=== PATIENT | female | born 1940 | race Caucasian/White ===

== ENCOUNTER → 2017-11-21 08:29 | Outpatient (CLI) | payer MEDICARE, SELFPAY ==
[2017-11-21 09:46] LABS: Abs Immature Grans 0.02 k/cumm (0.0-0.09); Absolute Lymphocyte Count 4.04 k/cumm (1.2-3.4); Absolute Monocyte Count 1.08 k/cumm (0.11-0.7); Absolute Neutrophil Count 5.32 k/cumm (1.2-6.7); Basophils % 0.5; Eosinophils % 4.5; HCT 34.3 % (36.0-46.0); HGB 11.9 g/dL (12.0-15.5); Immature Grans % 0.2; Lymphocytes % 36.7; Mean Corp. HGB Concentration 34.7 g/dL (32.0-36.0); Mean Corpuscular Hemoglobin 35.7 pg (27.0-33.0); Mean Platelet Volume 10.9 fL (8.0-11.0); Monocytes % 9.8; Neutrophils % 48.3; Platelet Count 339 x1000/uL (130-400); RBC 3.33 m/cumm (4.00-5.20); RBC Distribution Width 11.8 % (11.7-14.6); White Blood Cell Count 11.01 k/cumm (4.4-10.8)
[2017-11-21 09:49] LABS: Absolute Basophil Count 0.06 k/cumm (0.0-0.2)
[2017-11-21 10:10] LABS: ALT 37 U/L (12-78); AST 30 U/L (15-37); Albumin 3.7 g/dL (3.4-5.0); Alkaline Phosphatase 130 U/L (46-116); Anion Gap 10.8 mmol/L (3-11); BUN 11 mg/dL (7-18); Bilirubin, Total 0.8 mg/dL (0.2-1.0); CO2 24.2 mmol/L (21.0-32.0); CREATININE 1.13 mg/dL (0.55-1.02); Calcium 8.8 mg/dL (8.5-10.1); Chloride 103 mmol/L (98-107); Cholesterol 164 mg/dL (50-200); Estimated GFR 46.82 (mL/min/1.73m2); Glucose 103 mg/dL (70-100); HDL Cholesterol 52 mg/dL (40-60); LDL CHOLESTEROL 69 mg/dL (<100); Potassium 4.1 mmol/L (3.5-5.1); Sodium 138 mmol/L (136-145); Total Protein 7.2 g/dL (6.4-8.2); Triglyceride 253 mg/dL (30-150)
== END ==
PROVIDERS: PCP Nurse Practitioner Family; Visit Provider Nurse Practitioner Family
DX: D53.9 Nutritional anemia, unspecified (principal); N18.9 Chronic kidney disease, unspecified; E78.5 Hyperlipidemia, unspecified
CPT/HCPCS: 36415; 80053; 80061; 83721; 85025

== ENCOUNTER → 2017-11-21 08:37 | Outpatient (REF) | payer MEDICARE, SELFPAY | LOC: LBN 08:37 | PROVIDERS: PCP Nurse Practitioner Family; Visit Provider Nurse Practitioner Family | DX: Z12.11 Encounter for screening for malignant neoplasm of colon (principal); Z53.8 Procedure and treatment not carried out for other reasons | CPT/HCPCS: 82274 ==

== ENCOUNTER 2018-08-19 10:19 | Outpatient (REF) | payer OTHER, SELFPAY ==
[2018-08-19 12:49] LABS: HCT 43.9 % (36.0-46.0); HGB 14.9 g/dL (12.0-15.5); Mean Corp. HGB Concentration 33.9 g/dL (32.0-36.0); Mean Corpuscular Hemoglobin 33.9 pg (27.0-33.0); Mean Corpuscular Volume 99.8 fL (80-95); Mean Platelet Volume 11.2 fL (8.0-11.0); Platelet Count 341 x1000/uL (130-400); RBC Distribution Width 11.8 % (11.7-14.6); White Blood Cell Count 10.78 k/cumm (4.4-10.8)
[2018-08-19 13:07] LABS: ALT 18 U/L (12-78); AST 22 U/L (15-37); Albumin 3.5 g/dL (3.4-5.0); Alkaline Phosphatase 142 U/L (46-116); Anion Gap 7.9 mmol/L (3-11); BUN 13 mg/dL (7-18); Bilirubin, Total 0.5 mg/dL (0.2-1.0); CO2 28.1 mmol/L (21.0-32.0); CREATININE 1.19 mg/dL (0.55-1.02); Calcium 9.5 mg/dL (8.5-10.1); Chloride 102 mmol/L (98-107); Cholesterol 203 mg/dL (50-200); Estimated GFR 43.98 (mL/min/1.73m2); Glucose 109 mg/dL (70-100); HDL Cholesterol 40 mg/dL (40-60); LDL CHOLESTEROL 97 mg/dL (<100); Potassium 4.6 mmol/L (3.5-5.1); Sodium 138 mmol/L (136-145); Total Protein 7.2 g/dL (6.4-8.2); Triglyceride 358 mg/dL (30-150)
== END 2018-08-19 10:39 ==
LOC: LBN 10:19
PROVIDERS: PCP Nurse Practitioner Family; Visit Provider Nurse Practitioner
DX: K52.9 Noninfective gastroenteritis and colitis, unspecified (principal); E78.00 Pure hypercholesterolemia, unspecified; D64.9 Anemia, unspecified; R42 Dizziness and giddiness
CPT/HCPCS: 80053; 80061; 83721; 85027

== ENCOUNTER 2018-08-27 01:04 | Outpatient (CLI) | payer OTHER, SELFPAY ==
--- NOTE | 2018-08-27 06:54 | DI.US_ITS ---
SYMPTOM/DIAGNOSIS: DIZZINESS, R42, HYPERTENSION, VISION CHANGES, NUMBNESS, STROKE, SMOKER, NE, CAROTID BRUIT, HYPERCHOLESTEROLEMIA CAROTID ULTRASOUND: Routine examination. On the right, there is moderate plaque seen in the carotid bulb and mild plaque in the proximal internal carotid artery. No hemodynamically significant velocity elevations are seen on the right. The right vertebral artery is antegrade. There is intimal thickening seen in the common carotid artery on the right. On the left, there is moderate calcific plaque seen in the mid common carotid artery with mild plaque seen in the carotid bulb and proximal internal carotid artery. No hemodynamically significant velocity elevations are seen on the left. The left vertebral artery is antegrade. IMPRESSION: No evidence of hemodynamically significant cervical carotid artery stenosis.
== END 2018-08-27 01:24 ==
PROVIDERS: PCP Nurse Practitioner Family; Visit Provider Nurse Practitioner
DX: I10 Essential (primary) hypertension; R09.89 Other specified symptoms and signs involving the circulatory and respiratory systems; R42 Dizziness and giddiness; F17.200 Nicotine dependence, unspecified, uncomplicated; H53.9 Unspecified visual disturbance
CPT/HCPCS: 93880

== ENCOUNTER 2018-10-26 09:47 | Emergency (ER) | payer OTHER, SELFPAY ==
[2018-10-26] VITALS (30 sets, daily range): BP systolic 137–163; BP diastolic 52–71; PULSE 71–91; RESP 13–25; TEMP 35.9; O2SAT 81–99
--- NOTE | 2018-10-26 09:51 | W.ED.GENAD ---
Discharge Plan Disposition Patient Disposition: HOME Condition: Improving Discharge Details Chief Complaint: Abd Prob Clinical Impression: Gastroenteritis Primary Care Provider: Yolanda Thomas ED Provider: Maya Guzman Home Meds and New Rx's Prescriptions: New ondansetron HCl [Zofran] 4 mg tablet 4 mg PO QID PRN (Reason: nausea and vomiting) Qty: 6 RF: 0 Continued lisinopril 10 mg tablet 10 mg PO DAILY Qty: 30 RF: 5 albuterol sulfate [ProAir HFA] 90 mcg/actuation HFA aerosol inhaler 2 puff Inhalation Q4H PRN Qty: 1 RF: 8 aspirin [Aspir-81] 81 MG tablet,delayed release (DR/EC) 81 mg PO DAILY Qty: 100 RF: 3 Ensure complete DAILY RF: 0 Varicella-Zoster Ge/As01b/Pf [Shingrix Vial Kit] 50 MCG INJ 50 mcg IM ONCE Qty: 1 RF: 1 Discharge Instructions Instructions: Gastroenteritis (ED) Additional Instructions: Drink plenty of fluids and get plenty of rest. Take the Zofran as needed and directed for any further nausea or vomiting. Follow a bland diet for the next few days including bananas, rice, toast, applesauce, crackers or pretzels. Follow-up with your primary care doctor next week for reevaluation. Return immediately to the emergency department if you develop any worsening or new concerning symptoms. Discharge Data Discharge Physician: Maya Guzman Medical Decision Making 78yo F w/ a h/o CVA, HTN, HLD, COPD, CAD, NC with 2 cardiac stents who presents with nausea, vomiting, diarrhea and lower abdominal pain that started this morning 1 hour after eating can of beef stew. Also admits to dizziness and generalized weakness. She is a daily drinker and has 3 beers daily. BP mildly hypertensive 145/72. Normal HR. Afebrile. Pt appears generally weak but nontoxic. She has diffuse abdominal tenderness but worse in upper abdomen. No focal deficits. Differential diagnoses includes gastroenteritis, food related illness, pancreatitis, biliary colic, cholecystitis, appendicitis, diverticulitis, UTI. Denies chest pain, sob and has c/o diarrhea so doubt ACS. No focal deficits and no c/o unilateral symptoms so doubt cva. EKG notes a rate of 74, sinus, left anterior fascicular block, no acute ST-T wave ischemic changes. Will place an iv, bolus ivf, labs, ua, ct abdomen/pelvis and dose of morphine/zofran. 1130 --patient feels much better. She was able to drink 1 bottle of p.o. contrast and does not want to drink anymore. CT change from IV to p.o. contrast due to reduced GFR. White blood cell count 13. Lactate 1.0. Troponin negative. Lipase negative. 1305 --CT notes findings consistent with enteritis and mild proctitis. Patient denies any rectal pain. Chest x-ray negative for acute disease. Patient feels much better and she is requesting to go home. Instructed on the importance of a bland diet for the next few days while symptoms present. Patient was unable to give a stool sample here. She was sent home with a stool kit to bring back to the lab for evaluation. We will send home with a prescription for Zofran. She is instructed to follow-up with the primary care doctor next week for reevaluation and to return here if worse. She was also informed that the urinalysis noted minimal leukocytes and if urine culture results are positive, she will be notified. As patient has no complaint of fever, bloody diarrhea, or urinary symptoms, I do not see an indication for antibiotics for diarrheal illness or UTI at this time. Medical Records Medical records reviewed: Yes I reviewed the patient's medical records. Imaging Data Radiologic Study: Radiologist's impression: XR Chest, 2 Views EXAM DATE/TIME: 10/26/2018 10:16 AM CLINICAL HISTORY: 78 years old, female; Cough; Additional info: R/O pancreatitis/cholelithiasis/cholecystitis. Po contrast only poor renal function. TECHNIQUE: Imaging protocol: XR of the chest, 2 views. COMPARISON: CR CHEST 2 VIEWS PA,LAT 07/20/2015 12:03 PM FINDINGS: Lungs: Stable moderate COPD . Pleural space: Unremarkable. No pleural effusion. No pneumothorax. Heart/Mediastinum: Unremarkable. No cardiomegaly. Vasculature: Calcification of the thoracic aorta and/or great vessels consistent with atherosclerotic vessel disease. Bones/joints: Unremarkable. IMPRESSION: Stable moderate COPD . CT Abdomen and Pelvis Without Contrast EXAM DATE/TIME: 10/26/2018 11:00 AM CLINICAL HISTORY: 78 years old, female; Abdominal pain; Generalized; Patient HX: Diffuse abdomen pain, worse in upper abdomen. ; Additional info: R/O pancreatitis/cholelithiasis/cholecystitis. Po contrast only poor renal function. TECHNIQUE: Imaging protocol: Axial computed tomography images of the abdomen and pelvis without contrast. Coronal and sagittal reformatted images were created and reviewed. Radiation optimization: All CT scans at this facility use at least one of these dose optimization techniques: automated exposure control; mA and/or kV adjustment per patient size (includes targeted exams where dose is matched to clinical indication); or iterative reconstruction. COMPARISON: CT ABD PELVIS WO CONTRAST 10/29/2015 11:29 AM FINDINGS: Lungs: Mild left basilar atelectasis and/or infiltrate and/or scarring. Liver: Normal. No mass. Gallbladder and bile ducts: Normal. No calcified stones. No ductal dilation. Pancreas: Normal. No ductal dilation. Spleen: Normal. No splenomegaly. Adrenals: Normal. No mass. Kidneys and ureters: Normal. No hydronephrosis. Stomach and bowel: Moderate diverticulosis. Bowel wall thickening in the rectum consistent with mild proctitis. Bowel wall thickening in duodenum and jejunal loops consistent with proximal enteritis. Appendix: No evidence of appendicitis. Intraperitoneal space: Normal. No free air. No significant fluid collection. Vasculature: Calcification of the abdominal aorta and/or iliac arteries consistent with atherosclerotic vessel disease. Severe calcified peripheral vascular disease. Lymph nodes: Normal. No enlarged lymph nodes. Bladder: Unremarkable as visualized. Reproductive: Unremarkable as visualized. Bones/joints: Moderate to severe multilevel spine degenerative changes including degenerative disc disease, spondylosis and facet degenerative changes. Moderate L4-5 central spinal stenosis. Multilevel central spinal stenosis. Soft tissues: Unremarkable. IMPRESSION: 1. Mild left basilar atelectasis and/or infiltrate and/or scarring. 2. Bowel wall thickening in the rectum consistent with mild proctitis. 3. Bowel wall thickening in duodenum and jejunal loops consistent with proximal enteritis. Lab Data Lab results reviewed: Yes I reviewed the patient's lab results. 10/26/18 12:11 Urine - Reflex from Ua Urine Culture - Pending Laboratory Tests Range/Units 10/26/18 10/26/18 10/26/18 09:50 09:50 10:52 WBC (4.4-10.8) k/cumm 13.76 H RBC (4.00-5.20) m/cumm 4.54 Hgb (12.0-15.5) g/dL 16.0 H Hct (36.0-46.0) % 45.8 MCV (80-95) fL 100.9 H MCH (27.0-33.0) pg 35.2 H MCHC (32.0-36.0) g/dL 34.9 RDW (11.7-14.6) % 12.4 Plt Count (130-400) x1000/uL 428 H MPV (8.0-11.0) fL 10.3 Immature Gran % 0.4 Neutrophils % 52.9 Lymphocytes % 35.5 Monocytes % 7.1 Eosinophils % 3.6 Basophils % 0.5 Absolute Neutrophils (1.2-6.7) k/cumm 7.28 H Absolute Lymphocytes (1.2-3.4) k/cumm 4.88 H Absolute Monocytes (0.11-0.7) k/cumm 0.98 H Absolute Eosinophils (0.0-0.7) k/cumm 0.50 Absolute Basophils (0.0-0.2) k/cumm 0.07 Sodium (136-145) mmol/L 134 L Potassium (3.5-5.1) mmol/L 4.2 Chloride (98-107) mmol/L 98 Carbon Dioxide (21.0-32.0) mmol/L 24.7 Anion Gap (3-11) mmol/L 11.3 H BUN (7-18) mg/dL 17 Creatinine (0.55-1.02) mg/dL 1.35 H Estimated GFR/1.73 m2 (mL/min/1.73m2) 38.03 Glucose (70-100) mg/dL 145 H Lactate (0.6-1.4) mmol/l 1.0 Calcium (8.5-10.1) mg/dL 9.0 Magnesium (1.8-2.4) mg/dL 2.3 Total Bilirubin (0.2-1.0) mg/dL 0.5 AST (15-37) U/L 17 ALT (12-78) U/L 17 Alkaline Phosphatase (46-116) U/L 120 H Troponin I (0.00-0.06) ng/mL < 0.05 Total Protein (6.4-8.2) g/dL 7.2 Albumin (3.4-5.0) g/dL 3.4 Lipase (73-393) U/L 134 Urine Color (Yellow) Urine Clarity (Clear) Urine pH (5-8) Ur Specific [place] (1.005-1.025) Urine Protein (Negative) mg/dL Urine Ketones (Negative) mg/dL Urine Blood (Negative) Urine Nitrite (Negative) Urine Bilirubin (Negative) Urine Urobilinogen (Up TO 0.2) EU/dL Ur Leukocyte Esterase (Negative) Urine RBC (0-2) Urine WBC (0-5) HPF Ur Epithelial Cells (Negative) HPF Urine Crystals (Negative) HPF Urine Bacteria (Negative) HPF Urine Casts (Negative) LPF Urine Mucus (Negative) Ur Culture Indicated? Urine Glucose (Negative) mg/dL Range/Units 10/26/18 12:11 WBC (4.4-10.8) k/cumm RBC (4.00-5.20) m/cumm Hgb (12.0-15.5) g/dL Hct (36.0-46.0) % MCV (80-95) fL MCH (27.0-33.0) pg MCHC (32.0-36.0) g/dL RDW (11.7-14.6) % Plt Count (130-400) x1000/uL MPV (8.0-11.0) fL Immature Gran % Neutrophils % Lymphocytes % Monocytes % Eosinophils % Basophils % Absolute Neutrophils (1.2-6.7) k/cumm Absolute Lymphocytes (1.2-3.4) k/cumm Absolute Monocytes (0.11-0.7) k/cumm Absolute Eosinophils (0.0-0.7) k/cumm Absolute Basophils (0.0-0.2) k/cumm Sodium (136-145) mmol/L Potassium (3.5-5.1) mmol/L Chloride (98-107) mmol/L Carbon Dioxide (21.0-32.0) mmol/L Anion Gap (3-11) mmol/L BUN (7-18) mg/dL Creatinine (0.55-1.02) mg/dL Estimated GFR/1.73 m2 (mL/min/1.73m2) Glucose (70-100) mg/dL Lactate (0.6-1.4) mmol/l Calcium (8.5-10.1) mg/dL Magnesium (1.8-2.4) mg/dL Total Bilirubin (0.2-1.0) mg/dL AST (15-37) U/L ALT (12-78) U/L Alkaline Phosphatase (46-116) U/L Troponin I (0.00-0.06) ng/mL Total Protein (6.4-8.2) g/dL Albumin (3.4-5.0) g/dL Lipase (73-393) U/L Urine Color (Yellow) Yellow Urine Clarity (Clear) Clear Urine pH (5-8) 6.0 Ur Specific [place] (1.005-1.025) 1.015 Urine Protein (Negative) mg/dL 30 H Urine Ketones (Negative) mg/dL Negative Urine Blood (Negative) Trace-lysed H Urine Nitrite (Negative) Negative Urine Bilirubin (Negative) Negative Urine Urobilinogen (Up TO 0.2) EU/dL 0.2 Ur Leukocyte Esterase (Negative) Negative Urine RBC (0-2) 0-2 Urine WBC (0-5) HPF 3-5 Ur Epithelial Cells (Negative) HPF Few Urine Crystals (Negative) HPF Negative Urine Bacteria (Negative) HPF Negative Urine Casts (Negative) LPF 3-5 coarse granular Urine Mucus (Negative) Trace Ur Culture Indicated? Yes Urine Glucose (Negative) mg/dL Negative ECG Data Attestation: I personally reviewed and interpreted this ECG (s) as follows: Interpretation: Rate of 74, sinus, left anterior fascicular block. T wave inversion in aVL. No acute ST elevation or depression. QTc 442. QRS 98. HPI General Mode of arrival: wheelchair. Date/Time Provider Initiated Documentation: 10/26/18 09:48. Limitations to Documentation: no limitations. Information obtained by: patient and family. HPI Narrative: Patient is a 78-year-old female with a history of CVA, hypertension, hyperlipidemia, COPD, CAD, NC with 2 cardiac stents who presents with vomiting, diarrhea and abdominal pain that started 1 hour ago. Patient states she awoke at 6 AM and felt fine. She states for breakfast she drank a can of Pepsi and cooked up a can of beef stew. She states she purchased the can of beef stew 1 month ago from the grocery store. She states since the onset of symptoms she vomited twice which consisted mainly of food, and her diarrhea occurred twice which was watery brown. She denies any hematemesis or hematochezia. Last episode of vomiting and diarrhea was at home prior to arrival. She states her abdominal pain is lower, stabbing and sharp and currently 5/10 but denies any radiation of pain. She also admits to generalized weakness and dizziness but denies fever, chest pain, sob, urinary symptoms, recent antibiotics, recent travel, headache. Related Data Home Medications Medication Instructions Recorded Confirmed aspirin [Aspir-81] 81 mg PO DAILY #100 tab 12/28/15 10/26/18 Ensure Complete DAILY 12/26/16 09/05/18 albuterol sulfate HFA 90 2 puff INHALATION Q4H PRN #1 08/19/18 10/26/18 mcg/actuation aerosol inhaler inhaler lisinopril 10 mg tablet 10 mg PO DAILY #30 tab 08/19/18 10/26/18 ondansetron HCl [Zofran] 4 mg PO QID PRN #6 tab 10/26/18 Previous Rx's Medication Instructions Recorded albuterol sulfate HFA 90 2 puff INHALATION Q4H PRN #1 08/19/18 mcg/actuation aerosol inhaler inhaler lisinopril 10 mg tablet 10 mg PO DAILY #30 tab 08/19/18 ondansetron HCl [Zofran] 4 mg PO QID PRN #6 tab 10/26/18 Allergies Allergy/AdvReac Type Severity Reaction Status Date / Time hydrochlorothiazide AdvReac Intermediate dizziness Unverified 10/26/18 09:55 metoprolol AdvReac Intermediate not Unverified 10/26/18 09:55 tolerated nitroglycerin AdvReac Intermediate pounding Unverified 10/26/18 09:55 heart Review of Systems Review of Systems All systems reviewed & are unremarkable except as noted in HPI and below Constitutional Reports as per HPI, Denies chills and Denies fever(s) Eyes Denies blurry vision ENT Denies dizziness, Denies sore throat and Denies throat swelling Cardiovascular Denies chest pain and Denies dyspnea Respiratory Denies cough and Denies dyspnea Gastrointestinal Reports abdominal pain, Reports diarrhea and Reports vomiting Genitourinary Denies hematuria and Denies dysuria Musculoskeletal Denies back pain and Denies numbness Integumentary/Breasts Denies lesions and Denies rash Neurologic Denies dizziness, Denies focal weakness and Denies numbness Allergic/Immunologic Denies throat swelling PFSH Medical History CVA (cerebral vascular accident) (Chronic) ASCVD (arteriosclerotic cardiovascular disease) HLD (hyperlipidemia) HTN (hypertension) Tobacco use disorder Surgical History History of coronary artery stent placement (Chronic) Endoscopy (03/18/13) Family History Mother Stroke Father Stomach cancer Brother No problems noted. Other Diabetes Social History Smoking/Tobacco Use Status: Current every day Tobacco Type: cigarettes Alcohol Intake: current Alcohol Intake frequency: 3 or more drinks per day Drug use: Never Do you feel safe at home: Yes Do you feel safe in your relationship?: Yes Exam Const General: cooperative, healthy appearing and no acute distress HENMT Head: normal to inspection Face and sinus: normal facial exam Eyes General: appearance normal, both eyes and all related structures Pupils: PERRL EOM: EOM intact bilaterally Neck Neck: normal visual inspection and No submandibular swelling Lymphatic: no lymphadenopathy noted Chest Chest: normal inspection of the chest and no tenderness Resp Effort & Inspection: normal respiratory effort and able to speak in complete sentences Auscultation: clear to auscultation bilaterally Cardio Rate: regular rate Rhythm: regular rhythm GI Inspection: normal to inspection and no abdominal wall ecchymosis Palpation: soft, not firm, not rigid and tender (diffusely, worse in LUQ/RUQ) Auscultation: hypoactive bowel sounds Back/Spine/Pelvis Back: no CVA tenderness Thoracic/Lumbar Spine: thoracic and lumbar spine normal to inspection Pelvis: no pain with anterior-posterior compression Skin General skin exam: no rashes or lesions noted Neuro General: alert, awake and oriented x3 Cranial Nerves: CN's II-XI intact bilaterally Cognition: normal cognition Speech: speech normal Motor: muscle tone normal throughout and strength 5/5 throughout Sensory Exam: no sensory deficits noted Extrem General: normal to inspection, full ROM, normal capillary refill, no calf tenderness bilaterally and no edema Psych Appearance: grossly normal Mental Status: mental status grossly normal Speech and Movement: speech and movement normal Affect: normal affect
--- NOTE | 2018-10-26 10:14 | DI.RAD_ITS ---
SYMPTOM/DIAGNOSIS: COUGH, NAUSEA PA AND LATERAL CHEST: The heart is not enlarged. There are changes of COPD and pulmonary scarring. No gross interval change in appearance in comparison with most recent chest film of 07/20/15 except for decreased prominence of a questionable right apical nodule seen at that time. No pleural effusion is seen. No evidence of new consolidation. CONCLUSION: No evidence of acute process.
[2018-10-26] MEDS: Ondansetron 4 MG/2 ML VIAL IVP (10:22)
[2018-10-26] MEDS: Normal Saline 250 ML IV (10:23)
[2018-10-26 10:25] LABS: Abs Immature Grans 0.05 k/cumm (0.0-0.09); Absolute Basophil Count 0.07 k/cumm (0.0-0.2); Absolute Monocyte Count 0.98 k/cumm (0.11-0.7); Basophils % 0.5; Eosinophils % 3.6; HCT 45.8 % (36.0-46.0); Immature Grans % 0.4; Lymphocytes % 35.5; Mean Corp. HGB Concentration 34.9 g/dL (32.0-36.0); Mean Corpuscular Hemoglobin 35.2 pg (27.0-33.0); Mean Corpuscular Volume 100.9 fL (80-95); Mean Platelet Volume 10.3 fL (8.0-11.0); Monocytes % 7.1; Neutrophils % 52.9; Platelet Count 428 x1000/uL (130-400); RBC 4.54 m/cumm (4.00-5.20); RBC Distribution Width 12.4 % (11.7-14.6); White Blood Cell Count 13.76 k/cumm (4.4-10.8)
[2018-10-26 10:27] LABS: Absolute Lymphocyte Count 4.88 k/cumm (1.2-3.4); Absolute Neutrophil Count 7.28 k/cumm (1.2-6.7)
[2018-10-26 10:53] LABS: Albumin 3.4 g/dL (3.4-5.0); Alkaline Phosphatase 120 U/L (46-116); Anion Gap 11.3 mmol/L (3-11); BUN 17 mg/dL (7-18); Bilirubin, Total 0.5 mg/dL (0.2-1.0); CO2 24.7 mmol/L (21.0-32.0); CREATININE 1.35 mg/dL (0.55-1.02); Chloride 98 mmol/L (98-107); Estimated GFR 38.03 (mL/min/1.73m2); Glucose 145 mg/dL (70-100); Lipase 134 U/L (73-393); Magnesium 2.3 mg/dL (1.8-2.4); Potassium 4.2 mmol/L (3.5-5.1); Sodium 134 mmol/L (136-145); Total Protein 7.2 g/dL (6.4-8.2)
[2018-10-26 10:54] LABS: Troponin I < 0.05 ng/mL (0.00-0.06)
[2018-10-26 11:03] LABS: ALT 17 U/L (12-78); AST 17 U/L (15-37)
--- NOTE | 2018-10-26 11:31 | NUR.NOTE ---
Nursing Note: pt resting in bed, no signs of distress. facial expression and body language relaxed. pt reports that her symptoms have completely resolved. Pt able to to tolerate one bottle of contrast. Pt reports that she refuses to drink the second bottle of contrast. No episode of vomiting since admission to ED. notified.
--- NOTE | 2018-10-26 11:51 | DI.CT_ITS ---
SYMPTOM/DIAGNOSIS: DIFFUSE ABD PAIN, WORSE IN UPPER ABDOMEN ABDOMINAL AND PELVIC CT: 10/26 CT examination of the abdomen and pelvis was performed with oral contrast only. Images obtained through the lung bases show areas of bronchiectasis and reticular radiodensities consistent with fibrotic change in the left lung base. A 5 mm triangular right middle lobe intrapulmonary nodule is noted which is unchanged in appearance in comparison with the chest CT of 10/22/2015. The left basilar findings are less prominent than on the previous examination. The liver and spleen are unremarkable in appearance. Abdominal aorta is of normal diameter. Pancreas appears normal. Gallbladder and bile ducts are CT normal. Adrenals and kidneys are unremarkable bilaterally. No urinary tract obstruction or calcification. No significant abdominal wall hernia. No significant abdominal or pelvic adenopathy. MATERIAL LOADER structures ae unremarkable for age. There is bowel wall thickening involving duodenum and proximal jejunum. There is a question of rectal wall thickening. The findings are consistent with proctitis and a proximal enteritis. CONCLUSION: Findings raising the possibility of proctitis and of a proximal small bowel enteritis. Please correlate clinically.
[2018-10-26 12:16] LABS: Bilirubin Negative (Negative); Blood Trace-lysed (Negative); Clarity Clear (Clear); Glucose Negative (Negative); Ketones Negative (Negative); Leukocyte Esterase Negative (Negative); Nitrite Negative (Negative); Specific Gravity 1.015 (1.005-1.025); Urobilinogen 0.2 EU/dL (Up TO 0.2)
--- NOTE | 2018-10-26 12:25 | DI.VRAD_ITS ---
EXAM: CT Abdomen and Pelvis Without Contrast EXAM DATE/TIME: 10/26/2018 11:00 AM CLINICAL HISTORY: 78 years old, female; Abdominal pain; Generalized; Patient HX: Diffuse abdomen pain, worse in upper abdomen. ; Additional info: R/O pancreatitis/cholelithiasis/cholecystitis. Po contrast only poor renal function. TECHNIQUE: Imaging protocol: Axial computed tomography images of the abdomen and pelvis without contrast. Coronal and sagittal reformatted images were created and reviewed. Radiation optimization: All CT scans at this facility use at least one of these dose optimization techniques: automated exposure control; mA and/or kV adjustment per patient size (includes targeted exams where dose is matched to clinical indication); or iterative reconstruction. COMPARISON: CT ABD PELVIS WO CONTRAST 10/29/2015 11:29 AM FINDINGS: Lungs: Mild left basilar atelectasis and/or infiltrate and/or scarring. Liver: Normal. No mass. Gallbladder and bile ducts: Normal. No calcified stones. No ductal dilation. Pancreas: Normal. No ductal dilation. Spleen: Normal. No splenomegaly. Adrenals: Normal. No mass. Kidneys and ureters: Normal. No hydronephrosis. Stomach and bowel: Moderate diverticulosis. Bowel wall thickening in the rectum consistent with mild proctitis. Bowel wall thickening in duodenum and jejunal loops consistent with proximal enteritis. Appendix: No evidence of appendicitis. Intraperitoneal space: Normal. No free air. No significant fluid collection. Vasculature: Calcification of the abdominal aorta and/or iliac arteries consistent with atherosclerotic vessel disease. Severe calcified peripheral vascular disease. Lymph nodes: Normal. No enlarged lymph nodes. Bladder: Unremarkable as visualized. Reproductive: Unremarkable as visualized. Bones/joints: Moderate to severe multilevel spine degenerative changes including degenerative disc disease, spondylosis and facet degenerative changes. Moderate L4-5 central spinal stenosis. Multilevel central spinal stenosis. Soft tissues: Unremarkable. IMPRESSION: 1. Mild left basilar atelectasis and/or infiltrate and/or scarring. 2. Bowel wall thickening in the rectum consistent with mild proctitis. 3. Bowel wall thickening in duodenum and jejunal loops consistent with proximal enteritis. Dictated and Authenticated by: Davidson Maier MD. Ordering:[email or web address] Trejo MD
--- NOTE | 2018-10-26 12:25 | DI.VRAD_ITS ---
EXAM: XR Chest, 2 Views EXAM DATE/TIME: 10/26/2018 10:16 AM CLINICAL HISTORY: 78 years old, female; Cough; Additional info: R/O pancreatitis/cholelithiasis/cholecystitis. Po contrast only poor renal function. TECHNIQUE: Imaging protocol: XR of the chest, 2 views. COMPARISON: CR CHEST 2 VIEWS PA,LAT 07/20/2015 12:03 PM FINDINGS: Lungs: Stable moderate COPD . Pleural space: Unremarkable. No pleural effusion. No pneumothorax. Heart/Mediastinum: Unremarkable. No cardiomegaly. Vasculature: Calcification of the thoracic aorta and/or great vessels consistent with atherosclerotic vessel disease. Bones/joints: Unremarkable. IMPRESSION: Stable moderate COPD . Dictated and Authenticated by: Davidson Maier MD. Ordering:ЕКАТЕРИНА Trejo MD
[2018-10-26 12:34] LABS: Bacteria Negative HPF (Negative); Crystals Negative HPF (Negative); Epithelial Cells Few HPF (Negative); Mucus Trace (Negative); RBC 0-2 (0-2)
[2018-10-26 12:36] LABS: C & S Indicated? Yes; Casts 3-5 Coarse Granular LPF (Negative)
== END 2018-10-26 13:24 | disposition home or self-care (01) ==
PROVIDERS: Emergency Provider Physician Assistant; PCP Nurse Practitioner
DX: K52.9 Noninfective gastroenteritis and colitis, unspecified (principal); I25.10 Atherosclerotic heart disease of native coronary artery without angina pectoris; I44.4 Left anterior fascicular block; I10 Essential (primary) hypertension; J44.9 Chronic obstructive pulmonary disease, unspecified; F17.210 Nicotine dependence, cigarettes, uncomplicated; Z95.5 Presence of coronary angioplasty implant and graft
CPT/HCPCS: 36415; 80053; 83690; 87046; 87505; 93005; 96361; 96374; 96375; 99285; 71046; 74176; 81003; 81015; 83605; 83735; 84484; 85025; 87086; 93010; J2405

== ENCOUNTER → 2019-01-13 12:03 | Outpatient (REF) | payer OTHER, SELFPAY ==
[2019-01-13 13:24] LABS: Anion Gap 8.9 mmol/L (3-11); BUN 13 mg/dL (7-18); CO2 26.1 mmol/L (21.0-32.0); CREATININE 1.13 mg/dL (0.55-1.02); Calcium 9.1 mg/dL (8.5-10.1); Chloride 103 mmol/L (98-107); Estimated GFR 46.69 (mL/min/1.73m2); Glucose 111 mg/dL (70-100); Potassium 4.5 mmol/L (3.5-5.1); Sodium 138 mmol/L (136-145)
== END ==
LOC: LBN 12:03
PROVIDERS: PCP Nurse Practitioner; Visit Provider Nurse Practitioner
DX: I10 Essential (primary) hypertension (principal); N18.9 Chronic kidney disease, unspecified
CPT/HCPCS: 80048

== ENCOUNTER 2020-09-29 02:42 | Outpatient (CLI) | payer MEDICARE, SELFPAY ==
[2020-09-29 09:08] LABS: HGB 13.5 g/dL (11.2-15.7); MCH 34.9 pg (27.0-33.0); MCHC 34.6 % (32.0-36.0); MCV 100.8 fL (80-95); MPV 10.6 fL (8.0-11.0); Platelet Count 357 10^3/uL (130-400); RBC 3.87 10^6/uL (3.93-5.22); RDW 11.8 % (11.7-14.6); RDW-SD 43.4 fL; WBC 11.81 10^3/uL (4.4-10.8)
[2020-09-29 10:37] LABS: ALT 19 U/L (14-59); AST 14 U/L (15-37); Albumin 3.6 g/dL (3.4-5.0); Alkaline Phosphatase 132 U/L (46-116); Anion Gap 11.2 mmol/L (3-11); BUN 19 mg/dL (7-18); Bilirubin, Total 0.6 mg/dL (0.2-1.0); CO2 24.8 mmol/L (21.0-32.0); CREATININE 1.3 mg/dL (0.55-1.02); Calculated LDL 92 mg/dL (<100); Chloride 102 mmol/L (98-107); Cholesterol 204 mg/dL (<200); Estimated GFR 39.51 (mL/min/1.73m2); Glucose 113 mg/dL (74-106); HDL Cholesterol 40 mg/dL (40-60); Potassium 4.1 mmol/L (3.5-5.1); Sodium 138 mmol/L (136-145); Total Protein 7.1 g/dL (6.4-8.2); Triglyceride 360 mg/dL (<150)
== END 2020-09-29 02:43 | disposition home or self-care (01) ==
LOC: LBO 02:43
PROVIDERS: PCP Nurse Practitioner; Visit Provider Nurse Practitioner
DX: E78.5 Hyperlipidemia, unspecified (principal); N18.9 Chronic kidney disease, unspecified; J44.9 Chronic obstructive pulmonary disease, unspecified
CPT/HCPCS: 36415; 80053; 80061; 85027

== ENCOUNTER 2021-01-10 08:59 | Outpatient (CLI) | payer MEDICARE, SELFPAY ==
--- NOTE | 2021-01-10 08:45 | RT.EKG_ITS ---
APPROVED REPORT Exam: Resting ECG Reason for Exam: Dizziness Patient Location: O HR:92 bpm ECG Measurements Heart Rate 92 AXIS NE 185 P 73 QRSd 103 QRS 10 QT 358 T -84 QTc 443 Conclusion Sinus rhythm...normal P axis, V-rate 60- 99 Probable left atrial enlargement...P >50mS, <-0.10mV V1 Low voltage, extremity leads...all extremity leads <0.5mV Anteroseptal infarct, old...Q >40mS, V1-V2
== END 2021-01-10 09:00 | disposition home or self-care (01) ==
LOC: DI.KIM 09:00
PROVIDERS: PCP Nurse Practitioner; Visit Provider Nurse Practitioner
DX: R42 Dizziness and giddiness (principal)
CPT/HCPCS: 93010

== ENCOUNTER 2021-01-10 18:32 | Outpatient (REF) | payer MEDICARE, SELFPAY ==
[2021-01-10 16:52] LABS: Abs Immature Grans 0.04 10^3/uL (0.0-0.06); Absolute Basophil Count 0.06 10^3/uL (0.0-0.2); Absolute Lymphocyte Count 2.61 10^3/uL (1.2-3.4); Absolute Monocyte Count 0.98 10^3/uL (0.1-0.8); Absolute Neutrophil Count 7.56 10^3/uL (1.2-6.7); Basophils % 0.5; Eosinophils % 0.9; HCT 38.7 % (36.0-46.0); HGB 12.9 g/dL (11.2-15.7); Immature Grans % 0.4; MCH 34.1 pg (27.0-33.0); MCHC 33.3 % (32.0-36.0); MCV 102.4 fL (80-95); MPV 12.2 fL (8.0-11.0); Monocytes % 8.6; Neutrophils % 66.6; Nucleated RBC 0 %; Platelet Count 349 10^3/uL (130-400); RBC 3.78 10^6/uL (3.93-5.22); RDW 11.9 % (11.7-14.6); RDW-SD 44.8 fL; WBC 11.35 10^3/uL (4.4-10.8)
[2021-01-10 17:08] LABS: Hemoglobin A1C 5.7 % (<5.7)
[2021-01-10 17:16] LABS: ALT 21 U/L (14-59); AST 16 U/L (15-37); Albumin 3.7 g/dL (3.4-5.0); Alkaline Phosphatase 130 U/L (46-116); Anion Gap 10.5 mmol/L (3-11); BUN 17 mg/dL (7-18); Bilirubin, Total 0.5 mg/dL (0.2-1.0); CO2 27.5 mmol/L (21.0-32.0); CREATININE 1.1 mg/dL (0.55-1.02); Chloride 103 mmol/L (98-107); Estimated GFR 47.91 (mL/min/1.73m2); Ferritin 259 ng/mL (8-252); Glucose 140 mg/dL (74-106); Potassium 3.9 mmol/L (3.5-5.1); Sodium 141 mmol/L (136-145); TSH (W/Ref FT4) 1.69 uIU/mL (0.36-3.74); Total Protein 7.2 g/dL (6.4-8.2)
== END 2021-01-10 18:33 | disposition home or self-care (01) ==
LOC: LBN 18:32
PROVIDERS: PCP Nurse Practitioner; Referring Provider Nurse Practitioner; Visit Provider Nurse Practitioner
DX: I10 Essential (primary) hypertension (principal); R42 Dizziness and giddiness; E11.9 Type 2 diabetes mellitus without complications
CPT/HCPCS: 80053; 82728; 83036; 84443; 85025

== ENCOUNTER 2021-01-31 15:54 | Outpatient (REF) | payer MEDICARE, SELFPAY ==
[2021-02-02 15:35] LABS: COVID-19 RT-PCR UVMMC Result Negative (Negative)
== END 2021-01-31 15:55 | disposition home or self-care (01) ==
LOC: LBN 15:54
PROVIDERS: PCP Nurse Practitioner; Visit Provider Nurse Practitioner
DX: Z20.822 Contact with and (suspected) exposure to COVID-19 (principal); R06.02 Shortness of breath; R09.89 Other specified symptoms and signs involving the circulatory and respiratory systems
CPT/HCPCS: U0003

== ENCOUNTER → 2021-01-31 17:14 | Outpatient (CLI) | payer MEDICARE, SELFPAY ==
--- NOTE | 2021-01-31 15:15 | DI.RAD_ITS ---
Exam(s) XR CHEST 2V PA LATERAL EXAM: XR CHEST 2V PA LATERAL CLINICAL HISTORY: SOB for 2-3 wks, abnl lung sounds, R06.02, R09.89 TECHNIQUE: COMPARISON: CR XR CHEST 2V PA LATERAL from 10/26/2018 FINDINGS: Heart is not enlarged. Lungs appear hyperinflated but generally clear except for some changes of sca rring. No gross interval change in appearance comparison examination of October 2018. No pleural effus ion seen. IMPRESSION: COPD and pulmonary scarring, no evidence of acute process. RADIATION DOSE DELIVERED: Total DLP
== END ==
PROVIDERS: PCP Nurse Practitioner; Visit Provider Nurse Practitioner
DX: R06.02 Shortness of breath (principal); R09.89 Other specified symptoms and signs involving the circulatory and respiratory systems; J44.9 Chronic obstructive pulmonary disease, unspecified
CPT/HCPCS: 71046

== ENCOUNTER 2021-08-26 11:41 | Emergency (ER) | payer MEDICARE, SELFPAY ==
[2021-08-26] VITALS (26 sets, daily range): BP systolic 110–143; BP diastolic 55–96; PULSE 91–107; RESP 14–26; TEMP 36.6; O2SAT 92–100
--- NOTE | 2021-08-26 11:45 | RT.EKG_ITS ---
APPROVED REPORT Exam: Resting ECG Reason for Exam: DIZZINESS Patient Location: E HR:90 bpm ECG Measurements Heart Rate 90 AXIS MS 183 P 48 QRSd 108 QRS -18 QT 375 T 33 QTc 460 Conclusion Sinus rhythm. Probable left atrial enlargement. InferioQ >35mS, II III aVF Anteroseptal Q >40mS Nonspecific st changes
--- NOTE | 2021-08-26 12:00 | DI.RAD_ITS ---
Exam(s) XR PORTABLE CHEST AP EXAM: XR PORTABLE CHEST AP CLINICAL HISTORY: SOB, COPD, PUI. TECHNIQUE: 2D digital imaging was performed. COMPARISON: CR XR CHEST 2V PA LATERAL from 10/26/2018 CR XR CHEST 2V PA LATERAL from 01/31/2021 FINDINGS: Single AP portable view. Heart size is upper normal. The mediastinum is not widened. Increased markings in left lower lobe retrocardiac region have the appearance of vascular markings bu t somewhat more prominent than on the prior January 2021 study. However, without significant change compared to October 2018. Mild increased markings in the lateral left lung base. No pleural effusions. No pneumothorax IMPRESSION: Subtle left lung base findings, possibly early infiltrate. DATA REPOSITORY: RADIATION DOSE DELIVERED: All CT scans at this facility use at least one of these dose optimization techniques: automated exposure control; mA and/or kV adjustment per patient size (includes targeted e xams where dose is matched to clinical indication); or iterative reconstruction.
--- NOTE | 2021-08-26 12:09 | W.ED.GENAD ---
Discharge Plan Disposition Patient Disposition: HOME Condition: Improving Discharge Details Clinical Impression: Acute dehydration, COVID-19 Primary Care Provider: Yolanda Thomas ED Provider: Romaine Briseno Home Meds and New Rx's Prescriptions: Continued cyanocobalamin (vitamin B-12) [Vitamin B-12] 500 mcg tablet 500 mcg PO DAILY 0RF amlodipine 5 mg tablet 5 mg PO DAILY Qty: 90 3RF albuterol sulfate [ProAir HFA] 90 mcg/actuation HFA aerosol inhaler 2 puff Inhalation Q4H PRN Qty: 1 12RF Rx Instructions: as needed for wheezing, dispense with spacer once yearly aspirin [Aspir-81] 81 MG tablet,delayed release (DR/EC) 81 mg PO DAILY Qty: 100 3RF Rx Instructions: prevent cardiovascular events Ensure complete DAILY 0RF Varicella-Zoster Ge/As01b/Pf [Shingrix Vial Kit] 50 MCG INJ 50 mcg IM ONCE Qty: 1 1RF Rx Instructions: 50 mcg IM administered as a 2-dose series at 0 and 2-6 months Discharge Instructions Instructions: Dehydration (ED), COVID-19 (Coronavirus Disease 2019) (ED) Additional Instructions: Your COVID test was confirmed as positive today. Your work-up today revealed again dehydration for which were you given 2 L reading of intravenous fluids. Please go home to rest today. Small, frequent sips of fluids so that you maintain good hydration. Popsicles may aid in staying hydrated as well. Tylenol and/or ibuprofen as needed for aches, pains, fever. You may benefit from daily dose of vitamin C, vitamin D, and Zinc As we discussed, your duration of illness makes you ineligible for treatment with monoclonal antibody. Return to the ER for difficulty breathing or any other acute concerns. Medical Decision Making 81-year-old female presents from home. She states she has been ill with upper respiratory symptoms for 9 days and contact with family members who have been diagnosed with COVID-19. Today she had increased weakness and some mild shortness of breath for which she self referred to the ER. Patient arrives afebrile with a pulse 95, blood pressure 125/62 oxygenating 96% on room air. She appears slightly dehydrated but her exam is otherwise reassuring. IV access established, fluids initiated, patient referred for viral testing, chest x-ray, screening laboratories. She is given dexamethasone and inhaled beta agonist. Given the duration since the onset of symptoms, patient is not a candidate for Paxlovid, and after greater than 7 days of symptoms she is also not a candidate for Bebtelovimab. Laboratories are notable for evidence of significant dehydration with BUN 47, creatinine 2.3, baseline creatinine is 1.1. CBC is reassuring, with white blood cell count of 7.5, hematocrit 39, platelets 219. Chest x-ray with subtle increased markings in the lateral left lung base, possibly early infiltrate per formal reading. Patient observed and improving. She requests DC to home. Repeat labs obtained with improvement. Will arrange for follow-up in clinic for recheck. Patient requested DC to home. I do feel this is appropriate given her clinical and objective improvement. Lab Data Lab results reviewed: Yes I reviewed the patient's lab results. Labs: Laboratory Results - last 24 hr 08/26/21 08/26/21 12:24 12:24 WBC 7.59 RBC 4.08 Hgb 13.6 Hct 39.9 MCV 98 H MCH 33.3 H MCHC 34.1 RDW 12.7 Plt Count 219 MPV 11.8 H Immature Gran % 0.4 Neutrophils % 60.6 Lymphocytes % 29.1 Monocytes % 9.4 Eosinophils % 0.1 Basophils % 0.4 Nucleated RBC % 0.0 Absolute Neutrophils 4.60 Absolute Lymphocytes 2.21 Absolute Monocytes 0.71 Absolute Eosinophils 0.01 Absolute Basophils 0.03 Sodium 137 Potassium 3.5 Chloride 102 Carbon Dioxide 23.3 Anion Gap 11.7 H BUN 47 H Creatinine 2.3 H Estimated GFR/1.73 m2 20.40 Glucose 178 H Calcium 8.1 L Magnesium 2.7 H Total Bilirubin 0.2 AST 36 ALT 29 Alkaline Phosphatase 133 H Total Protein 7.0 Albumin 2.9 L HPI General Mode of arrival: ambulatory. Date/Time Provider Initiated Documentation: 08/26/21 11:43. Limitations to Documentation: no limitations. Information obtained by: patient. History of Present Illness 81 year old F presents to the emergency department with the chief complaint of Positive COVID, sick for 9 days, described as moderate, Quality is described as constant, and is localized to the chest. Patient reports no radiation. Patient started experiencing this day(s) and it has been intermittent. improves with No relieving factors improve symptom(s), No exacerbating factors reported . Patient notes cough, fever/chills, shortness of breath and weakness. Patient did receive the following treatments prior to arrival, none Related Data Home Medications Medication Instructions Recorded Confirmed aspirin 81 mg tablet,delayed 81 mg PO DAILY #100 tab 12/28/15 08/26/21 release (Aspir-) Ensure Complete DAILY 12/26/16 01/31/21 albuterol sulfate 90 mcg/actuation 2 puff INHALATION Q4H PRN #1 09/23/20 08/26/21 aerosol inhaler (ProAir HFA) inhaler amlodipine 5 mg tablet 5 mg PO DAILY #90 tab 09/23/20 08/26/21 cyanocobalamin (vitamin B-12) 500 500 mcg PO DAILY 09/23/20 08/26/21 mcg tablet (Vitamin B-12) Previous Rx's Medication Instructions Recorded albuterol sulfate 90 mcg/actuation 2 puff INHALATION Q4H PRN #1 09/23/20 aerosol inhaler (ProAir HFA) inhaler amlodipine 5 mg tablet 5 mg PO DAILY #90 tab 09/23/20 Allergies Allergy/AdvReac Type Severity Reaction Status Date / Time hydrochlorothiazide AdvReac Intermediate dizziness Verified 08/26/21 12:00 metoprolol AdvReac Intermediate not Verified 08/26/21 12:00 tolerated nitroglycerin AdvReac Intermediate pounding Verified 08/26/21 12:00 heart lisinopril AdvReac cough Verified 08/26/21 12:00 General Stated Complaint: SOB SHANNAN: 2 Review of Systems Narrative: Sick contacts with family members. Not immunized against COVID. Continues to smoke a small amount. Decreased p.o. intake. Nauseated with change to taste. 8 systems reviewed and otherwise negative PFSH All Active Problems (Updated 08/26/21 @ 13:32 by Romaine Briseno MD) Acute dehydration (Acute) COVID-19 (Acute) Abnormal lung sounds (Acute) SOB (shortness of breath) (Acute) Dizziness (Acute) Tobacco abuse (Acute) Depressive disorder (Chronic 02/21/98) GERD (gastroesophageal reflux disease) (Chronic) Macrocytic anemia (Acute) MCV 99-199; ?chronic EtOH Constipation (Acute) ASCVD (arteriosclerotic cardiovascular disease) (Acute 04/14/02) 04/14/02 stent X2; ETT 1999 non-diagnostic, hypertensive; TIA 2006 Abnormal liver function (Acute) abnl GGT, Alk Phos, Albumin Alcohol use disorder (Acute 02/21/98) h/o binge drinking 1997, 2002; chronic anemia, abnl LFT; three drinks/d Centrilobular emphysema (Acute) FEV1 1.57 (63% FVC, 70% pred, 2002) smoker 1/2 PPD; bronchiecasis, mucous pllugging on CT 10/2015 Chronic kidney disease (Acute 11/12/17) Disorder of vitamin B12 (Acute) Gait disorder, B12 level low Esophagitis (Acute 03/18/13) [place] [facility] [place], path few eos; REC PPI H/O ischemic vertebrobasilar artery cerebellar stroke (Acute 11/21/05) 11/2005 cerebellar TIA: dizzy, balance, R weakness; Dr Pimentel History of ASCVD (Acute 04/14/02) RCA tight 04/14/02 stent X2; ETT 1999 non-diagnostic, hypertensive; MPI 11/2003 nl perfusion; TIA 2005 Hyperlipidemia (Acute 03/23/02) Pulmonary emphysema (Acute 10/26/15) Tobacco dependence syndrome (Acute 12/11/11) 1/2 PPD, H/O DECR TO 0-3/D FOR 3MOS TIL RESTARTED 08/2011, stopped 10/2015; current 3/wk COPD (chronic obstructive pulmonary disease) (Chronic) Anemia (Acute) Lung nodules (Chronic) HTN (hypertension) (Chronic) Medical History Abnormal peak total bilirubin level (08/21/16) 129 first elevation 07/2016; with other LFT's normal ASCVD (arteriosclerotic cardiovascular disease) CVA (cerebral vascular accident) 2008? Diarrhea (10/26/15) Gastroenteritis HLD (hyperlipidemia) HTN (hypertension) Hypokalemia Tobacco use disorder Weight loss Surgical History [place]03/18/13[place] [place]: esophagitis, ?eosinophilic History of coronary artery stent placement 2 stents - ? 2008 Family History Mother , CVA at age 76. Stroke Father , stomach CA at age 69. Stomach cancer Brother No problems noted. Other Diabetes Heavy alcohol use Social History Smoking/Tobacco Use Status: Current every day Tobacco Type: cigarettes Smoking risk assessment performed?: Yes Alcohol Intake: current Alcohol Intake frequency: 0-2 drinks per day Drug use: Never Substance use type: does not use Pets and animals: Yes What type of physical activity do you participate in: walking Frequency: daily Do you feel safe at home: Yes Do you feel safe in your relationship?: Yes Exam Narrative Exam Narrative: GEN: awake, alert, oriented 3. Pleasant, well groomed, interactive. HEAD: Normocephalic, atraumatic ENT: Mucous membranes dry, oropharynx unremarkable, External ear exam unremarkable EYES: PERRL, EOMI NECK: Full ROM, no CRISPIN, no menigismus CHEST/RESP: Nontender, clear to auscultation bilateral, no wheeze/rhonchi/rales appreciated CARDIOVASCULAR: Regular with borderline tachycardia, no murmur, rub juliette. 2+ Rad pulse bilateral ABDOMEN: Soft, nontender, no mass. +Bowel sounds EXT: Full ROM, no edema, no rash Neuro: Grossly normal neurologic exam, conversant, interactive. Psych: Speech fluent, thoughts congruent, affect normal Course Vital Signs Vital signs: Vital Signs Temperature 36.6 C 08/26/21 11:55 Pulse 95 H 08/26/21 11:55 Respiratory Rate 22 08/26/21 11:55 Blood Pressure 125/62 08/26/21 11:55 Pulse Oximetry 96 08/26/21 11:55 Temperature 36.6 C 08/26/21 11:55 Temperature Source Temporal Artery Scan 08/26/21 11:55 Pulse 95 H 08/26/21 11:55 Respiratory Rate 22 08/26/21 11:55 Respiratory Effort 08/26/21 11:55 Blood Pressure 125/62 08/26/21 11:55 Blood Pressure Position Supine 08/26/21 11:55 Pulse Oximetry 96 08/26/21 11:55 Oxygen Delivery Method Room Air 08/26/21 11:55 Oxygen Flow Rate 0 08/26/21 11:55 Pain Level 0 08/26/21 11:55
[2021-08-26 12:28] LABS: Abs Immature Grans 0.03 10^3/uL (0.0-0.06); Absolute Basophil Count 0.03 10^3/uL (0.0-0.2); Absolute Eosinophil Count 0.01 10^3/uL (0.0-0.7); Absolute Lymphocyte Count 2.21 10^3/uL (1.2-3.4); Absolute Monocyte Count 0.71 10^3/uL (0.1-0.8); Basophils % 0.4; Eosinophils % 0.1; HCT 39.9 % (36.0-46.0); HGB 13.6 g/dL (11.2-15.7); Immature Grans % 0.4; Lymphocytes % 29.1; MCH 33.3 pg (27.0-33.0); MCHC 34.1 % (32.0-36.0); MCV 98 fL (80-95); MPV 11.8 fL (8.0-11.0); Monocytes % 9.4; Neutrophils % 60.6; Platelet Count 219 10^3/uL (130-400); RBC 4.08 10^6/uL (3.93-5.22); RDW 12.7 % (11.7-14.6); RDW-SD 45.5 fL; WBC 7.59 10^3/uL (4.4-10.8)
[2021-08-26] MEDS: Albuterol/Ipratropium 3 ML UPD VIAL UPD (12:40)
[2021-08-26] MEDS: Dexamethasone 10 MG/ML VIAL IVP (12:40)
[2021-08-26] MEDS: Normal Saline 1,000 ML 1000 ML IV ×2 (12:41→13:41)
[2021-08-26 12:42] LABS: ALT 29 U/L (14-59); AST 36 U/L (15-37); Albumin 2.9 g/dL (3.4-5.0); Alkaline Phosphatase 133 U/L (46-116); Anion Gap 11.7 mmol/L (3-11); BUN 47 mg/dL (7-18); Bilirubin, Total 0.2 mg/dL (0.2-1.0); CO2 23.3 mmol/L (21.0-32.0); CREATININE 2.3 mg/dL (0.55-1.02); Calcium 8.1 mg/dL (8.5-10.1); Chloride 102 mmol/L (98-107); Glucose 178 mg/dL (74-106); Magnesium 2.7 mg/dL (1.8-2.4); Potassium 3.5 mmol/L (3.5-5.1); Sodium 137 mmol/L (136-145)
[2021-08-26 14:00] LABS: Influenza A PCR Negative (Negative); Influenza B PCR Negative (Negative); RSV PCR Negative (Negative)
[2021-08-26 14:06] LABS: COVID-19 PCR Positive (Negative); Source Nasopharynx
--- NOTE | 2021-08-26 14:18 | NUR.NOTE ---
Nursing Note: Assisted pt to bedside commode x2, IVF completed, labs re-drawn per order. Pt given PO fluids per provider request, pt w/o complaints at this time.
[2021-08-26 14:34] LABS: Anion Gap 14.1 mmol/L (3-11); BUN 44 mg/dL (7-18); CO2 20.9 mmol/L (21.0-32.0); CREATININE 1.9 mg/dL (0.55-1.02); Calcium 7.2 mg/dL (8.5-10.1); Chloride 108 mmol/L (98-107); Estimated GFR 25.44 (mL/min/1.73m2); Glucose 129 mg/dL (74-106); Potassium 3.2 mmol/L (3.5-5.1); Sodium 143 mmol/L (136-145)
--- NOTE | 2021-08-26 14:51 | NUR.NOTE ---
Nursing Note: PT INFO FAXED TO PCP TO BE SEEN IN A WEEK TO RECHECK KIDNEY FUNCTION. DONALD, ED
== END 2021-08-26 15:03 | disposition home or self-care (01) ==
PROVIDERS: Emergency Provider Emergency Medicine; PCP Nurse Practitioner
DX: U07.1 COVID-19 (principal); E86.0 Dehydration; R06.02 Shortness of breath; R42 Dizziness and giddiness
CPT/HCPCS: 36415; 80048; 80053; 87637; 93005; 96361; 96374; 99284; 71045; 83735; 85025; 93010; J1100; J7620

== ENCOUNTER 2021-08-31 08:12 | Emergency (ER) | payer MEDICARE, SELFPAY ==
[2021-08-31] VITALS (36 sets, daily range): BP systolic 114–153; BP diastolic 54–79; PULSE 85–131; RESP 10–31; TEMP 36.7–36.8; O2SAT 92–100
--- NOTE | 2021-08-31 08:15 | RT.EKG_ITS ---
APPROVED REPORT Exam: Resting ECG Reason for Exam: dizzy Patient Location: E HR:92 bpm ECG Measurements Heart Rate 92 AXIS WA 175 P 70 QRSd 100 QRS -38 QT 374 T 70 QTc 463 Conclusion Sinus rhythm...normal P axis, V-rate 60- 99 Probable left atrial enlargement...P >50mS, <-0.10mV V1 Inferior infarct, old...Q >35mS, II III aVF Anterior infarct, old...Q >40mS, abnormal ST-T, V2-V5 Nonspecific T abnormalities, lateral leads...T <-0.10mV, I aVL V5 V6
[2021-08-31] MEDS: Lactated Ringers 1,000 ML 1000 ML IV (08:40)
[2021-08-31 08:44] LABS: BE (Venous) 2 mmol/L (-2-3); HCO3 (Venous) 27 mmol/L (23-28); O2 Sat (Venous) 45 %; TCO2 (Venous) 25 mmol/L (24-29); pCO2 (Venous) 46 mmHg (41-51); pH (Venous) 7.38 (7.31-7.41); pO2 (Venous) 25 mmHg
[2021-08-31 08:47] LABS: Lactate 1.3 mmol/L (0.6-1.4)
[2021-08-31 08:52] LABS: Abs Immature Grans 0.16 10^3/uL (0.0-0.06); Absolute Basophil Count 0.05 10^3/uL (0.0-0.2); Absolute Eosinophil Count 0.04 10^3/uL (0.0-0.7); Absolute Lymphocyte Count 2.56 10^3/uL (1.2-3.4); Absolute Monocyte Count 1.03 10^3/uL (0.1-0.8); Basophils % 0.4; Eosinophils % 0.3; HCT 41.8 % (36.0-46.0); HGB 14.1 g/dL (11.2-15.7); Immature Grans % 1.3; MCH 33.3 pg (27.0-33.0); MCHC 33.7 % (32.0-36.0); MCV 99 fL (80-95); MPV 11.9 fL (8.0-11.0); Monocytes % 8.4; Neutrophils % 68.6; Platelet Count 283 10^3/uL (130-400); RBC 4.24 10^6/uL (3.93-5.22); RDW-SD 46.8 fL; WBC 12.21 10^3/uL (4.4-10.8)
[2021-08-31 08:54] LABS: Absolute Neutrophil Count 8.38 10^3/uL (1.2-6.7)
[2021-08-31 09:08] LABS: ALT 29 U/L (14-59); AST 36 U/L (15-37); Albumin 2.8 g/dL (3.4-5.0); Alkaline Phosphatase 140 U/L (46-116); Anion Gap 10.8 mmol/L (3-11); BUN 19 mg/dL (7-18); Bilirubin, Total 0.5 mg/dL (0.2-1.0); CO2 26.2 mmol/L (21.0-32.0); CREATININE 1.5 mg/dL (0.55-1.02); Calcium 8.6 mg/dL (8.5-10.1); Chloride 101 mmol/L (98-107); Estimated GFR 33.41 (mL/min/1.73m2); Glucose 105 mg/dL (74-106); Magnesium 2.5 mg/dL (1.8-2.4); Potassium 3.5 mmol/L (3.5-5.1); Sodium 138 mmol/L (136-145); Total Protein 7.5 g/dL (6.4-8.2); Troponin I < 50 ng/L (<or=60)
[2021-08-31 09:19] LABS: Bilirubin Negative (Negative); Blood Negative (Negative); Clarity Clear (Clear); Glucose Negative (Negative); Ketones Negative (Negative); Leukocyte Esterase Negative (Negative); Nitrite Negative (Negative); Urobilinogen 0.2 EU/dL (Up TO 0.2)
--- NOTE | 2021-08-31 09:25 | DI.RAD_ITS ---
Exam(s) XR PORTABLE CHEST AP EXAM: XR PORTABLE CHEST AP CLINICAL HISTORY: cough, shortness of breath TECHNIQUE: 2D digital imaging was performed. COMPARISON: CR XR CHEST 2V PA LATERAL from 01/31/2021 CR XR PORTABLE CHEST AP from 08/26/2021 FINDINGS: Stable appearance of left lower infiltrate. No new infiltrates. Underlying fibrotic changes. No pl eural abnormality seen. HEART: Normal. AORTA: Normal. BONES: Unremarkable for age. Soft tissues: Unremarkable. IMPRESSION: Stable appearance of left lower lobe infiltrate. DATA REPOSITORY: RADIATION DOSE DELIVERED:
[2021-08-31 09:26] LABS: Bacteria Few HPF (Negative); Crystals Negative HPF (Negative); Epithelial Cells Moderate HPF (Negative); RBC 0-2 HPF (0-2); WBC 0-2 HPF (0-5)
[2021-08-31 09:27] LABS: C & S Indicated? No/Sq. Contamination; Casts 3-5 Hyaline LPF (Negative); Mucus Trace (Negative)
[2021-08-31] MEDS: methylPREDNISolone SUCC 125 MG VIAL 80 MG IVP (09:37)
[2021-08-31] MEDS: Albuterol/Ipratropium 3 ML UPD VIAL UPD (09:38)
--- NOTE | 2021-08-31 10:39 | ED.GENADUL_ITS ---
Discharge Plan Disposition Patient Disposition: HOME Condition: Stable Discharge Details Clinical Impression: Pneumonia, COVID, Acute exacerbation of chronic obstructive pulmonary disease, Dehydration Primary Care Provider: Yolanda Thomas ED Provider: Shelley Salgado Home Meds and New Rx's Prescriptions: New doxycycline hyclate 100 mg capsule 100 mg PO BID Qty: 14 0RF prednisone 20 mg tablet 40 mg PO DAILY Qty: 10 0RF Continued cyanocobalamin (vitamin B-12) [Vitamin B-12] 500 mcg tablet 500 mcg PO DAILY 0RF amlodipine 5 mg tablet 5 mg PO DAILY Qty: 90 3RF albuterol sulfate [ProAir HFA] 90 mcg/actuation HFA aerosol inhaler 2 puff Inhalation Q4H PRN Qty: 1 12RF Rx Instructions: as needed for wheezing, dispense with spacer once yearly aspirin [Aspir-81] 81 MG tablet,delayed release (DR/EC) 81 mg PO DAILY Qty: 100 3RF Rx Instructions: prevent cardiovascular events Ensure complete DAILY 0RF Discharge Instructions Instructions: Dehydration (ED), COPD (Chronic Obstructive Pulmonary Disease) (ED), Viral Syndrome (ED), Pneumonia (ED) Additional Instructions: Please follow-up with your primary care physician in 24 hours for reevaluation Take the doxycycline as prescribed, you received a dose today you will need to take your next dose at 11:00 tonight, just take it prior to bed Take your albuterol inhaler, 2 puffs every 4-6 hours while awake Take prednisone, you received a dose today you will not need to take your next dose until tomorrow Stay hydrated, have small amounts of fluids regularly, this is very important in ensures recommended as well (May also have outpatient reassessment Please return immediately should you have new or worsening complaints I recommend using extra time going from sitting to standing and ambulating slowly You have requested discharge home, I think it is fine with your cautious and return if your symptoms worsen is reasonable at this time Referrals: Yolanda Thomas, [employer] [Primary Care Provider] - Discharge Data Discharge Date/Time-TO BE ENTERED AT DEPARTURE: 08/31/21 11:10 Medical Decision Making Patient is alert, oriented, decisional capacity, she has a left lower lobe infiltrate for which I will place her on the cyclin, it is unclear whether or not this is viral or bacterial although she does have leukocytosis 12,000 She was given a dose of Solu-Medrol in the emergency department and placed on prednisone She has albuterol inhaler at home She is feeling mildly improved still slightly lightheaded at time of reassessment, she has not orthostatic, she is ambulatory without hypoxia in the emergency department I did consider admission, however patient preference is to go home and feels comfortable discharge home, she has not hypoxic, she has not needed oxygen in the emergency department, she is fully alert, oriented, of decisional capacity and lives with her son and daughter were available. I think at this time she is stable for discharge home Return precautions discussed and patient expressed understanding Medical Records Medical records reviewed: Yes I reviewed the patient's medical records. Lab Data Lab results reviewed: Yes I reviewed the patient's lab results. ECG Data Prior ECG tracings: available for review HPI General Date/Time Provider Initiated Documentation: 08/31/21 08:24 . HPI Narrative: This 81-year-old female with history of coronary artery disease, CVA, diarrhea, hypertension, hyperlipidemia, COPD presents with reports of COVID-19 diagnosis approximately 5 days ago. She has been sick 6 days prior to her diagnosis and was not a candidate for monoclonal antibody treatment reportedly. She was significantly dehydrated when she was evaluated previously but did feel improved and requested discharge home at time of last visit. She presents today secondary to lightheadedness. She denies any fever or chills. She has had persistent cough that she feels is worsening. She has some mild shortness of breath. She has a COPD history. She denies any urinary symptoms. She denies any falls or injuries. She is able to eat and drink but she has had decreased interest. She denies any urinary symptoms. Related Data Home Medications Medication Instructions Recorded Confirmed aspirin 81 mg tablet,delayed 81 mg PO DAILY #100 tab 12/28/15 08/31/21 release (Aspir-) Ensure Complete DAILY 12/26/16 01/31/21 albuterol sulfate 90 mcg/actuation 2 puff INHALATION Q4H PRN #1 09/23/20 08/31/21 aerosol inhaler (ProAir HFA) inhaler amlodipine 5 mg tablet 5 mg PO DAILY #90 tab 09/23/20 08/31/21 cyanocobalamin (vitamin B-12) 500 500 mcg PO DAILY 09/23/20 08/31/21 mcg tablet (Vitamin B-12) doxycycline hyclate 100 mg capsule 100 mg PO BID #14 cap 08/31/21 prednisone 20 mg tablet 40 mg PO DAILY #10 tab 08/31/21 Previous Rx's Medication Instructions Recorded albuterol sulfate 90 mcg/actuation 2 puff INHALATION Q4H PRN #1 09/23/20 aerosol inhaler (ProAir HFA) inhaler amlodipine 5 mg tablet 5 mg PO DAILY #90 tab 09/23/20 doxycycline hyclate 100 mg capsule 100 mg PO BID #14 cap 08/31/21 prednisone 20 mg tablet 40 mg PO DAILY #10 tab 08/31/21 Allergies Allergy/AdvReac Type Severity Reaction Status Date / Time hydrochlorothiazide AdvReac Intermediate dizziness Verified 08/31/21 08:39 metoprolol AdvReac Intermediate not Verified 08/31/21 08:39 tolerated nitroglycerin AdvReac Intermediate pounding Verified 08/31/21 08:39 heart lisinopril AdvReac cough Verified 08/31/21 08:39 General Stated Complaint: Dizzy/Sync SHANNAN: 3 Review of Systems Narrative: Review of systems obtained x7 and negative aside from indication in [facility] PFSH All Active Problems (Updated 08/31/21 @ 10:46 by RAÚL Do) Acute dehydration (Acute) COVID-19 (Acute) Pneumonia (Acute) COVID (Acute) Acute exacerbation of chronic obstructive pulmonary disease (Acute) Dehydration (Acute) Abnormal lung sounds (Acute) SOB (shortness of breath) (Acute) Dizziness (Acute) Tobacco abuse (Acute) Depressive disorder (Chronic 02/21/98) GERD (gastroesophageal reflux disease) (Chronic) Macrocytic anemia (Acute) MCV 99-199; ?chronic EtOH Constipation (Acute) ASCVD (arteriosclerotic cardiovascular disease) (Acute 04/14/02) 04/14/02 stent X2; ETT 1999 non-diagnostic, hypertensive; TIA 2005 Abnormal liver function (Acute) abnl GGT, Alk Phos, Albumin Alcohol use disorder (Acute 02/21/98) h/o binge drinking 1997, 2002; chronic anemia, abnl LFT; three drinks/d Centrilobular emphysema (Acute) FEV1 1.57 (63% FVC, 70% pred, 2002) smoker 1/2 PPD; bronchiecasis, mucous pllugging on CT 10/2015 Chronic kidney disease (Acute 11/12/17) Disorder of vitamin B12 (Acute) Gait disorder, B12 level low Esophagitis (Acute 03/18/13) EGD and dilatation [facility] [place]; esophagitis, path few eos; REC PPI H/O ischemic vertebrobasilar artery cerebellar stroke (Acute 11/21/05) 11/2005 cerebellar TIA: dizzy, balance, R weakness; Dr Pimentel History of ASCVD (Acute 04/14/02) RCA tight 04/14/02 stent X2; ETT 1999 non-diagnostic, hypertensive; MPI 11/2003 nl perfusion; TIA 2005 Hyperlipidemia (Acute 03/23/02) Pulmonary emphysema (Acute 10/26/15) Tobacco dependence syndrome (Acute 12/11/11) 1/2 PPD, H/O DECR TO 0-3/D FOR 3MOS TIL RESTARTED 08/2011, stopped 10/2015; current 3/wk COPD (chronic obstructive pulmonary disease) (Chronic) Anemia (Acute) Lung nodules (Chronic) HTN (hypertension) (Chronic) Medical History Abnormal peak total bilirubin level (08/21/16) 129 first elevation 07/2016; with other LFT's normal ASCVD (arteriosclerotic cardiovascular disease) CVA (cerebral vascular accident) 2008? Diarrhea (10/26/15) Gastroenteritis HLD (hyperlipidemia) HTN (hypertension) Hypokalemia Tobacco use disorder Weight loss Surgical History Endoscopy (03/18/13) [facility] [place] EGD & dilatation: esophagitis, ?eosinophilic History of coronary artery stent placement 2 stents - ? 2008 Family History Mother , CVA at age 76. Stroke Father , stomach CA at age 69. Stomach cancer Brother No problems noted. Other Diabetes Heavy alcohol use Social History Smoking/Tobacco Use Status: Current every day Tobacco Type: cigarettes Smoking risk assessment performed?: Yes Alcohol Intake: current Alcohol Intake frequency: 0-2 drinks per day Drug use: Never Substance use type: does not use Pets and animals: Yes What type of physical activity do you participate in: walking Frequency: daily Do you feel safe at home: Yes Do you feel safe in your relationship?: Yes Exam Const General: cooperative, comfortable and frail appearing HENMT Other: Moist mucous membranes, uvula midline Eyes Pupils: PERRL Resp Effort & Inspection: normal respiratory effort Other: Rhonchi noted No respiratory distress Cardio Rate: regular rate Rhythm: regular rhythm GI Inspection: normal to inspection Other: Nontender abdominal exam Skin General skin exam: no rashes or lesions noted Neuro General: patient alert and patient oriented x3 Extrem General: normal to inspection Other: Nontender calves, neurovascularly intact Course Vital Signs Vital signs: Vital Signs Temperature 36.8 C 08/31/21 08:28 Pulse 90 08/31/21 08:28 Respiratory Rate 20 08/31/21 08:28 Blood Pressure 131/70 08/31/21 08:28 Pulse Oximetry 94 08/31/21 08:28 Temperature 36.8 C 08/31/21 08:28 Temperature Source Oral 08/31/21 08:28 Pulse 107 H 08/31/21 10:16 Pulse 110 H 08/31/21 10:16 Respiratory Rate 25 H 08/31/21 10:16 Respiratory Effort Non-Labored 08/31/21 08:41 Respiratory Depth Normal 08/31/21 08:41 Respiratory Pattern Normal 08/31/21 08:41 Blood Pressure 114/57 L 08/31/21 10:16 Blood Pressure Mean 72 08/31/21 10:16 Blood Pressure Position Sitting 08/31/21 08:28 Pulse Oximetry 94 08/31/21 10:16 Oxygen Delivery Method Room Air 08/31/21 08:28 Oxygen Flow Rate 0 08/31/21 08:28 Pain Level 5 08/31/21 08:28 Lab/Test Results Lab/Test Results: Laboratory Tests Range/Units 08/31/21 08/31/21 08/31/21 08:32 08:32 08:32 WBC (4.4-10.8) 10^3/uL 12.21 H RBC (3.93-5.22) 10^6/uL 4.24 Hgb (11.2-15.7) g/dL 14.1 Hct (36.0-46.0) % 41.8 MCV (80-95) fL 99 H MCH (27.0-33.0) pg 33.3 H MCHC (32.0-36.0) % 33.7 RDW (11.7-14.6) % 13.0 Plt Count (130-400) 10^3/uL 283 MPV (8.0-11.0) fL 11.9 H Immature Gran % 1.3 Neutrophils % 68.6 Lymphocytes % 21.0 Monocytes % 8.4 Eosinophils % 0.3 Basophils % 0.4 Nucleated RBC % (0.0-0.3) % 0.0 Absolute Neutrophils (1.2-6.7) 10^3/uL 8.38 H Absolute Lymphocytes (1.2-3.4) 10^3/uL 2.56 Absolute Monocytes (0.1-0.8) 10^3/uL 1.03 H Absolute Eosinophils (0.0-0.7) 10^3/uL 0.04 Absolute Basophils (0.0-0.2) 10^3/uL 0.05 VBG pH (7.31-7.41) VBG pCO2 (41-51) mmHg VBG pO2 mmHg VBG HCO3 (23-28) mmol/L VBG Total CO2 (24-29) mmol/L VBG O2 Saturation % VBG Base Excess (-2-3) mmol/L VBG Lactate (0.6-1.4) mmol/L 1.3 Sodium (136-145) mmol/L 138 Potassium (3.5-5.1) mmol/L 3.5 Chloride (98-107) mmol/L 101 Carbon Dioxide (21.0-32.0) mmol/L 26.2 Anion Gap (3-11) mmol/L 10.8 BUN (7-18) mg/dL 19 H Creatinine (0.55-1.02) mg/dL 1.5 H Estimated GFR/1.73 m2 (mL/min/1.73m2) 33.41 Glucose (74-106) mg/dL 105 Calcium (8.5-10.1) mg/dL 8.6 Magnesium (1.8-2.4) mg/dL 2.5 H Total Bilirubin (0.2-1.0) mg/dL 0.5 AST (15-37) U/L 36 ALT (14-59) U/L 29 Alkaline Phosphatase (46-116) U/L 140 H Troponin I (<or=60) ng/L < 50 Total Protein (6.4-8.2) g/dL 7.5 Albumin (3.4-5.0) g/dL 2.8 L Urine Color (Yellow) Urine Clarity (Clear) Urine pH (5-8) Ur Specific [place] (1.005-1.025) Urine Protein (Negative) mg/dL Urine Ketones (Negative) mg/dL Urine Blood (Negative) Urine Nitrite (Negative) Urine Bilirubin (Negative) Urine Urobilinogen (Up TO 0.2) EU/dL Ur Leukocyte Esterase (Negative) Urine RBC (0-2) HPF Urine WBC (0-5) HPF Ur Epithelial Cells (Negative) HPF Urine Crystals (Negative) HPF Urine Bacteria (Negative) HPF Urine Casts (Negative) LPF Urine Mucus (Negative) Ur Culture Indicated? Urine Glucose (Negative) mg/dL Range/Units 08/31/21 08/31/21 08:32 09:00 WBC (4.4-10.8) 10^3/uL RBC (3.93-5.22) 10^6/uL Hgb (11.2-15.7) g/dL Hct (36.0-46.0) % MCV (80-95) fL MCH (27.0-33.0) pg MCHC (32.0-36.0) % RDW (11.7-14.6) % Plt Count (130-400) 10^3/uL MPV (8.0-11.0) fL Immature Gran % Neutrophils % Lymphocytes % Monocytes % Eosinophils % Basophils % Nucleated RBC % (0.0-0.3) % Absolute Neutrophils (1.2-6.7) 10^3/uL Absolute Lymphocytes (1.2-3.4) 10^3/uL Absolute Monocytes (0.1-0.8) 10^3/uL Absolute Eosinophils (0.0-0.7) 10^3/uL Absolute Basophils (0.0-0.2) 10^3/uL VBG pH (7.31-7.41) 7.38 VBG pCO2 (41-51) mmHg 46 VBG pO2 mmHg 25 VBG HCO3 (23-28) mmol/L 27 VBG Total CO2 (24-29) mmol/L 25 VBG O2 Saturation % 45 VBG Base Excess (-2-3) mmol/L 2 VBG Lactate (0.6-1.4) mmol/L Sodium (136-145) mmol/L Potassium (3.5-5.1) mmol/L Chloride (98-107) mmol/L Carbon Dioxide (21.0-32.0) mmol/L Anion Gap (3-11) mmol/L BUN (7-18) mg/dL Creatinine (0.55-1.02) mg/dL Estimated GFR/1.73 m2 (mL/min/1.73m2) Glucose (74-106) mg/dL Calcium (8.5-10.1) mg/dL Magnesium (1.8-2.4) mg/dL Total Bilirubin (0.2-1.0) mg/dL AST (15-37) U/L ALT (14-59) U/L Alkaline Phosphatase (46-116) U/L Troponin I (<or=60) ng/L Total Protein (6.4-8.2) g/dL Albumin (3.4-5.0) g/dL Urine Color (Yellow) Yellow Urine Clarity (Clear) Clear Urine pH (5-8) 6.0 Ur Specific [place] (1.005-1.025) 1.020 Urine Protein (Negative) mg/dL 100 H Urine Ketones (Negative) mg/dL Negative Urine Blood (Negative) Negative Urine Nitrite (Negative) Negative Urine Bilirubin (Negative) Negative Urine Urobilinogen (Up TO 0.2) EU/dL 0.2 Ur Leukocyte Esterase (Negative) Negative Urine RBC (0-2) HPF 0-2 Urine WBC (0-5) HPF 0-2 Ur Epithelial Cells (Negative) HPF Moderate Urine Crystals (Negative) HPF Negative Urine Bacteria (Negative) HPF Few Urine Casts (Negative) LPF 3-5 Hyaline Urine Mucus (Negative) Trace Ur Culture Indicated? No/Sq. Contamination Urine Glucose (Negative) mg/dL Negative PAWSS Have you Been Recently Intoxicated or Drunk Within the Last 30 days?: No Have you Ever Experienced Previous Episodes of Alcohol Withdrawal?: No Have you ever Experienced Withdrawal Seizures?: No Have you ever Experienced Delirium Tremens(DT)s?: No Have you ever undergone Alcohol Rehabilitation Treatment (i.e, inpt ot outpatient treatment programs)?: No Have you ever Experienced Blackouts?: No Have you ever Combined Alcohol with other Downers within the last 90 days?: No Have you ever Combined Alcohol with any other Substance of Abuse during the last 90 days?: No Positive Blood Alcohol level on Presentation? [PCS.BAL]: No Evidence of Increased Autonomic Activity (i.e. HR>120, tremor, sweating, agitation, nausea)?: No Result: 0
[2021-08-31] MEDS: Doxycycline Hyclate 100 MG CAP PO (10:57)
== END 2021-08-31 11:10 | disposition home or self-care (01) ==
PROVIDERS: Emergency Provider Physician Assistant; PCP Nurse Practitioner
DX: J18.9 Pneumonia, unspecified organism (principal); U07.1 COVID-19; J44.1 Chronic obstructive pulmonary disease with (acute) exacerbation; E86.0 Dehydration
CPT/HCPCS: 36415; 80053; 82805; 93005; 94640; 96361; 96374; 99284; 71045; 81003; 81015; 83605; 83735; 84484; 85025; 93010; J2930; J7620

== ENCOUNTER 2021-11-17 15:12 | Outpatient (REF) | payer MEDICARE, SELFPAY ==
[2021-11-17 16:04] LABS: Abs Immature Grans 0.04 10^3/uL (0.0-0.06); Absolute Basophil Count 0.08 10^3/uL (0.0-0.2); Absolute Eosinophil Count 0.19 10^3/uL (0.0-0.7); Absolute Lymphocyte Count 3.74 10^3/uL (1.2-3.4); Absolute Neutrophil Count 6.16 10^3/uL (1.2-6.7); Basophils % 0.7; Eosinophils % 1.7; HCT 35.5 % (36.0-46.0); HGB 12.5 g/dL (11.2-15.7); Immature Grans % 0.4; Lymphocytes % 33.1; MCH 34.9 pg (27.0-33.0); MCHC 35.2 % (32.0-36.0); MCV 99 fL (80-95); MPV 11.5 fL (8.0-11.0); Monocytes % 9.6; Neutrophils % 54.5; Platelet Count 391 10^3/uL (130-400); RBC 3.58 10^6/uL (3.93-5.22); RDW 12.6 % (11.7-14.6); RDW-SD 45.7 fL
[2021-11-17 16:09] LABS: Absolute Monocyte Count 1.08 10^3/uL (0.1-0.8)
[2021-11-17 16:14] LABS: Iron 70 ug/dL (50-170)
[2021-11-17 16:40] LABS: ALT 16 U/L (14-59); AST 16 U/L (15-37); Albumin 3.6 g/dL (3.4-5.0); Alkaline Phosphatase 113 U/L (46-116); Anion Gap 9.5 mmol/L (3-11); BUN 17 mg/dL (7-18); Bilirubin, Total 0.4 mg/dL (0.2-1.0); CO2 24.5 mmol/L (21.0-32.0); CREATININE 1.2 mg/dL (0.55-1.02); Calcium 8.8 mg/dL (8.5-10.1); Chloride 102 mmol/L (98-107); Estimated GFR 43.23 (mL/min/1.73m2); Glucose 109 mg/dL (74-106); Potassium 3.8 mmol/L (3.5-5.1); Sodium 136 mmol/L (136-145); TSH (W/Ref FT4) 2.04 uIU/mL (0.36-3.74); Total Protein 6.7 g/dL (6.4-8.2); Vitamin B12 1076 pg/mL (193-986)
== END 2021-11-17 15:13 | disposition home or self-care (01) ==
LOC: LBN 15:12
PROVIDERS: PCP Nurse Practitioner; Visit Provider Nurse Practitioner
DX: D53.9 Nutritional anemia, unspecified (principal); I10 Essential (primary) hypertension; R63.4 Abnormal weight loss; F32.89 Other specified depressive episodes; J45.909 Unspecified asthma, uncomplicated
CPT/HCPCS: 80053; 82607; 83540; 84443; 85025

== ENCOUNTER 2022-07-31 14:02 | Outpatient (REF) | payer MEDICARE, SELFPAY ==
[2022-07-31 15:19] LABS: Abs Immature Grans 0.03 10^3/uL (0.0-0.06); Absolute Basophil Count 0.07 10^3/uL (0.0-0.2); Absolute Eosinophil Count 0.18 10^3/uL (0.0-0.7); Absolute Monocyte Count 0.86 10^3/uL (0.1-0.8); Absolute Neutrophil Count 6.24 10^3/uL (1.2-6.7); Basophils % 0.7; Eosinophils % 1.7; HCT 37.4 % (36.0-46.0); HGB 12.7 g/dL (11.2-15.7); Immature Grans % 0.3; Lymphocytes % 30.9; MCH 33.5 pg (27.0-33.0); MCV 99 fL (80-95); MPV 11.4 fL (8.0-11.0); Monocytes % 8.1; Neutrophils % 58.3; Platelet Count 334 10^3/uL (130-400); RBC 3.79 10^6/uL (3.93-5.22); RDW-SD 43.3 fL; WBC 10.68 10^3/uL (4.4-10.8)
[2022-07-31 15:35] LABS: ALT 18 U/L (14-59); AST 20 U/L (15-37); Albumin 3.5 g/dL (3.4-5.0); Alkaline Phosphatase 117 U/L (46-116); Anion Gap 6.6 mmol/L (3-11); BUN 21 mg/dL (7-18); Bilirubin, Total 0.3 mg/dL (0.2-1.0); CO2 29.4 mmol/L (21.0-32.0); CREATININE 1.3 mg/dL (0.55-1.02); Calcium 8.8 mg/dL (8.5-10.1); Chloride 101 mmol/L (98-107); Estimated GFR 41.57 (mL/min/1.73m2); Glucose 167 mg/dL (74-106); Potassium 3.4 mmol/L (3.5-5.1); Sodium 137 mmol/L (136-145); Total Protein 7.1 g/dL (6.4-8.2)
== END 2022-07-31 14:03 | disposition home or self-care (01) ==
LOC: LBN 14:02
PROVIDERS: PCP Nurse Practitioner; Visit Provider Nurse Practitioner
DX: I10 Essential (primary) hypertension (principal); R63.4 Abnormal weight loss; N18.9 Chronic kidney disease, unspecified
CPT/HCPCS: 80053; 85025

== ENCOUNTER 2023-06-12 09:11 | Outpatient (REF) | payer MEDICARE, SELFPAY ==
[2023-06-12 14:57] LABS: Abs Immature Grans 0.03 10^3/uL (0.0-0.06); Absolute Basophil Count 0.08 10^3/uL (0.0-0.2); Absolute Eosinophil Count 0.22 10^3/uL (0.0-0.7); Absolute Lymphocyte Count 3.06 10^3/uL (1.2-3.4); Absolute Monocyte Count 0.81 10^3/uL (0.1-0.8); Absolute Neutrophil Count 5.37 10^3/uL (1.2-6.7); Basophils % 0.8; Eosinophils % 2.3; HCT 36.3 % (36.0-46.0); HGB 12.2 g/dL (11.2-15.7); Immature Grans % 0.3; MCH 33.8 pg (27.0-33.0); MCHC 33.6 % (32.0-36.0); MCV 101 fL (80-95); MPV 11.4 fL (8.0-11.0); Monocytes % 8.5; Neutrophils % 56.1; Platelet Count 310 10^3/uL (130-400); RBC 3.61 10^6/uL (3.93-5.22); RDW 11.9 % (11.7-14.6); RDW-SD 44.4 fL; WBC 9.57 10^3/uL (4.4-10.8)
[2023-06-12 15:27] LABS: ALT 14 U/L (14-59); AST 18 U/L (15-37); Albumin 3.5 g/dL (3.4-5.0); Alkaline Phosphatase 108 U/L (46-116); Anion Gap 7.5 mmol/L (3-11); BUN 25 mg/dL (7-18); Bilirubin, Total 0.5 mg/dL (0.2-1.0); CO2 27.5 mmol/L (21.0-32.0); CREATININE 1.4 mg/dL (0.55-1.02); Calcium 9.2 mg/dL (8.5-10.1); Chloride 104 mmol/L (98-107); Glucose 207 mg/dL (74-106); Potassium 4.6 mmol/L (3.5-5.1); Sodium 139 mmol/L (136-145); TSH (W/Ref FT4) 2.34 uIU/mL (0.36-3.74); Total Protein 7.3 g/dL (6.4-8.2)
== END 2023-06-12 09:12 | disposition home or self-care (01) ==
LOC: LBN 09:11
PROVIDERS: PCP Nurse Practitioner; Visit Provider Nurse Practitioner
DX: I10 Essential (primary) hypertension (principal); R63.4 Abnormal weight loss; J45.909 Unspecified asthma, uncomplicated
CPT/HCPCS: 80053; 84443; 85025

== ENCOUNTER 2023-10-25 17:38 | Emergency (ER) | payer MEDICARE, SELFPAY ==
--- NOTE | 2023-10-25 17:30 | RT.EKG_ITS ---
APPROVED REPORT Exam: Resting ECG Reason for Exam: SOB Patient Location: E HR:107 bpm ECG Measurements Heart Rate 107 AXIS OK 177 P 80 QRSd 101 QRS 15 QT 321 T -90 QTc 429 Conclusion Sinus tachycardia [address] changes
[2023-10-25 17:43] VITALS: BP 185/72; PULSE 108; RESP 30; TEMP 37.6
[2023-10-25 17:56] VITALS: PULSE 104; RESP 39
[2023-10-25 18:00] VITALS: PULSE 106; RESP 15
--- NOTE | 2023-10-25 18:00 | DI.RAD_ITS ---
Exam(s) XR CHEST 2V PA LATERAL EXAM: XR CHEST 2V PA LATERAL CLINICAL HISTORY: shortness of breath, fever. TECHNIQUE: 2D digital imaging was performed. COMPARISON: Prior chest x-ray 08/31/2021. FINDINGS: 2 views: Heart size is normal. The mediastinum is not widened. Bilateral hyperinflation again noted. No infiltrates in the right lung. Is no oval density in the l ateral left lung base measuring approximately 3 by 1.8 cm. Possible nodule. No associated pleural e ffusion. IMPRESSION: Left lung base nodular infiltrate as above. Recommend follow-up CT scan. DATA REPOSITORY: RADIATION DOSE DELIVERED:
[2023-10-25 18:10] VITALS: PULSE 103; RESP 38
[2023-10-25 18:13] VITALS: O2SAT 93
[2023-10-25 18:27] LABS: Lactate 1.4 mmol/L (0.6-1.4)
[2023-10-25 18:28] LABS: BE (Venous) -3 mmol/L (-2-3); HCO3 (Venous) 22 mmol/L (23-28); O2 Sat (Venous) 92 %; TCO2 (Venous) 20 mmol/L (24-29); pCO2 (Venous) 35 mmHg (41-51); pO2 (Venous) 58 mmHg
[2023-10-25] MEDS: methylPREDNISolone SUCC 125 MG VIAL IVP (18:28)
[2023-10-25] MEDS: Normal Saline 1,000 ML 1000 ML IV (18:30)
[2023-10-25 18:37] LABS: Abs Immature Grans 0.03 10^3/uL (0.0-0.06); Absolute Basophil Count 0.04 10^3/uL (0.0-0.2); Absolute Lymphocyte Count 0.89 10^3/uL (1.2-3.4); Absolute Monocyte Count 0.91 10^3/uL (0.1-0.8); Absolute Neutrophil Count 4.74 10^3/uL (1.2-6.7); Basophils % 0.6 %; HCT 33.7 % (36.0-46.0); HGB 11.4 g/dL (11.2-15.7); Immature Grans % 0.5 %; Lymphocytes % 13.5 %; MCH 33.5 pg (27.0-33.0); MCHC 33.8 % (32.0-36.0); MCV 99 fL (80-95); MPV 11.6 fL (8.0-11.0); Monocytes % 13.8 %; Neutrophils % 71.6 %; Platelet Count 263 10^3/uL (130-400); RDW 12.6 % (11.7-14.6); RDW-SD 45.4 fL; WBC 6.61 10^3/uL (4.4-10.8)
[2023-10-25 18:47] LABS: ALT 15 U/L (14-59); AST 15 U/L (15-37); Albumin 3.3 g/dL (3.4-5.0); Alkaline Phosphatase 98 U/L (46-116); Anion Gap 9.9 mmol/L (3-11); BUN 24 mg/dL (7-18); Bilirubin, Total 0.58 mg/dL (0.2-1.0); CO2 23.1 mmol/L (21.0-32.0); CREATININE 1.5 mg/dL (0.55-1.02); Calcium 8.9 mg/dL (8.5-10.1); Chloride 104 mmol/L (98-107); Estimated GFR 34.58 (mL/min/1.73m2); Glucose 114 mg/dL (74-106); Potassium 4.3 mmol/L (3.5-5.1); Sodium 137 mmol/L (136-145); Total Protein 7.4 g/dL (6.4-8.2)
[2023-10-25 18:50] LABS: Troponin I 83 ng/L (< or =60)
[2023-10-25 19:03] LABS: Procalcitonin < 0.1 ng/mL
[2023-10-25 19:07] LABS: Influenza A PCR Negative (Negative); Influenza B PCR Negative (Negative); RSV PCR Negative (Negative)
[2023-10-25 19:09] LABS: COVID-19 PCR Positive (Negative); Source NASOPHARYNX
--- NOTE | 2023-10-25 19:28 | DI.VRAD_ITS ---
PROCEDURE INFORMATION: Exam: XR Chest Exam date and time: 10/25/2023 6:53 PM Age: 83 years old Clinical indication: Fever and shortness of breath; Patient HX: Shortness of breath, fever TECHNIQUE: Imaging protocol: Radiologic exam of the chest. Views: 2 views. Total images: 2 COMPARISON: CR XR PORTABLE CHEST AP 08/31/2021 9:10 AM FINDINGS: Lungs: Lungs are clear without consolidation. Hyperinflation. Pleural spaces: No pleural effusion or pneumothorax. Heart/Mediastinum: Unremarkable. Bones/joints: Unremarkable. IMPRESSION: 1. No acute findings/pneumonia. 2. COPD. Dictated and Authenticated by: Romaine Gomez MD. Ordering:RACH Rosa MD
--- NOTE | 2023-10-25 19:32 | ED.GENADUL_ITS ---
Discharge Plan Disposition Patient Disposition: Against Medical Advice Discharge Details Clinical Impression: COVID-19, Elevated troponin Primary Care Provider: Yolanda Thomas ED Provider: Shelley Salgado Home Meds and New Rx's Prescriptions: New Paxlovid 150-100 mg tablets,dose pack See Rx Instructions .ROUTE .COMPLEX Qty: 20 0RF Rx Instructions: orally per package directions prednisone 20 mg tablet 40 mg PO ONCE Qty: 10 0RF Continued cyanocobalamin (vitamin B-12) [Vitamin B-12] 500 mcg tablet 500 mcg PO DAILY ascorbate calcium (vitamin C) 500 mg tablet 500 mg PO DAILY omeprazole 20 mg tablet,delayed release (DR/EC) 20 mg PO DAILY PRN aspirin 325 mg tablet 325 mg PO DAILY Ensure complete See Rx Instructions PO DAILY Rx Instructions: one container orally daily; albuterol sulfate 2.5 mg /3 mL (0.083 %) solution for nebulization 2.5 mg inhalation Q4H PRN (Reason: shortness of breath or wheezing) Qty: 180 3RF albuterol sulfate [ProAir HFA] 90 mcg/actuation HFA aerosol inhaler 2 puff Inhalation Q4H PRN Qty: 1 12RF Rx Instructions: as needed for wheezing, dispense with spacer once yearly amlodipine 5 mg tablet 5 mg PO DAILY Patient Comments: TAKE ONE TABLET BY MOUTH EVERY DAY Discharge Instructions Instructions: COVID-19 ED Additional Instructions: Take only half a pill of your amlodipine daily as there is an interaction with Paxlovid Take the prednisone as prescribed You are leaving AGAINST MEDICAL ADVICE, you have COVID-19 and an elevated troponin level, this is very serious Make sure you have at least eight 8 ounce glasses of water daily and use your inhalers as prescribed Please return immediately should you have new or worsening complaints Referrals: Yolanda Thomas, GISELA [Primary Care Provider] - 1 day HPI General Date/Time Provider Initiated Documentation: 10/25/23 17:54 . HPI Narrative: 83-year-old female with multiple comorbidities including CVA, chronic kidney disease, emphysema presents with report of cough, wheeze, shortness of breath, weakness. Symptoms started yesterday. Patient feels warm. Family members are sick with similar symptoms reportedly. States she is short of breath. Denies any pain complaints including specifically no chest pain. Denies any known falls or injuries. Smokes tobacco. Related Data Home Medications Medication Instructions Recorded Confirmed Ensure Complete See Rx Instructions PO DAILY 12/26/16 10/25/23 cyanocobalamin (vitamin B-12) 500 500 mcg PO DAILY 09/23/20 10/25/23 mcg tablet (Vitamin B-12) ascorbate calcium (vitamin C) 500 500 mg PO DAILY 07/31/22 10/25/23 mg tablet omeprazole 20 mg tablet,delayed 20 mg PO DAILY PRN 01/15/23 10/25/23 release albuterol sulfate 2.5 mg/3 mL 2.5 mg (3 mL) inhalation Q4H PRN 04/09/23 10/25/23 (0.083 %) solution for nebulization shortness of breath or wheezing #180 mL albuterol sulfate 90 mcg/actuation 2 puff inhalation Q4H PRN ##1 04/09/23 10/25/23 aerosol inhaler (ProAir HFA) aspirin 325 mg tablet 325 mg PO DAILY 09/12/23 10/25/23 amlodipine 5 mg tablet 5 mg PO DAILY 10/25/23 10/25/23 nirmatrelvir 150 mg-ritonavir 100 See Rx Instructions PO .COMPLEX 10/25/23 mg tablets in a dose pack #20 dose pk (Paxlovid) prednisone 20 mg tablet 40 mg (2 x 20 mg) PO ONCE #10 tabs 10/25/23 Previous Rx's Medication Instructions Recorded albuterol sulfate 2.5 mg/3 mL 2.5 mg (3 mL) inhalation Q4H PRN 04/09/23 (0.083 %) solution for nebulization shortness of breath or wheezing #180 mL albuterol sulfate 90 mcg/actuation 2 puff inhalation Q4H PRN ##1 04/09/23 aerosol inhaler (ProAir HFA) nirmatrelvir 150 mg-ritonavir 100 See Rx Instructions PO .COMPLEX 10/25/23 mg tablets in a dose pack #20 dose pk (Paxlovid) prednisone 20 mg tablet 40 mg (2 x 20 mg) PO ONCE #10 tabs 10/25/23 Allergies Allergy/AdvReac Type Severity Reaction Status Date / Time hydrochlorothiazide AdvReac Intermediate dizziness Verified 10/25/23 17:51 metoprolol AdvReac Intermediate not Verified 10/25/23 17:51 tolerated nitroglycerin AdvReac Intermediate pounding Verified 10/25/23 17:51 heart lisinopril AdvReac cough Verified 10/25/23 17:51 General Stated Complaint: SOB SHANNAN: 3 Exam Narrative Exam Narrative: Alert, oriented, frail-appearing, wheezes throughout, no respiratory distress, cardiac rate and rhythm within normal limits, no abdominal tenderness alert and oriented x 4, no peripheral edema distal pulses intact Course Vital Signs Vital signs: Vital Signs Temperature 37.6 C H 10/25/23 17:43 Pulse 108 H 10/25/23 17:43 Respiratory Rate 30 H 10/25/23 17:43 Blood Pressure 185/72 H 10/25/23 17:43 Temperature 37.6 C H 10/25/23 17:43 Temperature Source Temporal Artery Scan 10/25/23 17:43 Pulse 108 H 10/25/23 17:43 Pulse 103 H 10/25/23 18:10 Respiratory Rate 38 H 10/25/23 18:10 Respiratory Effort Normal, Non-Labored 10/25/23 17:51 Blood Pressure 185/72 H 10/25/23 17:43 Blood Pressure Position Supine 10/25/23 17:43 Pulse Oximetry 93 10/25/23 18:13 Oxygen Delivery Method Room Air 10/25/23 18:13 Oxygen Flow Rate 0 10/25/23 18:13 Pain Level 0 10/25/23 17:43 Lab/Test Results Lab/Test Results: 10/25/23 18:22 Blood Blood Culture - Pending 10/25/23 18:20 Blood Blood Culture - Pending Laboratory Tests Range/Units 10/25/23 10/25/23 18:00 18:20 WBC (4.4-10.8) 10^3/uL 6.61 RBC (3.93-5.22) 10^6/uL 3.40 L Hgb (11.2-15.7) g/dL 11.4 Hct (36.0-46.0) % 33.7 L MCV (80-95) fL 99 H MCH (27.0-33.0) pg 33.5 H MCHC (32.0-36.0) % 33.8 RDW (11.7-14.6) % 12.6 Plt Count (130-400) 10^3/uL 263 MPV (8.0-11.0) fL 11.6 H Immature Gran % % 0.5 Neutrophils % % 71.6 Lymphocytes % % 13.5 Monocytes % % 13.8 Eosinophils % % 0.0 Basophils % % 0.6 Nucleated RBC % (0.0-0.3) % 0.0 Absolute Neutrophils (1.2-6.7) 10^3/uL 4.74 Absolute Lymphocytes (1.2-3.4) 10^3/uL 0.89 L Absolute Monocytes (0.1-0.8) 10^3/uL 0.91 H Absolute Eosinophils (0.0-0.7) 10^3/uL 0.00 Absolute Basophils (0.0-0.2) 10^3/uL 0.04 VBG pH (7.31-7.41) 7.40 VBG pCO2 (41-51) mmHg 35 L VBG pO2 mmHg 58 VBG HCO3 (23-28) mmol/L 22 L VBG Total CO2 (24-29) mmol/L 20 L VBG O2 Saturation % 92 VBG Base Excess (-2-3) mmol/L -3 L VBG Lactate (0.6-1.4) mmol/L 1.4 Sodium (136-145) mmol/L 137 Potassium (3.5-5.1) mmol/L 4.3 Chloride (98-107) mmol/L 104 Carbon Dioxide (21.0-32.0) mmol/L 23.1 Anion Gap (3-11) mmol/L 9.9 BUN (7-18) mg/dL 24 H Creatinine (0.55-1.02) mg/dL 1.5 H Est GFR (CKD-EPI 2020) (mL/min/1.73m2) 34.58 Glucose (74-106) mg/dL 114 H Calcium (8.5-10.1) mg/dL 8.9 Total Bilirubin (0.2-1.0) mg/dL 0.58 AST (15-37) U/L 15 ALT (14-59) U/L 15 Alkaline Phosphatase (46-116) U/L 98 Troponin I (< or =60) ng/L 83 H* Total Protein (6.4-8.2) g/dL 7.4 Albumin (3.4-5.0) g/dL 3.3 L Procalcitonin ng/mL < 0.1 COVID-19 Source NASOPHARYNX SARS-CoV-2 (PCR) (Negative) Positive A Influenza Type A (PCR) (Negative) Negative Influenza Type B (PCR) (Negative) Negative RSV (PCR) (Negative) Negative Medical Decision Making 83-year-old female frail-appearing, no respiratory distress, mild tachycardia, febrile temperature of 101.9 in the emergency department taken by me, BUN of 24, creatinine 1.5, not significantly changed from prior glucose of 114, troponin of 83, elevated, EKG without acute ischemia, COVID-positive, recommendation for repeat troponin and admission to the hospital. Family became very agitated and requested to leave after we told the patient that she was COVID-positive and that she must wear a mask. They were quite rude and verbally abusive to nursing staff stating numerous expletives. Both patient's son and patient are fully alert, oriented, and of decisional capacity. Patient is ambulatory and not hypoxic. I did discuss the risk associated with an elevated troponin in the presence of COVID-19 and recommendation for hospitalization, however they are requesting to leave AGAINST MEDICAL ADVICE. They understand that her back is at risk for further deterioration and even . She is ambulatory with slow steady gait at time of discharge home. They declined any additional intervention at this time. Although CT may be beneficial. Patient was given a prescription for renally dosed Paxlovid and prednisone for home and return precautions were reviewed and patient expressed understanding. Quality:SDOH Health Related Social Needs: No Data to Display PFSH All Active Problems (Updated 10/25/23 @ 19:36 by RAÚL Do) Elevated troponin (Acute) COVID-19 (Acute) COVID-19 (Acute) COVID (Acute) Abnormal lung sounds (Acute) SOB (shortness of breath) (Acute) Dizziness (Acute) Tobacco abuse (Acute) Depressive disorder (Chronic 02/21/98) GERD (gastroesophageal reflux disease) (Chronic) Macrocytic anemia (Acute) MCV 99-199; ?chronic EtOH Constipation (Acute) ASCVD (arteriosclerotic cardiovascular disease) (Acute 04/14/02) 04/14/02 stent X2; ETT 2000 non-diagnostic, hypertensive; TIA 2005 Abnormal liver function (Acute) abnl GGT, Alk Phos, Albumin Alcohol use disorder (Acute 02/21/98) h/o binge drinking 1997, 2002; chronic anemia, abnl LFT; three drinks/d Centrilobular emphysema (Acute) FEV1 1.57 (63% FVC, 70% pred, 2002) smoker 1/2 PPD; bronchiecasis, mucous pllugging on CT 10/2015 Chronic kidney disease (Acute 11/12/17) Disorder of vitamin B12 (Acute) Gait disorder, B12 level low Esophagitis (Acute 03/18/13) EGD and dilatation [facility] [place], [place]; esophagitis, path few eos; REC PPI H/O ischemic vertebrobasilar artery cerebellar stroke (Acute 11/21/05) 11/2005 cerebellar TIA: dizzy, balance, R weakness; Dr Pimentel History of ASCVD (Acute 04/14/02) RCA tight 04/14/02 stent X2; ETT 1999 non-diagnostic, hypertensive; MPI 11/2003 nl perfusion; TIA 2005 Hyperlipidemia (Acute 03/23/02) Pulmonary emphysema (Acute 10/26/15) Tobacco dependence syndrome (Acute 12/11/11) 1/2 PPD, H/O DECR TO 0-3/D FOR 3MOS TIL RESTARTED 08/2011, stopped 10/2015; current 3/wk COPD (chronic obstructive pulmonary disease) (Chronic) Anemia (Acute) Lung nodules (Chronic) HTN (hypertension) (Chronic) Medical History Abnormal peak total bilirubin level (08/21/16) 129 first elevation 07/2016; with other LFT's normal ASCVD (arteriosclerotic cardiovascular disease) CVA (cerebral vascular accident) 2008? Diarrhea (10/26/15) Gastroenteritis HLD (hyperlipidemia) HTN (hypertension) Hypokalemia Tobacco use disorder Weight loss Surgical History Endoscopy (03/18/13) Dr [facility] [place], [place] EGD & dilatation: esophagitis, ?eosinophilic History of coronary artery stent placement 2 stents - ? 2008 Family History Mother , CVA at age 76. Stroke Father , stomach CA at age 69. Stomach cancer Brother No problems noted. Other Diabetes Heavy alcohol use Social History (Updated 11/17/21 @ 13:28 by Carolin Anthony LPN) Smoking/Tobacco Use Status: Current every day Tobacco Type: cigarettes Quit status: considering quitting Smoking risk assessment performed?: Yes Alcohol Intake: current Alcohol Intake frequency: 0-2 drinks per day Alcohol type: beer Drug use: Never Substance use type: does not use Household members: none Housing: house Number of Children: 2 number of grandchildren: 4 Communication Needs: Corrective Lenses Do you need help understanding health information?: Rarely current occupation: retired from [employer] Pets and animals: Yes How often do you talk on the phone with friends or family?: three or more times per week Panel score (0-1 are the most socially isolated patients): 1 What type of physical activity do you participate in: walking Frequency: daily Seatbelt use: always Helmet use: No Drive intox 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
[2023-10-25 19:59] VITALS: BP 162/85; PULSE 105; RESP 28; TEMP 37.4; O2SAT 96
--- NOTE | 2023-10-27 08:13 | NUR.NOTE ---
Accessed chart to determine number of EKG orders to match [employer]. Duplicate order cancelled. Nursing Note:
== END 2023-10-26 02:04 | disposition left against medical advice (07) ==
PROVIDERS: Emergency Provider Physician Assistant; PCP Nurse Practitioner
DX: U07.1 COVID-19 (principal); R79.89 Other specified abnormal findings of blood chemistry; R06.02 Shortness of breath; R05.1 Acute cough; Z53.29 Procedure and treatment not carried out because of patient's decision for other reasons; Z11.52 Encounter for screening for COVID-19
CPT/HCPCS: 80053; 82805; 84145; 87040; 87637; 93005; 96361; 96374; 96375; 99284; 71046; 83605; 84484; 85025; 93010; 99283; J0131; J2919

== ENCOUNTER 2023-11-04 09:44 | Emergency (ER) | payer MEDICARE, SELFPAY ==
[2023-11-04] VITALS (28 sets, daily range): BP systolic 114–170; BP diastolic 52–65; PULSE 85–109; RESP 15–33; TEMP 36.7; O2SAT 95–100
--- NOTE | 2023-11-04 09:45 | RT.EKG_ITS ---
APPROVED REPORT Exam: Resting ECG Reason for Exam: shortness of breathe Patient Location: E HR:101 bpm ECG Measurements Heart Rate 101 AXIS NV 129 P 23 QRSd 100 QRS -11 QT 315 T 258 QTc 409 Conclusion Sinus tachycardia...rate> 99 Low voltage, extremity leads...all extremity leads <0.5mV Nonspecific repol abnormality, diffuse leads...ST dep, T flat/neg, ant/lat/inf Sinus tachycardia rate of 101 with interventricular conduction delay. NV and QTc within normal limit s. Low voltage. Left axis deviation no signs of LVH. Left lateral chest wall ST segment depression s. T wave flattening in aVL. Appears similar compared to prior dated earlier this month. No acute injury pattern.
--- NOTE | 2023-11-04 10:11 | ED.GENADUL_ITS ---
Discharge Plan Disposition Patient Disposition: Home Condition: Stable Discharge Details Clinical Impression: Pneumonia Primary Care Provider: Yolanda Thomas ED Provider: Alvarez Bautista Home Meds and New Rx's Prescriptions: New amoxicillin-pot clavulanate 875-125 mg tablet 1 tab PO BID 5 Days Qty: 10 0RF azithromycin 250 mg tablet 250 mg PO DAILY 4 Days Qty: 4 0RF Rx Instructions: start on day 2 of therapy prednisone 20 mg tablet 40 mg PO DAILY 5 Days Qty: 10 0RF Continued cyanocobalamin (vitamin B-12) [Vitamin B-12] 500 mcg tablet 500 mcg PO DAILY ascorbate calcium (vitamin C) 500 mg tablet 500 mg PO DAILY aspirin 325 mg tablet 325 mg PO DAILY Ensure complete See Rx Instructions PO DAILY Rx Instructions: one container orally daily; albuterol sulfate 2.5 mg /3 mL (0.083 %) solution for nebulization 2.5 mg inhalation Q4H PRN (Reason: shortness of breath or wheezing) Qty: 180 3RF Patient Comments: didn't take recently albuterol sulfate [ProAir HFA] 90 mcg/actuation HFA aerosol inhaler 2 puff Inhalation Q4H PRN Qty: 1 12RF Rx Instructions: as needed for wheezing, dispense with spacer once yearly amlodipine 5 mg tablet 5 mg PO DAILY Patient Comments: TAKE ONE TABLET BY MOUTH EVERY DAY Paxlovid 150-100 mg tablets,dose pack See Rx Instructions .ROUTE .COMPLEX Qty: 20 0RF Rx Instructions: orally per package directions prednisone 20 mg tablet 40 mg PO ONCE Qty: 10 0RF Discharge Instructions Instructions: Azithromycin (Systemic), Community-acquired pneumonia in adults, Amoxicillin and Clavulanate, Prednisone Additional Instructions: You were seen in the emergency department for your continued cough and mild shortness of breath in the setting of chronic COPD and recovering from COVID-19. Your chest x-ray shows you may have developed a secondary bacterial pneumonia, I have sent you 2 different antibiotics to [facility] in [place]. We did start you on the azithromycin already in the emergency department so start that antibiotic tomorrow, start the Augmentin today. I have also sent to a burst of prednisone to help with COPD exacerbation. Please continue your at home breathing treatments, your oxygen levels were stable in the emergency department here today, take Tylenol and ibuprofen as needed for body aches and pains, try to increase your fluid and food intake. Please return to the emergency department for any severe increase in lethargy, inability to tolerate p.o. intake, worsening respiratory distress, chest pain or other emergent concerns. Referrals: Yolanda Thomas NP [Primary Care Provider] - Discharge Data Discharge Date/Time-TO BE ENTERED AT DEPARTURE: 11/04/23 12:14 HPI General Date/Time Provider Initiated Documentation: 11/04/23 09:51 . HPI Narrative: 83 year-old female presents to ED today by POV/ambulating with a chief complaint of continued shortness of breath after being seen on 10/24 for Covid-19. Quality described as cough, congestion- states she has breathing treatments at home but uses infrequently- was offered Paxlovid but was unable to fill for some reason- son states pharmacy was out of Paxlovid and prednisone- made no attempt to have us send it elsewhere, no radiation to chest pain, syncope, slurred speech, confusion, nausea/vomiting/diarrhea. Severity is described as moderate. Palliating factors include nothing specific attempted. Provoking factors include nothing specific. Events leading up to the incident/Associated Symptoms: Patient has COPD at baseline, does not use home O2, frail. Patient not anticoagulated. Related Data Home Medications ?Medication ?Instructions ?Recorded ?Confirmed Ensure Complete See Rx Instructions PO DAILY 12/26/16 11/04/23 cyanocobalamin (vitamin B-12) 500 500 mcg PO DAILY 09/23/20 11/04/23 mcg tablet (Vitamin B-12) ascorbate calcium (vitamin C) 500 500 mg PO DAILY 07/31/22 11/04/23 mg tablet albuterol sulfate 2.5 mg/3 mL 2.5 mg (3 mL) inhalation Q4H PRN 04/09/23 11/04/23 (0.083 %) solution for nebulization shortness of breath or wheezing #180 mL albuterol sulfate 90 mcg/actuation 2 puff inhalation Q4H PRN ##1 04/09/23 11/04/23 aerosol inhaler (ProAir HFA) aspirin 325 mg tablet 325 mg PO DAILY 09/12/23 11/04/23 amlodipine 5 mg tablet 5 mg PO DAILY 10/25/23 11/04/23 nirmatrelvir 150 mg-ritonavir 100 See Rx Instructions PO .COMPLEX 10/25/23 11/04/23 mg tablets in a dose pack #20 dose pk (Paxlovid) prednisone 20 mg tablet 40 mg (2 x 20 mg) PO ONCE #10 tabs 10/25/23 11/04/23 amoxicillin 875 mg-potassium 1 tab PO BID 5 days #10 tabs 11/04/23 clavulanate 125 mg tablet azithromycin 250 mg tablet 250 mg PO DAILY 4 days #4 tabs 11/04/23 prednisone 20 mg tablet 40 mg (2 x 20 mg) PO DAILY 5 days 11/04/23 #10 tabs Previous Rx's ?Medication ?Instructions ?Recorded albuterol sulfate 2.5 mg/3 mL 2.5 mg (3 mL) inhalation Q4H PRN 04/09/23 (0.083 %) solution for nebulization shortness of breath or wheezing #180 mL albuterol sulfate 90 mcg/actuation 2 puff inhalation Q4H PRN ##1 04/09/23 aerosol inhaler (ProAir HFA) nirmatrelvir 150 mg-ritonavir 100 See Rx Instructions PO .COMPLEX 10/25/23 mg tablets in a dose pack #20 dose pk (Paxlovid) prednisone 20 mg tablet 40 mg (2 x 20 mg) PO ONCE #10 tabs 10/25/23 amoxicillin 875 mg-potassium 1 tab PO BID 5 days #10 tabs 11/04/23 clavulanate 125 mg tablet azithromycin 250 mg tablet 250 mg PO DAILY 4 days #4 tabs 11/04/23 prednisone 20 mg tablet 40 mg (2 x 20 mg) PO DAILY 5 days 11/04/23 #10 tabs Allergies Allergy/AdvReac Type Severity Reaction Status Date / Time hydrochlorothiazide AdvReac Intermediate dizziness Verified 10/25/23 17:51 metoprolol AdvReac Intermediate not Verified 10/25/23 17:51 tolerated nitroglycerin AdvReac Intermediate pounding Verified 10/25/23 17:51 heart lisinopril AdvReac cough Verified 10/25/23 17:51 General Stated Complaint: SOB SHANNAN: 3 Review of Systems All systems reviewed & are unremarkable except as noted in HPI and below Exam Narrative Exam Narrative: GENERAL APPEARANCE: Well-nourished, non-toxic, awake and alert, atraumatic, no acute distress. SKIN: Warm, pink, dry, intact, without rashes/lesions/ulcerations. HEAD: Normocephalic, atraumatic, normal hair distribution for gender/age. EYES: Pupils PERRLA, EOMs intact without nystagmus, normal conjunctiva, no exudates on lids/lashes. ENT: Nares patent, no circumoral cyanosis, no facial swelling NECK: Supple, trachea midline, painless cervical ROM. LUNGS/CHEST: Lungs CTA bilaterally, non-labored respirations, normal A/P diameter, symmetrical expansion, no chest wall deformity HEART (CV/PV): Regular rate and rhythm without murmur, no peripheral edema, no JVD. ABDOMEN: Soft, non-distended, no guarding. MSK: Normal ROM, no swelling/deformity to bilateral UEs or LEs, moving all extremities without weakness, no cyanosis, spine midline without tenderness, normal curvature. NEURO: Mental Status AAOx4 - alert to person, place, time, events No facial droop, no forehead involvement. Motor: No focal weakness - strength 5/5 in bilateral UEs and LEs, proximal and distal, symmetric. Sensory: sensation intact to light touch globally. Gait normal: patient ambulated without ataxia into ED room. PSYCH: euthymic, cooperative, pleasant, appropriate speech Course Vital Signs Vital signs: Vital Signs Temperature 36.7 C 11/04/23 10:08 Pulse 100 H 11/04/23 10:08 Respiratory Rate 24 11/04/23 10:08 Blood Pressure 114/52 L 11/04/23 10:08 Pulse Oximetry 95 11/04/23 10:08 Temperature 36.7 C 11/04/23 10:08 Temperature Source Temporal Artery Scan 11/04/23 10:08 Pulse 100 H 11/04/23 10:08 Respiratory Rate 24 11/04/23 10:08 Blood Pressure 114/52 L 11/04/23 10:08 Blood Pressure Position Supine 11/04/23 10:08 Pulse Oximetry 95 11/04/23 10:08 Oxygen Delivery Method Room Air 11/04/23 10:08 Oxygen Flow Rate 0 11/04/23 10:08 Pain Level 0 11/04/23 10:08 Medical Decision Making This dictation utilizes [id number] dictation software and may contain unedited grammatical errors. 83 year-old female presents to ED today by POV/ambulating with a chief complaint of continued shortness of breath after being seen on 10/24 for Covid-19. Quality described as cough, congestion- states she has breathing treatments at home but uses infrequently- was offered Paxlovid but was unable to fill for some reason- son states pharmacy was out of Paxlovid and prednisone- made no attempt to have us send it elsewhere, no radiation to chest pain, syncope, slurred speech, confusion, nausea/vomiting/diarrhea. Severity is described as moderate. Palliating factors include nothing specific attempted. Provoking factors include nothing specific. Events leading up to the incident/Associated Symptoms: Patient has COPD at baseline, does not use home O2, frail. Patients' medical history: History of CVA, hypertension, tobacco use disorder, COVID-19, CKD, alcohol use disorder, emphysema, lung nodules. Family and social history: noncontributory, poor diet/exercise. Pertinent exam findings / vital signs include mild expiratory wheezing, nonhypoxic on room air, frail and cachectic, benign abdomen, neuro intact. Differential / pathologies of concern include PNA, respiratory distress, viral syndrome, COPD exacerbation. Diagnostic studies of: -CBC, CMP, lactate, procalcitonin, magnesium, troponin I, EKG, XR chest, Covid/Flu Rapid Ag POC. -CBC shows a mild leukocytosis with baseline anemia -Lactate 1.7, procalcitonin negative-do not suspect sepsis -CMP is benign-baseline HAILEY -Magnesium within normal limits -Troponin negative -COVID/flu rapid antigen negative, likely not contagious -Chest x-ray shows possible bilateral lower lobe pneumonia Interventions of: -Caseyb, outpatient prescription of prednisone and antibiotics for pneumonia coverage. ED Course/Assessment/Plan: 83-year-old female is seen after having COVID-19, did not take Paxlovid as the pharmacy was out, states they did not have prednisone either. On chest x-ray shows that she has possible bilateral lower lobe pneumonia concern for secondary bacterial pneumonia in the setting of COPD, patient is nonhypoxic, was comfor table and asking for discharge, I stressed that she should take the antibiotics as directed as well as prednisone use or at home breathing treatments, strict return criteria for further fever despite antipyretic use and respiratory distress, chest pain or shortness of breath. Findings not consistent with hypoxic respiratory failure, ACS, electrolyte abnormality, sepsis. Disposition of Pneumonia. Patient verbalized understanding of the plan and return to ED criteria and engaged in shared decision making. Medical Records Medical records reviewed: Yes I reviewed the patient's medical records. Imaging Data Radiologic Study: Attestation: I personally reviewed and interpreted this imaging study as follows: Imaging: X-Ray Radiologist's impression: Exam: XR Chest Exam date and time: 11/04/2023 10:50 AM Age: 83 years old Clinical indication: Other: Covid, cough TECHNIQUE: Imaging protocol: Radiologic exam of the chest. Views: 2 views. COMPARISON: CR XR CHEST 2V PA LATERAL 10/25/2023 6:53 PM FINDINGS: Lungs: Hyperinflated lungs. Bilateral lower lobe atelectasis and possible airspace disease. Pleural spaces: Unremarkable. No pleural effusion. No pneumothorax. Heart/Mediastinum: Unremarkable. No cardiomegaly. Bones/joints: Unremarkable. IMPRESSION: Bilateral lower lobe atelectasis. Possible bilateral lower lobe pneumonia. Dictated and Authenticated by: Johnathon Yañez MD. Lab Data Lab results reviewed: Yes I reviewed the patient's lab results. Labs: Laboratory Tests Range/Units 11/04/23 10:04 WBC (4.4-10.8) 10^3/uL 11.80 H RBC (3.93-5.22) 10^6/uL 3.45 L Hgb (11.2-15.7) g/dL 11.3 Hct (36.0-46.0) % 34.5 L MCV (80-95) fL 100 H MCH (27.0-33.0) pg 32.8 MCHC (32.0-36.0) % 32.8 RDW (11.7-14.6) % 12.7 Plt Count (130-400) 10^3/uL 388 MPV (8.0-11.0) fL 11.2 H Immature Gran % % 0.4 Neutrophils % % 64.0 Lymphocytes % % 26.4 Monocytes % % 6.3 Eosinophils % % 2.6 Basophils % % 0.3 Nucleated RBC % (0.0-0.3) % 0.0 Absolute Neutrophils (1.2-6.7) 10^3/uL 7.55 H Absolute Lymphocytes (1.2-3.4) 10^3/uL 3.12 Absolute Monocytes (0.1-0.8) 10^3/uL 0.74 Absolute Eosinophils (0.0-0.7) 10^3/uL 0.31 Absolute Basophils (0.0-0.2) 10^3/uL 0.04 VBG Lactate (0.6-1.4) mmol/L 1.7 H Sodium (136-145) mmol/L 143 Potassium (3.5-5.1) mmol/L 3.9 Chloride (98-107) mmol/L 105 Carbon Dioxide (21.0-32.0) mmol/L 26.4 Anion Gap (3-11) mmol/L 11.6 H BUN (7-18) mg/dL 25 H Creatinine (0.55-1.02) mg/dL 1.5 H Est GFR (CKD-EPI 2020) (mL/min/1.73m2) 34.58 Glucose (74-106) mg/dL 127 H Calcium (8.5-10.1) mg/dL 9.1 Magnesium (1.8-2.4) mg/dL 2.1 Total Bilirubin (0.2-1.0) mg/dL 0.47 AST (15-37) U/L 17 ALT (14-59) U/L 20 Alkaline Phosphatase (46-116) U/L 99 Troponin I (< or =60) ng/L < 50 Total Protein (6.4-8.2) g/dL 7.6 Albumin (3.4-5.0) g/dL 3.1 L Procalcitonin ng/mL < 0.1 Quality:SDOH Health Related Social Needs: No Data to Display PFSH All Active Problems (Updated 11/04/23 @ 12:01 by RAÚL Marin) Pneumonia (Acute) Elevated troponin (Acute) COVID-19 (Acute) COVID-19 (Acute) COVID (Acute) Abnormal lung sounds (Acute) SOB (shortness of breath) (Acute) Dizziness (Acute) Tobacco abuse (Acute) Depressive disorder (Chronic 02/21/98) GERD (gastroesophageal reflux disease) (Chronic) Macrocytic anemia (Acute) MCV 99-199; ?chronic EtOH Constipation (Acute) ASCVD (arteriosclerotic cardiovascular disease) (Acute 04/14/02) 04/14/02 stent X2; ETT 2000 non-diagnostic, hypertensive; TIA 2006 Abnormal liver function (Acute) abnl GGT, Alk Phos, Albumin Alcohol use disorder (Acute 02/21/98) h/o binge drinking 1997, 2002; chronic anemia, abnl LFT; three drinks/d Centrilobular emphysema (Acute) FEV1 1.57 (63% FVC, 70% pred, 2002) smoker 1/2 PPD; bronchiecasis, mucous pllugging on CT 10/2015 Chronic kidney disease (Acute 11/12/17) Disorder of vitamin B12 (Acute) Gait disorder, B12 level low Esophagitis (Acute 03/18/13) EGD and dilatation [facility] [place]; esophagitis, path few eos; REC PPI H/O ischemic vertebrobasilar artery cerebellar stroke (Acute 11/21/05) 11/2005 cerebellar TIA: dizzy, balance, R weakness; Dr Pimentel History of ASCVD (Acute 04/14/02) RCA tight 04/14/02 stent X2; ETT 1999 non-diagnostic, hypertensive; MPI 11/2003 nl perfusion; TIA 2005 Hyperlipidemia (Acute 03/23/02) Pulmonary emphysema (Acute 10/26/15) Tobacco dependence syndrome (Acute 12/11/11) 1/2 PPD, H/O DECR TO 0-3/D FOR 3MOS TIL RESTARTED 08/2011, stopped 10/2015; current 3/wk COPD (chronic obstructive pulmonary disease) (Chronic) Anemia (Acute) Lung nodules (Chronic) HTN (hypertension) (Chronic) Medical History Abnormal peak total bilirubin level (08/21/16) 129 first elevation 07/2016; with other LFT's normal ASCVD (arteriosclerotic cardiovascular disease) CVA (cerebral vascular accident) 2008? Diarrhea (10/26/15) Gastroenteritis HLD (hyperlipidemia) HTN (hypertension) Hypokalemia Tobacco use disorder Weight loss Surgical History Endoscopy (03/18/13) Dr [facility] [place] EGD & dilatation: esophagitis, ?eosinophilic History of coronary artery stent placement 2 stents - ? 2008 Family History Mother , CVA at age 76. Stroke Father , stomach CA at age 69. Stomach cancer Brother No problems noted. Other Diabetes Heavy alcohol use Social History (Updated 11/17/21 @ 13:28 by Carolin Anthony LPN) Smoking/Tobacco Use Status: Current every day Tobacco Type: cigarettes Quit status: considering quitting Smoking risk assessment performed?: Yes Alcohol Intake: current Alcohol Intake frequency: 0-2 drinks per day Alcohol type: beer Drug use: Never Substance use type: does not use Household members: none Housing: house Number of Children: 2 number of grandchildren: 4 Communication Needs: Corrective Lenses Do you need help understanding health information?: Rarely current occupation: retired from [employer] Pets and animals: Yes How often do you talk on the phone with friends or family?: three or more times per week Panel score (0-1 are the most socially isolated patients): 1 What type of physical activity do you participate in: walking Frequency: daily Seatbelt use: always Helmet use: No Drive intox or ride w/intox 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
--- NOTE | 2023-11-04 10:30 | DI.RAD_ITS ---
Exam(s) XR CHEST 2V PA LATERAL EXAM: XR CHEST 2V PA LATERAL CLINICAL HISTORY: covid, cough TECHNIQUE: 2D digital imaging was performed. Two views. COMPARISON: CR XR PORTABLE CHEST AP from 08/31/2021 CR,XR XR CHEST 2V PA LATERAL from 10/25/2023 FINDINGS: HEART: Normal size. Aorta: Not dilated. Calcified. PULMONARY VASCULATURE: Normal. MEDIASTINUM: Unremarkable. LUNGS: Mildly increased density at the left lung base. Question of mildly increased densities at the right lung base. Underlying emphysematous and fibrotic changes. PLEURAL SPACE: No pleural effusion or pneumothorax. BONE:Unremarkable for age. SOFT TISSUES: Unremarkable. IMPRESSION: left lower lobe infiltrate. Question additional mild infiltrate left lung base. DATA REPOSITORY: RADIATION DOSE DELIVERED:
[2023-11-04 10:37] LABS: Lactate 1.7 mmol/L (0.6-1.4)
[2023-11-04 10:40] LABS: Abs Immature Grans 0.05 10^3/uL (0.0-0.06); Absolute Basophil Count 0.04 10^3/uL (0.0-0.2); Absolute Eosinophil Count 0.31 10^3/uL (0.0-0.7); Absolute Monocyte Count 0.74 10^3/uL (0.1-0.8); Absolute Neutrophil Count 7.55 10^3/uL (1.2-6.7); Basophils % 0.3 %; Eosinophils % 2.6 %; HCT 34.5 % (36.0-46.0); HGB 11.3 g/dL (11.2-15.7); Immature Grans % 0.4 %; Lymphocytes % 26.4 %; MCH 32.8 pg (27.0-33.0); MCHC 32.8 % (32.0-36.0); MCV 100 fL (80-95); MPV 11.2 fL (8.0-11.0); Monocytes % 6.3 %; Platelet Count 388 10^3/uL (130-400); RBC 3.45 10^6/uL (3.93-5.22); RDW 12.7 % (11.7-14.6); RDW-SD 46.6 fL
[2023-11-04 10:49] LABS: Absolute Lymphocyte Count 3.12 10^3/uL (1.2-3.4)
[2023-11-04 11:01] LABS: ALT 20 U/L (14-59); AST 17 U/L (15-37); Albumin 3.1 g/dL (3.4-5.0); Alkaline Phosphatase 99 U/L (46-116); Anion Gap 11.6 mmol/L (3-11); BUN 25 mg/dL (7-18); Bilirubin, Total 0.47 mg/dL (0.2-1.0); CO2 26.4 mmol/L (21.0-32.0); CREATININE 1.5 mg/dL (0.55-1.02); Calcium 9.1 mg/dL (8.5-10.1); Chloride 105 mmol/L (98-107); Estimated GFR 34.58 (mL/min/1.73m2); Glucose 127 mg/dL (74-106); Magnesium 2.1 mg/dL (1.8-2.4); Potassium 3.9 mmol/L (3.5-5.1); Sodium 143 mmol/L (136-145); Total Protein 7.6 g/dL (6.4-8.2); Troponin I < 50 ng/L (< or =60)
[2023-11-04 11:12] LABS: Procalcitonin < 0.1 ng/mL
[2023-11-04] MEDS: Albuterol/Ipratropium 3 ML UPD VIAL UPD (11:21)
[2023-11-04] MEDS: Azithromycin 250 MG TAB 500 MG PO (11:21)
--- NOTE | 2023-11-04 11:21 | DI.VRAD_ITS ---
PROCEDURE INFORMATION: Exam: XR Chest Exam date and time: 11/04/2023 10:50 AM Age: 83 years old Clinical indication: Other: Covid, cough TECHNIQUE: Imaging protocol: Radiologic exam of the chest. Views: 2 views. COMPARISON: CR XR CHEST 2V PA LATERAL 10/25/2023 6:53 PM FINDINGS: Lungs: Hyperinflated lungs. Bilateral lower lobe atelectasis and possible airspace disease. Pleural spaces: Unremarkable. No pleural effusion. No pneumothorax. Heart/Mediastinum: Unremarkable. No cardiomegaly. Bones/joints: Unremarkable. IMPRESSION: Bilateral lower lobe atelectasis. Possible bilateral lower lobe pneumonia. Dictated and Authenticated by: Johnathon Yañez MD. Ordering:RASHARD Pino MD
[2023-11-04] MEDS: methylPREDNISolone SUCC 125 MG VIAL IVP (11:22)
== END 2023-11-04 12:14 | disposition home or self-care (01) ==
PROVIDERS: Emergency Provider Physician Assistant; PCP Nurse Practitioner
DX: J18.9 Pneumonia, unspecified organism (principal); I10 Essential (primary) hypertension; E78.5 Hyperlipidemia, unspecified; I25.10 Atherosclerotic heart disease of native coronary artery without angina pectoris; R00.0 Tachycardia, unspecified; Z95.5 Presence of coronary angioplasty implant and graft; Z86.73 Personal history of transient ischemic attack (TIA), and cerebral infarction without residual deficits
CPT/HCPCS: 36415; 80053; 84145; 87426; 93005; 94640; 96374; 99285; 71046; 83605; 83735; 84484; 85025; 93010; 99284; J2919; J7620

== ENCOUNTER 2023-11-13 11:20 | Emergency (ER) | payer MEDICARE, SELFPAY ==
[2023-11-13] VITALS (18 sets, daily range): BP systolic 103–177; BP diastolic 45–72; PULSE 85–108; RESP 18–36; TEMP 36.8; O2SAT 97–100
--- NOTE | 2023-11-13 11:30 | RT.EKG_ITS ---
APPROVED REPORT Exam: Resting ECG Reason for Exam: SOB Patient Location: E HR:93 bpm ECG Measurements Heart Rate 93 AXIS MA 177 P 81 QRSd 98 QRS -27 QT 351 T 69 QTc 437 Conclusion Sinus rhythm 93 normal axis no stemi
--- NOTE | 2023-11-13 11:45 | DI.RAD_ITS ---
Exam(s) XR CHEST 2V PA LATERAL EXAM: XR CHEST 2V PA LATERAL CLINICAL HISTORY: sob TECHNIQUE: 2D digital imaging was performed of the chest. Two images were obtained. PA and lateral views were obtained. COMPARISON: CR,XR XR CHEST 2V PA LATERAL from 11/04/2023 FINDINGS: MEDIASTINUM: Normal. HEART: Normal. PULMONARY VASCULATURE: Atherosclerotic calcification of the thoracic aorta is noted. LUNGS: There has been some interval clearing of the lung base infiltrates particularly in the right. There is a persistent small left basilar infiltrate seen posteriorly. No new infiltrates are seen. There is underlying COPD. PLEURAL SPACE: No pleural effusion or pneumothorax. BONE:Within normal limits for the patient's age. OTHER FINDINGS:Normal. IMPRESSION: Near complete resolution of the basilar infiltrates since 11/04/2023. DATA REPOSITORY: RADIATION DOSE DELIVERED:
[2023-11-13 12:16] LABS: Lactate 1.5 mmol/L (0.6-1.4)
[2023-11-13 12:24] LABS: Abs Immature Grans 0.06 10^3/uL (0.0-0.06); Absolute Eosinophil Count 0.12 10^3/uL (0.0-0.7); Absolute Monocyte Count 1.23 10^3/uL (0.1-0.8); Absolute Neutrophil Count 8.05 10^3/uL (1.2-6.7); Basophils % 0.3 %; Immature Grans % 0.5 %; Lymphocytes % 18.8 %; MCH 33.6 pg (27.0-33.0); MCHC 33.3 % (32.0-36.0); MCV 101 fL (80-95); MPV 11.4 fL (8.0-11.0); Monocytes % 10.5 %; Neutrophils % 68.9 %; Platelet Count 311 10^3/uL (130-400); RBC 2.98 10^6/uL (3.93-5.22); RDW 12.5 % (11.7-14.6); RDW-SD 46.5 fL; WBC 11.69 10^3/uL (4.4-10.8)
[2023-11-13 12:25] LABS: Absolute Basophil Count 0.04 10^3/uL (0.0-0.2)
[2023-11-13 12:44] LABS: ALT 21 U/L (14-59); AST 13 U/L (15-37); Alkaline Phosphatase 80 U/L (46-116); Anion Gap 8.9 mmol/L (3-11); BUN 31 mg/dL (7-18); Bilirubin, Total 0.53 mg/dL (0.2-1.0); CO2 26.1 mmol/L (21.0-32.0); CREATININE 1.5 mg/dL (0.55-1.02); Calcium 8.8 mg/dL (8.5-10.1); Chloride 106 mmol/L (98-107); Estimated GFR 34.58 (mL/min/1.73m2); Glucose 147 mg/dL (74-106); Potassium 4.5 mmol/L (3.5-5.1); Sodium 141 mmol/L (136-145); Total Protein 6.9 g/dL (6.4-8.2)
[2023-11-13 13:01] LABS: Procalcitonin < 0.1 ng/mL
--- NOTE | 2023-11-13 16:12 | W.ED.GENAD ---
Discharge Plan Disposition Patient Disposition: Home Condition: Stable Discharge Details Clinical Impression: SOB (shortness of breath) Primary Care Provider: Yolanda Thomas ED Provider: Zoe Miller Home Meds and New Rx's Prescriptions: No Action cyanocobalamin (vitamin B-12) [Vitamin B-12] 500 mcg tablet 500 mcg PO DAILY aspirin 325 mg tablet 325 mg PO DAILY Ensure complete See Rx Instructions PO DAILY Rx Instructions: one container orally daily; albuterol sulfate 2.5 mg /3 mL (0.083 %) solution for nebulization 2.5 mg inhalation Q4H PRN (Reason: shortness of breath or wheezing) Qty: 180 3RF Patient Comments: didn't take recently albuterol sulfate [ProAir HFA] 90 mcg/actuation HFA aerosol inhaler 2 puff Inhalation Q4H PRN Qty: 1 12RF Rx Instructions: as needed for wheezing, dispense with spacer once yearly Discharge Instructions Instructions: Shortness of breath Additional Instructions: Your blood work today is improved, your x-ray demonstrates resolution of your pneumonia Continue your breathing treatments Your blood pressure is slightly elevated today, keep a log of your blood pressure and follow-up with your primary care to discuss medication Follow-up with your primary care to reevaluate your shortness of breath later this week Return to the emergency department if you have significant worsening or other concerns Discharge Data Discharge Date/Time-TO BE ENTERED AT DEPARTURE: 11/13/23 13:59 HPI General Date/Time Provider Initiated Documentation: 11/13/23 11:44. Limitations to Documentation: no limitations. Information obtained by: patient. HPI Narrative: 83-year-old female with past medical history of CKD, COPD, recent COVID infection presents for evaluation of persistent shortness of breath. She states that she has completed all of the medications provided to her, but still feels a little short of breath. She denies any fever. She reports general poor appetite and poor oral intake. Denies significant cough or mucus production. Is not having any vomiting, diarrhea or dysuria. Denies any chest pain. Related Data Home Medications ?Medication ?Instructions ?Recorded ?Confirmed Ensure Complete See Rx Instructions PO DAILY 12/26/16 11/13/23 cyanocobalamin (vitamin B-12) 500 500 mcg PO DAILY 09/23/20 11/13/23 mcg tablet (Vitamin B-12) albuterol sulfate 2.5 mg/3 mL 2.5 mg (3 mL) inhalation Q4H PRN 04/09/23 11/13/23 (0.083 %) solution for nebulization shortness of breath or wheezing #180 mL albuterol sulfate 90 mcg/actuation 2 puff inhalation Q4H PRN ##1 04/09/23 11/13/23 aerosol inhaler (ProAir HFA) aspirin 325 mg tablet 325 mg PO DAILY 09/12/23 11/13/23 Previous Rx's ?Medication ?Instructions ?Recorded albuterol sulfate 2.5 mg/3 mL 2.5 mg (3 mL) inhalation Q4H PRN 04/09/23 (0.083 %) solution for nebulization shortness of breath or wheezing #180 mL albuterol sulfate 90 mcg/actuation 2 puff inhalation Q4H PRN ##1 04/09/23 aerosol inhaler (ProAir HFA) Allergies Allergy/AdvReac Type Severity Reaction Status Date / Time hydrochlorothiazide AdvReac Intermediate dizziness Verified 11/13/23 11:47 metoprolol AdvReac Intermediate not Verified 11/13/23 11:47 tolerated nitroglycerin AdvReac Intermediate pounding Verified 11/13/23 11:47 heart lisinopril AdvReac cough Verified 11/13/23 11:47 General Stated Complaint: SOB SHANNAN: 2 Exam Narrative Exam Narrative: Review of Systems: All systems reviewed & are unremarkable except as noted in HPI and below Well-developed, no acute distress NCAT PERRL, normal conjunctiva RRR no murmur Unlabored respiratory effort, no increased work of breathing, no hypoxia, clear Nondistended abdomen , soft non tender Extremities w/o deformity, no cyanosis, no edema No rashes or lesions. no focal neurologic deficits Appropriate mood and affect Course Vital Signs Vital signs: Vital Signs Temperature 36.8 C 11/13/23 11:36 Pulse 108 H 11/13/23 11:36 Respiratory Rate 36 H 11/13/23 11:36 Blood Pressure 103/56 L 11/13/23 11:36 Pulse Oximetry 99 11/13/23 11:36 Temperature 36.8 C 11/13/23 11:49 Temperature Source Skin 11/13/23 11:49 Pulse 89 11/13/23 13:45 Pulse 88 11/13/23 13:50 Respiratory Rate 24 11/13/23 13:50 Respiratory Effort Short of Breath 11/13/23 13:58 Respiratory Depth Normal 11/13/23 13:58 Respiratory Pattern Tachypnea 11/13/23 13:58 Blood Pressure 176/62 H 11/13/23 13:45 Blood Pressure Mean 104 11/13/23 13:45 Blood Pressure Position Sitting 11/13/23 11:49 Pulse Oximetry 98 11/13/23 13:45 Oxygen Delivery Method Room Air 11/13/23 11:49 Oxygen Flow Rate 0 11/13/23 11:49 Pain Level 0 11/13/23 11:49 Lab/Test Results Lab/Test Results: 11/13/23 13:18 Blood Blood Culture - Pending 11/13/23 12:04 Blood Blood Culture - Pending Laboratory Tests Range/Units 11/13/23 11/13/23 11:47 12:04 WBC (4.4-10.8) 10^3/uL 11.69 H RBC (3.93-5.22) 10^6/uL 2.98 L Hgb (11.2-15.7) g/dL 10.0 L Hct (36.0-46.0) % 30.0 L MCV (80-95) fL 101 H MCH (27.0-33.0) pg 33.6 H MCHC (32.0-36.0) % 33.3 RDW (11.7-14.6) % 12.5 Plt Count (130-400) 10^3/uL 311 MPV (8.0-11.0) fL 11.4 H Immature Gran % % 0.5 Neutrophils % % 68.9 Lymphocytes % % 18.8 Monocytes % % 10.5 Eosinophils % % 1.0 Basophils % % 0.3 Nucleated RBC % (0.0-0.3) % 0.0 Absolute Neutrophils (1.2-6.7) 10^3/uL 8.05 H Absolute Lymphocytes (1.2-3.4) 10^3/uL 2.20 Absolute Monocytes (0.1-0.8) 10^3/uL 1.23 H Absolute Eosinophils (0.0-0.7) 10^3/uL 0.12 Absolute Basophils (0.0-0.2) 10^3/uL 0.04 VBG Lactate (0.6-1.4) mmol/L 1.5 H Sodium (136-145) mmol/L 141 Potassium (3.5-5.1) mmol/L 4.5 Chloride (98-107) mmol/L 106 Carbon Dioxide (21.0-32.0) mmol/L 26.1 Anion Gap (3-11) mmol/L 8.9 BUN (7-18) mg/dL 31 H Creatinine (0.55-1.02) mg/dL 1.5 H Est GFR (CKD-EPI 2020) (mL/min/1.73m2) 34.58 Glucose (74-106) mg/dL 147 H Calcium (8.5-10.1) mg/dL 8.8 Total Bilirubin (0.2-1.0) mg/dL 0.53 AST (15-37) U/L 13 L ALT (14-59) U/L 21 Alkaline Phosphatase (46-116) U/L 80 Total Protein (6.4-8.2) g/dL 6.9 Albumin (3.4-5.0) g/dL 3.0 L Procalcitonin ng/mL < 0.1 Medical Decision Making Emergent evaluation of persistent shortness of breath. I reviewed the medical record and noted that she had a recent visit with COVID diagnosis, she left [facility] at that time. She had return visit and was diagnosed with a pneumonia. She was prescribed antibiotics. She has completed the antibiotics. Her examination is fairly unremarkable. She does not have concerning signs for respiratory distress. She is not requiring oxygen and her lung sounds clear. Her EKG is sinus 93, normal axis, no acute ischemic changes. She is not complaining of chest pain so I do not suspect ACS. Her shortness of breath may be secondary to COPD exacerbation, persistent failed treatment pneumonia or ongoing COVID symptoms. She is not currently having wheezing, so I do not feel at this time she needs breathing treatment. Chest x-ray reviewed, she has resolution of her pneumonia. Her white blood cell count is 11. Which is stable from prior. She has a hemoglobin of 10 which is a slight decrease. This can be monitored by her PCP I do not feel that anemia is the cause of her shortness of breath. Her creatinine of 1.5 is stable at her baseline. And her procalcitonin is negative. I do not suspect that she has persistent ongoing bacterial infection and needs any additional antibiotics. As she is not requiring any respiratory support, I do not feel that she needs additional antibiotics or admission. The patient is discharged in good condition Medical Records Medical records reviewed: Yes I reviewed the patient's medical records. Lab Data Lab results reviewed: Yes I reviewed the patient's lab results. Quality:SDOH Health Related Social Needs: No Data to Display PFSH All Active Problems Pneumonia (Acute) Elevated troponin (Acute) COVID-19 (Acute) COVID-19 (Acute) COVID (Acute) Abnormal lung sounds (Acute) SOB (shortness of breath) (Acute) Dizziness (Acute) Tobacco abuse (Acute) Depressive disorder (Chronic 02/21/98) GERD (gastroesophageal reflux disease) (Chronic) Macrocytic anemia (Acute) MCV 99-199; ?chronic EtOH Constipation (Acute) ASCVD (arteriosclerotic cardiovascular disease) (Acute 04/14/02) 04/14/02 stent X2; ETT 1999 non-diagnostic, hypertensive; TIA 2005 Abnormal liver function (Acute) abnl GGT, Alk Phos, Albumin Alcohol use disorder (Acute 02/21/98) h/o binge drinking 1997, 2002; chronic anemia, abnl LFT; three drinks/d Centrilobular emphysema (Acute) FEV1 1.57 (63% FVC, 70% pred, 2002) smoker 1/2 PPD; bronchiecasis, mucous pllugging on CT 10/2015 Chronic kidney disease (Acute 11/12/17) Disorder of vitamin B12 (Acute) Gait disorder, B12 level low Esophagitis (Acute 03/18/13) EGD and dilatation [facility], [facility] [place]; esophagitis, path few eos; REC PPI H/O ischemic vertebrobasilar artery cerebellar stroke (Acute 11/21/05) 11/2005 cerebellar TIA: dizzy, balance, R weakness; Dr Pimentel History of ASCVD (Acute 04/14/02) RCA tight 04/14/02 stent X2; ETT 1999 non-diagnostic, hypertensive; MPI 11/2003 nl perfusion; TIA 2006 Hyperlipidemia (Acute 03/23/02) Pulmonary emphysema (Acute 10/26/15) Tobacco dependence syndrome (Acute 12/11/11) 1/2 PPD, H/O DECR TO 0-3/D FOR 3MOS TIL RESTARTED 08/2011, stopped 10/2015; current 3/wk COPD (chronic obstructive pulmonary disease) (Chronic) Anemia (Acute) Lung nodules (Chronic) HTN (hypertension) (Chronic) Medical History Abnormal peak total bilirubin level (08/21/16) 129 first elevation 07/2016; with other LFT's normal Diarrhea (10/26/15) CVA (cerebral vascular accident) 2008? HTN (hypertension) Tobacco use disorder HLD (hyperlipidemia) ASCVD (arteriosclerotic cardiovascular disease) Hypokalemia Weight loss Gastroenteritis Surgical History History of coronary artery stent placement 2 stents - ? 2008 Endoscopy (03/18/13) Dr [facility] – [place] EGD & dilatation: esophagitis, ?eosinophilic Family History Mother , CVA at age 76. Stroke Father , stomach CA at age 69. Stomach cancer Brother No problems noted. Other Diabetes Heavy alcohol use Social History Smoking/Tobacco Use Status: Current every day Tobacco Type: cigarettes Quit status: considering quitting Smoking risk assessment performed?: Yes Alcohol Intake: current Alcohol Intake frequency: 0-2 drinks per day Alcohol type: beer Drug use: Never Substance use type: does not use Household members: none Housing: house Number of Children: 2 number of grandchildren: 4 Communication Needs: Corrective Lenses Do you need help understanding health information?: Rarely current occupation: retired from [employer] Pets and animals: Yes How often do you talk on the phone with friends or family?: three or more times per week Panel score (0-1 are the most socially isolated patients): 1 What type of physical activity do you participate in: walking Frequency: daily Seatbelt use: always Helmet use: No Drive intox or ride w/intox driver retraining instructor: No Working smoke detector in home: Yes Carbon monox detector in home: Yes Do you feel safe at home: Yes Do you feel safe in your relationship?: Yes PAWSS Have you Been Recently Intoxicated or Drunk Within the Last 30 days?: No Have you Ever Experienced Previous Episodes of Alcohol Withdrawal?: No Have you ever Experienced Withdrawal Seizures?: No Have you ever Experienced Delirium Tremens(DT)s?: No Have you ever undergone Alcohol Rehabilitation Treatment (i.e, inpt ot outpatient treatment programs)?: No Have you ever Experienced Blackouts?: No Have you ever Combined Alcohol with other Downers within the last 90 days?: No Have you ever Combined Alcohol with any other Substance of Abuse during the last 90 days?: No Positive Blood Alcohol level on Presentation? [PCS.BAL]: No Evidence of Increased Autonomic Activity (i.e. HR>120, tremor, sweating, agitation, nausea)?: No Result: 0
== END 2023-11-13 13:59 | disposition home or self-care (01) ==
PROVIDERS: Emergency Provider Emergency Medicine; PCP Nurse Practitioner
DX: R06.02 Shortness of breath (principal); I12.9 Hypertensive chronic kidney disease with stage 1 through stage 4 chronic kidney disease, or unspecified chronic kidney disease; N18.9 Chronic kidney disease, unspecified; E78.5 Hyperlipidemia, unspecified; I25.10 Atherosclerotic heart disease of native coronary artery without angina pectoris; J44.9 Chronic obstructive pulmonary disease, unspecified; Z95.5 Presence of coronary angioplasty implant and graft; Z79.82 Long term (current) use of aspirin
CPT/HCPCS: 36415; 80053; 84145; 87040; 93005; 99285; 71046; 83605; 85025; 93010; 99284

== ENCOUNTER 2023-12-29 11:02 | Emergency (ER) | payer MEDICARE, SELFPAY ==
--- NOTE | 2023-12-29 11:00 | DI.RAD_ITS ---
Exam(s) XR PORTABLE CHEST AP EXAM: XR PORTABLE CHEST AP CLINICAL HISTORY: Chest pain TECHNIQUE: 2D digital imaging was performed of the chest. One image was obtained. An AP view was ob tained. COMPARISON: CR XR CHEST 2V PA LATERAL from 11/13/2023 FINDINGS: MEDIASTINUM: Normal. HEART: Normal. PULMONARY VASCULATURE: Normal. LUNGS: The lungs are hyperinflated with flattened diaphragms consistent with underlying COPD. There is an opacity in the left lower lobe which may represent atelectasis or pneumonia. The right lung is clear. PLEURAL SPACE: No pleural effusion or pneumothorax. BONE:Within normal limits for the patient's age. OTHER FINDINGS:Vascular calcifications are present. IMPRESSION: Progression of the infiltrate in the left lower lobe. DATA REPOSITORY: RADIATION DOSE DELIVERED:
--- NOTE | 2023-12-29 11:00 | RT.EKG_ITS ---
APPROVED REPORT Exam: Resting ECG Reason for Exam: Chest Pain Patient Location: E HR:109 bpm ECG Measurements Heart Rate 109 AXIS CA 112 P 31 QRSd 104 QRS -24 QT 330 T 262 QTc 446 Conclusion Sinus tachycardia...rate> 99 LVH with secondary repolarization abnormality...multi-LVH criteria, abnrm ST-T Inferior infarct, old...Q >35mS, II III aVF sinus tach, left axis, poor baseline likel motion artifact
[2023-12-29 11:05] VITALS: BP 146/73; PULSE 109; RESP 24; TEMP 37; O2SAT 95
--- NOTE | 2023-12-29 11:22 | ED.GENADUL_ITS ---
Discharge Plan Disposition Patient Disposition: Home Condition: Stable Discharge Details Clinical Impression: Pneumonia Primary Care Provider: Yolanda Thomas ED Provider: Corinne Murphy Home Meds and New Rx's Prescriptions: New doxycycline hyclate 100 mg capsule 100 mg PO BID 10 Days Qty: 20 0RF Rx Instructions: Take 1 tablet twice daily for the next 10 days Continued cyanocobalamin (vitamin B-12) [Vitamin B-12] 500 mcg tablet 500 mcg PO DAILY aspirin 325 mg tablet 325 mg PO DAILY Ensure, chocolate 237 ml PO 3XD Qty: 90 12RF albuterol sulfate 2.5 mg /3 mL (0.083 %) solution for nebulization 2.5 mg inhalation Q4H PRN (Reason: shortness of breath or wheezing) Qty: 180 3RF Patient Comments: didn't take recently albuterol sulfate [ProAir HFA] 90 mcg/actuation HFA aerosol inhaler 2 puff Inhalation Q4H PRN Qty: 1 12RF Rx Instructions: as needed for wheezing, dispense with spacer once yearly pantoprazole 40 mg tablet,delayed release (DR/EC) 40 mg PO DAILY Patient Comments: TAKE ONE TABLET BY MOUTH EVERY DAY (30 MINUTES BEFORE SUPPER) Discharge Instructions Instructions: Pneumonia, Adult ED Additional Instructions: At this time x-ray shows that you do have pneumonia. Please take the antibiotics twice daily with yogurt or probiotic as directed. Please take Tylenol or Ibuprofen with food every 4-6 hours as needed for pain and swelling. Follow up with primary care provider in 3-5 days. Return to ED sooner if any worsening or concerns. Referrals: Yolanda Thomas, GISELA [Primary Care Provider] - 3 days HPI General Mode of arrival: ambulatory . Date/Time Provider Initiated Documentation: 12/29/23 11:04 . Limitations to Documentation: no limitations . Information obtained by: patient, family, RN notes reviewed and old records reviewed . HPI Narrative: 83-year-old female presents to the ER with a chief complaint of chest pain for the last few weeks worsening over the last 2 days. Reports sharp pains that radiate into her back associated with shortness of breath. Denies any nausea vomiting. She has been taking Tylenol with little to no relief. Past medical history includes CVA hypertension hyperlipidemia, hypokalemia, COPD, stents x 2 in her RCA. She does take aspirin 325 mg daily. Related Data Home Medications ?Medication ?Instructions ?Recorded ?Confirmed cyanocobalamin (vitamin B-12) 500 500 mcg PO DAILY 09/23/20 12/29/23 mcg tablet (Vitamin B-12) albuterol sulfate 2.5 mg/3 mL 2.5 mg (3 mL) inhalation Q4H PRN 04/09/23 12/29/23 (0.083 %) solution for nebulization shortness of breath or wheezing #180 mL albuterol sulfate 90 mcg/actuation 2 puff inhalation Q4H PRN ##1 04/09/23 12/29/23 aerosol inhaler (ProAir HFA) aspirin 325 mg tablet 325 mg PO DAILY 09/12/23 12/29/23 Ensure, chocolate 237 ml PO 3XD #90 multiple units 11/27/23 12/29/23 doxycycline hyclate 100 mg capsule 100 mg PO BID Pneumonia 10 days 12/29/23 #20 caps pantoprazole 40 mg tablet,delayed 40 mg PO DAILY 12/29/23 12/29/23 release Previous Rx's ?Medication ?Instructions ?Recorded albuterol sulfate 2.5 mg/3 mL 2.5 mg (3 mL) inhalation Q4H PRN 04/09/23 (0.083 %) solution for nebulization shortness of breath or wheezing #180 mL albuterol sulfate 90 mcg/actuation 2 puff inhalation Q4H PRN ##1 04/09/23 aerosol inhaler (ProAir HFA) Ensure, chocolate 237 ml PO 3XD #90 multiple units 11/27/23 doxycycline hyclate 100 mg capsule 100 mg PO BID Pneumonia 10 days 12/29/23 #20 caps Allergies Allergy/AdvReac Type Severity Reaction Status Date / Time hydrochlorothiazide AdvReac Intermediate dizziness Verified 12/29/23 11:12 metoprolol AdvReac Intermediate not Verified 12/29/23 11:12 tolerated nitroglycerin AdvReac Intermediate pounding Verified 12/29/23 11:12 heart lisinopril AdvReac cough Verified 12/29/23 11:12 General Stated Complaint: Chest Pain SHANNAN: 2 Review of Systems All systems reviewed & are unremarkable except as noted in HPI and below Cardiovascular Cardiovascular: Reports as per HPI, Reports chest pain, Reports chest pain at rest, Denies leg edema and Reports dyspnea Respiratory Respiratory: Denies cough and Reports dyspnea Exam Narrative Exam Narrative: Constitutional: Alert and oriented x3. Appears stated age. Normal body habitus. Head: Normocephalic, no trauma. Eyes: Pupils PERRL, Red reflex noted, EOM's intact. Eyelids symmetrical without lesions, discharge, or swelling. ENT: Bilateral TM's WNL, External ear normal to inspection, no mastoid TTP, swelling, or erythema, Nasal turbinates WNL, no nasal discharge. Normal dentition, Posterior pharynx WNL, no exudate. Chest: RRR, Normal S1, S2, distal pulses intact. Resp: Lungs clear to auscultation bilaterally, no wheezes, rales, or rhonchi. Abdomen: Soft, non-distended, Normoactive bowel sounds all 4 quads. Musculoskeletal: Normal gait, Moves all 4 extremities without difficulty. Skin: No suspicious rashes or lesions. Capillary refill less than 2 sec. Neurologic: Cranial nerves II-XII intact. Alert and oriented x 3. Motor: No deficits noted. Sensory: Intact bilaterally all 4 extremities. Hematologic/Lymphatic: No ecchymosis, no lymphadenopathy. Course Vital Signs Vital signs: Vital Signs Temperature 37.0 C 12/29/23 11:05 Pulse 109 H 12/29/23 11:05 Respiratory Rate 12/29/23 11:05 Blood Pressure 146/73 H 12/29/23 11:05 Pulse Oximetry 95 12/29/23 11:05 Temperature 37.0 C 12/29/23 11:05 Temperature Source Temporal Artery Scan 12/29/23 11:05 Pulse 109 H 12/29/23 11:05 Respiratory Rate 24 12/29/23 11:05 Blood Pressure 146/73 H 12/29/23 11:05 Blood Pressure Position Sitting 12/29/23 11:05 Pulse Oximetry 95 12/29/23 11:05 Oxygen Delivery Method Room Air 12/29/23 11:05 Oxygen Flow Rate 0 12/29/23 11:05 Pain Level 10 12/29/23 11:05 Medical Decision Making 83-year-old female presents to the ER with a chief complaint of chest pain for the last few weeks worsening over the last 2 days. Reports sharp pains that radiate into her back associated with shortness of breath. Denies any nausea vomiting. She has been taking Tylenol with little to no relief. Past medical history includes CVA hypertension hyperlipidemia, hypokalemia, COPD, stents x 2 in her RCA. She does take aspirin 325 mg daily. Cardiac workup ordered, portable chest x-ray Zofran and morphine. Will consider CT chest. Informed by staff veterinarian that patient's desatted to 88% on room air. Placed on 2 L nasal cannula. CBC shows white blood cell count of 16.71 hemoglobin 10 hematocrit 32 BUN 35 cr eatinine 1.5 GFR 34 magnesium high at 2.5, x-ray shows a left basilar pneumonia. Patient received 50 mg of Toradol IV. Discussed results with patient and family verbalized understanding. She does f eel well enough to be discharged home. Patient has maintained her O2 sat on room air at 92%. Patient was given Toradol which seemed to improve her pain. Patient was given doxycycline IV piggyback here. Will send patient home on 10 days of doxycycline. Discussed strict return instructions and home care and follow-up. This text was generated using [employer] system, please disregard any oddities of phrase or misspellings. Medical Records Medical records reviewed: Yes I reviewed the patient's medical records. Imaging Data Radiologic Study: Imaging: X-Ray Radiologist's impression: TECHNIQUE: Imaging protocol: Radiologic exam of the chest. Views: 1 view. COMPARISON: CR XR CHEST 2V PA LATERAL 11/13/2023 12:18 PM FINDINGS: Lungs: Left basilar lung consolidation appears worsened. Mild venous congestion Pleural spaces: Unremarkable. No pleural effusion. No pneumothorax. Heart/Mediastinum: Unremarkable. No cardiomegaly. Bones/joints: Unremarkable. IMPRESSION: Worsening left basilar pneumonia Lab Data Lab results reviewed: Yes I reviewed the patient's lab results. Labs: Laboratory Tests Range/Units 12/29/23 12/29/23 12/29/23 11:25 11:43 12:45 WBC (4.4-10.8) 10^3/uL 16.71 H RBC (3.93-5.22) 10^6/uL 3.22 L Hgb (11.2-15.7) g/dL 10.8 L Hct (36.0-46.0) % 32.5 L MCV (80-95) fL 101 H MCH (27.0-33.0) pg 33.5 H MCHC (32.0-36.0) % 33.2 RDW (11.7-14.6) % 13.3 Plt Count (130-400) 10^3/uL 331 MPV (8.0-11.0) fL 11.0 Immature Gran % % 0.2 Neutrophils % % 73.2 Lymphocytes % % 16.6 Monocytes % % 8.1 Eosinophils % % 1.4 Basophils % % 0.5 Nucleated RBC % (0.0-0.3) % 0.0 Absolute Neutrophils (1.2-6.7) 10^3/uL 12.23 H Absolute Lymphocytes (1.2-3.4) 10^3/uL 2.77 Absolute Monocytes (0.1-0.8) 10^3/uL 1.35 H Absolute Eosinophils (0.0-0.7) 10^3/uL 0.23 Absolute Basophils (0.0-0.2) 10^3/uL 0.08 PT (9.1-11.1) sec 10.1 INR (0.9-1.1) 1.0 APTT (23.6-32.8) sec 31.1 Sodium (136-145) mmol/L 139 Potassium (3.5-5.1) mmol/L 4.1 Chloride (98-107) mmol/L 105 Carbon Dioxide (21.0-32.0) mmol/L 26.0 Anion Gap (3-11) mmol/L 8.0 BUN (7-18) mg/dL 35 H Creatinine (0.55-1.02) mg/dL 1.5 H Est GFR (CKD-EPI 2020) (mL/min/1.73m2) 34.58 Glucose (74-106) mg/dL 134 H Calcium (8.5-10.1) mg/dL 9.2 Magnesium (1.8-2.4) mg/dL 2.5 H Total Bilirubin (0.2-1.0) mg/dL 0.32 AST (15-37) U/L 14 L ALT (14-59) U/L 13 L Alkaline Phosphatase (46-116) U/L 120 H Troponin I High Sens (4-51) ng/L 15 16 Total Protein (6.4-8.2) g/dL 7.4 Albumin (3.4-5.0) g/dL 3.3 L Lipase (16-77) U/L 28 Quality:[facility] Health Related Social Needs: No Data to Display PFSH All Active Problems (Updated 12/29/23 @ 13:54 by Corinne Murphy NP) Pneumonia (Acute) Pain in thoracic spine (Acute) Epigastric pain (Acute) COVID-19 (Acute) COVID-19 (Acute) COVID (Acute) Abnormal lung sounds (Acute) SOB (shortness of breath) (Acute) Dizziness (Acute) Tobacco abuse (Acute) Depressive disorder (Chronic 02/21/98) GERD (gastroesophageal reflux disease) (Chronic) Macrocytic anemia (Acute) MCV 99-199; ?chronic EtOH Constipation (Acute) ASCVD (arteriosclerotic cardiovascular disease) (Acute 04/14/02) 04/14/02 stent X2; ETT 1999 non-diagnostic, hypertensive; TIA 2005 Abnormal liver function (Acute) abnl GGT, Alk Phos, Albumin 12/25/23 [facility] visit Alcohol use disorder (Acute 02/21/98) h/o binge drinking 1997, 2002; chronic anemia, abnl LFT; three drinks/d Centrilobular emphysema (Acute) FEV1 1.57 (63% FVC, 70% pred, 2002) smoker 1/2 PPD; bronchiecasis, mucous pllugging on CT 10/2015 Chronic kidney disease (Acute 11/12/17) Disorder of vitamin B12 (Acute) Gait disorder, B12 level low Esophagitis (Acute 03/18/13) [place] [facility] [place], path few eos; REC PPI H/O ischemic vertebrobasilar artery cerebellar stroke (Acute 11/21/05) 11/2005 cerebellar TIA: dizzy, balance, R weakness; Dr Pimentel History of ASCVD (Acute 04/14/02) RCA tight 04/14/02 stent X2; ETT 1999 non-diagnostic, hypertensive; MPI 11/2003 nl perfusion; TIA 2006 Hyperlipidemia (Acute 03/23/02) Pulmonary emphysema (Acute 10/26/15) Tobacco dependence syndrome (Acute 12/11/11) 1/2 PPD, H/O DECR TO 0-3/D FOR 3MOS TIL RESTARTED 08/2011, stopped 10/2015; current 3/wk COPD (chronic obstructive pulmonary disease) (Chronic) Anemia (Acute) Lung nodules (Chronic) HTN (hypertension) (Chronic) Medical History Abnormal peak total bilirubin level (08/21/16) 129 first elevation 07/2016; with other LFT's normal Diarrhea (10/26/15) CVA (cerebral vascular accident) 2008? HTN (hypertension) Tobacco use disorder HLD (hyperlipidemia) ASCVD (arteriosclerotic cardiovascular disease) Hypokalemia Weight loss 12/25/23 [facility] Gastroenteritis Surgical History History of coronary artery stent placement 2 stents - ? 2008 Endoscopy (03/18/13) Dr [place] [place] dilatation: esophagitis, ?eosinophilic Family History Mother , CVA at age 76. Stroke Father , stomach CA at age 69. Stomach cancer Brother No problems noted. Other Diabetes Heavy alcohol use Social History Smoking/Tobacco Use Status: Current every day Tobacco Type: cigarettes Quit status: considering quitting Smoking risk assessment performed?: Yes Alcohol Intake: current Alcohol Intake frequency: 0-2 drinks per day Alcohol type: beer Drug use: Never Substance use type: does not use Household members: none Housing: house Number of Children: 2 number of grandchildren: 4 Communication Needs: Corrective Lenses Do you need help understanding health information?: Rarely current occupation: retired from [employer] Pets and animals: Yes How often do you talk on the phone with friends or family?: three or more times per week Panel score (0-1 are the most socially isolated patients): 1 What type of physical activity do you participate in: walking Frequency: daily Seatbelt use: always Helmet use: No 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
[2023-12-29] MEDS: MORPHine 10 MG/ML VIAL 2 MG IVP (11:36)
[2023-12-29 11:37] LABS: Abs Immature Grans 0.04 10^3/uL (0.0-0.06); Absolute Basophil Count 0.08 10^3/uL (0.0-0.2); Absolute Eosinophil Count 0.23 10^3/uL (0.0-0.7); Absolute Lymphocyte Count 2.77 10^3/uL (1.2-3.4); Absolute Monocyte Count 1.35 10^3/uL (0.1-0.8); Absolute Neutrophil Count 12.23 10^3/uL (1.2-6.7); Basophils % 0.5 %; Eosinophils % 1.4 %; HCT 32.5 % (36.0-46.0); HGB 10.8 g/dL (11.2-15.7); Immature Grans % 0.2 %; Lymphocytes % 16.6 %; MCH 33.5 pg (27.0-33.0); MCHC 33.2 % (32.0-36.0); MCV 101 fL (80-95); Monocytes % 8.1 %; Neutrophils % 73.2 %; Platelet Count 331 10^3/uL (130-400); RBC 3.22 10^6/uL (3.93-5.22); RDW 13.3 % (11.7-14.6); RDW-SD 49.5 fL; WBC 16.71 10^3/uL (4.4-10.8)
[2023-12-29 11:45] VITALS: RESP 20
--- NOTE | 2023-12-29 11:54 | DI.VRAD_ITS ---
PROCEDURE INFORMATION: Exam: XR Chest Exam date and time: 12/29/2023 11:35 AM Age: 83 years old Clinical indication: Other: Chest pain TECHNIQUE: Imaging protocol: Radiologic exam of the chest. Views: 1 view. COMPARISON: CR XR CHEST 2V PA LATERAL 11/13/2023 12:18 PM FINDINGS: Lungs: Left basilar lung consolidation appears worsened. Mild venous congestion Pleural spaces: Unremarkable. No pleural effusion. No pneumothorax. Heart/Mediastinum: Unremarkable. No cardiomegaly. Bones/joints: Unremarkable. IMPRESSION: Worsening left basilar pneumonia Dictated and Authenticated by: Erin Brito MD. Ordering:KAYDEN Sun MD
[2023-12-29 12:00] LABS: ALT 13 U/L (14-59); AST 14 U/L (15-37); Albumin 3.3 g/dL (3.4-5.0); Alkaline Phosphatase 120 U/L (46-116); BUN 35 mg/dL (7-18); Bilirubin, Total 0.32 mg/dL (0.2-1.0); CREATININE 1.5 mg/dL (0.55-1.02); Calcium 9.2 mg/dL (8.5-10.1); Chloride 105 mmol/L (98-107); Estimated GFR 34.58 (mL/min/1.73m2); Glucose 134 mg/dL (74-106); Magnesium 2.5 mg/dL (1.8-2.4); Potassium 4.1 mmol/L (3.5-5.1); Sodium 139 mmol/L (136-145); Total Protein 7.4 g/dL (6.4-8.2); Troponin I 15 ng/L (4-51)
[2023-12-29 12:21] LABS: PTT Activated 31.1 sec (23.6-32.8); Prothrombin Time 10.1 sec (9.1-11.1)
[2023-12-29] MEDS: DOXYCYCLINE 100 MG in Normal Saline 100 ML IVPB (12:50)
[2023-12-29 13:10] LABS: Lipase 28 U/L (16-77)
[2023-12-29 13:20] LABS: Troponin I 16 ng/L (4-51)
[2023-12-29 14:25] VITALS: BP 146/73; PULSE 89; RESP 20; TEMP 37; O2SAT 95
== END 2023-12-29 14:19 | disposition home or self-care (01) ==
PROVIDERS: Emergency Provider Registered Nurse Emergency; PCP Nurse Practitioner
DX: J18.9 Pneumonia, unspecified organism (principal); R07.9 Chest pain, unspecified; R06.02 Shortness of breath
CPT/HCPCS: 36415; 80053; 83690; 93005; 96365; 96375; 99284; 71045; 83735; 84484; 85025; 85610; 85730; 93010; 99283; J2270

== ENCOUNTER 2024-01-03 16:22 | Emergency (ER) | payer MEDICARE, SELFPAY ==
[2024-01-03] VITALS (36 sets, daily range): BP systolic 171–219; BP diastolic 62–87; PULSE 77–95; RESP 19–38; TEMP 36.2–36.7; O2SAT 96–100
--- NOTE | 2024-01-03 16:15 | RT.EKG_ITS ---
APPROVED REPORT Exam: Resting ECG Reason for Exam: chest pain Patient Location: E HR:93 bpm ECG Measurements Heart Rate 93 AXIS KS 187 P 76 QRSd 100 QRS -52 QT 372 T 45 QTc 464 Conclusion Sinus rhythm...normal P axis, V-rate 60- 99 Probable left atrial enlargement...P >50mS, <-0.10mV V1 LVH with secondary repolarization abnormality...multi-LVH criteria, abnrm ST-T Anterior infarct, old...Q >40mS, abnormal ST-T, V2-V5 sinus rhtyhm, left axis, lateral st seg depressions
--- NOTE | 2024-01-03 16:40 | DI.CT_ITS ---
Exam(s) CT CHEST PE ABD PELVIS W EXAM: CT CHEST PE ABD PELVIS W CLINICAL HISTORY: shortness of breath, pleuritic chest pain. TECHNIQUE: Imaging Protocol: Axial CT angiography was performed with multi-slice acquisition and mu lti-planar and/or 3D reconstructions. CONTRAST MATERIAL: Intravenous: Omnipaque 350contrast volume:[address] ABDOMEN PELVIS WO from 10/26/2018 CR XR CHEST 2V PA LATERAL from 11/13/2023 CR,XR XR PORTABLE CHEST AP from 12/29/2023 FINDINGS: CHEST: Tracheobronchial tree: Patent where visualized. There is mucous plugging seen in the left lower lobe airways. Pulmonary parenchyma: No consolidation or dominant measurable mass. Moderate centrilobular emphysema. There is persistent opacity in the dependent portion of the left lung base with mucous plugging in left lower lobe airway. There is persistent scarring seen in the periphery of the right upper lobe. No new infiltrates are seen. Pulmonary Arteries: No evidence of filling defect to suggest pulmonary emboli. Mediastinum and Megha: No dominant adenopathy or fluid collection. The esophagus is unremarkable. Visualized thyroid gland: Unremarkable. Pleura: No effusion or pneumothorax. Heart: The heart is not dilated. Coronary artery calcifications are present. There is a small perica rdial effusion. Aorta: Thoracic aorta non-dilated. No evidence of dissection. Atherosclerotic calcification is prese nt. Bones: Within normal limits for the patient's age. There is mild compression of the T8 and T9 vertebr al bodies. The loss of height is less than 10 percent. This area cannot be evaluated on the most re cent film from December 28 as a lateral view was not obtained. These were not present on the later al view of the chest from the chest x-ray from 11/13/2023. Soft tissues: Unremarkable. ABDOMEN: Liver: Normal density. No measurable mass. Portal, Superior Mesenteric, and Splenic Veins: Unremarkable. Gallbladder and Biliary Tract: No radiodense calculus or dilation. Pancreas: Normal density, no abnormal calcifications or inflammatory process. Spleen: Normal. Adrenals: No masses seen. Kidneys: Normal size, contour and axis. No radiodense stones or obstructive uropathy. No masses seen. Abdominal Aorta: Abdominal portion non-dilated. Atherosclerotic calcification is present. There is m arked stenosis distal common iliac arteries and both the internal and external iliac arteries. Bowel: There is diverticulosis of the colon without evidence of acute diverticulitis. There is no ev idence of bowel wall thickening or obstruction. No evidence of appendicitis. Peritoneal Cavity: No ascites, collection or mesenteric inflammatory response. No free air. Lymph Nodes: Within normal limits. Bones: Within normal limits for the patient's age. Soft Tissues: Unremarkable. PELVIS: Bladder: Symmetric distention, no gross wall thickening. Reproductive Organs: Unremarkable as visualized. Lymph Nodes: Within normal limits. Bones: Within normal limits. IMPRESSION: 1. No evidence pulmonary embolism, thoracic aortic dissection or aneurysm. 2. Stable pulmonary infiltrates. Left lower lobe mucous plugging. 3. Moderate centrilobular emphysema. 4. No acute abdominal or pelvic process. Mild compression deformities of T8 and T9. These could not be well evaluated on the single AP view of the chest from 12/29/2023. The findings have occurred sinc e the chest x-ray from 11/13/2023. 5. No acute abdominal or pelvic process. 6. Extensive atherosclerosis with marked stenosis in the iliac arteries. 7. Colonic diverticulosis without evidence of acute diverticulitis. RADIATION DOSE DELIVERED: 150.49mGy.cm Total DLP DATA REPOSITORY: All CT scans at this facility are submitted to the National Radiology Data Registry (NRDR) Dose Index Registry (DIR) with the [employer] (ACR). RADIATION OPTIMIZATION: All CT scans at this facility use at least one of these dose optimization te chniques: automated exposure control; mA and/or kV adjustment per patient size (includes targeted exa ms where dose is matched to clinical indication); or iterative reconstruction.
--- NOTE | 2024-01-03 16:45 | W.ED.GENAD ---
Discharge Plan Disposition Patient Disposition: Home Discharge Details Clinical Impression: Acute epigastric pain, Pneumonia Primary Care Provider: Yolanda Thomas ED Provider: Shelley Salgado Home Meds and New Rx's Prescriptions: New sucralfate [Carafate] 1 gram tablet 1 g PO BID Qty: 60 0RF oxycodone 5 mg capsule 2.5 mg PO BID PRNQty: 10 0RF Continued cyanocobalamin (vitamin B-12) [Vitamin B-12] 500 mcg tablet 500 mcg PO DAILY aspirin 325 mg tablet 325 mg PO DAILY Ensure, chocolate 237 ml PO 3XD Qty: 90 12RF albuterol sulfate 2.5 mg /3 mL (0.083 %) solution for nebulization 2.5 mg inhalation Q4H PRN (Reason: shortness of breath or wheezing) Qty: 180 3RF Patient Comments: didn't take recently albuterol sulfate [ProAir HFA] 90 mcg/actuation HFA aerosol inhaler 2 puff Inhalation Q4H PRN Qty: 1 12RF Rx Instructions: as needed for wheezing, dispense with spacer once yearly pantoprazole 40 mg tablet,delayed release (DR/EC) 40 mg PO DAILY Patient Comments: TAKE ONE TABLET BY MOUTH EVERY DAY (30 MINUTES BEFORE SUPPER) doxycycline hyclate 100 mg capsule 100 mg PO BID 10 Days Qty: 20 0RF Rx Instructions: Take 1 tablet twice daily for the next 10 days Discharge Instructions Additional Instructions: Take antibiotics as prescribed Yogurt daily while on antibiotics Carafate daily and make sure you continue to take your Protonix Follow-up with [facility] at your scheduled appointment and return earlier should you have new or worsening complaints Recommendation for applesauce, boost, Ensure, pudding, Jell-O, soup very small sips frequently throughout the day Referrals: Yolanda Thomas, GISELA [Primary Care Provider] - HPI General Date/Time Provider Initiated Documentation: 01/03/24 16:25. HPI Narrative: This 83-year-old female presents with epigastric pain with radiation to back. Denies known exacerbating or alleviating factors. Present for the past 2 weeks. Diagnosed with pneumonia on the seventh taking antibiotics as prescribed with persistent pain. States for the past several years she has been having some difficulty swallowing which is worsening. Now she is barely able to swallow boost or Ensure secondary to discomfort. Denies any trauma to the area. Longstanding history of alcohol use, stopped drinking approximately 3 years ago. Longstanding history of tobacco use continues to smoke. Normal bowel movements per patient. Intermittent nausea and vomiting. Related Data Home Medications ?Medication ?Instructions ?Recorded ?Confirmed cyanocobalamin (vitamin B-12) 500 500 mcg PO DAILY 09/23/20 01/03/24 mcg tablet (Vitamin B-12) albuterol sulfate 2.5 mg/3 mL 2.5 mg (3 mL) inhalation Q4H PRN 04/09/23 01/03/24 (0.083 %) solution for nebulization shortness of breath or wheezing #180 mL albuterol sulfate 90 mcg/actuation 2 puff inhalation Q4H PRN ##1 04/09/23 01/03/24 aerosol inhaler (ProAir HFA) aspirin 325 mg tablet 325 mg PO DAILY 09/12/23 01/03/24 Ensure, chocolate 237 ml PO 3XD #90 multiple units 11/27/23 01/03/24 doxycycline hyclate 100 mg capsule 100 mg PO BID Pneumonia 10 days 12/29/23 01/03/24 #20 caps pantoprazole 40 mg tablet,delayed 40 mg PO DAILY 12/29/23 01/03/24 release oxycodone 5 mg capsule 2.5 mg (1/2 x 5 mg) PO BID PRN #10 01/03/24 caps sucralfate 1 gram tablet (Carafate) 1 g PO BID #60 tabs 01/03/24 Previous Rx's ?Medication ?Instructions ?Recorded albuterol sulfate 2.5 mg/3 mL 2.5 mg (3 mL) inhalation Q4H PRN 04/09/23 (0.083 %) solution for nebulization shortness of breath or wheezing #180 mL albuterol sulfate 90 mcg/actuation 2 puff inhalation Q4H PRN ##1 04/09/23 aerosol inhaler (ProAir HFA) Ensure, chocolate 237 ml PO 3XD #90 multiple units 11/27/23 doxycycline hyclate 100 mg capsule 100 mg PO BID Pneumonia 10 days 12/29/23 #20 caps oxycodone 5 mg capsule 2.5 mg (1/2 x 5 mg) PO BID PRN #10 01/03/24 caps sucralfate 1 gram tablet (Carafate) 1 g PO BID #60 tabs 01/03/24 Allergies Allergy/AdvReac Type Severity Reaction Status Date / Time hydrochlorothiazide AdvReac Intermediate dizziness Verified 01/03/24 16:30 metoprolol AdvReac Intermediate not Verified 01/03/24 16:30 tolerated nitroglycerin AdvReac Intermediate pounding Verified 01/03/24 16:30 heart lisinopril AdvReac cough Verified 01/03/24 16:30 General Stated Complaint: Chest Pain SHANNAN: 2 Exam Narrative Exam Narrative: Alert and oriented, no acute distress, mild right upper quadrant pain, no rebound or guarding, no abdominal bruit or pulsatile mass, pupils equal round reactive to light and accommodation, no peripheral edema, distal pulses intact, lungs clear to auscultation, cardiac rate rhythm regular Course Vital Signs Vital signs: Vital Signs Temperature 36.2 C L 01/03/24 16:25 Pulse 95 H 01/03/24 16:25 Respiratory Rate 20 01/03/24 16:25 Blood Pressure 171/82 H 01/03/24 16:25 Pulse Oximetry 99 01/03/24 16:25 Temperature 36.2 C L 01/03/24 16:25 Pulse 95 H 01/03/24 16:25 Respiratory Rate 20 01/03/24 16:25 Respiratory Effort Normal 01/03/24 16:31 Blood Pressure 171/82 H 01/03/24 16:25 Pulse Oximetry 99 01/03/24 16:25 Oxygen Delivery Method Room Air 01/03/24 16:25 Oxygen Flow Rate 0 01/03/24 16:25 Pain Level 10 01/03/24 16:25 Lab/Test Results Lab/Test Results: 01/03/24 16:41 Blood Blood Culture - Pending 01/03/24 16:41 Blood Blood Culture - Pending Medical Decision Making This 83-year-old female presents with report of epigastric and chest pain for the past several weeks. Scheduled for GI appointment and barium swallow on 10 January per patient in [place]. Denies any new pain. Is being treated for pneumonia in the outpatient setting per patient. States she is not having improvement in symptoms which is why she is concerned. Denies any hemoptysis or calf pain or swelling. Troponin negative with 2 weeks of symptoms that are not worsening. Improved leukocytosis, 16,000-10,000. CT with evidence of infiltrates which is persistent. Patient encouraged to continue doxycycline, will add Carafate to her regimen and give patient several tabs of oxycodone, risk of addiction reviewed, 2.5 mg of oxycodone as needed pain. Patient resting comfortably and able to tolerate p.o. at time of reassessment. Received 1 L of fluid. Creatinine 1.7, baseline for patient when compared to prior BUN of 34, baseline for patient when compared to prior Quality:SDOH Health Related Social Needs: No Data to Display [facility] All Active Problems (Updated 01/03/24 @ 19:25 by RAÚL Do) Pneumonia (Acute) Acute epigastric pain (Acute) Abdominal pain (Acute) Pneumonia (Acute) Pain in thoracic spine (Acute) Epigastric pain (Acute) COVID-19 (Acute) COVID-19 (Acute) COVID (Acute) Abnormal lung sounds (Acute) SOB (shortness of breath) (Acute) Dizziness (Acute) Tobacco abuse (Acute) Depressive disorder (Chronic 02/21/98) GERD (gastroesophageal reflux disease) (Chronic) Macrocytic anemia (Acute) MCV 99-199; ?chronic EtOH Constipation (Acute) ASCVD (arteriosclerotic cardiovascular disease) (Acute 04/14/02) 04/14/02 stent X2; ETT 1999 non-diagnostic, hypertensive; TIA 2005 Abnormal liver function (Acute) abnl GGT, Alk Phos, Albumin 12/25/23 [facility] GI visit Alcohol use disorder (Acute 02/21/98) h/o binge drinking 1997, 2002; chronic anemia, abnl LFT; three drinks/d Centrilobular emphysema (Acute) FEV1 1.57 (63% FVC, 70% pred, 2002) smoker 1/2 PPD; bronchiecasis, mucous pllugging on CT 10/2015 Chronic kidney disease (Acute 11/12/17) Disorder of vitamin B12 (Acute) Gait disorder, B12 level low Esophagitis (Acute 03/18/13) EGD and dilatation [place], [facility] [place] esophagitis, path few eos; REC PPI H/O ischemic vertebrobasilar artery cerebellar stroke (Acute 11/21/05) 11/2005 cerebellar TIA: dizzy, balance, R weakness; Dr Pimentel History of ASCVD (Acute 04/14/02) RCA tight 04/14/02 stent X2; ETT 1999 non-diagnostic, hypertensive; MPI 11/2003 nl perfusion; TIA 2005 Hyperlipidemia (Acute 03/23/02) Pulmonary emphysema (Acute 10/26/15) Tobacco dependence syndrome (Acute 12/11/11) 1/2 PPD, H/O DECR TO 0-3/D FOR 3MOS TIL RESTARTED 08/2011, stopped 10/2015; current 3/wk COPD (chronic obstructive pulmonary disease) (Chronic) Anemia (Acute) Lung nodules (Chronic) HTN (hypertension) (Chronic) Medical History Abnormal peak total bilirubin level (08/21/16) 129 first elevation 07/2016; with other LFT's normal Diarrhea (10/26/15) CVA (cerebral vascular accident) 2008? HTN (hypertension) Tobacco use disorder HLD (hyperlipidemia) ASCVD (arteriosclerotic cardiovascular disease) Hypokalemia Weight loss 12/25/23 [facility] GI Gastroenteritis Surgical History History of coronary artery stent placement 2 stents - ? 2008 Endoscopy (03/18/13) Dr [facility] [place] & dilatation: esophagitis, ?eosinophilic Family History Mother , CVA at age 76. Stroke Father , stomach CA at age 69. Stomach cancer Brother No problems noted. Other Diabetes Heavy alcohol use Social History Smoking/Tobacco Use Status: Current every day Tobacco Type: cigarettes Quit status: considering quitting Smoking risk assessment performed?: Yes Alcohol Intake: former Drug use: Never Substance use type: does not use Household members: none Housing: house Number of Children: 2 number of grandchildren: 4 Communication Needs: Corrective Lenses Do you need help understanding health information?: Rarely current occupation: retired from [email or web address] Pets and animals: Yes How often do you talk on the phone with friends or family?: three or more times per week Panel score (0-1 are the most socially isolated patients): 1 What type of physical activity do you participate in: walking Frequency: daily Seatbelt use: always Helmet use: No Drive intox or ride w/intox test car driver: No Working smoke detector in home: Yes Carbon monox detector in home: Yes Do you feel safe at home: Yes Do you feel safe in your relationship?: Yes
[2024-01-03 16:59] LABS: Lactate 1.1 mmol/L (0.6-1.4)
[2024-01-03 17:01] LABS: Abs Immature Grans 0.04 10^3/uL (0.0-0.06); Absolute Basophil Count 0.09 10^3/uL (0.0-0.2); Absolute Eosinophil Count 0.33 10^3/uL (0.0-0.7); Absolute Lymphocyte Count 3.68 10^3/uL (1.2-3.4); Absolute Neutrophil Count 5.25 10^3/uL (1.2-6.7); Basophils % 0.9 %; Eosinophils % 3.3 %; HCT 35.4 % (36.0-46.0); HGB 11.7 g/dL (11.2-15.7); Immature Grans % 0.4 %; Lymphocytes % 36.5 %; MCH 33.5 pg (27.0-33.0); MCHC 33.1 % (32.0-36.0); MCV 101 fL (80-95); MPV 10.9 fL (8.0-11.0); Monocytes % 6.9 %; Platelet Count 375 10^3/uL (130-400); RBC 3.49 10^6/uL (3.93-5.22); RDW 13.2 % (11.7-14.6); RDW-SD 49.3 fL; WBC 10.09 10^3/uL (4.4-10.8)
[2024-01-03] MEDS: Normal Saline 1,000 ML 1000 ML IV (17:08)
[2024-01-03] MEDS: Famotidine 20 MG/2 ML VIAL IVP (17:08)
[2024-01-03] MEDS: MORPHine 10 MG/ML VIAL 2 MG IVP (17:08)
[2024-01-03] MEDS: Normal Saline - Diluent 50 ML VIAL IJ (17:23)
[2024-01-03] MEDS: Omnipaque 350 MG/ML 100 ML BTL 55 ML IJ (17:24)
[2024-01-03 17:27] LABS: ALT 9 U/L (14-59); AST 17 U/L (15-37); Albumin 3.8 g/dL (3.4-5.0); Alkaline Phosphatase 132 U/L (46-116); Anion Gap 10.7 mmol/L (3-11); BUN 34 mg/dL (7-18); Bilirubin, Total 0.76 mg/dL (0.2-1.0); C-Reactive Protein 1.26 mg/dL (<or=0.5); CO2 25.3 mmol/L (21.0-32.0); CREATININE 1.7 mg/dL (0.55-1.02); Calcium 9.8 mg/dL (8.5-10.1); Chloride 104 mmol/L (98-107); Estimated GFR 29.76 (mL/min/1.73m2); Glucose 98 mg/dL (74-106); Lipase 28 U/L (16-77); Magnesium 2.7 mg/dL (1.8-2.4); Potassium 4.2 mmol/L (3.5-5.1); Sodium 140 mmol/L (136-145); Total Protein 7.8 g/dL (6.4-8.2); Troponin I 23 ng/L (<or=51)
[2024-01-03 17:40] LABS: Procalcitonin < 0.1 ng/mL
[2024-01-03] MEDS: Mylanta Suspension 30 ML CUP (18:38)
[2024-01-03] MEDS: Lidocaine 2% Viscous 15 ML CUP (18:38)
== END 2024-01-03 19:49 | disposition home or self-care (01) ==
PROVIDERS: Emergency Provider Physician Assistant; PCP Nurse Practitioner
DX: R10.13 Epigastric pain (principal); J18.9 Pneumonia, unspecified organism; I10 Essential (primary) hypertension; I25.10 Atherosclerotic heart disease of native coronary artery without angina pectoris; E78.5 Hyperlipidemia, unspecified; J44.9 Chronic obstructive pulmonary disease, unspecified; Z86.73 Personal history of transient ischemic attack (TIA), and cerebral infarction without residual deficits; Z79.82 Long term (current) use of aspirin; F17.210 Nicotine dependence, cigarettes, uncomplicated; Z95.5 Presence of coronary angioplasty implant and graft
CPT/HCPCS: 36415; 71275; 74177; 80053; 83690; 84145; 87040; 93005; 96374; 96375; 99285; 83605; 83735; 84484; 85025; 86140; 93010; 99284; J2270; J3490

== ENCOUNTER 2024-01-22 14:40 | Outpatient (REF) | payer MEDICARE, SELFPAY ==
[2024-01-22 15:52] LABS: Anion Gap 9.5 mmol/L (3-11); BUN 22 mg/dL (7-18); CO2 26.5 mmol/L (21.0-32.0); CREATININE 1.6 mg/dL (0.55-1.02); Calcium 9.4 mg/dL (8.5-10.1); Chloride 105 mmol/L (98-107); Glucose 98 mg/dL (74-106); Potassium 4.2 mmol/L (3.5-5.1); Sodium 141 mmol/L (136-145)
== END 2024-01-22 14:41 | disposition home or self-care (01) ==
LOC: LBN 14:40
PROVIDERS: PCP Nurse Practitioner; Visit Provider Nurse Practitioner
DX: N17.9 Acute kidney failure, unspecified (principal)
CPT/HCPCS: 80048

== ENCOUNTER 2024-04-21 15:06 | Outpatient (CLI) | payer MEDICARE, SELFPAY ==
--- NOTE | 2024-04-21 11:41 | DI.RAD_ITS ---
Exam(s) XR CHEST 2V PA LATERAL EXAM: XR CHEST 2V PA LATERAL CLINICAL HISTORY: SOB, cough Z72.0 TOBACCO USE J43.2 EMPHYSEMA J44.9 COPD TECHNIQUE: 2D digital imaging was performed. Two views. COMPARISON: CR XR CHEST 2V PA LATERAL from 10/26/2018 CR XR CHEST 2V PA LATERAL from 01/31/2021 CR XR PORTABLE CHEST AP from 08/26/2021 CR XR PORTABLE CHEST AP from 08/31/2021 CR,XR XR CHEST 2V PA LATERAL from 10/25/2023 CR,XR XR CHEST 2V PA LATERAL from 11/04/2023 CR,XR XR PORTABLE CHEST AP from 12/29/[address] CHEST PE ABD PELVIS W from 01/03/2024 FINDINGS: HEART: Normal size. Aorta: Not dilated. PULMONARY VASCULATURE: Normal. MEDIASTINUM: Unremarkable. LUNGS: Interstitial changes again noted. Hyperinflation. Emphysematous changes. Increased densitie s at the left lung base are likely chronic. PLEURAL SPACE: No pleural effusion or pneumothorax. BONE:Stable mild T8 compression fracture. New mild compression fracture of T5. Mild interval worsen ing T8 compression fracture, now moderate. SOFT TISSUES: Unremarkable. IMPRESSION: Emphysematous changes and fibrotic changes. Increased densities at the left lung base may be chronic . DATA REPOSITORY: RADIATION DOSE DELIVERED:
== END 2024-04-21 15:26 ==
LOC: DI 15:08
PROVIDERS: PCP Nurse Practitioner; Visit Provider Nurse Practitioner
DX: Z72.0 Tobacco use (principal); J44.9 Chronic obstructive pulmonary disease, unspecified
CPT/HCPCS: 71046

== ENCOUNTER 2024-05-30 14:03 | Outpatient (CLI) | payer MEDICARE, SELFPAY ==
--- NOTE | 2024-05-30 13:18 | DI.RAD_ITS ---
Exam(s) XR CHEST 2V PA LATERAL EXAM: XR CHEST 2V PA LATERAL CLINICAL HISTORY: J40 Bronchitis, R/O pneumonia TECHNIQUE: 2D digital imaging was performed. Two views. COMPARISON: CR XR PORTABLE CHEST AP from 08/26/2021 CR XR PORTABLE CHEST AP from 08/31/2021 CR,XR XR CHEST 2V PA LATERAL from 11/04/2023 FINDINGS: HEART: Normal size. Coronary artery stent. Aorta: Not dilated. PULMONARY VASCULATURE: Normal. MEDIASTINUM: Unremarkable. LUNGS: Emphysematous and fibrotic changes. Scarring left lung base. PLEURAL SPACE: No pleural effusion or pneumothorax. BONE:Stable thoracic compression fractures. SOFT TISSUES: Unremarkable. IMPRESSION: No acute abnormality. DATA REPOSITORY: RADIATION DOSE DELIVERED:
== END 2024-05-30 14:23 ==
PROVIDERS: PCP Nurse Practitioner; Visit Provider Family Medicine
DX: J40 Bronchitis, not specified as acute or chronic (principal)
CPT/HCPCS: 71046

== ENCOUNTER 2024-06-09 09:58 | Emergency (ER) | payer MEDICARE, SELFPAY ==
[2024-06-09] VITALS (18 sets, daily range): BP systolic 124–128; BP diastolic 56–75; PULSE 92–113; RESP 19–33; TEMP 36.6–36.8; O2SAT 83–100
[2024-06-09 11:08] LABS: Abs Immature Grans 0.05 10^3/uL (0.0-0.06); Absolute Basophil Count 0.02 10^3/uL (0.0-0.2); Absolute Eosinophil Count 0.02 10^3/uL (0.0-0.7); Absolute Lymphocyte Count 2.57 10^3/uL (1.2-3.4); Absolute Monocyte Count 0.85 10^3/uL (0.1-0.8); Absolute Neutrophil Count 8.48 10^3/uL (1.2-6.7); Basophils % 0.2 %; Eosinophils % 0.2 %; HCT 35.3 % (36.0-46.0); HGB 11.5 g/dL (11.2-15.7); Immature Grans % 0.4 %; Lymphocytes % 21.4 %; MCH 33.3 pg (27.0-33.0); MCHC 32.6 % (32.0-36.0); MCV 102 fL (80-95); MPV 11.2 fL (8.0-11.0); Monocytes % 7.1 %; Neutrophils % 70.7 %; Platelet Count 358 10^3/uL (130-400); RBC 3.45 10^6/uL (3.93-5.22); WBC 11.99 10^3/uL (4.4-10.8)
--- NOTE | 2024-06-09 11:12 | DI.RAD_ITS ---
Exam(s) XR PORTABLE CHEST AP EXAM: XR PORTABLE CHEST AP CLINICAL HISTORY: SOB TECHNIQUE: 2D digital imaging was performed of the chest. Two images were obtained. AP views were obtained. COMPARISON: CR,XR XR PORTABLE CHEST AP from 12/29/2023 CR XR CHEST 2V PA LATERAL from 05/30/2024 FINDINGS: MEDIASTINUM: Normal. HEART: Normal. PULMONARY VASCULATURE: Normal. LUNGS: Increased lung markings in the retrocardiac region on the left which may reflect atelectasis o r pneumonia. The lungs are hyperinflated with flattened diaphragms suggesting underlying COPD. The right lung is clear. PLEURAL SPACE: No pleural effusion or pneumothorax. BONE:Within normal limits for the patient's age. OTHER FINDINGS:Normal. IMPRESSION: Question of a left basilar infiltrate. Please correlate clinically. DATA REPOSITORY: RADIATION DOSE DELIVERED:
[2024-06-09] MEDS: methylPREDNISolone SUCC 125 MG VIAL IVP (11:20)
[2024-06-09] MEDS: Albuterol/Ipratropium 3 ML UPD VIAL UPD ×3 (11:20→11:21)
[2024-06-09 11:26] LABS: ALT 21 U/L (14-59); AST 14 U/L (15-37); Albumin 3.2 g/dL (3.4-5.0); Alkaline Phosphatase 103 U/L (46-116); Anion Gap 7.5 mmol/L (3-11); BUN 35 mg/dL (7-18); Bilirubin, Total 0.53 mg/dL (0.2-1.0); CO2 30.5 mmol/L (21.0-32.0); CREATININE 1.4 mg/dL (0.55-1.02); Calcium 9.8 mg/dL (8.5-10.1); Chloride 102 mmol/L (98-107); Diff Comment Agrees w/ Instrument; Estimated GFR 37.56 (mL/min/1.73m2); Glucose 111 mg/dL (74-106); Sodium 140 mmol/L (136-145); Total Protein 7.8 g/dL (6.4-8.2)
[2024-06-09 11:42] LABS: COVID-19 PCR Negative (Negative); Influenza A PCR Negative (Negative); Influenza B PCR Negative (Negative); RSV PCR Negative (Negative)
[2024-06-09 11:45] LABS: Source Nasopharynx
[2024-06-09] MEDS: Normal Saline 500 ML IV (12:30)
--- NOTE | 2024-06-09 16:01 | ED.GENADUL_ITS ---
Discharge Plan Disposition Patient Disposition: Home Condition: Stable Discharge Details Clinical Impression: COPD (chronic obstructive pulmonary disease), Acute exacerbation of chronic obstructive pulmonary disease Primary Care Provider: Yolanda Thomas ED Provider: Zoe Miller Home Meds and New Rx's Prescriptions: New benzonatate 100 mg capsule 100 mg PO TID PRN (Reason: cough) Qty: 30 0RF doxycycline monohydrate 100 mg capsule 100 mg PO BID 7 Days Qty: 14 0RF prednisone 20 mg tablet 40 mg PO DAILY 4 Days Qty: 8 0RF No Action cyanocobalamin (vitamin B-12) [Vitamin B-12] 500 mcg tablet 500 mcg PO DAILY albuterol sulfate 2.5 mg /3 mL (0.083 %) solution for nebulization 2.5 mg inhalation Q4H PRN (Reason: shortness of breath or wheezing) Qty: 180 3RF Patient Comments: didn't take recently prednisone 20 mg tablet 40 mg PO DAILY Qty: 10 0RF aspirin 325 mg tablet 325 mg PO DAILY Ensure, chocolate 237 ml PO 3XD Qty: 90 12RF multivitamin with minerals Capsule 1 cap PO DAILY albuterol sulfate 90 mcg/actuation HFA aerosol inhaler 2 puff Inhalation Q4H PRN Qty: 1 12RF Rx Instructions: as needed for wheezing, dispense with spacer once yearly azithromycin 250 mg tablet See Rx Instructions PO .COMPLEX Qty: 6 0RF Rx Instructions: For 250 mg dose pack: take 500 mg today (day 1), then 250 mg for 4 days (days 2-5) PO acetaminophen 500 mg tablet 500 mg PO Q6H PRN (Reason: fever or pain) Qty: 120 0RF pantoprazole 40 mg tablet,delayed release (DR/EC) 40 mg PO DAILY Patient Comments: TAKE ONE TABLET BY MOUTH EVERY DAY (30 MINUTES BEFORE SUPPER) Discharge Instructions Instructions: Chronic Obstructive Pulmonary Disease (COPD) (DC) Additional Instructions: Your viral testing today was negative and your x-ray did not reveal a large pneumonia. Given your history of COPD and oxygen dependence, you were given steroids and should be treated with antibiotics to cover for any atypical infections. Cough medication, steroid and antibiotic biotic has been sent to the pharmacy for you to start taking today. Please continue your breathing treatments every 4 hours at home, return with worsening shortness of breath or increased oxygen requirement Try to increase your oral intake, especially fluids Please follow-up with your PCP for reevaluation later this week Discharge Data Discharge Date/Time-TO BE ENTERED AT DEPARTURE: 06/09/24 13:22 HPI General Date/Time Provider Initiated Documentation: 06/09/24 10:31 . Limitations to Documentation: no limitations . Information obtained by: patient and family . HPI Narrative: 83-year-old female with past medical history of COPD, oxygen dependence, hypertension presents for evaluation of cough. Patient has had some persistent symptoms for the last few days. She was seen in clinic 1 week ago and diagnosed with bronchitis. She was started on steroids. She was not treated with antibiotics. There was concern at that time that she was not drinking and eat ing well. She has had poor oral intake and poor oral hydration. The patient denies any fever. She is not been able to smoke much but was able to get 1 cigarette and this morning. Related Data Home Medications ?Medication ?Instructions ?Recorded ?Confirmed cyanocobalamin (vitamin B-12) 500 500 mcg PO DAILY 09/23/20 06/09/24 mcg tablet (Vitamin B-12) aspirin 325 mg tablet 325 mg PO DAILY 09/12/23 06/09/24 Ensure, chocolate 237 ml PO 3XD #90 multiple units 11/27/23 06/09/24 pantoprazole 40 mg tablet,delayed 40 mg PO DAILY 12/29/23 06/09/24 release acetaminophen 500 mg tablet 500 mg PO Q6H PRN fever or pain 01/21/24 06/09/24 #120 tabs multivitamin with minerals 1 cap PO DAILY 01/21/24 06/09/24 albuterol sulfate 90 mcg/actuation 2 puff inhalation Q4H PRN ##1 05/07/24 06/09/24 aerosol inhaler azithromycin 250 mg tablet See Rx Instructions PO .COMPLEX #6 05/30/24 06/09/24 tabs albuterol sulfate 2.5 mg/3 mL 2.5 mg (3 mL) inhalation Q4H PRN 06/02/24 06/09/24 (0.083 %) solution for nebulization shortness of breath or wheezing #180 mL prednisone 20 mg tablet 40 mg (2 x 20 mg) PO DAILY #10 tabs 06/02/24 06/09/24 benzonatate 100 mg capsule 100 mg PO TID PRN cough #30 caps 06/09/24 doxycycline monohydrate 100 mg 100 mg PO BID 7 days #14 caps 06/09/24 capsule prednisone 20 mg tablet 40 mg (2 x 20 mg) PO DAILY 4 days 06/09/24 #8 tabs Previous Rx's ?Medication ?Instructions ?Recorded Ensure, chocolate 237 ml PO 3XD #90 multiple units 11/27/23 acetaminophen 500 mg tablet 500 mg PO Q6H PRN fever or pain 01/21/24 #120 tabs albuterol sulfate 90 mcg/actuation 2 puff inhalation Q4H PRN ##1 05/07/24 aerosol inhaler azithromycin 250 mg tablet See Rx Instructions PO .COMPLEX #6 05/30/24 tabs albuterol sulfate 2.5 mg/3 mL 2.5 mg (3 mL) inhalation Q4H PRN 06/02/24 (0.083 %) solution for nebulization shortness of breath or wheezing #180 mL prednisone 20 mg tablet 40 mg (2 x 20 mg) PO DAILY #10 tabs 06/02/24 benzonatate 100 mg capsule 100 mg PO TID PRN cough #30 caps 06/09/24 doxycycline monohydrate 100 mg 100 mg PO BID 7 days #14 caps 06/09/24 capsule prednisone 20 mg tablet 40 mg (2 x 20 mg) PO DAILY 4 days 06/09/24 #8 tabs Allergies Allergy/AdvReac Type Severity Reaction Status Date / Time hydrochlorothiazide AdvReac Intermediate dizziness Verified 06/09/24 10:28 metoprolol AdvReac Intermediate not Verified 06/09/24 10:28 tolerated nitroglycerin AdvReac Intermediate pounding Verified 06/09/24 10:28 heart lisinopril AdvReac cough Verified 06/09/24 10:28 General Stated Complaint: RespSymp SHANNAN: 3 Exam Narrative Exam Narrative: Review of Systems: All systems reviewed & are unremarkable except as noted in HPI and below Chronically ill-appearing NCAT RRR, no murmur Hypoxia of 83% on room air, patient did not arrive on home oxygen therapy. Increased work of breathing, wheezing and poor air movement bilaterally. Nondistended abdomen soft nontender Extremities w/o edema Course Vital Signs Vital signs: Vital Signs Temperature 36.6 C 06/09/24 10:23 Pulse 113 H 06/09/24 10:23 Respiratory Rate 20 06/09/24 10:23 Blood Pressure 128/75 06/09/24 10:23 Pulse Oximetry 83 L 06/09/24 10:23 Temperature 36.8 C 06/09/24 11:30 Temperature Source Temporal Artery Scan 06/09/24 11:22 Pulse 100 H 06/09/24 13:00 Pulse 105 H 06/09/24 12:10 Respiratory Rate 20 06/09/24 13:00 Respiratory Effort Normal 06/09/24 13:03 Respiratory Depth Shallow 06/09/24 11:22 Respiratory Pattern Normal 06/09/24 13:03 Blood Pressure 124/56 L 06/09/24 11:47 Blood Pressure Mean 78 06/09/24 11:47 Blood Pressure Position Supine 06/09/24 11:22 Pulse Oximetry 95 06/09/24 13:03 Oxygen Delivery Method Room Air 06/09/24 13:03 Oxygen Flow Rate 0 06/09/24 13:03 Fraction of Inspired Oxygen (FIO2) 100 06/09/24 11:25 Pain Level 0 06/09/24 11:22 Comment put patient on 3 lpm (home dose) 06/09/24 10:23 Lab/Test Results Lab/Test Results: 06/09/24 11:58 Blood Blood Culture - Pending 06/09/24 12:13 Blood Blood Culture - Pending Laboratory Tests Range/Units 06/09/24 11:00 WBC (4.4-10.8) 10^3/uL 11.99 H RBC (3.93-5.22) 10^6/uL 3.45 L Hgb (11.2-15.7) g/dL 11.5 Hct (36.0-46.0) % 35.3 L MCV (80-95) fL 102 H MCH (27.0-33.0) pg 33.3 H MCHC (32.0-36.0) % 32.6 RDW (11.7-14.6) % 13.0 Plt Count (130-400) 10^3/uL 358 MPV (8.0-11.0) fL 11.2 H Immature Gran % % 0.4 Neutrophils % % 70.7 Lymphocytes % % 21.4 Monocytes % % 7.1 Eosinophils % % 0.2 Basophils % % 0.2 Nucleated RBC % (0.0-0.3) % 0.0 Absolute Neutrophils (1.2-6.7) 10^3/uL 8.48 H Absolute Lymphocytes (1.2-3.4) 10^3/uL 2.57 Absolute Monocytes (0.1-0.8) 10^3/uL 0.85 H Absolute Eosinophils (0.0-0.7) 10^3/uL 0.02 Absolute Basophils (0.0-0.2) 10^3/uL 0.02 Sodium (136-145) mmol/L 140 Potassium (3.5-5.1) mmol/L 4.0 Chloride (98-107) mmol/L 102 Carbon Dioxide (21.0-32.0) mmol/L 30.5 Anion Gap (3-11) mmol/L 7.5 BUN (7-18) mg/dL 35 H Creatinine (0.55-1.02) mg/dL 1.4 H Est GFR (CKD-EPI 2020) (mL/min/1.73m2) 37.56 Glucose (74-106) mg/dL 111 H Calcium (8.5-10.1) mg/dL 9.8 Total Bilirubin (0.2-1.0) mg/dL 0.53 AST (15-37) U/L 14 L ALT (14-59) U/L 21 Alkaline Phosphatase (46-116) U/L 103 Total Protein (6.4-8.2) g/dL 7.8 Albumin (3.4-5.0) g/dL 3.2 L COVID-19 Source Nasopharynx SARS-CoV-2 (PCR) (Negative) Negative Influenza Type A (PCR) (Negative) Negative Influenza Type B (PCR) (Negative) Negative RSV (PCR) (Negative) Negative Medical Decision Making Emergent evaluation of respiratory distress. Patient is known COPD, oxygen dependent, still smoking. Recent treatments of antibiotics previously and then steroids the second time around with persistent symptoms. Arrived without her oxygen in place and was fairly hypoxic and dyspneic. When placed in the room and put on her supplemental nasal cannula, her oxygen saturation did improve to normal range. She was given steroids as well as breathing treatments. This improved her aeration significantly. Her lab work did not reveal significant abnormalities. Mild leukocytosis of 11.9. No anemia. No renal dysfunction. Viral testing today is negative. Her chest x-ray was reviewed, there is a questionable left basilar infiltrate. I will start the patient on doxycycline for the next 7 days. Additional steroid burst has been given. Patient is requesting to go home at this time. Given that she is back on baseline oxygen requirements I think that this is reasonable. Strict return precautions advised. Although there is concern for poor oral intake, the patient does not have a significant evidence of dehydration clinically or on lab evaluation. She was given some gentle IV hydration. Recommend improved oral hydration at home as she tolerates. Recommend close follow-up with PCP. Return to the emergency department as needed. Quality:[facility] Health Related Social Needs: No Data to Display [facility] All Active Problems (Updated 06/09/24 @ 13:10 by Zoe Miller MD) Acute exacerbation of chronic obstructive pulmonary disease (Acute) Bronchitis (Acute) Pyloric stenosis (Acute ~02/2024) Sees [facility] Esophageal stricture (Acute) EGD 01/2024,dilation of stricture, cont. PPI, Pyloric stenosis in adult (Acute) EGD 01/2024 Congestion of upper airway (Acute) Hx laparoscopic cholecystectomy (Acute) [place] [facility] [place] in thoracic spine (Acute) Epigastric pain (Acute) COVID-19 (Acute) COVID-19 (Acute) COVID (Acute) Abnormal lung sounds (Acute) SOB (shortness of breath) (Acute) Dizziness (Acute) Tobacco abuse (Acute) Depressive disorder (Chronic 02/21/98) GERD (gastroesophageal reflux disease) (Chronic) F/u with [facility] Macrocytic anemia (Acute) MCV 99-199; ?chronic EtOH Constipation (Acute) ASCVD (arteriosclerotic cardiovascular disease) (Acute 04/14/02) 04/14/02 stent X2; ETT 1999 non-diagnostic, hypertensive; TIA 2005 Abnormal liver function (Acute) abnl GGT, Alk Phos, Albumin 12/25/23 [facility] visit Alcohol use disorder (Acute 02/21/98) h/o binge drinking 1997, 2002; chronic anemia, abnl LFT; three drinks/d Centrilobular emphysema (Acute) FEV1 1.57 (63% FVC, 70% pred, 2002) smoker 1/2 PPD; bronchiecasis, mucous pllugging on CT 10/2015 Chronic kidney disease (Acute 11/12/17) Disorder of vitamin B12 (Acute) Gait disorder, B12 level low Esophagitis (Acute 03/18/13) EGD and dilatation [place] [facility] [place]itis, path few eos; REC PPI H/O ischemic vertebrobasilar artery cerebellar stroke (Acute 11/21/05) 11/2005 cerebellar TIA: dizzy, balance, R weakness; Dr Pimentel History of ASCVD (Acute 04/14/02) RCA tight 04/14/02 stent X2; ETT 1999 non-diagnostic, hypertensive; MPI 11/2003 nl perfusion; TIA 2005 Hyperlipidemia (Acute 03/23/02) Pulmonary emphysema (Acute 10/26/15) Tobacco dependence syndrome (Acute 12/11/11) 1/2 PPD, H/O DECR TO 0-3/D FOR 3MOS TIL RESTARTED 08/2011, stopped 10/2015; current 3/wk COPD (chronic obstructive pulmonary disease) (Chronic) Anemia (Acute) Lung nodules (Chronic) HTN (hypertension) (Chronic) Medical History (Updated 06/09/24 @ 13:10 by Zoe Miller MD) Hiatal hernia (~02/2024) 03/17/24 found on EGD, [facility], hernia 2cm Abnormal peak total bilirubin level (08/21/16) 129 first elevation 07/2016; with other LFT's normal Diarrhea (10/26/15) CVA (cerebral vascular accident) 2008? HTN (hypertension) Tobacco use disorder HLD (hyperlipidemia) ASCVD (arteriosclerotic cardiovascular disease) Hypokalemia Weight loss 12/25/23 [facility] Gastroenteritis Surgical History (Updated 06/06/24 @ 14:50 by Saima Diez RN) History of esophagogastroduodenoscopy (EGD) (02/21/24) Dr Rushing w/biopsy and dilation 03/17/[address] Rushing, [facility], dilation done,benign pyloric stenosis that was biopsied showed mild reactive changes. History of coronary artery stent placement 2 stents - ? 2008 Endoscopy (03/18/13) Dr [place] [place]: esophagitis, ?eosinophilic Family History Mother , CVA at age 76. Stroke Father , stomach CA at age 69. Stomach cancer Brother No problems noted. Other Diabetes Heavy alcohol use Social History Smoking/Tobacco Use Status: Current every day Tobacco Type: cigarettes Years smoked: 76 Quit status: considering quitting Smoking risk assessment performed?: Yes Alcohol Intake: former Drug use: Never Substance use type: does not use Household members: none Housing: house Number of Children: 2 number of grandchildren: 4 Communication Needs: Corrective Lenses Do you need help understanding health information?: Rarely current occupation: retired from [employer] Pets and animals: Yes How often do you talk on the phone with friends or family?: three or more times per week Panel score (0-1 are the most socially isolated patients): 1 What type of physical activity do you participate in: walking Frequency: daily Seatbelt use: always Helmet use: No Drive intox or ride w/intox deliver driver: No Working smoke detector in home: Yes Carbon monox detector in home: Yes Do you feel safe at home: Yes Do you feel safe in your relationship?: Yes
== END 2024-06-09 13:22 | disposition home or self-care (01) ==
PROVIDERS: Emergency Provider Emergency Medicine; PCP Nurse Practitioner
DX: J44.1 Chronic obstructive pulmonary disease with (acute) exacerbation (principal); I10 Essential (primary) hypertension; E78.5 Hyperlipidemia, unspecified; Z86.73 Personal history of transient ischemic attack (TIA), and cerebral infarction without residual deficits; Z79.82 Long term (current) use of aspirin; Z99.81 Dependence on supplemental oxygen; Z95.5 Presence of coronary angioplasty implant and graft
CPT/HCPCS: 36415; 80053; 87040; 87637; 94640; 96361; 96374; 99285; 71045; 85025; 99284; J2919; J7620

== ENCOUNTER 2024-06-19 09:58 | Inpatient (IN) | payer MEDICARE, SELFPAY ==
[2024-06-19] VITALS (9 sets, daily range): BP systolic 117–155; BP diastolic 59–72; PULSE 99–115; RESP 2–25; TEMP 36.4–37.3; O2SAT 92–97
--- NOTE | 2024-06-19 10:00 | RT.EKG_ITS ---
APPROVED REPORT Exam: Resting ECG Reason for Exam: SOB, abd pain. Patient Location: E HR:113 bpm ECG Measurements Heart Rate 113 AXIS DC 160 P 92 QRSd 99 QRS -66 QT 329 T 66 QTc 451 Conclusion Sinus tachycardia...rate> 99 LVH with secondary repolarization abnormality...multi-LVH criteria, abnrm ST-T Inferior infarct, old...Q >35mS, II III aVF Anterior infarct, old...Q >40mS, abnormal ST-T, V2-V5 Physician: no stemi
--- NOTE | 2024-06-19 11:16 | ED.GENADUL_ITS ---
Discharge Plan Discharge Details Chief Complaint: GenMedical Admit Date/Time: 06/19/24 15:55 Admit Provider: Wesley Foster Attending Provider: Wesley Foster Primary Care Provider: Yolanda Thomas ED Provider: Gisele Moctezuma Discharge Data Discharge Date/Time-TO BE ENTERED AT DEPARTURE: 06/19/24 17:37 HPI General Date/Time Provider Initiated Documentation: 06/19/24 10:13 . HPI Narrative: Cinthya is an 83 year old female who presents to the emergency department today for evaluation of worsening shortness of breath x couple of weeks and upper abdominal pain accompanied by nausea/vomiting and constipation x 2 days. She reports she has had decreased p.o. intake due to not feeling well. Admits to feeling weak and dizziness with blurred vision. Denies fever/chills, nasal congestion, change in baseline cough/sputum production, chest pain, blood in stool or emesis, change in urine output/dysuria. She is currently managing a course of prednisone and azithromycin for COPD exacerbation, says she has been feeling better despite her medications and albuterol nebs at home. Past medical history is significant for COPD, hiatal hernia, ASCVD with stent placement s/p [place], and gallbladder removal. Physical exam remarkable for significant upper abdominal discomfort with palpation. Abdomen soft, nondistended, no rigidity or guarding. Patient does have dyspnea on mom and O2 via nasal cannula. Coarse lung sounds in all mathis. Occasional cough. Normal heart sounds, tachycardia noted. Rectal exam performed, small amount of soft stool noted in rectum. D/dx includes but is not limited to: Pneumonia, COPD exacerbation, viral illness, CHF, bowel obstruction, dehydration, electrolyte imbalance I independently interpreted the following tests: CBC notable for mild leukocytosis, 11.62. CMP and mag reassuring, no change from baseline. Lipase unremarkable. Serial troponins flat. EKG shows sinus tachycardia with rate , no changes consistent with acute ischemia, no significant change from previous CT chest abdomen pelvis performed, notable for small right basilar infiltrate and increase in size of left basilar infiltrate, as well as large burden of stool in rectum. I did review PCP visit from06/17/24; patient was treated on 06/09/2024 for COPD exacerbation and pneumonia with doxycycline, Tessalon Perles, and another round of prednisone. She reported at that time that her breathing is a little bit better but not too much. She has not been able to eat or drink well due to epigastric stomach discomfort melena she was treated with Protonix and sucralfate. She was also started on azithromycin. While in the emergency department, Cinthya received a DuoNeb with good improvement of cough and work of breathing. Lung sounds did clear significantly as well. Plan to admit patient for community-acquired pneumonia resistant to outpatient treatment, constipation. I did discuss patient's CODE STATUS, she says that she does not want chest compressions or intubation if things are not looking good but does not have advanced directives on file. Related Data Home Medications ?Medication ?Instructions ?Recorded ?Confirmed cyanocobalamin (vitamin B-12) 500 500 mcg PO DAILY 09/23/20 06/17/24 mcg tablet (Vitamin B-12) aspirin 325 mg tablet 325 mg PO DAILY 09/12/23 06/17/24 Ensure, chocolate 237 ml PO 3XD #90 multiple units 11/27/23 06/17/24 acetaminophen 500 mg tablet 500 mg PO Q6H PRN fever or pain 01/21/24 06/17/24 #120 tabs multivitamin with minerals 1 cap PO DAILY 01/21/24 06/17/24 albuterol sulfate 90 mcg/actuation 2 puff inhalation Q4H PRN ##1 05/07/24 06/17/24 aerosol inhaler albuterol sulfate 2.5 mg/3 mL 2.5 mg (3 mL) inhalation Q4H PRN 06/02/24 06/17/24 (0.083 %) solution for nebulization shortness of breath or wheezing #180 mL prednisone 20 mg tablet 40 mg (2 x 20 mg) PO DAILY #10 tabs 06/02/24 06/17/24 benzonatate 100 mg capsule 100 mg PO TID PRN cough #30 caps 06/09/24 06/17/24 azithromycin 250 mg tablet 250 mg PO DAILY #30 tabs 06/17/24 06/17/24 (Zithromax) pantoprazole 40 mg tablet,delayed 40 mg PO DAILY #90 tabs 06/17/24 06/17/24 release sucralfate 100 mg/mL oral 10 ml PO QACHS #500 mL 06/17/24 06/17/24 suspension Previous Rx's ?Medication ?Instructions ?Recorded Ensure, chocolate 237 ml PO 3XD #90 multiple units 11/27/23 acetaminophen 500 mg tablet 500 mg PO Q6H PRN fever or pain 01/21/24 #120 tabs albuterol sulfate 90 mcg/actuation 2 puff inhalation Q4H PRN ##1 05/07/24 aerosol inhaler albuterol sulfate 2.5 mg/3 mL 2.5 mg (3 mL) inhalation Q4H PRN 06/02/24 (0.083 %) solution for nebulization shortness of breath or wheezing #180 mL prednisone 20 mg tablet 40 mg (2 x 20 mg) PO DAILY #10 tabs 06/02/24 benzonatate 100 mg capsule 100 mg PO TID PRN cough #30 caps 06/09/24 azithromycin 250 mg tablet 250 mg PO DAILY #30 tabs 06/17/24 (Zithromax) pantoprazole 40 mg tablet,delayed 40 mg PO DAILY #90 tabs 06/17/24 release sucralfate 100 mg/mL oral 10 ml PO QACHS #500 mL 06/17/24 suspension Allergies Allergy/AdvReac Type Severity Reaction Status Date / Time hydrochlorothiazide AdvReac Intermediate dizziness Verified 06/09/24 10:28 metoprolol AdvReac Intermediate not Verified 06/09/24 10:28 tolerated nitroglycerin AdvReac Intermediate pounding Verified 06/09/24 10:28 heart lisinopril AdvReac cough Verified 06/09/24 10:28 General Stated Complaint: GenMedical SHANNAN: 3 Review of Systems Narrative: see HPI Exam Const General: cooperative and frail appearing Nutritional Appearance: average body habitus Orientation: alert and oriented x3 HENMT Head: normal to inspection Resp Effort & Inspection: cough and tachypneic Auscultation: rhonchi and wheezes Cardio Rate: tachycardic Rhythm: regular rhythm GI Inspection: normal to inspection Palpation: soft, not firm, no guarding, not rigid and tender in the epigastrum, in the LUQ and in the RUQ Course Vital Signs Vital signs: Vital Signs Temperature 36.4 C 06/19/24 10:13 Pulse 115 H 06/19/24 10:13 Respiratory Rate 25 H 06/19/24 10:13 Blood Pressure 117/72 06/19/24 10:13 Pulse Oximetry 97 06/19/24 10:13 Temperature 36.4 C 06/19/24 10:13 Temperature Source Oral 06/19/24 10:13 Pulse 115 H 06/19/24 10:13 Respiratory Rate 25 H 06/19/24 10:13 Blood Pressure 117/72 06/19/24 10:13 Blood Pressure Position Sitting 06/19/24 10:13 Pulse Oximetry 97 06/19/24 10:13 Oxygen Delivery Method Nasal Cannula 06/19/24 10:13 Pain Level 8 06/19/24 10:13 Medical Decision Making Imaging Data Radiologic Study: Radiologist's impression: Exam(s) CT CHEST/ABD/PEL W EXAM: CT CHEST/ABD/PEL W CLINICAL HISTORY: SOB, upper abd pain with n/v, constipation TECHNIQUE: Imaging Protocol: Axial computed tomography images with coronal and sagittal reformatted images were created and reviewed. Lung Computer Aided Detection (CAD) was utilized. CONTRAST MATERIAL: Intravenous: Omnipaque 350 contrast volume:100 mL Oral: No COMPARISON: CT CT CHEST PE ABD PELVIS W from 01/03/2024 CR XR CHEST 2V PA LATERAL from 04/21/2024 CR XR CHEST 2V PA LATERAL from 05/30/2024 CR XR PORTABLE CHEST AP from 06/09/2024 FINDINGS: The examination is limited due to patient motion artifact. CHEST: Tracheobronchial tree: Patent where visualized. There is mild bronchiectasis in the left lower lobe. There are secretions in the left mainstem bronchus and left lower lobe airways. There is also mucous plugging seen in branches in the right lower lobe. Pulmonary parenchyma: There has been interval progression of the consolidation in the left lower lobe. There is a small infiltrate in the dependent portion of the right lower lobe. Moderate centrilobular emphysematous changes are present. There is a stable nodule in the right middle lobe (series 13, image 98). There is again seen scarring in the upper lobes bilaterally. Visualized thyroid gland: Unremarkable. Mediastinum and Megha: No dominant adenopathy or fluid collection. The esophagus is unremarkable. Pleura: No effusion or pneumothorax. Heart: The heart is not dilated. Coronary artery calcifications are present. There is a small pericardial effusion. This appears slightly increased compared to the prior examination. Pulmonary arteries: No pulmonary emboli are identified. Aorta: Thoracic aorta non-dilated. Atherosclerotic calcification is present. There is marked atherosclerosis seen at the brachiocephalic arteries with marked narrowing of the right brachiocephalic artery. There is also marked narrowing in the mid left subclavian artery. Lymph nodes: Within normal limits. Soft tissues: Unremarkable. Bones:Within normal limits for the patient's age. Age-appropriate degenerative changes are seen in the thoracic and lumbar spine. There are again seen compression deformities of the superior endplate of T7 in the inferior endplate of T8. There is been slight progression of the compression at T8. There is stable compression of the inferior endplate of T5 which was present and identified on the chest x-ray from 04/21/2024. ABDOMEN: Liver: Normal density. No measurable mass. Portal, Superior Mesenteric, and Splenic Veins: Unremarkable. Gallbladder and Biliary Tract: Status post cholecystectomy. No significant biliary ductal dilatation is present. Pancreas: Normal density, no abnormal calcifications or inflammatory process. Spleen: Normal. Adrenals: Stable nodularity of the left adrenal gland. The right adrenal gland is unremarkable. Kidneys: Normal size, contour and axis. No radiodense stones or obstructive uropathy. There are few tiny hypodensities in the kidneys. They are too small for further characterization but likely reflect small cysts. No follow-up is recommended. Abdominal Aorta: Abdominal portion non-dilated. Extensive atherosclerosis is present. There is marked narrowing of the left common iliac artery. There is also marked stenosis seen in the proximal left internal iliac artery. There is extensive stenosis seen of through the length of the left external iliac artery and femoral artery. There is marked stenosis of the external right iliac arteries. There is occlusion of the right internal iliac artery. Bowel: There is a large amount of stool in the rectum. No rectal wall thickening is seen. There is diverticulosis of the colon without evidence of acute diverticulitis. There is no evidence of appendicitis. There is no bowel wall thickening or obstruction. Peritoneal Cavity: No ascites, collection or mesenteric inflammatory response. No free air. Lymph Nodes: Within normal limits. Bones: Within normal limits for the patient's age. Multilevel degenerative changes are seen in the lumbar spine. The findings are most marked at L4-L5. These are unchanged. No acute compression fracture deformities are seen. Soft Tissues: Unremarkable. PELVIS: Bladder: There is symmetric thickening of the wall of the urinary bladder. Reproductive Organs: Unremarkable as visualized. Lymph Nodes: Within normal limits. Bones: Within normal limits. IMPRESSION: 1. Bronchiectasis in the left lower lobe. Mucous plugging seen in both the left and right lower lobe. Development of a small right basilar infiltrate and increase in size of the size left basilar infiltrate. 2. Marked atherosclerotic disease seen in the chest with significant narrowing seen in the mid left subclavian artery and both brachiocephalic arteries. 3. Stable thoracic compression fracture deformities. Stable degenerative changes seen in the lumbar spine. No acute fractures are seen. 4. There is a large amount of stool in the rectum suspicious for fecal impaction. 5. Extensive atherosclerosis in the abdomen and pelvis resulting in occlusion of the right internal iliac artery and stenosis involving the iliac arteries and femoral arteries as described above. Graph colonic diverticulosis without evidence of acute diverticulitis. Quality:SDOH Health Related Social Needs: Health related social needs feeling lonely/isolated (Z 60.8) PFSH All Active Problems (Updated 06/09/24 @ 13:10 by Zoe Miller MD) Acute exacerbation of chronic obstructive pulmonary disease (Acute) Bronchitis (Acute) Pyloric stenosis (Acute ~02/2024) Sees [facility] Esophageal stricture (Acute) EGD 01/2024,dilation of stricture, cont. PPI, Pyloric stenosis in adult (Acute) EGD 01/2024 Congestion of upper airway (Acute) Hx laparoscopic cholecystectomy (Acute) [place]09[place] [facility] [place] Pain in thoracic spine (Acute) Epigastric pain (Acute) COVID-19 (Acute) COVID-19 (Acute) COVID (Acute) Abnormal lung sounds (Acute) SOB (shortness of breath) (Acute) Dizziness (Acute) Tobacco abuse (Acute) Depressive disorder (Chronic 02/21/98) GERD (gastroesophageal reflux disease) (Chronic) F/u with [facility] Macrocytic anemia (Acute) MCV 99-199; ?chronic EtOH Constipation (Acute) ASCVD (arteriosclerotic cardiovascular disease) (Acute 04/14/02) 04/14/02 stent X2; ETT 1999 non-diagnostic, hypertensive; TIA 2005 Abnormal liver function (Acute) abnl GGT, Alk Phos, Albumin 12/25/23 [facility] visit Alcohol use disorder (Acute 02/21/98) h/o binge drinking 1997, 2002; chronic anemia, abnl LFT; three drinks/d Centrilobular emphysema (Acute) FEV1 1.57 (63% FVC, 70% pred, 2003) smoker 1/2 PPD; bronchiecasis, mucous pllugging on CT 10/2015 Chronic kidney disease (Acute 11/12/17) Disorder of vitamin B12 (Acute) Gait disorder, B12 level low Esophagitis (Acute 03/18/13) EGD and dilatation [place] [place] esophagitis, path few eos; REC PPI H/O ischemic vertebrobasilar artery cerebellar stroke (Acute 11/21/05) 11/2005 cerebellar TIA: dizzy, balance, R weakness; Dr Pimentel History of ASCVD (Acute 04/14/02) RCA tight 04/14/02 stent X2; ETT 1999 non-diagnostic, hypertensive; MPI 11/2003 nl perfusion; TIA 2005 Hyperlipidemia (Acute 03/23/02) Pulmonary emphysema (Acute 10/26/15) Tobacco dependence syndrome (Acute 12/11/11) 1/2 PPD, H/O DECR TO 0-3/D FOR 3MOS TIL RESTARTED 08/2011, stopped 10/2015; current 3/wk COPD (chronic obstructive pulmonary disease) (Chronic) Anemia (Acute) Lung nodules (Chronic) HTN (hypertension) (Chronic) Medical History (Updated 06/09/24 @ 13:10 by Zoe Miller MD) Hiatal hernia (~02/2024) 03/17/24 found on EGD, [facility], hernia 2cm Abnormal peak total bilirubin level (08/21/16) 129 first elevation 07/2016; with other LFT's normal Diarrhea (10/26/15) CVA (cerebral vascular accident) 2008? HTN (hypertension) Tobacco use disorder HLD (hyperlipidemia) ASCVD (arteriosclerotic cardiovascular disease) Hypokalemia Weight loss 12/25/23 [facility] Gastroenteritis Surgical History (Updated 06/06/24 @ 14:50 by Saima Diez RN) History of esophagogastroduodenoscopy (EGD) (02/21/24) Dr Rushing w/biopsy and dilation 03/17/[address] Rushing, [facility], dilation done,benign pyloric stenosis that was biopsied showed mild reactive changes. History of coronary artery stent placement 2 stents - ? 2008 Endoscopy (03/18/13) Dr Ch-[facility] EGD & dilatation: esophagitis, ?eosinophilic Family History Mother , CVA at age 76. Stroke Father , stomach CA at age 69. Stomach cancer Brother No problems noted. Other Diabetes Heavy alcohol use Social History Smoking/Tobacco Use Status: Current every day Tobacco Type: cigarettes Years smoked: 76 Quit status: considering quitting Smoking risk assessment performed?: Yes Alcohol Intake: former Drug use: Never Substance use type: does not use Household members: none Housing: house Number of Children: 2 number of grandchildren: 4 Communication Needs: Corrective Lenses Do you need help understanding health information?: Rarely current occupation: retired from [employer] Pets and animals: Yes How often do you talk on the phone with friends or family?: three or more times per week Panel score (0-1 are the most socially isolated patients): 1 What type of physical activity do you participate in: walking Frequency: daily Seatbelt use: always Helmet use: No Drive intox or ride w/intox ems driver: No Working smoke detector in home: Yes Carbon monox detector in home: Yes Do you feel safe at home: Yes Do you feel safe in your relationship?: Yes
--- NOTE | 2024-06-19 11:17 | DI.CT_ITS ---
Exam(s) CT CHEST/ABD/PEL W EXAM: CT CHEST/ABD/PEL W CLINICAL HISTORY: SOB, upper abd pain with n/v, constipation TECHNIQUE: Imaging Protocol: Axial computed tomography images with coronal and sagittal reformatted images were created and reviewed. Lung Computer Aided Detection (CAD) was utilized. CONTRAST MATERIAL: Intravenous: Omnipaque 350 contrast volume:100 mL Oral: No COMPARISON: CT CT CHEST PE ABD PELVIS W from 01/03/2024 CR XR CHEST 2V PA LATERAL from 04/21/2024 CR XR CHEST 2V PA LATERAL from 05/30/2024 CR XR PORTABLE CHEST AP from 06/09/2024 FINDINGS: The examination is limited due to patient motion artifact. CHEST: Tracheobronchial tree: Patent where visualized. There is mild bronchiectasis in the left lower lobe. There are secretions in the left mainstem bronchus and left lower lobe airways. There is also mucou s plugging seen in branches in the right lower lobe. Pulmonary parenchyma: There has been interval progression of the consolidation in the left lower lobe . There is a small infiltrate in the dependent portion of the right lower lobe. Moderate centrilobu lar emphysematous changes are present. There is a stable nodule in the right middle lobe (series 13, image 98). There is again seen scarring in the upper lobes bilaterally. Visualized thyroid gland: Unremarkable. Mediastinum and Megha: No dominant adenopathy or fluid collection. The esophagus is unremarkable. Pleura: No effusion or pneumothorax. Heart: The heart is not dilated. Coronary artery calcifications are present. There is a small perica rdial effusion. This appears slightly increased compared to the prior examination. Pulmonary arteries: No pulmonary emboli are identified. Aorta: Thoracic aorta non-dilated. Atherosclerotic calcification is present. There is marked atheros clerosis seen at the brachiocephalic arteries with marked narrowing of the right brachiocephalic sanket ry. There is also marked narrowing in the mid left subclavian artery. Lymph nodes: Within normal limits. Soft tissues: Unremarkable. Bones:Within normal limits for the patient's age. Age-appropriate degenerative changes are seen in t he thoracic and lumbar spine. There are again seen compression deformities of the superior endplate of T7 in the inferior endplate of T8. There is been slight progression of the compression at T8. Th ere is stable compression of the inferior endplate of T5 which was present and identified on the ches t x-ray from 04/21/2024. ABDOMEN: Liver: Normal density. No measurable mass. Portal, Superior Mesenteric, and Splenic Veins: Unremarkable. Gallbladder and Biliary Tract: Status post cholecystectomy. No significant biliary ductal dilatation is present. Pancreas: Normal density, no abnormal calcifications or inflammatory process. Spleen: Normal. Adrenals: Stable nodularity of the left adrenal gland. The right adrenal gland is unremarkable. Kidneys: Normal size, contour and axis. No radiodense stones or obstructive uropathy. There are few t iny hypodensities in the kidneys. They are too small for further characterization but likely reflect small cysts. No follow-up is recommended. Abdominal Aorta: Abdominal portion non-dilated. Extensive atherosclerosis is present. There is marke d narrowing of the left common iliac artery. There is also marked stenosis seen in the proximal left internal iliac artery. There is extensive stenosis seen of through the length of the left external iliac artery and femoral artery. There is marked stenosis of the external right iliac arteries. The re is occlusion of the right internal iliac artery. Bowel: There is a large amount of stool in the rectum. No rectal wall thickening is seen. There is diverticulosis of the colon without evidence of acute diverticulitis. There is no evidence of append icitis. There is no bowel wall thickening or obstruction. Peritoneal Cavity: No ascites, collection or mesenteric inflammatory response. No free air. Lymph Nodes: Within normal limits. Bones: Within normal limits for the patient's age. Multilevel degenerative changes are seen in the l umbar spine. The findings are most marked at L4-L5. These are unchanged. No acute compression frac ture deformities are seen. Soft Tissues: Unremarkable. PELVIS: Bladder: There is symmetric thickening of the wall of the urinary bladder. Reproductive Organs: Unremarkable as visualized. Lymph Nodes: Within normal limits. Bones: Within normal limits. IMPRESSION: 1. Bronchiectasis in the left lower lobe. Mucous plugging seen in both the left and right lower lobe . Development of a small right basilar infiltrate and increase in size of the size left basilar infi ltrate. 2. Marked atherosclerotic disease seen in the chest with significant narrowing seen in the mid left s ubclavian artery and both brachiocephalic arteries. 3. Stable thoracic compression fracture deformities. Stable degenerative changes seen in the lumbar spine. No acute fractures are seen. 4. There is a large amount of stool in the rectum suspicious for fecal impaction. 5. Extensive atherosclerosis in the abdomen and pelvis resulting in occlusion of the right internal i liac artery and stenosis involving the iliac arteries and femoral arteries as described above. Graph colonic diverticulosis without evidence of acute diverticulitis. RADIATION DOSE DELIVERED: 138.28mGy.cm Total DLP DATA REPOSITORY: All CT scans at this facility are submitted to the National Radiology Data Registry (NRDR) Dose Index Registry (DIR) with the [employer] (ACR). RADIATION OPTIMIZATION: All CT scans at this facility use at least one of these dose optimization te chniques: automated exposure control; mA and/or kV adjustment per patient size (includes targeted exa ms where dose is matched to clinical indication); or iterative reconstruction.
[2024-06-19 11:38] LABS: Abs Immature Grans 0.05 10^3/uL (0.0-0.06); Absolute Basophil Count 0.03 10^3/uL (0.0-0.2); Absolute Eosinophil Count 0.12 10^3/uL (0.0-0.7); Absolute Lymphocyte Count 2.41 10^3/uL (1.2-3.4); Absolute Monocyte Count 0.86 10^3/uL (0.1-0.8); Basophils % 0.3 %; HCT 36.6 % (36.0-46.0); HGB 11.8 g/dL (11.2-15.7); Immature Grans % 0.4 %; Lymphocytes % 20.7 %; MCH 33.1 pg (27.0-33.0); MCHC 32.2 % (32.0-36.0); MCV 103 fL (80-95); MPV 10.4 fL (8.0-11.0); Monocytes % 7.4 %; Neutrophils % 70.2 %; Platelet Count 357 10^3/uL (130-400); RBC 3.57 10^6/uL (3.93-5.22); RDW 12.8 % (11.7-14.6); WBC 11.62 10^3/uL (4.4-10.8)
[2024-06-19] MEDS: Famotidine 20 MG/2 ML VIAL IVP (11:41)
[2024-06-19] MEDS: Albuterol/Ipratropium 3 ML UPD VIAL UPD ×3 (11:41→23:18)
[2024-06-19] MEDS: Ondansetron 4 MG/2 ML VIAL IVP (11:41)
[2024-06-19 11:48] LABS: Absolute Neutrophil Count 8.16 10^3/uL (1.2-6.7)
[2024-06-19 12:11] LABS: Lipase 32 U/L (<78)
[2024-06-19 12:16] LABS: ALT 23 U/L (14-59); AST 17 U/L (15-37); Albumin 3.5 g/dL (3.4-5.0); Alkaline Phosphatase 108 U/L (46-116); Anion Gap 10.8 mmol/L (3-11); BUN 27 mg/dL (7-18); Bilirubin, Total 0.69 mg/dL (0.2-1.0); CO2 30.2 mmol/L (21.0-32.0); CREATININE 1.4 mg/dL (0.55-1.02); Calcium 9.7 mg/dL (8.5-10.1); Chloride 102 mmol/L (98-107); Estimated GFR 37.56 (mL/min/1.73m2); Glucose 111 mg/dL (74-106); Magnesium 2.5 mg/dL (1.8-2.4); Potassium 4.2 mmol/L (3.5-5.1); Sodium 143 mmol/L (136-145); Total Protein 7.9 g/dL (6.4-8.2); Troponin I 33 ng/L (<or=51)
[2024-06-19 13:22] LABS: Troponin I 27 ng/L (<or=51)
[2024-06-19] MEDS: Omnipaque 350 MG/ML 100 ML BTL IJ (14:14)
[2024-06-19] MEDS: Normal Saline - Diluent 50 ML VIAL IJ (14:15)
--- NOTE | 2024-06-19 15:42 | W.PM.HP.N ---
Date of service: 06/19/24 Time of Service: 15:42 Assessment and Plan Assessment and plan (1) Sepsis: Status: Acute Assessment and plan: Sepsis criteria with tachycardia at 115 and respiratory rate at 25 on presentation to the ED and probable source pneumonia (2) Community acquired pneumonia: Status: Acute Assessment and plan: Cefepime and azithromycin IV Mucinex DuoNebs Acapella (3) Constipation: Status: Acute Assessment and plan: As per CT there was suspicion of fecal impaction due to stool burden in rectal Colace oral 3 times a day Miralax BID Magnesium citrate 150 mL oral-repeat if not effective Dulcolax suppository x 1 (4) Acute exacerbation of chronic obstructive pulmonary disease: Status: Acute Assessment and plan: Will initiate a prednisone burst after IV methylprednisolone x1 discussed with Dr Foster History of Present Illness History of Present Illness Chief Complaint: Shortness of breath cough Narrative: This 83 years old female patient with past medical history of recent COPD evaluation treated with prednisone outpatient with added azythroimycin as per PCP presented today to the ED with complaints of increased shortness of breath cough. Patient presented with tachycardia at 115 and tachypnea at 25 without hypotension, fever or hypoxia. Workup in the ED was significant for a WBC of 11.9, upper respiratory viral panel was negative, chemistry was unremarkable with creatinine at 1.[address] of the chest abdomen pelvis showed left lower left lower lobe bronchiectasis, mucous plugging in both emboli left and right lower lobes as well as bilateral basilar infiltrates. Large stool burden noted to the rectum with suspicion of fecal impaction. 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 Patient was admitted by the hospitalist team to the medical surgical floor for evaluation and management of multifocal pneumonia, fecal impaction. When met in the room the patient confirmed that she would like CPR but no intubation. Patient denied chest pain,fevers, chills, nausea, recent vomiting, or dysuria. Reporting increased sputum production of white to yellowish sputum and abdominal cramping. Review of Systems All systems reviewed & are unremarkable except as noted in HPI and below PFSH All Active Problems (Updated 06/19/24 @ 20:38 by Fern Poe APRN) Sepsis (Acute) Constipation (Acute) Community acquired pneumonia (Acute) Acute exacerbation of chronic obstructive pulmonary disease (Acute) Bronchitis (Acute) Pyloric stenosis (Acute ~02/2024) Sees [facility] Esophageal stricture (Acute) EGD 01/2024,dilation of stricture, cont. PPI, Pyloric stenosis in adult (Acute) EGD 01/2024 Congestion of upper airway (Acute) Hx laparoscopic cholecystectomy (Acute) Done 01/09/2024 at [facility] [place] Pain in thoracic spine (Acute) Epigastric pain (Acute) COVID-19 (Acute) COVID-19 (Acute) COVID (Acute) Abnormal lung sounds (Acute) SOB (shortness of breath) (Acute) Dizziness (Acute) Tobacco abuse (Acute) Depressive disorder (Chronic 02/21/98) GERD (gastroesophageal reflux disease) (Chronic) F/u with [facility] Macrocytic anemia (Acute) MCV 99-199; ?chronic EtOH Constipation (Acute) ASCVD (arteriosclerotic cardiovascular disease) (Acute 04/14/02) 04/14/02 stent X2; ETT 1999 non-diagnostic, hypertensive; TIA 2005 Abnormal liver function (Acute) abnl GGT, Alk Phos, Albumin 12/25/23 [facility] visit Alcohol use disorder (Acute 02/21/98) h/o binge drinking 1997, 2002; chronic anemia, abnl LFT; three drinks/d Centrilobular emphysema (Acute) FEV1 1.57 (63% FVC, 70% pred, 2002) smoker 1/2 PPD; bronchiecasis, mucous pllugging on CT 10/2015 Chronic kidney disease (Acute 11/12/17) Disorder of vitamin B12 (Acute) Gait disorder, B12 level low Esophagitis (Acute 03/18/13) EGD and dilatation [facility] [place]; esophagitis, path few eos; REC PPI H/O ischemic vertebrobasilar artery cerebellar stroke (Acute 11/21/05) 11/2005 cerebellar TIA: dizzy, balance, R weakness; Dr Pimentel History of ASCVD (Acute 04/14/02) RCA tight 04/14/02 stent X2; ETT 1999 non-diagnostic, hypertensive; MPI 11/2003 nl perfusion; TIA 2006 Hyperlipidemia (Acute 03/23/02) Pulmonary emphysema (Acute 10/26/15) Tobacco dependence syndrome (Acute 12/11/11) 1/2 PPD, H/O DECR TO 0-3/D FOR 3MOS TIL RESTARTED 08/2011, stopped 10/2015; current 3/wk COPD (chronic obstructive pulmonary disease) (Chronic) Anemia (Acute) Lung nodules (Chronic) HTN (hypertension) (Chronic) Medical History (Updated 06/19/24 @ 20:38 by Fern Poe APRN) Hiatal hernia (~02/2024) 03/17/24 found on EGD, [facility], hernia 2cm Abnormal peak total bilirubin level (08/21/16) 129 first elevation 07/2016; with other LFT's normal Diarrhea (10/26/15) CVA (cerebral vascular accident) 2008? HTN (hypertension) Tobacco use disorder HLD (hyperlipidemia) ASCVD (arteriosclerotic cardiovascular disease) Hypokalemia Weight loss 12/25/23 [facility] Gastroenteritis Surgical History (Updated 06/06/24 @ 14:50 by Saima Diez RN) History of esophagogastroduodenoscopy (EGD) (02/21/24) Dr Rushing w/biopsy and dilation 03/17/[address] Rushing, [facility], dilation done,benign pyloric stenosis that was biopsied showed mild reactive changes. History of coronary artery stent placement 2 stents - ? 2008 Endoscopy (03/18/13) Dr Ch-[facility] [place] EGD & dilatation: esophagitis, ?eosinophilic Family History Mother , CVA at age 76. Stroke Father , stomach CA at age 69. Stomach cancer Brother No problems noted. Other Diabetes Heavy alcohol use Social History Smoking/Tobacco Use Status: Current every day Tobacco Type: cigarettes Years smoked: 76 Quit status: considering quitting Smoking risk assessment performed?: Yes Alcohol Intake: former Drug use: Never Substance use type: does not use Household members: none Housing: house Number of Children: 2 number of grandchildren: 4 Communication Needs: Corrective Lenses Do you need help understanding health information?: Rarely current occupation: retired from [employer] Pets and animals: Yes How often do you talk on the phone with friends or family?: three or more times per week Panel score (0-1 are the most socially isolated patients): 1 What type of physical activity do you participate in: walking Frequency: daily Seatbelt use: always Helmet use: No Drive intox or ride w/intox 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: No Working smoke detector in home: Yes Carbon monox detector in home: Yes Do you feel safe at home: Yes Do you feel safe in your relationship?: Yes Meds Allergies and Home Medications Allergies Allergy/AdvReac Type Severity Reaction Status Date / Time hydrochlorothiazide AdvReac Intermediate dizziness Verified 06/09/24 10:28 metoprolol AdvReac Intermediate not Verified 06/09/24 10:28 tolerated nitroglycerin AdvReac Intermediate pounding Verified 06/09/24 10:28 heart lisinopril AdvReac cough Verified 06/09/24 10:28 Home Medications ?Medication ?Instructions ?Recorded ?Confirmed ?Type cyanocobalamin (vitamin B-12) 500 500 mcg PO DAILY 09/23/20 06/17/24 History mcg tablet (Vitamin B-12) aspirin 325 mg tablet 325 mg PO DAILY 09/12/23 06/17/24 History Ensure, chocolate 237 ml PO 3XD #90 multiple units 11/27/23 06/17/24 Rx acetaminophen 500 mg tablet 500 mg PO Q6H PRN fever or pain 01/21/24 06/17/24 Rx #120 tabs multivitamin with minerals 1 cap PO DAILY 01/21/24 06/17/24 History albuterol sulfate 90 mcg/actuation 2 puff inhalation Q4H PRN ##1 05/07/24 06/17/24 Rx aerosol inhaler albuterol sulfate 2.5 mg/3 mL 2.5 mg (3 mL) inhalation Q4H PRN 06/02/24 06/17/24 Rx (0.083 %) solution for nebulization shortness of breath or wheezing #180 mL prednisone 20 mg tablet 40 mg (2 x 20 mg) PO DAILY #10 tabs 06/02/24 06/17/24 Rx benzonatate 100 mg capsule 100 mg PO TID PRN cough #30 caps 06/09/24 06/17/24 Rx azithromycin 250 mg tablet 250 mg PO DAILY #30 tabs 06/17/24 06/17/24 Rx (Zithromax) pantoprazole 40 mg tablet,delayed 40 mg PO DAILY #90 tabs 06/17/24 06/17/24 Rx release sucralfate 100 mg/mL oral 10 ml PO QACHS #500 mL 06/17/24 06/17/24 Rx suspension Exam Narrative Exam Narrative: 83-year-old female patient looking older than age, emaciated, alert and oriented x 3,scattered expiratory wheezing, nonfocal, S1-S2, regular, no murmur, abdomen is nondistended soft nontender patient, positive flattus, no CVA tenderness, moves all 4 extremities Results Labs 06/19/24 11:28 06/19/24 11:28 Labs: Laboratory Results - last 24 hr 06/19/24 06/19/24 11:28 12:45 WBC 11.62 H RBC 3.57 L Hgb 11.8 Hct 36.6 MCV 103 H MCH 33.1 H MCHC 32.2 RDW 12.8 Plt Count 357 MPV 10.4 Immature Gran % 0.4 Neutrophils % 70.2 Lymphocytes % 20.7 Monocytes % 7.4 Eosinophils % 1.0 Basophils % 0.3 Nucleated RBC % 0.0 Absolute Neutrophils 8.16 H Absolute Lymphocytes 2.41 Absolute Monocytes 0.86 H Absolute Eosinophils 0.12 Absolute Basophils 0.03 Sodium 143 Potassium 4.2 Chloride 102 Carbon Dioxide 30.2 Anion Gap 10.8 BUN 27 H Creatinine 1.4 H Est GFR (CKD-EPI 2020) 37.56 Glucose 111 H Calcium 9.7 Magnesium 2.5 H Total Bilirubin 0.69 AST 17 ALT 23 Alkaline Phosphatase 108 Troponin I 33 27 Total Protein 7.9 Albumin 3.5 Lipase 32 Last Vital Signs Temp 36.4 C 06/19/24 10:13 Pulse 115 H 06/19/24 10:13 Resp 25 H 06/19/24 10:13 BP 117/72 06/19/24 10:13 Pulse Ox 97 06/19/24 10:13 Time Spent Time spent with Patient: >75 minutes Time was spent: preparing to see the patient(eg.review tests), obtaining and/or reviewing separately otained hiistory, ordering medications,tests, procedures, referring, communicating with other health healthcare liaison, indepentently interpreting results, counseling the patient and care coordination
[2024-06-19] MEDS: CEFEPIME 2 GM in Normal Saline 100 ML IVPB ×2 (15:43→23:19)
[2024-06-19 16:33] LABS: Troponin I 36 ng/L (<or=51)
--- NOTE | 2024-06-19 17:21 | W.PC.ACHO ---
Registration Status: Primary Language: Preferred Language: ED Information & Data Chief Complaint GenMedical 06/19/24 11:17 Triage Note Multiple complaints. Pt has 06/19/24 10:13 COPD, reports increased SOB over the past 2 days. Also complaining of abdominal pain. Has been seen by PCP for it, given medication to coat her stomach, per son. Had diarrhea Sunday, that has subsided. Pt stating 8/ 10 epigastric pain. Denies N /V. Denies CP or back pain. Also complaining of significant dizziness that began a week ago, reports vision affected (blurry). Medical / Surgical History (Last Updated 03/19/24 @ 17:18 by Carolin Anthony LPN) Hiatal hernia (~02/2024) Abnormal peak total bilirubin level (08/21/16) Diarrhea (10/26/15) CVA (cerebral vascular accident) HTN (hypertension) Tobacco use disorder HLD (hyperlipidemia) ASCVD (arteriosclerotic cardiovascular disease) Hypokalemia Weight loss Gastroenteritis (Last Updated 06/06/24 @ 14:50 by Saima Diez RN) History of esophagogastroduodenoscopy (EGD) (02/21/24) History of coronary artery stent placement Endoscopy (03/18/13) Most Recent Vital Signs Temperature 36.4 C 06/19/24 10:13 Temperature Source Oral 06/19/24 10:13 Pulse 115 H 06/19/24 10:13 Respiratory Rate 25 H 06/19/24 10:13 Blood Pressure 117/72 06/19/24 10:13 Blood Pressure Position Sitting 06/19/24 10:13 Pulse Oximetry 97 06/19/24 10:13 Oxygen Delivery Method Nasal Cannula 06/19/24 10:13 Pain Level 8 06/19/24 10:13 Allergies hydrochlorothiazide Adverse Reaction (Intermediate, Verified 06/09/24 10:28) dizziness metoprolol Adverse Reaction (Intermediate, Verified 06/09/24 10:28) not tolerated per [facility] notes 12/2009, attempted to transition from Atenolol nitroglycerin Adverse Reaction (Intermediate, Verified 06/09/24 10:28) pounding heart 08/2015 lisinopril Adverse Reaction (Verified 06/09/24 10:28) cough Active Medications Generic Name Dose Route Start Last Admin Trade Name Freq PRN Reason Stop Dose Admin Iohexol 100 ml 06/19/24 14:15 06/19/24 14:14 Omnipaque 350 Mg/Ml 100 Ml Btl IJ 07/19/24 23:59 100 ml DIRECTED MARZENA Administration Sodium Chloride 50 ml 06/19/24 14:15 06/19/24 14:15 Normal Saline - Diluent 50 Ml Vial IJ 50 ml .FOR DI USE MARZENA Administration IV IV Catheter Type [Right Saline Lock Antecubital] IV Catheter Gauge [Right 20 Antecubital] Diagnostics 06/19/24 06/19/24 06/19/24 Range/Units 15:51 12:45 11:28 WBC 11.62 H (4.4-10.8) 10^3/uL RBC 3.57 L (3.93-5.22) 10^6/uL Hgb 11.8 (11.2-15.7) g/dL Hct 36.6 (36.0-46.0) % MCV 103 H (80-95) fL MCH 33.1 H (27.0-33.0) pg MCHC 32.2 (32.0-36.0) % RDW 12.8 (11.7-14.6) % Plt Count 357 (130-400) 10^3/uL MPV 10.4 (8.0-11.0) fL Immature Gran % 0.4 % Neutrophils % 70.2 % Lymphocytes % 20.7 % Monocytes % 7.4 % Eosinophils % 1.0 % Basophils % 0.3 % Nucleated RBC % 0.0 (0.0-0.3) % Absolute Neutrophils 8.16 H (1.2-6.7) 10^3/uL Absolute Lymphocytes 2.41 (1.2-3.4) 10^3/uL Absolute Monocytes 0.86 H (0.1-0.8) 10^3/uL Absolute Eosinophils 0.12 (0.0-0.7) 10^3/uL Absolute Basophils 0.03 (0.0-0.2) 10^3/uL Sodium 143 (136-145) mmol/L Potassium 4.2 (3.5-5.1) mmol/L Chloride 102 (98-107) mmol/L Carbon Dioxide 30.2 (21.0-32.0) mmol/L Anion Gap 10.8 (3-11) mmol/L BUN 27 H (7-18) mg/dL Creatinine 1.4 H (0.55-1.02) mg/dL Est GFR (CKD-EPI 2020) 37.56 (mL/min/1.73m2) Glucose 111 H (74-106) mg/dL Calcium 9.7 (8.5-10.1) mg/dL Magnesium 2.5 H (1.8-2.4) mg/dL Total Bilirubin 0.69 (0.2-1.0) mg/dL AST 17 (15-37) U/L ALT 23 (14-59) U/L Alkaline Phosphatase 108 (46-116) U/L Troponin I 36 27 33 (<or=51) ng/L Total Protein 7.9 (6.4-8.2) g/dL Albumin 3.5 (3.4-5.0) g/dL Lipase 32 (<78) U/L Intake and Output - 24 Hour Total 06/19/24 09:58 thru 06/19/24 17:09 Intake Total 100 Balance 100 Weight 39.916 kg Intake: IV 100 v v v v v v v v v Sending and/or Receiving Nurses: Please use comment section below to note any information pertinent to the patient hand-off not included above. Information / Comments: Patient consulted ED dtSOB, 11/30 epigastric pain noted, diarrhea started Sunday.. Cxr showed pneumonia. Report received fromMichael CARBALLO. This nurse initially called ED at [phone], ED return call at 1711
[2024-06-19] MEDS: Magnesium Citrate 300 ML BTL 150 ML PO (18:17)
[2024-06-19] MEDS: Enoxaparin 30 MG/0.3 ML SYR SC (18:29)
[2024-06-19] MEDS: Normal Saline Flush 10 ML SYR IVP ×3 (20:23→23:18)
[2024-06-19] MEDS: Docusate Sodium 100 MG CAP PO (20:23)
[2024-06-19 21:23] LABS: MRSA PCR Negative (Negative)
[2024-06-19] MEDS: methylPREDNISolone SUCC 125 MG VIAL IVP (21:46)
[2024-06-19] MEDS: Sucralfate 1 GM TAB PO (21:46)
[2024-06-20 01:03] VITALS: BP 117/64; PULSE 100; RESP 18; TEMP 36.8; O2SAT 92
[2024-06-20 04:07] VITALS: BP 136/67; PULSE 97; RESP 16; TEMP 36.6; O2SAT 94
[2024-06-20 05:47] LABS: Bilirubin Negative (Negative); Blood Moderate (Negative); Clarity Clear (Clear); Glucose Negative (Negative); Ketones Negative (Negative); Leukocyte Esterase Negative (Negative); Nitrite Negative (Negative); Specific Gravity 1.025 (1.005-1.025); Urobilinogen 0.2 mg/dL (Up to 0.2); pH 6.5 (5-8)
[2024-06-20 05:53] LABS: Bacteria Rare HPF (Negative); C & S Indicated? No; Casts 0-2 Hyaline LPF (Negative); Crystals Negative HPF (Negative); Epithelial Cells Moderate HPF (Negative); Mucus Negative (Negative); RBC 20-50 HPF (0-2); WBC Negative HPF (0-5)
[2024-06-20 06:10] VITALS: PULSE 97; O2SAT 94
[2024-06-20] MEDS: Albuterol/Ipratropium 3 ML UPD VIAL UPD (06:10)
[2024-06-20 07:11] VITALS: BP 122/56; PULSE 104; RESP 16; TEMP 36.6; O2SAT 93
[2024-06-20 07:39] LABS: Abs Immature Grans 0.02 10^3/uL (0.0-0.06); HCT 28.7 % (36.0-46.0); HGB 9.4 g/dL (11.2-15.7); MCH 33.5 pg (27.0-33.0); MCHC 32.8 % (32.0-36.0); MCV 102 fL (80-95); MPV 10.6 fL (8.0-11.0); Platelet Count 287 10^3/uL (130-400); RBC 2.81 10^6/uL (3.93-5.22); RDW 12.8 % (11.7-14.6); RDW-SD 48.7 fL; WBC 6.48 10^3/uL (4.4-10.8)
[2024-06-20 07:57] LABS: Anion Gap 11.3 mmol/L (3-11); BUN 27 mg/dL (7-18); CO2 24.7 mmol/L (21.0-32.0); CREATININE 1.5 mg/dL (0.55-1.02); Chloride 106 mmol/L (98-107); Estimated GFR 34.58 (mL/min/1.73m2); Glucose 227 mg/dL (74-106); Potassium 3.7 mmol/L (3.5-5.1); Sodium 142 mmol/L (136-145)
[2024-06-20] MEDS: Polyethylene Glycol 3350 17 GM PACKET PO (08:02)
[2024-06-20] MEDS: Multivitamin w/Minerals TAB 1 TAB PO (08:02)
[2024-06-20] MEDS: guaiFENesin 600 MG TABCR PO (08:02)
[2024-06-20] MEDS: Aspirin 325 MG TAB PO (08:02)
[2024-06-20] MEDS: predniSONE 20 MG TAB 60 MG PO (08:03)
[2024-06-20] MEDS: Sucralfate 1 GM TAB PO (08:03)
[2024-06-20] MEDS: Azithromycin 250 MG TAB 500 MG PO (08:03)
[2024-06-20] MEDS: Docusate Sodium 100 MG CAP PO (08:03)
[2024-06-20] MEDS: CEFEPIME 2 GM in Normal Saline 100 ML IVPB (08:04)
[2024-06-20] MEDS: Normal Saline Flush 10 ML SYR IVP (08:05)
[2024-06-20 08:40] LABS: Absolute Lymphocyte Count 0.45 10^3/uL (1.2-3.4); Absolute Neutrophil Count 6.03 10^3/uL (1.2-6.7)
[2024-06-20 08:41] LABS: Diff Comment Manual Differential; RBC Morphology Normal
--- NOTE | 2024-06-20 08:59 | PDOC.CMIN ---
Date of service: 06/20/24 Time of Service: 09:00 Care Management Initial Assmt Initial Assessment Reason for Hospitalization: sepsis and pneumonia Functional Status/Living Situation Town of Residence: [place] Employment Status: Retired Medications Medication Management: No Issues/Barriers identified Advance Directives Advance Directives: Do you have an Advance Directive: AD On File at [facility]: N 02/21/13 09:56 Date Asked 06/19/24 06/19/24 11:18 AD Date Reviewed COLST On File at [facility] COLST Date Scanned Code Status Resuscitation Status DNI Portal Pt does not currently have a portal and education provided: Yes Insurance Coverage/Financial Issues Insurance: BC/BS Medicare Adv Care Team Visit Care Team Role Provider Type Yolanda Thomas NP Primary Care Provider NURSE PRACTITIONER Gisele Montes De [facility] Emergency Provider NURSE PRACTITIONER Wesley Foster, DO Admit Provider [facility] STAFF PHYSICIAN Attending Provider Discharge Potential Discharge Needs: PCP F/U Appt Anticipated Barriers to Discharge: None Identified Patient/Family Education Needs: Review discharge instructions, discuss Ask Me Three Transportation: Private vehicle Plan: Anticipate Cinthya will be discharged home, possibly with new home health services, when medically stable. She will follow up with her community providers and plan of care and transport with family. CM will follow and continue to support discharge planning. Social Determinants of Health Screening Social Determinants of Health last assessed: 06/20/24 Will the Patient Participate in the Screening?: Yes Do you worry about having a steady place to live?: no Problems where you live: no known problems In the past 12 months, have you had to go without electric, gas, oil or water in your home?: no Have you or anyone in your house had to go without enough food to eat?: no Has lack of transportation kept you from medical appointments or from doing things needed for daily living?: no Has anyone in your life made you feel unsafe or unsupported?: no How hard is it for you to pay for the very basics like food, housing, medical care, and heating? Would you say it is:: Not hard at all Do you want help finding or keeping work or a job?: I do not need or want help If for any reason you need help with day-to-day activities such as bathing, preparing meals, shopping, managing finances, etc., do you get the help you need?: I get all the help I need How often do you feel lonely or isolated from those around you?: Sometimes Do you speak a language other than Maltese at home?: No Does the patient want assistance with any of the above?: No Health Related Social Needs Health related social needs: feeling lonely/isolated (Z60.8) [facility] All Active Problems (Updated 06/19/24 @ 20:38 by Fern Poe APRN) Sepsis (Acute) Constipation (Acute) Community acquired pneumonia (Acute) Acute exacerbation of chronic obstructive pulmonary disease (Acute) Bronchitis (Acute) Pyloric stenosis (Acute ~02/2024) Sees [facility] Esophageal stricture (Acute) EGD 01/2024,dilation of stricture, cont. PPI, Pyloric stenosis in adult (Acute) EGD 01/2024 Congestion of upper airway (Acute) Hx laparoscopic cholecystectomy (Acute) Done 01/09/2024 [place] [facility] [place] Pain in thoracic spine (Acute) Epigastric pain (Acute) COVID-19 (Acute) COVID-19 (Acute) COVID (Acute) Abnormal lung sounds (Acute) SOB (shortness of breath) (Acute) Dizziness (Acute) Tobacco abuse (Acute) Depressive disorder (Chronic 02/21/98) GERD (gastroesophageal reflux disease) (Chronic) F/u with [facility] Macrocytic anemia (Acute) MCV 99-199; ?chronic EtOH Constipation (Acute) ASCVD (arteriosclerotic cardiovascular disease) (Acute 04/14/02) 04/14/02 stent X2; ETT 1999 non-diagnostic, hypertensive; TIA 2005 Abnormal liver function (Acute) abnl GGT, Alk Phos, Albumin 12/25/23 [facility] visit Alcohol use disorder (Acute 02/21/98) h/o binge drinking 1997, 2002; chronic anemia, abnl LFT; three drinks/d Centrilobular emphysema (Acute) FEV1 1.57 (63% FVC, 70% pred, 2002) smoker 1/2 PPD; bronchiecasis, mucous pllugging on CT 10/2015 Chronic kidney disease (Acute 11/12/17) Disorder of vitamin B12 (Acute) Gait disorder, B12 level low Esophagitis (Acute 03/18/13) EGD and dilatation [facility]; esophagitis, path few eos; REC PPI H/O ischemic vertebrobasilar artery cerebellar stroke (Acute 11/21/05) 11/2005 cerebellar TIA: dizzy, balance, R weakness; Dr Pimentel History of ASCVD (Acute 04/14/02) RCA tight 04/14/02 stent X2; ETT 1999 non-diagnostic, hypertensive; MPI 11/2003 nl perfusion; TIA 2005 Hyperlipidemia (Acute 03/23/02) Pulmonary emphysema (Acute 10/26/15) Tobacco dependence syndrome (Acute 12/11/11) 1/2 PPD, H/O DECR TO 0-3/D FOR 3MOS TIL RESTARTED 08/2011, stopped 10/2015; current 3/wk COPD (chronic obstructive pulmonary disease) (Chronic) Anemia (Acute) Lung nodules (Chronic) HTN (hypertension) (Chronic) Medical History (Updated 06/19/24 @ 20:38 by Fern Poe APRN) Hiatal hernia (~02/2024) 03/17/24 found on EGD, [facility], hernia 2cm Abnormal peak total bilirubin level (08/21/16) 129 first elevation 07/2016; with other LFT's normal Diarrhea (10/26/15) CVA (cerebral vascular accident) 2008? HTN (hypertension) Tobacco use disorder HLD (hyperlipidemia) ASCVD (arteriosclerotic cardiovascular disease) Hypokalemia Weight loss 12/25/23 [facility] Gastroenteritis Surgical History (Updated 06/06/24 @ 14:50 by Saima Diez RN) History of esophagogastroduodenoscopy (EGD) (02/21/24) Dr Rushing w/biopsy and dilation 03/17/[address] Rushing, [facility], dilation done,benign pyloric stenosis that was biopsied showed mild reactive changes. History of coronary artery stent placement 2 stents - ? 2008 Endoscopy (03/18/13) Dr Ch-[facility] [place] EGD & dilatation: esophagitis, ?eosinophilic Family History Mother , CVA at age 76. Stroke Father , stomach CA at age 69. Stomach cancer Brother No problems noted. Other Diabetes Heavy alcohol use Social History Smoking/Tobacco Use Status: Current every day Tobacco Type: cigarettes Years smoked: 76 Quit status: considering quitting Smoking risk assessment performed?: Yes Alcohol Intake: former Drug use: Never Substance use type: does not use Household members: none Housing: house Number of Children: 2 number of grandchildren: 4 Communication Needs: Corrective Lenses Do you need help understanding health information?: Rarely current occupation: retired from [employer] Pets and animals: Yes How often do you talk on the phone with friends or family?: three or more times per week Panel score (0-1 are the most socially isolated patients): 1 What type of physical activity do you participate in: walking Frequency: daily Seatbelt use: always Helmet use: No Drive intox or ride w/intox 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
[2024-06-20] MEDS: Pantoprazole 40 MG TABCR PO (09:10)
--- NOTE | 2024-06-20 10:25 | PGE_ITS ---
Date of Service Date of service: 06/20/24 Time of Service: 10:25 Assessment and Plan Assessment and plan (1) Sepsis: Status: Acute Assessment and plan: Sepsis criteria with tachycardia at 115 and respiratory rate at 25 on presentation to the ED and probable source pneumonia (2) Community acquired pneumonia: Status: Acute Assessment and plan: Cefepime and azithromycin IV Mucinex DuoNebs Acapella (3) Constipation: Status: Acute Assessment and plan: As per CT there was suspicion of fecal impaction due to stool burden in rectal Colace oral 3 times a day Miralax BID Magnesium citrate 150 mL oral-repeat if not effective Dulcolax suppository x 1 (4) Acute exacerbation of chronic obstructive pulmonary disease: Status: Acute Assessment and plan: Will initiate a prednisone burst after IV methylprednisolone x1 discussed with Dr Foster (5) Femoral artery occlusion: Status: Acute Assessment and plan: As per CT report: Extensive atherosclerosis is present. There is marked narrowing of the left common iliac artery. There is also marked stenosis seen in the proximal left internal iliac artery. There is extensive stenosis seen of through the length of the left external iliac artery and femoral artery. There is marked stenosis of the external right iliac arteries. There is occlusion of the right internal iliac artery. [facility] [place] vascular consult: Objective Last Vital Signs Temp 36.6 C 06/20/24 07:11 Pulse 104 H 06/20/24 07:11 Resp 16 06/20/24 07:11 BP 122/56 L 06/20/24 07:11 Pulse Ox 93 06/20/24 07:11 Laboratory Results - last 24 hr 06/19/24 06/19/24 06/19/24 11:28 12:45 15:51 WBC 11.62 H RBC 3.57 L Hgb 11.8 Hct 36.6 MCV 103 H MCH 33.1 H MCHC 32.2 RDW 12.8 Plt Count 357 MPV 10.4 Immature Gran % 0.4 Neutrophils % 70.2 Lymphocytes % 20.7 Monocytes % 7.4 Eosinophils % 1.0 Basophils % 0.3 Nucleated RBC % 0.0 Absolute Neutrophils 8.16 H Absolute Lymphocytes 2.41 Absolute Monocytes 0.86 H Absolute Eosinophils 0.12 Absolute Basophils 0.03 RBC Morphology Sodium 143 Potassium 4.2 Chloride 102 Carbon Dioxide 30.2 Anion Gap 10.8 BUN 27 H Creatinine 1.4 H Est GFR (CKD-EPI 2020) 37.56 Glucose 111 H Calcium 9.7 Magnesium 2.5 H Total Bilirubin 0.69 AST 17 ALT 23 Alkaline Phosphatase 108 Troponin I 33 27 36 Total Protein 7.9 Albumin 3.5 Lipase 32 Urine Color Urine Clarity Urine pH Ur Specific [place] Urine Protein Urine Ketones Urine Blood Urine Nitrite Urine Bilirubin Urine Urobilinogen Ur Leukocyte Esterase Urine RBC Urine WBC Ur Epithelial Cells Urine Crystals Urine Bacteria Urine Casts Urine Mucus Ur Culture Indicated? Urine Glucose MRSA (TEM-PCR) 06/19/24 06/20/24 06/20/24 19:54 05:15 07:08 WBC 6.48 RBC 2.81 L Hgb 9.4 L D Hct 28.7 L MCV 102 H MCH 33.5 H MCHC 32.8 RDW 12.8 Plt Count 287 MPV 10.6 Immature Gran % See Differential Neutrophils % 93.0 Lymphocytes % 7.0 Monocytes % 0.0 Eosinophils % 0.0 Basophils % 0.0 Nucleated RBC % 0.0 Absolute Neutrophils 6.03 Absolute Lymphocytes 0.45 L Absolute Monocytes 0.00 L Absolute Eosinophils 0.00 Absolute Basophils 0.00 RBC Morphology Normal Sodium 142 Potassium 3.7 Chloride 106 Carbon Dioxide 24.7 Anion Gap 11.3 H BUN 27 H Creatinine 1.5 H Est GFR (CKD-EPI 2020) 34.58 Glucose 227 H Calcium 9.0 Magnesium Total Bilirubin AST ALT Alkaline Phosphatase Troponin I Total Protein Albumin Lipase Urine Color Yellow Urine Clarity Clear Urine pH 6.5 Ur Specific [place] 1.025 Urine Protein 100 H Urine Ketones Negative Urine Blood Moderate H Urine Nitrite Negative Urine Bilirubin Negative Urine Urobilinogen 0.2 Ur Leukocyte Esterase Negative Urine RBC 20-50 H Urine WBC Negative Ur Epithelial Cells Moderate Urine Crystals Negative Urine Bacteria Rare Urine Casts 0-2 Hyaline Urine Mucus Negative Ur Culture Indicated? No Urine Glucose Negative MRSA (TEM-PCR) Negative Time Spent with Patient Time Spent with Patient: <25 minutes Time was spent: preparing to see the patient(eg.review tests), ordering medications,tests, procedures, referring, communicating with other health critical care physician assistant, indepentently interpreting results and care coordination
--- NOTE | 2024-06-20 10:33 | DSE_ITS ---
Date of service: 06/20/24 Time of Service: 10:33 DS: Diagnosis Discharge Diagnosis (1) Sepsis: Status: Acute (2) Community acquired pneumonia: Status: Acute (3) Constipation: Status: Acute (4) Acute exacerbation of chronic obstructive pulmonary disease: Status: Acute (5) Femoral artery occlusion: Status: Acute Discharge Plan Disposition Patient Disposition: Against Medical Advice Condition: Serious Discharge Details Reason For Visit: Sepsis, Multifocal Pneumonia Admit Date/Time: 06/19/24 15:55 Admit Provider: Wesley Foster Attending Provider: Wesley Foster Primary Care Provider: Yolanda [facility] Hospital Course: This 83 years old female patient with past medical history of recent COPD evaluation treated with doxycycline and prednisone as an outpatient with added azythromycin as per PCP presented to the ED on 06/19/2024 with complaints of increased shortness of breath cough. Patient presented with tachycardia at 115 and tachypnea at 25 without hypotension, fever or hypoxia. Workup in the ED was significant for a WBC of 11.9, upper respiratory viral panel was negative, chemistry was unremarkable with creatinine at 1.[address] of the chest abdomen pelvis showed left lower left lower lobe bronchiectasis, mucous plugging in both emboli left and right lower lobes as well as bilateral basilar infiltrates. Large stool burden noted to the rectum with suspicion of fecal impaction. 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 Patient was admitted by the hospitalist team to the medical surgical floor for evaluation and management of multifocal pneumonia, fecal impaction. When met in the room the patient confirmed that she would like CPR but no intubation. Patient denied chest pain,fevers, chills, nausea, recent vomiting, or dysuria. Reporting increased sputum production of white to yellowish sputum and abdominal cramping. During the stay patient refused multiple interventions to treat fecal impaction and only had minimal fecal elimination. Today additional intervention as below could not be completed as patient left against medical advice. (5) Femoral artery occlusion: Status: Acute Assessment and plan: As per CT report: Extensive atherosclerosis is present. There is marked narrowing of the left common iliac artery. There is also marked stenosis seen in the proximal left internal iliac artery. There is extensive stenosis seen of through the length of the left external iliac artery and femoral artery. There is marked stenosis of the external right iliac arteries. There is occlusion of the right internal iliac artery. [facility] [place]: Images forwarded to [facility] w/o completion of the intervention as patient left against medical advice. Discussed with Dr. Foster Home Meds and New Rx's Prescriptions: No Action cyanocobalamin (vitamin B-12) [Vitamin B-12] 500 mcg tablet 500 mcg PO DAILY albuterol sulfate 2.5 mg /3 mL (0.083 %) solution for nebulization 2.5 mg inhalation Q4H PRN (Reason: shortness of breath or wheezing) Qty: 180 3RF Patient Comments: didn't take recently sucralfate 100 mg/mL suspension 10 ml PO QACHS Qty: 500 0RF pantoprazole 40 mg tablet,delayed release (DR/EC) 40 mg PO DAILY Qty: 90 3RF aspirin 325 mg tablet 325 mg PO DAILY Ensure, chocolate 237 ml PO 3XD Qty: 90 12RF multivitamin with minerals Capsule 1 cap PO DAILY albuterol sulfate 90 mcg/actuation HFA aerosol inhaler 2 puff Inhalation Q4H PRN Qty: 1 12RF Rx Instructions: as needed for wheezing, dispense with spacer once yearly acetaminophen 500 mg tablet 500 mg PO Q6H PRN (Reason: fever or pain) Qty: 120 0RF benzonatate 100 mg capsule 100 mg PO TID PRN (Reason: cough) Qty: 30 0RF Discharge Data Discharge Date/Time-TO BE ENTERED AT DEPARTURE: 06/20/24 10:54 DS: Summary Time Spent with Patient providing and/or coordinating discharge services: Less than 30 minutes Status at Discharge Functional status at discharge: independent ambulation Overall status at discharge: patient is not back to baseline Mental Status: mental status grossly normal Speech and Movement: agitated Mood: anxious mood Affect: labile affect Quality:SDOH Health Related Social Needs: Health related social needs feeling lonely/isolated (Z 60.8) Exam Psych Mental Status: mental status grossly normal Speech and Movement: agitated Mood: anxious mood Affect: labile affect DS: Data Vitals/I&O Vitals and I&O: Vital Signs Temperature 36.6 C 06/20/24 07:11 Temperature Source Temporal Artery Scan 06/20/24 07:11 Pulse 104 H 06/20/24 07:11 Pulse Rhythm Regular 06/19/24 17:52 Respiratory Rate 16 06/20/24 07:11 Respiratory Effort Normal, Non-Labored 06/19/24 17:52 Respiratory Depth Normal 06/19/24 17:52 Respiratory Pattern Normal 06/19/24 17:52 Blood Pressure 122/56 L 06/20/24 07:11 Blood Pressure Position Sitting 06/19/24 17:15 Pulse Oximetry 93 06/20/24 07:11 Oxygen Delivery Method Room Air 06/20/24 07:11 Oxygen Flow Rate 0 06/20/24 07:11 Pain Level 0 06/20/24 04:07 Intake & Output 06/19/24 06/19/24 06/20/24 11:59 23:59 11:59 Intake Total 670 / 670 100 / 100 Output Total 300 / 300 Balance 670 / 670 -200 / -200 Weight 39.916 kg Intake: IV 230 / 230 100 / 100 Oral 440 / 440 Output: Urine 300 / 300 Other: Urine Color Straw Urine Appearance Clear Clear Comment voidedin the toilet Stool Size Small Stool Characteristics Formed Data Completed and Pending Labs on day of discharge: Labs from last 24 hours 06/20/24 06/20/24 06/19/24 07:08 05:15 19:54 WBC 6.48 RBC 2.81 L Hgb 9.4 L D Hct 28.7 L MCV 102 H MCH 33.5 H MCHC 32.8 RDW 12.8 Plt Count 287 MPV 10.6 Immature Gran % See Differential Neutrophils % 93.0 Lymphocytes % 7.0 Monocytes % 0.0 Eosinophils % 0.0 Basophils % 0.0 Nucleated RBC % 0.0 Absolute Neutrophils 6.03 Absolute Lymphocytes 0.45 L Absolute Monocytes 0.00 L Absolute Eosinophils 0.00 Absolute Basophils 0.00 RBC Morphology Normal Sodium 142 Potassium 3.7 Chloride 106 Carbon Dioxide 24.7 Anion Gap 11.3 H BUN 27 H Creatinine 1.5 H Est GFR (CKD-EPI 2020) 34.58 Glucose 227 H Calcium 9.0 Magnesium Total Bilirubin AST ALT Alkaline Phosphatase Troponin I Total Protein Albumin Lipase Urine Color Yellow Urine Clarity Clear Urine pH 6.5 Ur Specific [place] 1.025 Urine Protein 100 H Urine Ketones Negative Urine Blood Moderate H Urine Nitrite Negative Urine Bilirubin Negative Urine Urobilinogen 0.2 Ur Leukocyte Esterase Negative Urine RBC 20-50 H Urine WBC Negative Ur Epithelial Cells Moderate Urine Crystals Negative Urine Bacteria Rare Urine Casts 0-2 Hyaline Urine Mucus Negative Ur Culture Indicated? No Urine Glucose Negative MRSA (TEM-PCR) Negative 06/19/24 06/19/24 06/19/24 15:51 12:45 11:28 WBC 11.62 H RBC 3.57 L Hgb 11.8 Hct 36.6 MCV 103 H MCH 33.1 H MCHC 32.2 RDW 12.8 Plt Count 357 MPV 10.4 Immature Gran % 0.4 Neutrophils % 70.2 Lymphocytes % 20.7 Monocytes % 7.4 Eosinophils % 1.0 Basophils % 0.3 Nucleated RBC % 0.0 Absolute Neutrophils 8.16 H Absolute Lymphocytes 2.41 Absolute Monocytes 0.86 H Absolute Eosinophils 0.12 Absolute Basophils 0.03 RBC Morphology Sodium 143 Potassium 4.2 Chloride 102 Carbon Dioxide 30.2 Anion Gap 10.8 BUN 27 H Creatinine 1.4 H Est GFR (CKD-EPI 2020) 37.56 Glucose 111 H Calcium 9.7 Magnesium 2.5 H Total Bilirubin 0.69 AST 17 ALT 23 Alkaline Phosphatase 108 Troponin I 36 27 33 Total Protein 7.9 Albumin 3.5 Lipase 32 Urine Color Urine Clarity Urine pH Ur Specific [place] Urine Protein Urine Ketones Urine Blood Urine Nitrite Urine Bilirubin Urine Urobilinogen Ur Leukocyte Esterase Urine RBC Urine WBC Ur Epithelial Cells Urine Crystals Urine Bacteria Urine Casts Urine Mucus Ur Culture Indicated? Urine Glucose MRSA (TEM-PCR) [facility] All Active Problems (Updated 06/20/24 @ 10:26 by Fern Poe APRN) Femoral artery occlusion (Acute) Sepsis (Acute) Constipation (Acute) Community acquired pneumonia (Acute) Acute exacerbation of chronic obstructive pulmonary disease (Acute) Bronchitis (Acute) Pyloric stenosis (Acute ~02/2024) Sees [facility] Esophageal stricture (Acute) EGD 01/2024,dilation of stricture, cont. PPI, Pyloric stenosis in adult (Acute) EGD 01/2024 Congestion of upper airway (Acute) Hx laparoscopic cholecystectomy (Acute) Done 01/09/2024 [place] [facility] [place] Pain in thoracic spine (Acute) Epigastric pain (Acute) COVID-19 (Acute) COVID-19 (Acute) COVID (Acute) Abnormal lung sounds (Acute) SOB (shortness of breath) (Acute) Dizziness (Acute) Tobacco abuse (Acute) Depressive disorder (Chronic 02/21/98) GERD (gastroesophageal reflux disease) (Chronic) F/u with [facility] Macrocytic anemia (Acute) MCV 99-199; ?chronic EtOH Constipation (Acute) ASCVD (arteriosclerotic cardiovascular disease) (Acute 04/14/02) 04/14/02 stent X2; ETT 1999 non-diagnostic, hypertensive; TIA 2005 Abnormal liver function (Acute) abnl GGT, Alk Phos, Albumin 12/25/23 [facility] visit Alcohol use disorder (Acute 02/21/98) h/o binge drinking 1997, 2002; chronic anemia, abnl LFT; three drinks/d Centrilobular emphysema (Acute) FEV1 1.57 (63% FVC, 70% pred, 2002) smoker 1/2 PPD; bronchiecasis, mucous pllugging on CT 10/2015 Chronic kidney disease (Acute 11/12/17) Disorder of vitamin B12 (Acute) Gait disorder, B12 level low Esophagitis (Acute 03/18/13) EGD and dilatation [place], [facility] [place]; esophagitis, path few eos; REC PPI H/O ischemic vertebrobasilar artery cerebellar stroke (Acute 11/21/05) 11/2005 cerebellar TIA: dizzy, balance, R weakness; Dr Pimentel History of ASCVD (Acute 04/14/02) RCA tight 04/14/02 stent X2; ETT 1999 non-diagnostic, hypertensive; MPI 11/2003 nl perfusion; TIA 2005 Hyperlipidemia (Acute 03/23/02) Pulmonary emphysema (Acute 10/26/15) Tobacco dependence syndrome (Acute 12/11/11) 1/2 PPD, H/O DECR TO 0-3/D FOR 3MOS TIL RESTARTED 08/2011, stopped 10/2015; current 3/wk COPD (chronic obstructive pulmonary disease) (Chronic) Anemia (Acute) Lung nodules (Chronic) HTN (hypertension) (Chronic) Medical History (Updated 06/20/24 @ 10:26 by Fern Poe APRN) Hiatal hernia (~02/2024) 03/17/24 found on EGD, [facility], hernia 2cm Abnormal peak total bilirubin level (08/21/16) 129 first elevation 07/2016; with other LFT's normal Diarrhea (10/26/15) CVA (cerebral vascular accident) 2008? HTN (hypertension) Tobacco use disorder HLD (hyperlipidemia) ASCVD (arteriosclerotic cardiovascular disease) Hypokalemia Weight loss 12/25/23 [facility] GI Gastroenteritis Surgical History (Updated 06/06/24 @ 14:50 by Saima Diez RN) History of esophagogastroduodenoscopy (EGD) (02/21/24) Dr Rushing w/biopsy and dilation 03/17/[address] Rushing, [facility], dilation done,benign pyloric stenosis that was biopsied showed mild reactive changes. History of coronary artery stent placement 2 stents - ? 2009 Endoscopy (03/18/13) [facility] [place] & dilatation: esophagitis, ?eosinophilic Family History Mother , CVA at age 76. Stroke Father , stomach CA at age 69. Stomach cancer Brother No problems noted. Other Diabetes Heavy alcohol use Social History Smoking/Tobacco Use Status: Current every day Tobacco Type: cigarettes Years smoked: 76 Quit status: considering quitting Smoking risk assessment performed?: Yes Alcohol Intake: former Drug use: Never Substance use type: does not use Household members: none Housing: house Number of Children: 2 number of grandchildren: 4 Communication Needs: Corrective Lenses Do you need help understanding health information?: Rarely current occupation: retired from [employer] Pets and animals: Yes How often do you talk on the phone with friends or family?: three or more times per week Panel score (0-1 are the most socially isolated patients): 1 What type of physical activity do you participate in: walking Frequency: daily Seatbelt use: always Helmet use: No Drive intox or ride w/intox driver service technician: No Working smoke detector in home: Yes Carbon monox detector in home: Yes Do you feel safe at home: Yes Do you feel safe in your relationship?: Yes Time Spent with Patient Time Spent with Patient: <45 minutes Time was spent: preparing to see the patient(eg.review tests), ordering medications,tests, procedures, referring, communicating with other health special needs caregiver, indepentently interpreting results and care coordination
--- NOTE | 2024-06-20 17:21 | PDOC.CMPRO ---
Date of service: 06/20/24 Time of Service: 17:22 Care Management Progress Note Progress Note Text Progress Note Text: Cinthya zunigads admitted yesterday afternoon with sepsis and multifocal pneumonia. She was also found to have a fecal impaction. This morning Cinthya decided she wanted to go home and signed out against medical advice. She has a follow up appointment with her PCP on Sunday. her son arrived to transport her home. Social Determinants of Health Screening Social Determinants of Health last assessed: 06/20/24 Will the Patient Participate in the Screening?: Yes Do you worry about having a steady place to live?: no Problems where you live: no known problems In the past 12 months, have you had to go without electric, gas, oil or water in your home?: no Have you or anyone in your house had to go without enough food to eat?: no Has lack of transportation kept you from medical appointments or from doing things needed for daily living?: no Has anyone in your life made you feel unsafe or unsupported?: no How hard is it for you to pay for the very basics like food, housing, medical care, and heating? Would you say it is:: Not hard at all Do you want help finding or keeping work or a job?: I do not need or want help If for any reason you need help with day-to-day activities such as bathing, preparing meals, shopping, managing finances, etc., do you get the help you need?: I get all the help I need How often do you feel lonely or isolated from those around you?: Sometimes Do you speak a language other than [place] at home?: No Does the patient want assistance with any of the above?: No Health Related Social Needs Health related social needs: feeling lonely/isolated (Z60.8)
--- NOTE | 2024-06-20 18:11 | NUR.NOTE ---
Nursing Note: Pt. discharged AMA. Pt. was educated on the risk of bowel perforation and medication non-compliance. Reminded pt. on PCP appointment on Sunday. Pt. refused to stay because she have dogs to take care at home.
== END 2024-06-20 10:54 | disposition left against medical advice (07) | DRG 871 ==
LOC: ER 16:47 → MS 17:32
PROVIDERS: Nurse Practitioner Acute Care; Student in an Organized Health Care Education/Training Program; Admitting Provider Hospitalist; Emergency Provider Nurse Practitioner Family; PCP Nurse Practitioner; Visit Provider Hospitalist
DX: A41.9 Sepsis, unspecified organism (principal); J18.9 Pneumonia, unspecified organism; J44.0 Chronic obstructive pulmonary disease with (acute) lower respiratory infection; J44.1 Chronic obstructive pulmonary disease with (acute) exacerbation; K31.1 Adult hypertrophic pyloric stenosis; T17.890A Other foreign object in other parts of respiratory tract causing asphyxiation, initial encounter; J47.0 Bronchiectasis with acute lower respiratory infection; I70.203 Unspecified atherosclerosis of native arteries of extremities, bilateral legs; F32.A Depression, unspecified; I12.9 Hypertensive chronic kidney disease with stage 1 through stage 4 chronic kidney disease, or unspecified chronic kidney disease; I77.1 Stricture of artery; D53.9 Nutritional anemia, unspecified; N18.9 Chronic kidney disease, unspecified; K56.41 Fecal impaction; E53.8 Deficiency of other specified B group vitamins; R26.9 Unspecified abnormalities of gait and mobility; Z86.73 Personal history of transient ischemic attack (TIA), and cerebral infarction without residual deficits; K22.2 Esophageal obstruction; Z95.5 Presence of coronary angioplasty implant and graft; K21.9 Gastro-esophageal reflux disease without esophagitis; I25.10 Atherosclerotic heart disease of native coronary artery without angina pectoris; F17.210 Nicotine dependence, cigarettes, uncomplicated; E78.5 Hyperlipidemia, unspecified; R91.8 Other nonspecific abnormal finding of lung field; Z60.8 Other problems related to social environment
CPT/HCPCS: 00123; 36415; 74177; 80048; 80053; 83690; 87641; 93005; 94640; 96365; 96375; 99285; 71260; 81003; 81015; 83735; 84484; 85025; 93010; 99223; 99239; J0692; J1650; J2405; J2919; J3490; J7512; J7620

== ENCOUNTER 2024-06-23 11:27 | Inpatient (IN) | payer MEDICARE, SELFPAY ==
[2024-06-23] VITALS (35 sets, daily range): BP systolic 90–118; BP diastolic 40–72; PULSE 76–130; RESP 2–48; TEMP 36.6–38.3; O2SAT 78–100
--- NOTE | 2024-06-23 11:30 | RT.EKG_ITS ---
APPROVED REPORT Exam: Resting ECG Reason for Exam: SOB Patient Location: E HR:126 bpm ECG Measurements Heart Rate 126 AXIS DC 152 P 95 QRSd 103 QRS -58 QT 316 T 136 QTc 458 Conclusion Sinus tachycardia, rate 126 ST depression V4-V6, new from priors No STEMI Q waves III, aVF, V1-V3
--- NOTE | 2024-06-23 11:33 | ED.GENADUL_ITS ---
Discharge Plan Disposition Patient Disposition: Admit to [facility] Condition: Fair Discharge Details Chief Complaint: RespSymp Clinical Impression: Acute exacerbation of chronic obstructive pulmonary disease, History of ASCVD, H/O ischemic vertebrobasilar artery cerebellar stroke, Chronic kidney disease, Acute hypoxic respiratory failure, Influenza A, HTN (hypertension), Anemia, ASCVD (arteriosclerotic cardiovascular disease), Community acquired pneumonia, Sepsis Primary Care Provider: Yolanda Thomas ED Provider: Alicia Cortes Home Meds and New Rx's Prescriptions: No Action cyanocobalamin (vitamin B-12) [Vitamin B-12] 500 mcg tablet 500 mcg PO DAILY albuterol sulfate 2.5 mg /3 mL (0.083 %) solution for nebulization 2.5 mg inhalation Q4H PRN (Reason: shortness of breath or wheezing) Qty: 180 3RF Patient Comments: didn't take recently sucralfate 100 mg/mL suspension 10 ml PO QACHS Qty: 500 0RF pantoprazole 40 mg tablet,delayed release (DR/EC) 40 mg PO DAILY Qty: 90 3RF aspirin 325 mg tablet 325 mg PO DAILY Ensure, chocolate 237 ml PO 3XD Qty: 90 12RF multivitamin with minerals Capsule 1 cap PO DAILY albuterol sulfate 90 mcg/actuation HFA aerosol inhaler 2 puff Inhalation Q4H PRN Qty: 1 12RF Rx Instructions: as needed for wheezing, dispense with spacer once yearly acetaminophen 500 mg tablet 500 mg PO Q6H PRN (Reason: fever or pain) Qty: 120 0RF benzonatate 100 mg capsule 100 mg PO TID PRN (Reason: cough) Qty: 30 0RF HPI General Mode of arrival: ambulatory . Date/Time Provider Initiated Documentation: 06/23/24 11:32 . Limitations to Documentation: no limitations . Information obtained by: patient, EMS and old records reviewed . HPI Narrative: HPI: This is an 83-year-old female patient with a history of COPD, chronic 3 L oxygen requirement, GERD, CAD, CKD, and a history of stroke, presenting for evaluation of shortness of breath and fever. The patient was admitted to our emergency department on the , left the hospital AMA because she missed her dog. 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 She has had shortness of breath, wheezing, and ongoing fever. EMS was summoned, noted her to have a junky sounding cough, and expiratory wheezes, tachycardia and a fever. She received 2 duo nebulizers followed by continuous albuterol treatment, 2 g of mag, 10 mg dexamethasone, and a gram of Tylenol. The patient had initial oxygen saturations of 88%, improved after these interventions to the mid 90s. I discussed with this patient and she is amenable to being readmitted, states that she talk to her son who can help care for her dog. She states that she remains a DNR, but would be amenable to a trial of intubation. Exam: Gen: Awake and alert, in no apparent distress HEENT: Non-icteric sclera Neck: Supple Lungs: The patient has a junky sounding cough, tachypnea, and intercostal retractions, does appear to be in respiratory distress. She has diffuse crackles, wheezes have improved per EMS report CV: Appears well perfused, heart with tachycardic rate but regular rhythm, strong distal pulses Abdomen: Non-distended MSK: Moves 4 extremities without apparent limitation in ROM. No peripheral edema appreciated Skin: Visualized skin without rashes, cyanosis. Neuro: Normal Gait, no obvious focal deficits or facial asymmetry. Speaks in full, clear sentences. Psych: Appropriate for situation. MDM: This is an 83-year-old female patient presenting for evaluation of shortness of breath. Differential includes but is not limited to URI, pneumonia, reactive airway disease exacerbation, hypoxic respiratory failure. Considered sepsis and bacteremia in this patient who has not completed a course of antibiotics for her presumed pulmonary source of infection. No chest pain to suggest ACS, no evidence of fluid overload on physical examination to suggest heart failure. We will obtain laboratory studies to include CBC, CMP, magnesium, troponin, BNP, lactate, blood cultures, and Fluvid. I will obtain an x-ray, provide the patient with cefepime and azithromycin, which were the antibiotic she was recommended to be on during her hospitalization. ED Course: I reviewed the patient's laboratory studies, which show no leukocytosis, stable anemia and no thrombocytopenia. The chemistry panel demo nstrates no significant electrolyte derangements, BUN and creatinine slightly elevated at 30 and 1.5 respectively. No evidence for liver dysfunction, lactate slightly elevated at 2.3, though the patient's B MALTSTER is markedly elevated at 17,000. Her initial troponin is slightly elevated at 109, no chest pain reported, and on my review of her EKG I note no evidence of active ischemia, though she does have nonspecific ST segment changes in V4 through V6, likely related to LVH and rate. For this reason I elected not to empirically provide a large amount of fluid resuscitation. I also note that her influenza A test was positive. Ultimately the patient was stabilized on 4 L/min by nasal cannula, with an appropriate blood pressure. She received the above-noted antibiotics, and her chest x-ray does redemonstrate persistent left lower lobe infiltrate concerning for ongoing pneumonia. I reached out to the hospitalist team was graciously accepted this patient for admission to their service for treatment of her hypoxic respiratory failure, influenza A, and sepsis due to a respiratory source. She remained hemodynamically appropriate while under my care and was transferred to the floor without incident. Alicia Cortes MD Related Data Home Medications ?Medication ?Instructions ?Recorded ?Confirmed cyanocobalamin (vitamin B-12) 500 500 mcg PO DAILY 09/23/20 06/23/24 mcg tablet (Vitamin B-12) aspirin 325 mg tablet 325 mg PO DAILY 09/12/23 06/23/24 Ensure, chocolate 237 ml PO 3XD #90 multiple units 11/27/23 06/23/24 acetaminophen 500 mg tablet 500 mg PO Q6H PRN fever or pain 01/21/24 06/23/24 #120 tabs multivitamin with minerals 1 cap PO DAILY 01/21/24 06/23/24 albuterol sulfate 90 mcg/actuation 2 puff inhalation Q4H PRN ##1 05/07/24 06/23/24 aerosol inhaler albuterol sulfate 2.5 mg/3 mL 2.5 mg (3 mL) inhalation Q4H PRN 06/02/24 06/23/24 (0.083 %) solution for nebulization shortness of breath or wheezing #180 mL benzonatate 100 mg capsule 100 mg PO TID PRN cough #30 caps 06/09/24 06/23/24 pantoprazole 40 mg tablet,delayed 40 mg PO DAILY #90 tabs 06/17/24 06/23/24 release sucralfate 100 mg/mL oral 10 ml PO QACHS #500 mL 06/17/24 06/23/24 suspension Previous Rx's ?Medication ?Instructions ?Recorded Ensure, chocolate 237 ml PO 3XD #90 multiple units 11/27/23 acetaminophen 500 mg tablet 500 mg PO Q6H PRN fever or pain 01/21/24 #120 tabs albuterol sulfate 90 mcg/actuation 2 puff inhalation Q4H PRN ##1 05/07/24 aerosol inhaler albuterol sulfate 2.5 mg/3 mL 2.5 mg (3 mL) inhalation Q4H PRN 06/02/24 (0.083 %) solution for nebulization shortness of breath or wheezing #180 mL benzonatate 100 mg capsule 100 mg PO TID PRN cough #30 caps 06/09/24 pantoprazole 40 mg tablet,delayed 40 mg PO DAILY #90 tabs 06/17/24 release sucralfate 100 mg/mL oral 10 ml PO QACHS #500 mL 06/17/24 suspension Allergies Allergy/AdvReac Type Severity Reaction Status Date / Time hydrochlorothiazide AdvReac Intermediate dizziness Verified 06/09/24 10:28 metoprolol AdvReac Intermediate not Verified 06/09/24 10:28 tolerated nitroglycerin AdvReac Intermediate pounding Verified 06/09/24 10:28 heart lisinopril AdvReac cough Verified 06/09/24 10:28 General Stated Complaint: RespSymp SHANNAN: 3 Course Vital Signs Vital signs: Vital Signs Temperature 38.3 C H 06/23/24 11:25 Pulse 130 H 06/23/24 11:25 Respiratory Rate 41 H 06/23/24 11:25 Blood Pressure 118/60 06/23/24 11:25 Pulse Oximetry 91 L 06/23/24 11:25 Temperature 38.3 C H 06/23/24 11:25 Temperature Source Oral 06/23/24 11:25 Pulse 130 H 06/23/24 11:25 Respiratory Rate 41 H 06/23/24 11:25 Blood Pressure 118/60 06/23/24 11:25 Blood Pressure Position Supine 06/23/24 11:25 Pulse Oximetry 91 L 06/23/24 11:25 Oxygen Delivery Method Room Air 06/23/24 11:25 Oxygen Flow Rate 0 06/23/24 11:25 Lab/Test Results Lab/Test Results: 06/23/24 11:32 Blood Blood Culture - Pending 06/23/24 11:32 Blood Blood Culture - Pending Medical Decision Making Quality:SDOH Health Related Social Needs: Health related social needs feeling lonely/isolated (Z 60.8) Critical Care Time Critical Care Time Critical Care Time: Yes Total Critical Care Time: 45 Attestation: Upon my evaluation, this patient had a high probability of imminent or life- threatening deterioration due to hypoxic respiratory failure, sepsis, which required my direct attention, intervention, and personal management. I have personally provided 45 minutes of critical care time exclusive of time spent on separately billable procedures. Time includes review of laboratory data, radiology results, discussion with consultants, and monitoring for potential decompensation. Interventions were performed as documented above. Alicia Cortes MD [facility] All Active Problems (Updated 06/23/24 @ 13:05 by Alicia Cortes MD) Influenza A (Acute) Acute hypoxic respiratory failure (Acute) Femoral artery occlusion (Acute) Sepsis (Acute) Constipation (Acute) Community acquired pneumonia (Acute) Acute exacerbation of chronic obstructive pulmonary disease (Acute) Bronchitis (Acute) Pyloric stenosis (Acute ~02/2024) Sees [facility] GI Esophageal stricture (Acute) EGD 01/2024,dilation of stricture, cont. PPI, Pyloric stenosis in adult (Acute) EGD 01/2024 Congestion of upper airway (Acute) Hx laparoscopic [place]ole[place] (Acute) [place] [facility] [place] in thoracic spine (Acute) Epigastric pain (Acute) COVID-19 (Acute) COVID-19 (Acute) COVID (Acute) Abnormal lung sounds (Acute) SOB (shortness of breath) (Acute) Dizziness (Acute) Tobacco abuse (Acute) Depressive disorder (Chronic 02/21/98) GERD (gastroesophageal reflux disease) (Chronic) F/u with [facility] Macrocytic anemia (Acute) MCV 99-199; ?chronic EtOH Constipation (Acute) ASCVD (arteriosclerotic cardiovascular disease) (Acute 04/14/02) 04/14/02 stent X2; ETT 1999 non-diagnostic, hypertensive; TIA 2006 Abnormal liver function (Acute) abnl GGT, Alk Phos, Albumin 12/25/23 [facility] visit Alcohol use disorder (Acute 02/21/98) h/o binge drinking 1997, 2002; chronic anemia, abnl LFT; three drinks/d Centrilobular emphysema (Acute) FEV1 1.57 (63% FVC, 70% pred, 2002) smoker 1/2 PPD; bronchiecasis, mucous pllugging on CT 10/2015 Chronic kidney disease (Acute 11/12/17) Disorder of vitamin B12 (Acute) Gait disorder, B12 level low Esophagitis (Acute 03/18/13) EGD and dilatation [place] [facility] [place] es[place]itis, path few eos; REC PPI H/O ischemic vertebrobasilar artery cerebellar stroke (Acute 11/21/05) 11/2005 cerebellar TIA: dizzy, balance, R weakness; Dr Pimentel History of ASCVD (Acute 04/14/02) RCA tight 04/14/02 stent X2; ETT 1999 non-diagnostic, hypertensive; MPI 11/2003 nl perfusion; TIA 2005 Hyperlipidemia (Acute 03/23/02) Pulmonary emphysema (Acute 10/26/15) Tobacco dependence syndrome (Acute 12/11/11) 1/2 PPD, H/O DECR TO 0-3/D FOR 3MOS TIL RESTARTED 08/2011, stopped 10/2015; current 3/wk COPD (chronic obstructive pulmonary disease) (Chronic) Anemia (Acute) Lung nodules (Chronic) HTN (hypertension) (Chronic) Medical History (Updated 06/23/24 @ 13:05 by Alicia Cortes MD) Hiatal hernia (~02/2024) 03/17/24 found on EGD, [facility], hernia 2cm Abnormal peak total bilirubin level (08/21/16) 129 first elevation 07/2016; with other LFT's normal Diarrhea (10/26/15) CVA (cerebral vascular accident) 2008? HTN (hypertension) Tobacco use disorder HLD (hyperlipidemia) ASCVD (arteriosclerotic cardiovascular disease) Hypokalemia Weight loss 12/25/23 [facility] Gastroenteritis Surgical History (Updated 06/21/24 @ 00:01 by NICOLETTE HUDSON) History of esophagogastroduodenoscopy (EGD) (02/21/24) Dr Rushing w/biopsy and dilation 03/17/[address] Rushing, [facility], dilation done,benign pyloric stenosis that was biopsied showed mild reactive changes. History of coronary artery stent placement 2 stents - ? 2009 Endoscopy (03/18/13) [place] [place] dilatation: esophagitis, ?eosinophilic Family History Mother , CVA at age 76. Stroke Father , stomach CA at age 69. Stomach cancer Brother No problems noted. Other Diabetes Heavy alcohol use Social History Smoking/Tobacco Use Status: Current every day Tobacco Type: cigarettes Years smoked: 76 Quit status: considering quitting Smoking risk assessment performed?: Yes Alcohol Intake: former Drug use: Never Substance use type: does not use Household members: none Housing: house Number of Children: 2 number of grandchildren: 4 Communication Needs: Corrective Lenses Do you need help understanding health information?: Rarely current occupation: retired from [employer] Pets and animals: Yes How often do you talk on the phone with friends or family?: three or more times per week Panel score (0-1 are the most socially isolated patients): 1 What type of physical activity do you participate in: walking Frequency: daily Seatbelt use: always Helmet use: No Drive intox or ride w/intox auto driver: No Working smoke detector in home: Yes Carbon monox detector in home: Yes Do you feel safe at home: Yes Do you feel safe in your relationship?: Yes
[2024-06-23 12:01] LABS: Abs Immature Grans 0.04 10^3/uL (0.0-0.06); Absolute Basophil Count 0.02 10^3/uL (0.0-0.2); Absolute Eosinophil Count 0.01 10^3/uL (0.0-0.7); Absolute Lymphocyte Count 0.78 10^3/uL (1.2-3.4); Absolute Monocyte Count 0.39 10^3/uL (0.1-0.8); Absolute Neutrophil Count 9.24 10^3/uL (1.2-6.7); Basophils % 0.2 %; Eosinophils % 0.1 %; HGB 9.3 g/dL (11.2-15.7); Immature Grans % 0.4 %; Lymphocytes % 7.4 %; MCHC 32.1 % (32.0-36.0); MCV 103 fL (80-95); MPV 10.6 fL (8.0-11.0); Monocytes % 3.7 %; Neutrophils % 88.2 %; Platelet Count 299 10^3/uL (130-400); RBC 2.82 10^6/uL (3.93-5.22); RDW 13.2 % (11.7-14.6); RDW-SD 50.7 fL; WBC 10.48 10^3/uL (4.4-10.8)
[2024-06-23 12:03] LABS: Lactate 2.3 mmol/L (<or=2.0)
[2024-06-23] MEDS: CEFEPIME 2 GM in Normal Saline 50 ML IVPB (12:29)
[2024-06-23 12:34] LABS: ALT 19 U/L (14-59); AST 16 U/L (15-37); Alkaline Phosphatase 101 U/L (46-116); Anion Gap 9.7 mmol/L (3-11); BUN 30 mg/dL (7-18); Bilirubin, Total 0.53 mg/dL (0.2-1.0); CO2 28.3 mmol/L (21.0-32.0); CREATININE 1.5 mg/dL (0.55-1.02); Calcium 9.1 mg/dL (8.5-10.1); Chloride 103 mmol/L (98-107); Estimated GFR 34.58 (mL/min/1.73m2); Glucose 117 mg/dL (74-106); NT-proBNP 17407 pg/mL (<300); Potassium 4.4 mmol/L (3.5-5.1); Sodium 141 mmol/L (136-145); Total Protein 6.7 g/dL (6.4-8.2)
[2024-06-23 12:37] LABS: Magnesium 4.4 mg/dL (1.8-2.4); Troponin I 106 ng/L (<or=51)
--- NOTE | 2024-06-23 12:43 | DI.RAD_ITS ---
Exam(s) XR PORTABLE CHEST AP EXAM: XR PORTABLE CHEST AP CLINICAL HISTORY: PNA. TECHNIQUE: 2D digital imaging was performed. COMPARISON: CR XR PORTABLE CHEST AP from 06/09/[address] CHEST/ABD/PEL W from 06/19/2024 FINDINGS: Single AP portable view. Heart size is upper normal. The mediastinum is not widened. Some infiltrate is again noted in the left lower lobe retrocardiac region which is posterior basal se gment left lower lobe. This was also evident on CT scan of 06/19/2024. No pleural effusions. Otherwise there is generalized increased markings throughout both lungs but this is possibly exaggera roxann by the portable AP technique. There is calcific rotator cuff tendinitis noted in left shoulder. IMPRESSION: There is persistent significant left lower lobe infiltrate.No obvious pleural effusions. DATA REPOSITORY: RADIATION DOSE DELIVERED:
[2024-06-23] MEDS: AZITHROMYCIN 500 MG in Normal Saline 250 ML 250 MG IVPB (12:47)
[2024-06-23 12:51] LABS: COVID-19 PCR Negative (Negative); Influenza A PCR Positive (Negative); Influenza B PCR Negative (Negative); RSV PCR Negative (Negative); Source Nasopharynx
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
[2024-06-23 13:43] LABS: Troponin I 140 ng/L (<or=51)
--- NOTE | 2024-06-23 13:56 | W.PC.ACHO ---
Registration Status: Primary Language: Preferred Language: ED Information & Data Chief Complaint RespSymp 06/23/24 11:37 Triage Note Patient was brought in by 06/23/24 11:25 EMS with c/o of saturation in the 80s. 3L o2 at home usually. continuous nebs 2 DuoNeb's and 1 albuterol per Ems. nonproductive cough. 10mg dexamethasone, 2gm magnesium, Tylenol 1gm enroute for elevated temp. Medical / Surgical History (Last Updated 03/19/24 @ 17:18 by Carolin Anthony LPN) Hiatal hernia (~02/2024) Abnormal peak total bilirubin level (08/21/16) Diarrhea (10/26/15) CVA (cerebral vascular accident) HTN (hypertension) Tobacco use disorder HLD (hyperlipidemia) ASCVD (arteriosclerotic cardiovascular disease) Hypokalemia Weight loss Gastroenteritis (Last Updated 06/06/24 @ 14:50 by Saima Diez RN) History of esophagogastroduodenoscopy (EGD) (02/21/24) History of coronary artery stent placement Endoscopy (03/18/13) Most Recent Vital Signs Temperature 38.3 C H 06/23/24 11:34 Temperature Source Oral 06/23/24 11:34 Pulse 107 H 06/23/24 13:01 Pulse 107 H 06/23/24 13:01 Respiratory Rate 27 H 06/23/24 13:01 Respiratory Effort Short of Breath 06/23/24 11:35 Respiratory Depth Deep 06/23/24 11:35 Blood Pressure 98/43 L 06/23/24 13:01 Blood Pressure Mean 61 06/23/24 13:01 Blood Pressure Position Supine 06/23/24 11:34 Pulse Oximetry 93 06/23/24 13:01 Oxygen Delivery Method Room Air 06/23/24 11:34 Oxygen Flow Rate 0 06/23/24 11:25 End Tidal Co2 3 06/23/24 11:34 Comment oxygen turned down to 2L 06/23/24 11:34 Comment 4l 06/23/24 13:01 Allergies hydrochlorothiazide Adverse Reaction (Intermediate, Verified 06/09/24 10:28) dizziness metoprolol Adverse Reaction (Intermediate, Verified 06/09/24 10:28) not tolerated per [facility] notes 12/2009, attempted to transition from Atenolol nitroglycerin Adverse Reaction (Intermediate, Verified 06/09/24 10:28) pounding heart 08/2015 lisinopril Adverse Reaction (Verified 06/09/24 10:28) cough Precautions Isolation PUI 06/23/24 11:33 IV IV Catheter Type [Left Forearm Peripheral IV ] IV Catheter Type [Right Saline Lock Antecubital] IV Catheter Gauge [Left 20 Forearm] IV Catheter Gauge [Right 18 Antecubital] Diagnostics 06/23/24 06/23/24 06/23/24 Range/Units 14:32 12:30 11:47 WBC 10.48 (4.4-10.8) 10^3/uL RBC 2.82 L (3.93-5.22) 10^6/uL Hgb 9.3 L (11.2-15.7) g/dL Hct 29.0 L (36.0-46.0) % MCV 103 H (80-95) fL MCH 33.0 (27.0-33.0) pg MCHC 32.1 (32.0-36.0) % RDW 13.2 (11.7-14.6) % Plt Count 299 (130-400) 10^3/uL MPV 10.6 (8.0-11.0) fL Immature Gran % 0.4 % Neutrophils % 88.2 % Lymphocytes % 7.4 % Monocytes % 3.7 % Eosinophils % 0.1 % Basophils % 0.2 % Nucleated RBC % 0.0 (0.0-0.3) % Absolute Neutrophils 9.24 H (1.2-6.7) 10^3/uL Absolute Lymphocytes 0.78 L (1.2-3.4) 10^3/uL Absolute Monocytes 0.39 (0.1-0.8) 10^3/uL Absolute Eosinophils 0.01 (0.0-0.7) 10^3/uL Absolute Basophils 0.02 (0.0-0.2) 10^3/uL VBG Lactate 2.3 H* (<or=2.0) mmol/L Sodium 141 (136-145) mmol/L Potassium 4.4 (3.5-5.1) mmol/L Chloride 103 (98-107) mmol/L Carbon Dioxide 28.3 (21.0-32.0) mmol/L Anion Gap 9.7 (3-11) mmol/L BUN 30 H (7-18) mg/dL Creatinine 1.5 H (0.55-1.02) mg/dL Est GFR (CKD-EPI 2020) 34.58 (mL/min/1.73m2) Glucose 117 H (74-106) mg/dL Calcium 9.1 (8.5-10.1) mg/dL Magnesium 4.4 H* (1.8-2.4) mg/dL Total Bilirubin 0.53 (0.2-1.0) mg/dL AST 16 (15-37) U/L ALT 19 (14-59) U/L Alkaline Phosphatase 101 (46-116) U/L Troponin I Pending 140 H* 106 H* (<or=51) ng/L NT-Pro-B Natriuret Pep 54556 H (<300) pg/mL Total Protein 6.7 (6.4-8.2) g/dL Albumin 3.0 L (3.4-5.0) g/dL COVID-19 Source SARS-CoV-2 (PCR) (Negative) Influenza Type A (PCR) (Negative) Influenza Type B (PCR) (Negative) RSV (PCR) (Negative) 06/23/24 Range/Units 11:33 WBC (4.4-10.8) 10^3/uL RBC (3.93-5.22) 10^6/uL Hgb (11.2-15.7) g/dL Hct (36.0-46.0) % MCV (80-95) fL MCH (27.0-33.0) pg MCHC (32.0-36.0) % RDW (11.7-14.6) % Plt Count (130-400) 10^3/uL MPV (8.0-11.0) fL Immature Gran % % Neutrophils % % Lymphocytes % % Monocytes % % Eosinophils % % Basophils % % Nucleated RBC % (0.0-0.3) % Absolute Neutrophils (1.2-6.7) 10^3/uL Absolute Lymphocytes (1.2-3.4) 10^3/uL Absolute Monocytes (0.1-0.8) 10^3/uL Absolute Eosinophils (0.0-0.7) 10^3/uL Absolute Basophils (0.0-0.2) 10^3/uL VBG Lactate (<or=2.0) mmol/L Sodium (136-145) mmol/L Potassium (3.5-5.1) mmol/L Chloride (98-107) mmol/L Carbon Dioxide (21.0-32.0) mmol/L Anion Gap (3-11) mmol/L BUN (7-18) mg/dL Creatinine (0.55-1.02) mg/dL Est GFR (CKD-EPI 2020) (mL/min/1.73m2) Glucose (74-106) mg/dL Calcium (8.5-10.1) mg/dL Magnesium (1.8-2.4) mg/dL Total Bilirubin (0.2-1.0) mg/dL AST (15-37) U/L ALT (14-59) U/L Alkaline Phosphatase (46-116) U/L Troponin I (<or=51) ng/L NT-Pro-B Natriuret Pep (<300) pg/mL Total Protein (6.4-8.2) g/dL Albumin (3.4-5.0) g/dL COVID-19 Source Nasopharynx SARS-CoV-2 (PCR) Negative (Negative) Influenza Type A (PCR) Positive A (Negative) Influenza Type B (PCR) Negative (Negative) RSV (PCR) Negative (Negative) 06/23/24 12:03 Blood Culture - Pending Blood 06/23/24 11:47 Blood Culture - Pending Blood Intake and Output - 24 Hour Total 06/23/24 11:22 thru 06/23/24 13:48 Intake Total 50 Balance 50 Weight 42.2 kg Intake: IV 50 Other: # Bowel Movements 1 Falls Risk Assessment History of Falls Previous History 06/23/24 12:22 Contributing Factors Unstable,Impairments, 06/23/24 12:22 Incontinence,Medications Ambulatory Aids Uses ambulatory device 06/23/24 12:22 Tubes/Lines W/no contributing factors 06/23/24 12:22 Gait Evaluation W/any additional score 06/23/24 12:22 Cognition No cognitive impairment 06/23/24 12:22 Fall Total Score 72 06/23/24 12:22 Level of Risk High Risk 06/23/24 12:22 v v v v v v v v v Sending and/or Receiving Nurses: Please use comment section below to note any information pertinent to the patient hand-off not included above. Information / Comments: Report received from: Karyna CARBALLO at [phone]
[2024-06-23] MEDS: Enoxaparin 30 MG/0.3 ML SYR SC (14:57)
--- NOTE | 2024-06-23 15:13 | NUR.NOTE ---
patient arrived from ED with son Jamaal at bedside. Pt AxOx4, denies pain, tachycardic and tachypneic but sats stable on O2 and weaned down to 2L NC. Patient denies SOB at rest and feels her breathing has improved since arrival to ED. Patient received IV abx and solumedrol in ED. Afebrile at this time. Admission part 2 completed, fall risk, bed alarm on, oriented to room and staff and call light. Discussed POC with pt, went over medication regimen. Assessment completed, PIVs intact. Nursing Note:
[2024-06-23] MEDS: Albuterol/Ipratropium 3 ML UPD VIAL UPD ×2 (16:08→21:39)
[2024-06-23 17:09] LABS: Troponin I 42 ng/L (<or=51)
[2024-06-23] MEDS: Acetaminophen 500 MG TAB 1000 MG PO (17:23)
[2024-06-23] MEDS: Sucralfate 1 GM TAB PO ×2 (17:23→21:40)
[2024-06-23] MEDS: Normal Saline Flush 10 ML SYR IVP ×2 (20:14→22:26)
[2024-06-23] MEDS: Furosemide 20 MG/2 ML VIAL 10 MG IVP (22:24)
[2024-06-23] MEDS: Oseltamivir 30 MG CAP PO (22:26)
[2024-06-24] VITALS (14 sets, daily range): BP systolic 95–122; BP diastolic 50–97; PULSE 86–112; RESP 2–36; TEMP 36–37.3; O2SAT 92–98
--- NOTE | 2024-06-24 | DI.US_ITS ---
APPROVED REPORT EXAM: Comprehensive 2D, Doppler, and color-flow Echocardiogram Patient Location: In-Patient Telephone Operator Receptionist: Tika Madison RT (R) (CT) [facility] Rhythm: Tachycardia Indications: CHF- BNP [id number] Other Information Study Quality: Fair Conclusion Moderate concentric left ventricular hypertrophy. Ejection fraction is 60 to 65%. There is hypokine sis of the inferobasal segment Normal right ventricular size and function Both atria are normal in size Aortic valve is sclerotic and trileaflet without stenosis. There is mild aortic regurgitation Mitral annular calcification. No significant mitral regurgitation Very small pericardial effusion without cardiac tamponade Wall motion Left Ventricle The left ventricle is normal size. The left ventricular systolic function is normal. The left ventric ular ejection fraction is within the normal range. Moderate concentric left ventricular hypertrophy w ithout evidence of LVOT obstruction. The inferior base and inferoseptal base are mildly hypokinetic. The remaining bravo appear normokinetic. At least Grade I diastolic dysfunction. There is no ventricu lar septal defect visualized. LVEF is 60-65%. Right Ventricle The right ventricle is normal size. The right ventricular systolic function is normal. There is servando l right ventricular wall thickness. Atria The left atrium size is normal. The right atrium size is normal. Prominent Eustachian valve is noted in the right atrium. The interatrial septum is intact with no evidence for an atrial septal defect. Aortic Valve Aortic valve is trileaflet. Aortic valve leaflets are mildly thickened. Aortic scleroris without sign ificant stenosis. Mild aortic regurgitation. Mitral Valve Mitral valve leaflets are mildly thickened with annular calcification. No evidence of mitral valve st enosis. Tricuspid Valve The tricuspid valve is normal in structure. There is no tricuspid valve stenosis. Trace tricuspid reg urgitation. No pulmonary hypertension. Pulmonic Valve Pulmonic valve is grossly normal in structure. There is no pulmonic valvular stenosis. Trace pulmonic regurgitation. Great Vessels The aortic root is normal in size. The pulmonary artery is normal. The ascending aorta is normal in s ize. IVC is normal in size and collapses >50% with inspiration. Pericardium Mild circumferential pericardial effusion. No echo indications of pericardial tamponade. 2D Dimensions IVSD d PLAX 1.67 cm F: 0.6-1.0 Ao Root d 2.60 cm F: 2.7 - 3.3 LVPW d PLAX 1.22 cm F: 0.6 - 1.0 Ao Asc Diam d 2.52 cm F: 2.3 - 3.1 LVID d PLAX 3.11 cm F: 3.8 - 5.2 IVC Diam exp d SLAX 1.6 cm LVDs 2.02 cm F: 2.2 - 3.5 LV EF Teichholz 65.2 % FS 34.79 % LV EDV (Teich) 38.8 mL LV ESV (Teich) 13.0 mL M-Mode TAPSE 2.33 cm (M/F) >1.7 Auto EF LV EDV A4C 62.6 mL LV EDV A2C 54.5 mL LV EDV BP 58.5 mL LV ESV A4C 31.3 mL LV ESV A2C 25.6 mL LV ESV BP 28.6 mL LVEF(%) A4C 50.1 % LVEF(%) A2C 53.0 % LVEF(%) BP 51.1 % LV SV A4C 31.4 ml LV SV A2C 28.9 ml LV SV BP 29.9 ml LV CO A4C 3.1 L/min LV CO A2C 2.9 L/min LV CO BP 3.0 L/min HR A4C 98.09 BPM HR A2C 99.45 BPM LV EDV Index (BP) LV Volumes - Method of Disks (Vigil's) Single Plane 2D LV Volumes Biplane 2D LV Volumes LV EDV A4C 40.8 mL LV EDV BP 30.01 mL F: 46 - 106 LV ESV A4C 18.1 mL LV ESV BP 10.3 mL LVEF(%) A4C 55.6 % LVEF(%) BP 65.66 % F: 54 - 74 LV EDV A2C 22.2 mL LV EDV BP Index 22.39 mL/m2 F: 29 - 61 LV ESV A2C 5.6 mL SV BP LVEF(%) A2C 74.9 % SV Index LV Strain Long Pk Overal Avg (s) 10.60 LA Volume LA Length A4C 4.8 cm LA Length A2C 4.9 cm LA Area A4C s 8.51 cm2 LA Area A2C s 10.68 cm2 LA Vol A4C A-L 12.83 mL LA Vol A2C A-L 19.77 mL LA Vol Biplane A-L 16.1 mL LA Vol/BSA A4C A-L LA Vol/BSA A2C A-L LA Vol/BSA BP A-L 12.0 mL/m2 LA Vol A4C MOD 10.9 mL LA Vol A2C MOD 18.9 mL LA Vol BP MOD 14.0 mL LV Diastology MV E' medial 0.033 (>0.07 m/s) MV E Vmax 0.89 (0.4-1.3 m/s) MV E/E' MED 27.48 (<14) MV A Vmax 1.60 (0.4-1.3 m/s) MV E' lateral 0.054 (>0.1 m/s) E/A Ratio 0.6 MV E/E' LAT 16.68 (<14) MV E' Average 0.043 m/s MV E/E'(average) 20.76 Aortic Valve AoV Vmax 2.42 m/s LVOT Vmax 1.27 m/s AoV Peak Grad 32.5 mmHg LVOT Peak Grad 6.5 mmHg AoV Area (Vmax) 1.59 cm2 LVOT VTI 0.230 m AoV VTI 0.450 m LVOT Mean Grad 4.0 mmHg AoV Mean Cristopher. 1.89 m/s LVOT SV 69.42 mL AoV Mean Grad 15.1 mmHg LVOT Diam s 1.95 cm AoV Area (VTI) 1.54 cm2 AV Regurg Peak Gr. 23.33 mmHg Velocity Ratio 0.52 AR Decel Taney 2.4m/sec2 AR DT 1378 msec AR PHT 400 msec AR Vmax 3.22 m/s Mitral Valve MV DT 89 (160-240 msec) Tricuspid Valve RA Pressure 3.00 mmHg TR Vmax 1.45 m/s TV S' 0.16 m/s TR Peak Grad 8.4 mmHg RVSP (TR) 11.4 mmHg
[2024-06-24] MEDS: CEFEPIME 1 GM in Normal Saline 50 ML IVPB ×2 (00:31→11:59)
[2024-06-24] MEDS: Albuterol/Ipratropium 3 ML UPD VIAL UPD ×4 (00:32→21:46)
[2024-06-24] MEDS: Normal Saline Flush 10 ML SYR IVP ×4 (00:32→21:46)
--- NOTE | 2024-06-24 09:04 | W.PM.PROGNOT ---
Date of Service Date of service: 06/24/24 Time of Service: 09:04 Assessment and Plan Assessment and plan (1) Severe sepsis: Status: Acute Assessment and plan: On admission met sepsis criteria with Tachycardia at 115 and tachypnea with RR 24-30 with source influenza VS pneumonia Severe Sepsis: lactic > 2 at 2.3 (2) Acute hypoxic respiratory failure: Status: Acute Assessment and plan: Multiple factors leading the acute hypoxic respiratory failure: non-treated pneumonia and now influenza infection and possibility [place] [address] On PRN O2 at home but higher requirement on admission Wean O2 as tolerated to maintain sat 88-92% (3) Influenza A: Status: Acute Assessment and plan: presented hypoxic and febrile today worsening symptoms starting the day before presentation continue tamilfu renal dosing day 05/28 (4) Elevated brain natriuretic peptide (BNP) level: Status: Acute Assessment and plan: BNP >52147 No previous echo on report will order echo if not possible will POCUS lasix 10 mg IVP hold for SBP<100 trial dose Lasix 20 mg IVP --Cr 1.8 from 1.5 BMP in AM (5) CHF (congestive heart failure): Status: Chronic Assessment and plan: As above On tele Echocardiagram conclusions: Moderate concentric left ventricular hypertrophy. Ejection fraction is 60 to 65%. There is hypokinesis of the inferobasal segment Normal right ventricular size and function Both atria are normal in size Aortic valve is sclerotic and trileaflet without stenosis. There is mild aortic regurgitation Mitral annular calcification. No significant mitral regurgitation Very small pericardial effusion without cardiac tamponade IVC non plethoric and collapse > 50% on inspiration cardiology consult (6) Community acquired pneumonia: Status: Acute Assessment and plan: Continue cefepime and azithromycin Blood C&S pending Left AMA on 06/19/24- not certain she continue antibiotics ordered by PCP before the last admission after leaving (7) Acute exacerbation of chronic obstructive pulmonary disease: Status: Acute Assessment and plan: Treatment started OPT and continued on 06/19 but patient left AMA Continue prednisone Continue antibiotic for pneumonia (8) Acute kidney injury superimposed on CKD: Status: Acute Assessment and plan: With elevated BNP- IVF might not be indicated at this time Will await echo results and improvement of hypoxic respiratory failure and readdress- On PRN O2 at home Cr at 1.8 will do IV albumin and small bolus of LR and trend - As per echo results then slow IV hydration over 6 hours BMP in AM (9) Iliac artery occlusion, right: Status: Acute Assessment and plan: as per CT from 06/19/[address] Winston at [facility] vascular: no recommendation for intervention as previous imaging showed the same findings LE's perfusing with intact CMST's , no pain on ambulation Discussed with Dr Purvis Subjective Subjective Patient reports: tolerating liquids well, tolerating a regular diet, voiding w/o difficulty, flatus and shortness of breath; denies diarrhea, nausea, vomiting or fever Exam Narrative Exam Narrative: Still weak appearing frail elderly patient, alert and oriented x 3, nonfocal, S1-S2 regular, coarse bibasilar breath sounds R basilar crackle > left with no wheezing decreaased O2 need, abdomen is nonacute, no CVA tenderness Objective Last Vital Signs Temp 36.8 C 06/24/24 07:49 Pulse 96 H 06/24/24 08:58 Resp 32 H 06/24/24 08:58 BP 118/58 L 06/24/24 07:49 Pulse Ox 95 06/24/24 08:58 Laboratory Results - last 24 hr 06/23/24 06/23/24 06/23/24 11:33 11:47 12:30 WBC 10.48 RBC 2.82 L Hgb 9.3 L Hct 29.0 L MCV 103 H MCH 33.0 MCHC 32.1 RDW 13.2 Plt Count 299 MPV 10.6 Immature Gran % 0.4 Neutrophils % 88.2 Lymphocytes % 7.4 Monocytes % 3.7 Eosinophils % 0.1 Basophils % 0.2 Nucleated RBC % 0.0 Absolute Neutrophils 9.24 H Absolute Lymphocytes 0.78 L Absolute Monocytes 0.39 Absolute Eosinophils 0.01 Absolute Basophils 0.02 VBG Lactate 2.3 H* Sodium 141 Potassium 4.4 Chloride 103 Carbon Dioxide 28.3 Anion Gap 9.7 BUN 30 H Creatinine 1.5 H Est GFR (CKD-EPI 2020) 34.58 Glucose 117 H Calcium 9.1 Magnesium 4.4 H* Total Bilirubin 0.53 AST 16 ALT 19 Alkaline Phosphatase 101 Troponin I 106 H* 140 H* NT-Pro-B Natriuret Pep 66887 H Total Protein 6.7 Albumin 3.0 L COVID-19 Source Nasopharynx SARS-CoV-2 (PCR) Negative Influenza Type A (PCR) Positive A Influenza Type B (PCR) Negative RSV (PCR) Negative 06/23/24 16:30 WBC RBC Hgb Hct MCV MCH MCHC RDW Plt Count MPV Immature Gran % Neutrophils % Lymphocytes % Monocytes % Eosinophils % Basophils % Nucleated RBC % Absolute Neutrophils Absolute Lymphocytes Absolute Monocytes Absolute Eosinophils Absolute Basophils VBG Lactate Sodium Potassium Chloride Carbon Dioxide Anion Gap BUN Creatinine Est GFR (CKD-EPI 2020) Glucose Calcium Magnesium Total Bilirubin AST ALT Alkaline Phosphatase Troponin I 42 NT-Pro-B Natriuret Pep Total Protein Albumin COVID-19 Source SARS-CoV-2 (PCR) Influenza Type A (PCR) Influenza Type B (PCR) RSV (PCR) Time Spent with Patient Time Spent with Patient: >50 minutes Time was spent: preparing to see the patient(eg.review tests), obtaining and/or reviewing separately otained hiistory, ordering medications,tests, procedures, referring, communicating with other health manager care management, indepentently interpreting results, counseling the patient and care coordination
[2024-06-24] MEDS: Acetaminophen 500 MG TAB 1000 MG PO (09:25)
[2024-06-24 09:42] LABS: Abs Immature Grans 0.06 10^3/uL (0.0-0.06); Absolute Basophil Count 0.01 10^3/uL (0.0-0.2); Absolute Lymphocyte Count 1.15 10^3/uL (1.2-3.4); Absolute Monocyte Count 0.45 10^3/uL (0.1-0.8); Basophils % 0.1 %; HGB 8.4 g/dL (11.2-15.7); Immature Grans % 0.5 %; Lymphocytes % 10.1 %; MCH 33.5 pg (27.0-33.0); MCHC 32.3 % (32.0-36.0); MCV 104 fL (80-95); MPV 10.9 fL (8.0-11.0); Monocytes % 3.9 %; Platelet Count 256 10^3/uL (130-400); RBC 2.51 10^6/uL (3.93-5.22); RDW 13.2 % (11.7-14.6); WBC 11.42 10^3/uL (4.4-10.8)
[2024-06-24] MEDS: Aspirin 325 MG TAB PO (09:46)
[2024-06-24] MEDS: Azithromycin 250 MG TAB PO (09:46)
[2024-06-24] MEDS: Pantoprazole 40 MG TABCR PO (09:46)
[2024-06-24] MEDS: predniSONE 20 MG TAB 40 MG PO (09:46)
[2024-06-24] MEDS: Cyanocobalamin 500 MCG TAB PO (09:47)
[2024-06-24] MEDS: Multivitamin w/Minerals TAB 1 TAB PO (09:47)
[2024-06-24 10:00] LABS: Absolute Neutrophil Count 1.24 10^3/uL (1.2-6.7); Neutrophils % 10.9 %
[2024-06-24 10:01] LABS: Diff Comment Diff Reviewed; Hypochromasia 2+
[2024-06-24 10:03] LABS: ALT 14 U/L (14-59); AST 19 U/L (15-37); Albumin 2.5 g/dL (3.4-5.0); Alkaline Phosphatase 91 U/L (46-116); Anion Gap 7.8 mmol/L (3-11); BUN 35 mg/dL (7-18); Bilirubin, Total 0.32 mg/dL (0.2-1.0); CO2 30.2 mmol/L (21.0-32.0); CREATININE 1.8 mg/dL (0.55-1.02); Calcium 8.5 mg/dL (8.5-10.1); Chloride 104 mmol/L (98-107); Estimated GFR 27.78 (mL/min/1.73m2); Glucose 132 mg/dL (74-106); Potassium 3.6 mmol/L (3.5-5.1); Sodium 142 mmol/L (136-145); Total Protein 6.2 g/dL (6.4-8.2)
[2024-06-24] MEDS: Furosemide 20 MG/2 ML VIAL IVP (10:07)
--- NOTE | 2024-06-24 10:12 | NUR.NOTE ---
concerned with patient presentation due to RR at 36, bibasilar crackles and HR of 115, tele ordered but no more tele boxes, will attempt again later. Pt feels SOB and exhausted. Fern Poe PROGRAM MANAGEMENT INTERN notified to come see pt due to vitals. Patient not actively in distress but due to risk of severe sepsis low threshold for decline. IVP lasix 20mg x1 given, will monitor I&O closely. Bed low/locked, call hernandez in reach, bed alarm on. Nursing Note:
[2024-06-24 11:20] LABS: Iron 12 ug/dL (50-170); Total Iron Binding Capacity 233 ug/dL (250-450); Transferrin Sat 5 % (15-50)
[2024-06-24 11:31] LABS: Folate > 20.0 ng/mL (8.6-20.0); Vitamin B12 > 2000 pg/mL (193-986)
[2024-06-24] MEDS: Sucralfate 1 GM TAB PO ×3 (11:59→21:47)
--- NOTE | 2024-06-24 13:03 | RESPIRATORY ---
Addendum entered by Ann Marie Vickers 06/28/24 08:38: Pt has [employer] [employer] P[facility] through [employer]. Currently in room and being charged. Original Note: Patient is prescribed home 02 through [employer] @2L continuous.
--- NOTE | 2024-06-24 13:59 | NUR.NOTE ---
patient Axox4 throughout shift, RR has improved to 24 since this AM (see note) with acute respiratory distress incident. Given IV lasix this AM and pt has voided and work of breathing has noticeably improved. Still slightly tachy. Pt resting at this time, 2 assist to bedside commode due to fatigue and weakness. Pt had echo completed showing LV hypertrophy and EF 60-65%. Kidney functions elevated as well. Discussed with pt and son Jamaal after rounds that the team is trying to address her breathing issues but also has to keep in mind her kidney functions. Pt on IV cefepime, PIVs intact, poor appetite and PO intake, reports she just feels exhausted. Will continue to monitor for further s/s of sepsis. Bed low/locked, call hernandez in reach. Bed alarm onNursing Note:
--- NOTE | 2024-06-24 15:40 | PHA.REVIEW2 ---
Pharmacy Admission Review Admission Clinical Review Admission Pharmacy Review: Acute kidney injury superimposed on CKD (Acute) Iliac artery occlusion, right (Acute) Severe sepsis (Acute) Elevated brain natriuretic peptide (BNP) level (Acute) Influenza A (Acute) Acute hypoxic respiratory failure (Acute) Community acquired pneumonia (Acute) Acute exacerbation of chronic obstructive pulmonary disease (Acute) hydrochlorothiazide Adverse Reaction (Intermediate, Verified 06/09/24 10:28) dizziness metoprolol Adverse Reaction (Intermediate, Verified 06/09/24 10:28) not tolerated nitroglycerin Adverse Reaction (Intermediate, Verified 06/09/24 10:28) pounding heart lisinopril Adverse Reaction (Verified 06/09/24 10:28) cough Resuscitation Status DNI Height 5 ft 2 in Weight 39.5 kg Comments Comments/Follow Ups: monitor renal function (Tamiflu renally adjusted) Pharmacy Admission Review Renal Dosing Renal Dosing: BUN 35 mg/dL (7-18) H 06/24/24 09:35 Creatinine 1.8 mg/dL (0.55-1.02) H 06/24/24 09:35 Medications needing adjustments: Intervened (CrCl 14.45 mL/min, BUN increased from 35 and SCr increased from 1.5) List of meds needing interventions: Changed Tamiflu to 30mg daily Anticoagulation Anticoagulation: Hgb 8.4 g/dL (11.2-15.7) L 06/24/24 09:35 Hct 26.0 % (36.0-46.0) L 06/24/24 09:35 Plt Count 256 10^3/uL (130-400) 06/24/24 09:35 Creatinine 1.8 mg/dL (0.55-1.02) H 06/24/24 09:35 DVT Prophylaxis: Reviewed (Hgb decreased from 9.3) Medications: Enoxaparin (30mg daily) Relevant Labs Relevant Labs: Sodium 142 mmol/L (136-145) 06/24/24 09:35 Potassium 3.6 mmol/L (3.5-5.1) 06/24/24 09:35 Chloride 104 mmol/L (98-107) 06/24/24 09:35 Magnesium 3.0 mg/dL (1.8-2.4) H 06/24/24 09:35 Electrolytes, C-Reactive P, ESR: Reviewed (Mg decreased from 4.4) Cardiac Review Cardiac Review: Troponin I 42 ng/L (<or=51) 06/23/24 16:30 NT-Pro-B Natriuret Pep 70866 pg/mL (<300) H 06/23/24 11:47 Blood Pressure 95/50 1103 Heart Rate 101 Blood Pressure 111/55 0959 Heart Rate 112 Blood Pressure 118/58 0749 Heart Rate 101 BP, HR, EF%: Reviewed (RR 28, Oxygen flow rate 2) QTc Review QTc: Reviewed (458 from 06/23/24) IV to PO Switch IV Medications: Reviewed (cefepime) Home Meds Home Med List reviewed: Reviewed Current Meds Current Medication Order Review: Intervened Comments: Albumin x 1 given today - per provider will do albumin IV first then LR 500 ml bolus over one hour then 500 ml over 6 hours at 75 cc/ht- total would be the full one liter - changed second order to be for 500mL not 1000mL to reflect what provider wants. Pharmacy Antibiotic Review Relevant Labs: WBC 11.42 10^3/uL (4.4-10.8) H 06/24/24 09:35 Temperature 37.1 C Temperature 37.3 C Temperature 36.8 C Microbiology 06/23/24 12:03 Blood Culture - Preliminary Blood NO GROWTH 24 HOURS 06/23/24 11:47 Blood Culture - Preliminary Blood NO GROWTH 24 HOURS Pharmacy Antibiotic Activity: C/S review and Reviewed, no change Comments: Patient is on cefepime and azithromycin PO, day 2, for sepsis/pneumonia. Patient is also on Tamiflu day 2. WBC increased from 10.48 and blood cultures currently negative. Comments Comments/Follow Ups: monitor renal function (Tamiflu renally adjusted)
[2024-06-24] MEDS: ALBUMIN HUMAN 25 GM/100 ML BTL IVPB (15:54)
[2024-06-24] MEDS: Enoxaparin 30 MG/0.3 ML SYR SC (15:57)
--- NOTE | 2024-06-24 16:22 | PDOC.CMIN ---
Date of service: 06/24/24 Time of Service: 16:00 Care Management Initial Assmt Initial Assessment Reason for Hospitalization: COPD exacerbation, flu Functional Status/Living Situation Patient Presentation: Bita presented to the ED yesterday morning with c/o shortness of breath and fever. She called EMS. Bita had just left [facility] on 06/20, leaving AMA after just one night. She was admitted for CAP at that time. She had a previously scheduled appt for 06/23, that she did not attend as she came to the ED. Erin stated that she felt ready to be discharged last time, as she was feeling much better, but soon realized she was ill again. Bita was lying in bed when CM met with her this afternoon. She looked tired, and stated that she really did not feel well. She was wearing 2L of nc, but that is baseline for her. She stated she will not be leaving AMA this admission, as it did not work out for her last time. She stated that her granddaughter is taking care of the dog. Bita lives alone, her son lives very close by and keeps close contact. Her granddaughter helps with chores. Town of Residence: [place] Resides with: Alone Significant Other/Family: Local (2 kids, 4 grandchildren. Son, Jamaal, and his family live close and are attentive) Natural Supports: family. PCP and her care coordinated communicate often Employment Status: Retired (worked at [employer]) Instrumental Activities of Daily Living (ADLs): Independent (requires support with shopping and larger chores . She still does her own cooking and bathes herself) Advance Directives Advance Directives: Do you have an Advance Directive: AD On File at [facility]: N 02/21/13 09:56 Date Asked 06/23/24 06/23/24 14:02 AD Date Reviewed COLST On File at [facility] COLST Date Scanned Code Status Resuscitation Status DNI Insurance Coverage/Financial Issues Insurance: BC/[place] [facility] Care Team Visit Care Team Role Provider Type Yolanda Thomas NP Primary Care Provider NURSE PRACTITIONER Alicia Cortes MD Emergency Provider [facility] STAFF PHYSICIAN Edis Purvis Admit Provider [facility] STAFF PHYSICIAN Attending Provider Discharge Potential Discharge Needs: PT Evaluation (requested PT consult order from provider) and PCP F/U Appt Anticipated Barriers to Discharge: None Identified Patient/Family Education Needs: Review discharge instructions, discuss Ask Me Three Transportation: Private vehicle Plan: Anticipate that Bita will be discharged home with new services of HH RN, PT/OT, FILLING HAULER. She will f/u with her PCP and continue per her plan of care. CM will continue to follow and adjust the plan as needed. Social Determinants of Health Screening Will the Patient Participate in the Screening?: Declined to provide PFSH All Active Problems (Updated 06/24/24 @ 10:18 by Fern Poe APRN) Acute kidney injury superimposed on CKD (Acute) Iliac artery occlusion, right (Acute) CHF (congestive heart failure) (Chronic) Severe sepsis (Acute) Elevated brain natriuretic peptide (BNP) level (Acute) Influenza A (Acute) Acute hypoxic respiratory failure (Acute) Femoral artery occlusion (Acute) Sepsis (Acute) Constipation (Acute) Community acquired pneumonia (Acute) Acute exacerbation of chronic obstructive pulmonary disease (Acute) Bronchitis (Acute) Pyloric stenosis (Acute ~02/2024) Sees [facility] Esophageal stricture (Acute) EGD 01/2024,dilation of stricture, cont. PPI, Pyloric stenosis in adult (Acute) EGD 01/2024 Congestion of upper airway (Acute) Hx laparoscopic cholecystectomy (Acute) Done 01/09/2024 at [facility] Pain in thoracic spine (Acute) Epigastric pain (Acute) COVID-19 (Acute) COVID-19 (Acute) COVID (Acute) Abnormal lung sounds (Acute) SOB (shortness of breath) (Acute) Dizziness (Acute) Tobacco abuse (Acute) Depressive disorder (Chronic 02/21/98) GERD (gastroesophageal reflux disease) (Chronic) F/u with [facility] Macrocytic anemia (Acute) MCV 99-199; ?chronic EtOH Constipation (Acute) ASCVD (arteriosclerotic cardiovascular disease) (Acute 04/14/02) 04/14/02 stent X2; ETT 1999 non-diagnostic, hypertensive; TIA 2005 Abnormal liver function (Acute) abnl GGT, Alk Phos, Albumin 12/25/23 [facility] visit Alcohol use disorder (Acute 02/21/98) h/o binge drinking 1997, 2002; chronic anemia, abnl LFT; three drinks/d Centrilobular emphysema (Acute) FEV1 1.57 (63% FVC, 70% pred, 2002) smoker 1/2 PPD; bronchiecasis, mucous pllugging on CT 10/2015 Chronic kidney disease (Acute 11/12/17) Disorder of vitamin B12 (Acute) Gait disorder, B12 level low Esophagitis (Acute 03/18/13) EGD and dilatation [facility]; esophagitis, path few eos; REC PPI H/O ischemic vertebrobasilar artery cerebellar stroke (Acute 11/21/05) 11/2005 cerebellar TIA: dizzy, balance, R weakness; Dr Pimentel History of ASCVD (Acute 04/14/02) RCA tight 04/14/02 stent X2; ETT 1999 non-diagnostic, hypertensive; MPI 11/2003 nl perfusion; TIA 2005 Hyperlipidemia (Acute 03/23/02) Pulmonary emphysema (Acute 10/26/15) Tobacco dependence syndrome (Acute 12/11/11) 1/2 PPD, H/O DECR TO 0-3/D FOR 3MOS TIL RESTARTED 08/2011, stopped 10/2015; current 3/wk COPD (chronic obstructive pulmonary disease) (Chronic) Anemia (Acute) Lung nodules (Chronic) HTN (hypertension) (Chronic) Medical History (Updated 06/24/24 @ 10:18 by Fern Poe APRN) Hiatal hernia (~02/2024) 03/17/24 found on EGD, [facility], hernia 2cm Abnormal peak total bilirubin level (08/21/16) 129 first elevation 07/2016; with other LFT's normal Diarrhea (10/26/15) CVA (cerebral vascular accident) 2008? HTN (hypertension) Tobacco use disorder HLD (hyperlipidemia) ASCVD (arteriosclerotic cardiovascular disease) Hypokalemia Weight loss 12/25/23 [facility] Gastroenteritis Surgical History (Updated 06/21/24 @ 00:01 by NICOLETTE HUDSON) History of esophagogastroduodenoscopy (EGD) (02/21/24) Dr Rushing w/biopsy and dilation 03/17/[address] Rushing, [facility], dilation done,benign pyloric stenosis that was biopsied showed mild reactive changes. History of coronary artery stent placement 2 stents - ? 2008 Endoscopy (03/18/13) Dr Ch-[facility] EGD & dilatation: esophagitis, ?eosinophilic Family History Mother , CVA at age 76. Stroke Father , stomach CA at age 69. Stomach cancer Brother No problems noted. Other Diabetes Heavy alcohol use Social History Smoking/Tobacco Use Status: Current every day Tobacco Type: cigarettes Years smoked: 76 Quit status: considering quitting Smoking risk assessment performed?: Yes Alcohol Intake: former Drug use: Never Substance use type: does not use Household members: none Housing: house Number of Children: 2 number of grandchildren: 4 Communication Needs: Corrective Lenses Do you need help understanding health information?: Rarely current occupation: retired from [employer] Pets and animals: Yes How often do you talk on the phone with friends or family?: three or more times per week Panel score (0-1 are the most socially isolated patients): 1 What type of physical activity do you participate in: walking Frequency: daily Seatbelt use: always Helmet use: No Drive intox or ride w/intox driver helper: No Working smoke detector in home: Yes Carbon monox detector in home: Yes Do you feel safe at home: Yes Do you feel safe in your relationship?: Yes Readmission Within the Past 30 Days Yes or No: Yes Date of First Admission Date of 1st Admission: 06/19/24 Date of this Admission Date of Admission: 06/23/24 This admission was: Through ED Office Visit Since 1st Admission Have you seen your PCP in the office since discharge?: No Date of PCP Appointment: 06/23/24 Describe barriers for scheduling or getting an appointment: did not attend appointment. Came to ED instead I. Interview patient and/or Family Difficulty reaching your doctor or getting an office appt?: No Have you had trouble purchasing/ or taking medication?: No Have you had trouble with getting meals at home?: No Did you feel ready for discharge when you left the last time: Yes (left AMA) Did you call your physician beore you came to the ED?: No How do you think you became sick enough to come back?: should have stayed longer last time. ED visits How many ED visits in the past 12 months: 8 Assessment for Readmission Summary of readmission circumstances, based upon interviews: left AMA. Did not take antibiotics and continued to be ill. Anticipated HH Services Anticipated HH Services at Discharge [facility] Needed, FILLING HAULER, OT, PT and RN Following Provider:
[2024-06-24] MEDS: Lactated Ringers 500 ML 75 ML IV (16:29)
[2024-06-24] MEDS: Lactated Ringers 500 ML IV (16:29)
[2024-06-24] MEDS: Oseltamivir 30 MG CAP PO (21:47)
[2024-06-25] VITALS (11 sets, daily range): BP systolic 118–149; BP diastolic 57–69; PULSE 90–108; RESP 3–32; TEMP 36.5–37.1; O2SAT 90–98
[2024-06-25] MEDS: CEFEPIME 1 GM in Normal Saline 50 ML IVPB ×2 (00:01→12:24)
[2024-06-25] MEDS: Normal Saline Flush 10 ML SYR IVP ×4 (00:02→21:05)
[2024-06-25] MEDS: Albuterol/Ipratropium 3 ML UPD VIAL UPD ×4 (02:28→21:05)
[2024-06-25] MEDS: Multivitamin w/Minerals TAB 1 TAB PO (09:09)
[2024-06-25] MEDS: predniSONE 20 MG TAB 40 MG PO (09:09)
[2024-06-25] MEDS: Cyanocobalamin 500 MCG TAB PO (09:09)
[2024-06-25] MEDS: Aspirin 325 MG TAB PO (09:09)
[2024-06-25] MEDS: Pantoprazole 40 MG TABCR PO (09:10)
[2024-06-25] MEDS: Azithromycin 250 MG TAB PO (09:10)
[2024-06-25] MEDS: Sucralfate 1 GM TAB PO ×4 (09:10→21:04)
[2024-06-25 09:58] LABS: Transferrin 170 mg/dL (201-352)
--- NOTE | 2024-06-25 09:59 | PGE_ITS ---
Date of Service Date of service: 06/25/24 Time of Service: 09:59 Assessment and Plan Assessment and plan (1) Severe sepsis: Status: Acute Assessment and plan: on admission, met sepsis criteria with Tachycardia at 115 and tachypnea with RR 24-30 with source influenza VS pneumonia with ongoing left base consolidation Severe Sepsis: lactic > 2 at 2.3 (2) Acute hypoxic respiratory failure: Status: Acute Assessment and plan: Improving Multiple factors leading the acute hypoxic respiratory failure: non-treated pneumonia and now influenza infection and possibility [place] [address] On PRN O2 at home but higher requirement on admission now baseline Wean O2 as tolerated to maintain sat 88-92% (3) Influenza A: Status: Acute Assessment and plan: presented hypoxic and febrile today worsening symptoms starting the day before presentation Ongoing tamilfu renal dosing day 06/25 (4) Elevated brain natriuretic peptide (BNP) level: Status: Acute Assessment and plan: BNP >46675 No previous echo on report will order echo if not possible will POCUS lasix 10 mg IVP hold for SBP<100 trial dose Lasix 20 mg IVP --Cr 1.9 from 1.5-echo showed LVEF above 60% with grade 1 diastolic dysfunction and inferobasal hypokinesis with moderate contralateral hypertrophy without LVOT obstruction, very small pericardial effusion without tamponade Will initiate slow IV hydration Potassium at 3.4?supplementation given BMP in AM (5) CHF (congestive heart failure): Status: Chronic Assessment and plan: As above On tele Echocardiagram conclusions: Moderate concentric left ventricular hypertrophy. Ejection fraction is 60 to 65%. There is hypokinesis of the inferobasal segment Normal right ventricular size and function Both atria are normal in size Aortic valve is sclerotic and trileaflet without stenosis. There is mild aortic regurgitation Mitral annular calcification. No significant mitral regurgitation Very small pericardial effusion without cardiac tamponade IVC non plethoric and collapse > 50% on inspiration cardiology consult completed please read notes (6) Community acquired pneumonia: Status: Acute Assessment and plan: Was on cefepime now on ceftriaxone?blood culture negative x 48 hours Continue azithromycin MRSA negative on 06/19/2024 Current treatment Left AMA on 06/19/24- not certain she continue antibiotics ordered by PCP before the last admission after leaving Guaifenesin twice daily Continue Acapella WBC in a.m. (7) Acute exacerbation of chronic obstructive pulmonary disease: Status: Acute Assessment and plan: Treatment started OPT and continued on 06/19 but patient left AMA Ongoing treatment with prednisone and antibiotics (8) Acute kidney injury superimposed on CKD: Status: Acute Assessment and plan: With elevated BNP-but no acute heart failure with reduced ejection fraction finding as per echo- Cr at 1.9 from 1.4 anemia baseline on admit will do slow IV hydration - BMP in AM (9) Iliac artery occlusion, right: Status: Acute Assessment and plan: No further follow-up required unless patient has ambulatory claudication or lack of perfusion to lower extremity as per CT from 06/19/[address] Winston at [facility] vascular: no recommendation for intervention as previous imaging showed the same findings LE's perfusing with intact CMST's , no pain on ambulation Discussed with Dr Purvis Subjective Subjective Patient reports: no new complaints (Ongoing fatigue, reports unable to get up to the chair), tolerating liquids well, tolerating a regular diet, voiding w/o difficulty, flatus and shortness of breath; denies diarrhea, nausea, vomiting or fever Exam Narrative Exam Narrative: Still weak appearing frail elderly patient, alert and oriented x 2, nonfocal, S1-S2 regular, coarse bibasilar breath sounds R basilar crackle > left, decreased L base with no wheezing on 2l od O2- baseline , abdomen is nonacute, no CVA tenderness Objective Last Vital Signs Temp 36.6 C 06/25/24 08:17 Pulse 103 H 06/25/24 08:41 Resp 30 H 06/25/24 08:31 BP 130/61 06/25/24 08:17 Pulse Ox 97 06/25/24 08:31 Laboratory Results - last 24 hr 06/23/24 06/24/24 11:47 09:35 WBC 11.42 H RBC 2.51 L Hgb 8.4 L Hct 26.0 L MCV 104 H MCH 33.5 H MCHC 32.3 RDW 13.2 Plt Count 256 MPV 10.9 Immature Gran % 0.5 Neutrophils % 10.9 Lymphocytes % 10.1 Monocytes % 3.9 Eosinophils % 0.0 Basophils % 0.1 Nucleated RBC % 0.0 Absolute Neutrophils 1.24 Absolute Lymphocytes 1.15 L Absolute Monocytes 0.45 Absolute Eosinophils 0.00 Absolute Basophils 0.01 RBC Morphology See Below Hypochromasia 2+ Sodium 142 Potassium 3.6 Chloride 104 Carbon Dioxide 30.2 Anion Gap 7.8 BUN 35 H Creatinine 1.8 H Est GFR (CKD-EPI 2020) 27.78 Glucose 132 H Calcium 8.5 Magnesium 3.0 H Iron 12 L TIBC 233 L Transferrin % Sat 5 L Total Bilirubin 0.32 AST 19 ALT 14 Alkaline Phosphatase 91 Total Protein 6.2 L Albumin 2.5 L Vitamin B12 > 2000 H Folate > 20.0 H Time Spent with Patient Time Spent with Patient: >50 minutes Time was spent: preparing to see the patient(eg.review tests), obtaining and/or reviewing separately otained hiistory, ordering medications,tests, procedures, referring, communicating with other health manager respiratory care, indepentently interpreting results, counseling the patient and care coordination
[2024-06-25 10:27] LABS: Abs Immature Grans 0.04 10^3/uL (0.0-0.06); Absolute Basophil Count 0.01 10^3/uL (0.0-0.2); Absolute Lymphocyte Count 1.03 10^3/uL (1.2-3.4); Absolute Monocyte Count 0.35 10^3/uL (0.1-0.8); Absolute Neutrophil Count 7.72 10^3/uL (1.2-6.7); Basophils % 0.1 %; HCT 23.6 % (36.0-46.0); HGB 7.7 g/dL (11.2-15.7); Immature Grans % 0.4 %; Lymphocytes % 11.3 %; MCH 33.5 pg (27.0-33.0); MCHC 32.6 % (32.0-36.0); MCV 103 fL (80-95); MPV 10.7 fL (8.0-11.0); Monocytes % 3.8 %; Neutrophils % 84.4 %; Platelet Count 229 10^3/uL (130-400); RDW 13.3 % (11.7-14.6); RDW-SD 50.4 fL; WBC 9.15 10^3/uL (4.4-10.8)
--- NOTE | 2024-06-25 10:28 | PT.INIE ---
PT Notes Visit Reasons: Sepsis, Pneumonia, Influenza Physical Therapy Inpatient Initial Evaluation Date: 06/26/2024 Referring Doctor: Fern Poe NP PT Orders: PT CONSULT: Eval for Assistive Device. Safety Consult for D/C Precautions: Fall. Droplet precautions for Influenza A in place. Activity as tolerated. Patient Profile/Admitting Diagnosis: Patient is an 83-year-old female who presented to the ED on 06/23/2024 due to worsening shortness of breath. She previously was seen at the ED for same symptoms on 06/19/24 but left AMA. She is now admitted to acute level of care for management of severe sepsis, acute hypoxic respiratory failure, influenza, elevated BNP, CHF, CAP, acuet exacerbetion of COPD and iliac artery occlusion. PMHX: All Active Problems (Updated 06/24/24 @ 09:12 by Fern Poe APRN) oh Iliac artery occlusion, right (Acute) CHF (congestive heart failure) (Chronic) Severe sepsis (Acute) Elevated brain natriuretic peptide (BNP) level (Acute) Influenza A (Acute) Acute hypoxic respiratory failure (Acute) Femoral artery occlusion (Acute) Sepsis (Acute) Constipation (Acute) Community acquired pneumonia (Acute) Acute exacerbation of chronic obstructive pulmonary disease (Acute) Bronchitis (Acute) Pyloric stenosis (Acute ~02/2024) Sees [facility] GIEsophageal stricture (Acute) EGD 01/2024,dilation of stricture, cont. PPI,Pyloric stenosis in adult (Acute) EGD 01/2024 history of COVID already in 2019 Congestion of upper airway (Acute) Hx laparoscopic cholecystectomy (Acute) Done 01/09/2024 at [facility] in thoracic spine (Acute) Epigastric pain (Acute) COVID-19 (Acute) COVID-19 (Acute) COVID (Acute) Abnormal lung sounds (Acute) SOB (shortness of breath) (Acute) Dizziness (Acute) Tobacco abuse (Acute) Depressive disorder (Chronic 02/21/98) GERD (gastroesophageal reflux disease) (Chronic) F/u with LR GIMacrocytic anemia (Acute) MCV 99-199; ?chronic EtOH Constipation (Acute) ASCVD (arteriosclerotic cardiovascular disease) (Acute 04/14/02) 04/14/02 stent X2; ETT 1999 non-diagnostic, hypertensive; TIA 2005 Abnormal liver function (Acute) abnl GGT, Alk Phos, Albumin 12/25/23 [facility] GI visit Alcohol use disorder (Acute 02/21/98) h/o binge drinking 1997, 2002; chronic anemia, abnl LFT; three drinks/d Centrilobular emphysema (Acute) FEV1 1.57 (63% FVC, 70% pred, 2002) smoker 1/2 PPD; bronchiecasis, mucous pllugging on CT 10/2015 Chronic kidney disease (Acute 11/12/17) Disorder of vitamin B12 (Acute) Gait disorder, B12 level low Esophagitis (Acute 03/18/13) [facility] es[facility]itis, path few eos; REC PPI H/O ischemic vertebrobasilar artery cerebellar stroke (Acute 11/21/05) 11/2005 cerebellar TIA: dizzy, balance, R weakness; Dr Pimentel History of ASCVD (Acute 04/14/02) RCA tight 04/14/02 stent X2; ETT 1999 non-diagnostic, hypertensive; MPI 11/2003 nl perfusion; TIA 2005 Hyperlipidemia (Acute 03/23/02) Pulmonary emphysema (Acute 10/26/15) Tobacco dependence syndrome (Acute 12/11/11) 1/2 PPD, H/O DECR TO 0-3/D FOR 3MOS TIL RESTARTED 08/2011, stopped 10/2015; current 3/wk COPD (chronic obstructive pulmonary disease) (Chronic) Anemia (Acute) Lung nodules (Chronic) HTN (hypertension) (Chronic) Medical History (Updated 06/24/24 @ 09:12 by Fern Poe APRN) Hiatal hernia (~02/2024) 03/17/24 found on EGD, [facility] GI, hernia 2cm Abnormal peak total bilirubin level (08/21/16) 129 first elevation 07/2016; with other LFT's normal Diarrhea (10/26/15) CVA (cerebral vascular accident) 2008? HTN (hypertension) Tobacco use disorder HLD (hyperlipidemia) ASCVD (arteriosclerotic cardiovascular disease) Hypokalemia Weight loss 12/25/23 [facility] GI Gastroenteritis Surgical History (Updated 06/21/24 @ 00:01 by NICOLETTE HUDSON) History of esophagogastroduodenoscopy (EGD) (02/21/24) Dr Rushing w/biopsy and dilation 03/17/[address] Rushing, [facility], dilation done,benign pyloric stenosis that was biopsied showed mild reactive changes. History of coronary artery stent placement 2 stents - ? 2009 Endoscopy (03/18/13) Dr [facility] [place] EGD & dilatation: esophagitis, ?eosinophilic Social History/Home Situation: Patient lives alone in a private home. Independent with all aspects of ADLs prior to admission. Equipment Owned/DME: None Subjective: When patient was assisted to sit up in bed she could not sustain he seated position, I need to lie back down, please. I cannot do this. This was attempted twice but patient was too weak and fatigued to do anything. Objective: General Observation: Oxygen supplementation via NC, Sleeping when PT came in. Mental Status: Very drowsy but was able to wake up. Oriented as to person, place, time, and purpose. Able to pay attention, focus, and respond appropriately. Pain: None reported Vital Signs: 125/56 mmHg, 92 bpm, 95% on oxygen supplementation ROM: Unable to formally assess due to drowsiness and fatigue. Will reassess when able to tolerate Strength: Unable to formally assess due to drowsiness and fatigue. Will reassess when able to tolerate Bed Mobility/Transfers: Minimal cueing provided for use of B hands as needed for support, movement sequence, AD management, and posture to reduce fall risk and minimize pain report Supine to sit moderate assist and using bed rail for support Sit to supine moderate assist and using bed rail for support Sit to stand deferred, unable due to fatigue, level of alertness/drowsiness Stand to sit deferred, unable due to fatigue, level of alertness/drowsiness Gait: Deferred, unable due to fatigue, level of alertness/drowsiness Balance: Static Sitting: Fair Dynamic Sitting: Poor Static Standing: Unable Dynamic Standing: Unable Special Tests: Mobility Limitations Standardized Measure [facility] AM-PAC 6 clicks Basic Mobility Inpatient Short Form: Raw Score: 9 CMS Score: 81% deficit Informed Consent/Education: Patient was instructed in purpose of PT consult and plan of care. Agreeable to proceed with established PT POC to achieve personal goals. ASSESSMENT: Patient was too weak, drowsy, and fatigued to complete today's mobility assessment. Patient will require [facility] facility placement to gradually progress strength, balance, and overall mobility to facilitate return to prior level of function of independent without an assistive device. Requires 2 assist for essential transfers, ambulation with physical therapy only for now. Nurse Radha was informed of patient's mobility status. Patient presents with clinical signs and symptoms consistent with current/admitting diagnoses that have resulted to mobility limitations, gait instability, generalized weakness, and overall ADL decline as demonstrated by the following impairment level findings: 1. Decreased strength to B UE/LE major muscle groups 2. Impaired sitting/standing balance 3. Impaired activity tolerance 4. Extreme fatigue 5. Lethargy 6. Inability to focus Impairments are contributing to the following functional limitations: 1. Decline in bed mobility skills 2. Decline in transfer skills 3. Difficulty with ambulation without assistive device and physical assistance 4. Increased completion time for mobility ADL performance 5. Increased risk for falls 6. Difficulty with managing steps alone safely Patient is assessed [place] a 77980 moderate complexity based on the following: History: 83-year-old female with past medical history as indicated above Examination: Demonstrable impairment in strength, balance, and mobility level with underlying impairments and functional limitations as exhibited above as well as deficit score of 81% utilizing the [facility] Mobility Inpatient Short Form Presentation: Evolving Decision Makin moderate complexity Goals: Goals X1 week 1. Supine-Sit independent 2. Sit-Supine independent 3. Sit-Stand independent 4. Stand-Sit independent with FWW 5. Bed-Chair independent with FWW 6. Chair-Bed independent with FWW 7. Independent gait on level surface with use of FWW for at least 300 feet without report of pain nor dyspnea 8. Independent stair negotiation while holding onto B rails for at least 3 steps without report of pain nor dyspnea 9. Independent with home exercise program 10. Good static and dynamic standing balance/tolerance Plan of Care/Treatment Plan: 1-2x/day, 7 days/week x 1 week. Plan of care has been reviewed with the OUTREACH REP providing the service under Physical Therapy direction. Initiate Physical Therapy intervention for pain management as needed, strengthening, bed mobility, transfers, gait, stairs, balance training, and use of assistive device. DISCHARGE RECOMMENDATIONS: [] Home with no services [] [] Home with services [specify] [] Home with outpatient PT [] [X] SNF for continued rehabilitation. Patient will benefit from penitentiary facility placement for continued skilled physical therapy services in order to progress mobility level, strength, and balance in preparation for a safe discharge to home. [] Meteorologist Liaison Care [] [] SNF versus LTC based on ability to participate and progress [] TREATMENT CODE/TIME: 70807 x 29 minutes for 1 unit (10:28-10:57). Thank you for the opportunity to participate in the care of this patient. Martha Bach PT, DPT, CLT [facility] [place], [place]
[2024-06-25 10:36] LABS: Anion Gap 6.9 mmol/L (3-11); BUN 35 mg/dL (7-18); CO2 31.1 mmol/L (21.0-32.0); CREATININE 1.9 mg/dL (0.55-1.02); Calcium 8.8 mg/dL (8.5-10.1); Chloride 104 mmol/L (98-107); Estimated GFR 26.04 (mL/min/1.73m2); Glucose 123 mg/dL (74-106); Potassium 3.4 mmol/L (3.5-5.1); Sodium 142 mmol/L (136-145)
[2024-06-25] MEDS: Acetaminophen 500 MG TAB 1000 MG PO (15:08)
[2024-06-25] MEDS: Benzonatate 100 MG CAP PO (15:08)
--- NOTE | 2024-06-25 17:06 | PDOC.CMPRO ---
Date of service: 06/25/24 Time of Service: 17:06 Care Management Progress Note Progress Note Text Progress Note Text: Bita was sitting up in the bed when CM met with her today. She stated she is still not feeling well. She is noted to look frail, and PT has recommended SNF. Cinthya would not agree to CM sending referrals to SNF, she wants to wait and see what happens. CM tried to explain that sending referrals does not commit her to anything, but she would not agree. Bita's son, Jamaal, visited later in the day and asked to speak with CM. He is concerned about Bita going home alone, and is hoping to work out another arrangement with his siblings, or with encouraging his mom to agree to SNF. Jamaal will be visiting early tomorrow, and CM will meet with him again to formalize a plan. Discharge Potential Discharge Needs: PCP F/U Appt Anticipated Barriers to Discharge: None Identified Patient/Family Education Needs: Review discharge instructions, discuss Ask Me Three Transportation: Private vehicle Plan: Anticipate that Bita will be discharged home with new services of HH RN, PT/OT, RPG PROGRAMMER ANALYST, vs SNF. She will f/u with her PCP and continue per her plan of care. CM will continue to follow and adjust the plan as needed. Social Determinants of Health Screening Will the Patient Participate in the Screening?: Declined to provide
[2024-06-25] MEDS: Oseltamivir 30 MG CAP PO (21:05)
[2024-06-25] MEDS: Melatonin 3 MG TAB PO (21:05)
[2024-06-26] VITALS (9 sets, daily range): BP systolic 126–169; BP diastolic 63–78; PULSE 68–103; RESP 2–32; TEMP 36.5–37.2; O2SAT 2–96
[2024-06-26] MEDS: cefTRIAXone 1 GM/50 ML BAG IVPB (00:27)
[2024-06-26] MEDS: Normal Saline Flush 10 ML SYR IVP ×3 (00:28→20:59)
[2024-06-26] MEDS: Lactated Ringers 1,000 ML 100 ML IV ×2 (01:24→11:02)
[2024-06-26 07:09] LABS: Abs Immature Grans 0.03 10^3/uL (0.0-0.06); Absolute Basophil Count 0.01 10^3/uL (0.0-0.2); Absolute Lymphocyte Count 1.27 10^3/uL (1.2-3.4); Absolute Monocyte Count 0.44 10^3/uL (0.1-0.8); Absolute Neutrophil Count 4.46 10^3/uL (1.2-6.7); Basophils % 0.2 %; HCT 23.9 % (36.0-46.0); HGB 7.8 g/dL (11.2-15.7); Immature Grans % 0.5 %; Lymphocytes % 20.5 %; MCH 33.1 pg (27.0-33.0); MCHC 32.6 % (32.0-36.0); MCV 101 fL (80-95); MPV 11.2 fL (8.0-11.0); Monocytes % 7.1 %; Neutrophils % 71.7 %; Platelet Count 231 10^3/uL (130-400); RBC 2.36 10^6/uL (3.93-5.22); RDW 13.2 % (11.7-14.6); RDW-SD 49.3 fL; WBC 6.21 10^3/uL (4.4-10.8)
[2024-06-26 07:18] LABS: Anion Gap 6.9 mmol/L (3-11); BUN 38 mg/dL (7-18); CO2 31.1 mmol/L (21.0-32.0); CREATININE 1.8 mg/dL (0.55-1.02); Calcium 8.9 mg/dL (8.5-10.1); Chloride 104 mmol/L (98-107); Estimated GFR 27.78 (mL/min/1.73m2); Glucose 92 mg/dL (74-106); Magnesium 2.1 mg/dL (1.8-2.4); Potassium 4.1 mmol/L (3.5-5.1); Sodium 142 mmol/L (136-145)
[2024-06-26] MEDS: guaiFENesin 200 MG/10 ML CUP PO ×4 (08:44→20:59)
[2024-06-26] MEDS: predniSONE 20 MG TAB 40 MG PO (08:44)
[2024-06-26] MEDS: Acetaminophen 500 MG TAB 1000 MG PO ×2 (08:45→16:42)
[2024-06-26] MEDS: Aspirin 325 MG TAB PO (08:45)
[2024-06-26] MEDS: Cyanocobalamin 500 MCG TAB PO (08:46)
[2024-06-26] MEDS: Pantoprazole 40 MG TABCR PO (08:46)
[2024-06-26] MEDS: Azithromycin 250 MG TAB PO (08:46)
[2024-06-26] MEDS: Multivitamin w/Minerals TAB 1 TAB PO (08:46)
--- NOTE | 2024-06-26 10:57 | PGE_ITS ---
Date of Service Date of service: 06/26/24 Time of Service: 10:57 Assessment and Plan Assessment and plan (1) Severe sepsis: Status: Acute Assessment and plan: Sepsis:Tachycardia at 115 and tachypnea with RR 24-30 with source influenza VS pneumonia with ongoing left base consolidation Severe Sepsis: lactic > 2 at 2.3 (2) Acute hypoxic respiratory failure: Status: Acute Assessment and plan: Improving- close baseline Multifactorial acute hypoxic respiratory failure: non-treated pneumonia and now influenza infection and possibility [place] [address] On O2 at home but higher requirement on admission now baseline Wean O2 as tolerated to maintain sat 88-92% (3) Influenza A: Status: Acute Assessment and plan: worsening symptoms starting the day before presentation Ongoing tamilfu renal dosing day 07/26 (4) Elevated brain natriuretic peptide (BNP) level: Status: Acute Assessment and plan: BNP >79897, lasix IV trial dose with Cr up from 1.5 to 1.9- will d/c echo showed LVEF above 60% with grade 1 diastolic dysfunction and inferobasal hypokinesis with moderate contralateral hypertrophy without LVOT obstruction, very small small pericardial effusion without tamponade Slow IV hydration BMP in AM (5) CHF (congestive heart failure): Status: Chronic Assessment and plan: As above On tele Echocardiagram conclusions: Moderate concentric left ventricular hypertrophy. Ejection fraction is 60 to 65%. There is hypokinesis of the inferobasal segment Normal right ventricular size and function Both atria are normal in size Aortic valve is sclerotic and trileaflet without stenosis. There is mild aortic regurgitation Mitral annular calcification. No significant mitral regurgitation Very small pericardial effusion without cardiac tamponade IVC non plethoric and collapse > 50% on inspiration cardiology consult completed please read notes (6) Community acquired pneumonia: Status: Acute Assessment and plan: On ceftriaxone?blood culture negative x 72 hours Continue azithromycin MRSA negative on 06/19/2024 baseline O2 Left AMA on 06/19/24- not certain she continue antibiotics ordered by PCP before the last admission after leaving Continue guaifenesin twice daily, acapella WBC in a.m. (7) Acute exacerbation of chronic obstructive pulmonary disease: Status: Acute Assessment and plan: Treatment started OPT and continued on 06/19 but patient left AMA Continue prednisone and antibiotics (8) Acute kidney injury superimposed on CKD: Status: Acute Assessment and plan: With elevated BNP-but no HFrEF as per echo- Cr at 1.9 from 1.4 now 1.8 continue slow IV hydration - BMP in AM (9) Iliac artery occlusion, right: Status: Acute Assessment and plan: Chronic No further follow-up required unless patient has ambulatory claudication or lack of perfusion to lower extremity as per CT from 06/19/2023 Dr. Winston at [facility] vascular: no recommendation for intervention as previous imaging showed the same findings Discussed with Dr Purvis Subjective Subjective Patient reports: no new complaints (remains fatigue, limited ability to ambulate or to get up to the chair), tolerating liquids well, tolerating a regular diet, voiding w/o difficulty, flatus and shortness of breath; denies diarrhea, nausea, vomiting or fever Exam Narrative Exam Narrative: Still weak appearing frail elderly patient, alert and oriented x 2, nonfocal, S1-S2 regular, coarse bibasilar breath sounds R basilar crackle > left, decreased L base with no wheezing on 2l od O2- baseline , abdomen is nonacute, no CVA tenderness Objective Last Vital Signs Temp 36.8 C 06/26/24 08:22 Pulse 87 06/26/24 08:22 Resp 18 06/26/24 08:22 BP 169/69 H 06/26/24 08:22 Pulse Ox 93 06/26/24 08:22 Laboratory Results - last 24 hr 06/23/24 06/26/24 11:47 06:41 WBC 6.21 RBC 2.36 L Hgb 7.8 L Hct 23.9 L MCV 101 H MCH 33.1 H MCHC 32.6 RDW 13.2 Plt Count 231 MPV 11.2 H Immature Gran % 0.5 Neutrophils % 71.7 Lymphocytes % 20.5 Monocytes % 7.1 Eosinophils % 0.0 Basophils % 0.2 Nucleated RBC % 0.0 Absolute Neutrophils 4.46 Absolute Lymphocytes 1.27 Absolute Monocytes 0.44 Absolute Eosinophils 0.00 Absolute Basophils 0.01 Sodium 142 Potassium 4.1 Chloride 104 Carbon Dioxide 31.1 Anion Gap 6.9 BUN 38 H Creatinine 1.8 H Est GFR (CKD-EPI 2020) 27.78 Glucose 92 Calcium 8.9 Magnesium 2.1 Transferrin 170 L Time Spent with Patient Time Spent with Patient: >50 minutes Time was spent: preparing to see the patient(eg.review tests), obtaining and/or reviewing separately otained hiistory, ordering medications,tests, procedures, referring, communicating with other health resident care aid, indepentently interpreting results, counseling the patient and care coordination
[2024-06-26] MEDS: Sucralfate 1 GM TAB PO ×3 (12:15→20:59)
--- NOTE | 2024-06-26 12:23 | PTTR_ITS ---
PT Notes Visit Reasons: Sepsis, Pneumonia, Influenza Inpatient Physical Therapy Treatment Note [facility] Date: 06/26/2024 PRECAUTIONS:IV RUE, SUBJECTIVE: Pt agreeable to sit up today. OBJECTIVE:Pt presented sleeping sidelying left with HOB elevated to 40 degrees oxygen 2L/min via NC, IV infusing Son present? PAIN: denied VITALS: ?monitored via telemetry Therapeutic Activities ([id number][]): Direct one-on-one instruction in dynamic activities to improve functional performance. ?? provided tactile and verbal cues for movement sequencing, technique, posture and device mgmt. throughout supine with HOB at 40 degrees to sit on left side of bed with min A and increased time sit to stand from 18 height with mod A from 21 height min A and cues for hand placement stand to sit min a and cues for hand placement bed to chair with FWW 6 steps with Min A for FWW mgmt and for trunk stability ?? In pm session sit to stand x 3 trials with min A step turn transfers chair to commode then commode to bed: min A sit to supine CGA ? ? ASSESSMENT:(am)Pt tolerated session well she noted dizziness initially upon sitting at EOB then reported it resolved. Pt initially reluctant to attempt transfer to chair with FWW however with encouragement and support from her son she was agreeable. Pt noted with BUE and BLE instability during transfer however was able to take steps requiring assist for FWW and stability. (pm) pt tolerated OOB x 1.5 hours. She denied dizziness with BP 155/63 seated. PLAN: 1-2x/day, 7 days/week x 1 week. Plan of care has been reviewed with the BLOCK MECHANIC providing the service under Physical Therapy direction. Initiate Physical Therapy intervention for strengthening, bed mobility, transfers, gait, stairs, balance training, use of assistive device. TREATMENT CODE/TIME: 02297/ [id number] (pm session) [id number]/ [id number] DISCHARGE RECOMMENDATION: SNF
[2024-06-26] MEDS: Albuterol/Ipratropium 3 ML UPD VIAL UPD ×2 (14:13→19:55)
[2024-06-26] MEDS: Enoxaparin 30 MG/0.3 ML SYR SC (14:55)
--- NOTE | 2024-06-26 15:57 | PDOC.CMPRO ---
Date of service: 06/26/24 Time of Service: 08:30 Care Management Progress Note Progress Note Text Progress Note Text: CM met with Bita and her son, Jamaal, this morning. Bita and her family have agreed to SNF referral to [facility]. They prefer this facility as it is close to Jamaal's home and work. Referral was sent this morning. CM also sent an email this afternoon checking in on that referral. The facility is checking her insurance and also if they can take her while she is still on flu precautions. Jamaal has been updated on the status of the referral this afternoon. Family is unable to take Erin into their home, as everyone is working. CM did speak with Jamaal about FMLA, which he and his family were already aware of. Discharge Potential Discharge Needs: PCP F/U Appt Anticipated Barriers to Discharge: Bed availability Patient/Family Education Needs: Review discharge instructions, discuss Ask Me Three Transportation: RCT RCT Transportation: Wheel chair van Plan: Anticipate that Erin will be transferred to [facility] home with new EL RN, PT/OT, INSURANCE AUDITOR. She will transport via wheelchair van and continue per her plan of care. CM will continue to follow. Social Determinants of Health Screening Will the Patient Participate in the Screening?: Declined to provide
--- NOTE | 2024-06-26 17:00 | CHAPLAIN ---
Cinthya was in bed with her eyes closed but responded when I spoke her name. She seemed very tired. I introduced myself and explained my role. Cinthya asked am I going to ? I told her I didn't know anything about her medical issues, and that I wasn't here because anyone was expecting her to , but would have her nurse check in with her. Cinthya fell back asleep. I let her nurse, KAIT Rhodes, know that Cinthya was concerned that she may be dying.
[2024-06-26] MEDS: Docusate Sodium 100 MG/10 ML CUP PO (20:58)
[2024-06-26] MEDS: Protein Nutritional Supplement 16 GM 1 OUNCE PACKET PO (20:58)
[2024-06-26] MEDS: Melatonin 3 MG TAB PO (20:59)
[2024-06-26] MEDS: Oseltamivir 30 MG CAP PO (20:59)
[2024-06-27] VITALS (11 sets, daily range): BP systolic 128–183; BP diastolic 71–76; PULSE 68–93; RESP 2–22; TEMP 36.3–36.8; O2SAT 91–96
[2024-06-27] MEDS: cefTRIAXone 1 GM/50 ML BAG IVPB (00:28)
[2024-06-27] MEDS: Lactated Ringers 1,000 ML 50 ML IV (00:30)
[2024-06-27] MEDS: Levalbuterol 1.25 MG/3 ML UPD VIAL UPD ×3 (02:41→21:06)
--- NOTE | 2024-06-27 02:43 | NUR.NOTE ---
[facility] staff alerted this web content writer that pt is feeling SOB after getting out of bed to the commode. Pt assessed by this web content writer. Pt tachypneic at 35RR/min. O2 sat 92% on 2L. denies chest pain. lungs sound tight but no wheezes noted. crackles consistent with prior assessment remain. after reviewing MAR it appears that 0000 nebulizer treatment was not given by RT. this web content writer paged RT to give pt updraft PRN.
[2024-06-27 06:00] LABS: HCT 24.4 % (36.0-46.0); HGB 8.1 g/dL (11.2-15.7); MCH 33.8 pg (27.0-33.0); MCHC 33.2 % (32.0-36.0); MCV 102 fL (80-95); MPV 11.3 fL (8.0-11.0); Platelet Count 242 10^3/uL (130-400); RDW 13.1 % (11.7-14.6); RDW-SD 49.2 fL; WBC 7.54 10^3/uL (4.4-10.8)
[2024-06-27 06:16] LABS: Anion Gap 9.1 mmol/L (3-11); BUN 41 mg/dL (7-18); CO2 27.9 mmol/L (21.0-32.0); CREATININE 1.6 mg/dL (0.55-1.02); Calcium 8.8 mg/dL (8.5-10.1); Chloride 105 mmol/L (98-107); Glucose 110 mg/dL (74-106); Magnesium 1.8 mg/dL (1.8-2.4); Potassium 3.7 mmol/L (3.5-5.1); Sodium 142 mmol/L (136-145)
[2024-06-27] MEDS: Normal Saline Flush 10 ML SYR IVP ×3 (08:51→21:14)
[2024-06-27] MEDS: guaiFENesin 200 MG/10 ML CUP PO ×4 (08:51→21:10)
[2024-06-27] MEDS: Protein Nutritional Supplement 16 GM 1 OUNCE PACKET PO ×3 (08:51→21:10)
[2024-06-27] MEDS: Aspirin 325 MG TAB PO (08:51)
[2024-06-27] MEDS: Acetaminophen 500 MG TAB 1000 MG PO ×2 (08:52→16:33)
[2024-06-27] MEDS: Sucralfate 1 GM TAB PO ×3 (08:52→16:33)
[2024-06-27] MEDS: Multivitamin w/Minerals TAB 1 TAB PO (08:52)
[2024-06-27] MEDS: Cyanocobalamin 500 MCG TAB PO (08:53)
[2024-06-27] MEDS: Azithromycin 250 MG TAB PO (08:53)
[2024-06-27] MEDS: Pantoprazole 40 MG TABCR PO (08:53)
[2024-06-27] MEDS: predniSONE 20 MG TAB 40 MG PO (08:53)
[2024-06-27] MEDS: Docusate Sodium 100 MG/10 ML CUP PO ×3 (09:06→21:10)
--- NOTE | 2024-06-27 11:50 | PT.INTREAT ---
PT Notes Visit Reasons: Sepsis, Pneumonia, Influenza Inpatient Physical Therapy Treatment Note [facility] Date: 06/27/2024 PRECAUTIONS:IV RUE, oxygen at 2 L via NC SUBJECTIVE: Pt stating she will participate but is not going to sit up in the chair at the end . OBJECTIVE:Pt presented supine with HOB elevated to 40 degrees oxygen 2L/min via NC, IV infusing.? PAIN: denied VITALS: ?monitored via telemetry Therapeutic Activities ([id number][]): Direct one-on-one instruction in dynamic activities to improve functional performance. ?? provided tactile and verbal cues for movement sequencing, technique, posture and device mgmt. throughout supine with HOB at 40 degrees to sit on left side of bed with min A for trunk sit to stand from 18 height with min A; from 19 height CGA and cues for hand placement stand to sit CGA and cues for hand placement bed to from commode with FWW with cga for sit to supine CGA ? ? Pt ambulated 10 feet x 2 with FWW CGA and tubing management ASSESSMENT: Pt refused to sit OOB at end of PT session she requested to return to bed to nap but agreed to get up with Nurse prior to lunch. Pt demonstrated improvement with transfers and ambulation with FWW noted improved B knee stability and no LOB noted. Pt educated on risks of remaining in bed and the benefits of being out of bed she continued to decline sitting in chair PLAN: 1-2x/day, 7 days/week x 1 week. Plan of care has been reviewed with the BLOOD BANK TECHNOLOGIST providing the service under Physical Therapy direction. Initiate Physical Therapy intervention for strengthening, bed mobility, transfers, gait, stairs, balance training, use of assistive device. TREATMENT CODE/TIME: 83362/3352-3877 DISCHARGE RECOMMENDATION: SNF
--- NOTE | 2024-06-27 12:40 | CMPROGNOTE_ITS ---
Date of service: 06/27/24 Time of Service: 12:40 Care Management Progress Note Progress Note Text Progress Note Text: Cinthya was sitting up in bed when CM met with her. She stated that she feels that she is having trouble breathing; CM called for her RN to assess her breathing. CM contacted [facility], who offered Cinthya a bed for Sunday, pending PA, which was submitted today. CM contacted her son and informed him of the plan, which he is happy about. Cinthya also expressed understanding of the plan, and is agreeable to going to rehab. CM will continue to follow. Discharge Potential Discharge Needs: PCP F/U Appt Anticipated Barriers to Discharge: Bed availability Patient/Family Education Needs: Review discharge instructions, discuss Ask Me Three Transportation: RCT RCT Transportation: Wheel chair van Plan: Anticipate Cinthya will transfer to [facility] on Sunday, pending PA of her insurance for short term rehab. She and her son are agreeable to this plan. She will likely transport via RCT w/c van. She will follow up with her PCP and discharge plan of care. CM will continue to follow. Social Determinants of Health Screening Will the Patient Participate in the Screening?: Declined to provide
[2024-06-27] MEDS: Enoxaparin 30 MG/0.3 ML SYR SC (13:45)
[2024-06-27] MEDS: Polyethylene Glycol 3350 17 GM PACKET PO ×2 (13:45→21:10)
--- NOTE | 2024-06-27 14:56 | W.PM.PROGNOT ---
Date of Service Date of service: 06/27/24 Time of Service: 14:56 Assessment and Plan Assessment and plan (1) Severe sepsis: Status: Resolved Assessment and plan: resolved and stable. (2) Acute hypoxic respiratory failure: Status: Acute Assessment and plan: acute on chronic and now Improving- at baseline oxygen Multifactorial acute hypoxic respiratory failure: non-treated pneumonia and now influenza infection [place] [address] continue O2 as tolerated to maintain sat 88-92% (3) Influenza A: Status: Acute Assessment and plan: complete tamilfu renal dosing day 08/25 (4) CHF (congestive heart failure): Status: Chronic Assessment and plan: appears euvolemic, stop IV fluids Echocardiagram conclusions: Moderate concentric left ventricular hypertrophy. Ejection fraction is 60 to 65%. There is hypokinesis of the inferobasal segment Normal right ventricular size and function Both atria are normal in size Aortic valve is sclerotic and trileaflet without stenosis. There is mild aortic regurgitation Mitral annular calcification. No significant mitral regurgitation Very small pericardial effusion without cardiac tamponade IVC non plethoric and collapse > 50% on inspiration cardiology consult completed please read notes (5) Community acquired pneumonia: Status: Acute Assessment and plan: On ceftriaxone and azithromycin day 05/28 ?blood culture negative MRSA negative on 06/19/2024 on baseline O2 Continue guaifenesin twice daily, acapella (6) Acute exacerbation of chronic obstructive pulmonary disease: Status: Acute Assessment and plan: Continue prednisone and antibiotics (7) Acute kidney injury superimposed on CKD: Status: Acute Assessment and plan: creatinine improving after IV hydration IV fluids stopped avoid nephrotoxic drugs, renal dosing as needed. 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 Winston at [facility] [place]: no recommendation for intervention as previous imaging showed the same findings (10) Discharge planning issues: Status: Acute Assessment and plan: Referrals have been sent in bed acceptance pending for Sunday at [facility] and rehab pending insurance authorization discussed with DR Crooks Subjective Subjective Patient reports: no new complaints, tolerating liquids well, no bowel movement and afebrile; denies bowel movement or shortness of breath Exam Narrative Exam Narrative: Chronically ill-appearing female older than stated age head is atraumatic eyes nonicteric noninjected skin is pale warm dry well-perfused oral mucosas slightly dry neck is supple full range of motion cardiovascular regular rate and rhythm respirations even unlabored benign extremities without edema moves all extremities neurologic awake alert psychiatric no behavioral disturbances appropriate mood and affect Objective Last Vital Signs Temp 36.8 C 06/27/24 11:18 Pulse 92 H 06/27/24 11:18 Resp 16 06/27/24 11:18 BP 161/71 H 06/27/24 11:18 Pulse Ox 93 06/27/24 11:18 Laboratory Results - last 24 hr 06/27/24 05:33 WBC 7.54 RBC 2.40 L Hgb 8.1 L Hct 24.4 L MCV 102 H MCH 33.8 H MCHC 33.2 RDW 13.1 Plt Count 242 MPV 11.3 H Sodium 142 Potassium 3.7 Chloride 105 Carbon Dioxide 27.9 Anion Gap 9.1 BUN 41 H Creatinine 1.6 H Est GFR (CKD-EPI 2020) 32.00 Glucose 110 H Calcium 8.8 Magnesium 1.8 Time Spent with Patient Time Spent with Patient: 35-49 minutes Time was spent: preparing to see the patient(eg.review tests), obtaining and/or reviewing separately otained hiistory, ordering medications,tests, procedures, indepentently interpreting results, counseling the patient and care coordination
--- NOTE | 2024-06-27 15:03 | PT.INTREAT ---
PT Notes Visit Reasons: Sepsis, Pneumonia, Influenza Physical Therapy Inpatient Teatment Note Date: 06/27/2024 Precautions: Fall. Droplet precautions for Influenza A in place. Activity as tolerated. Subjective: Anxious, has not had bowel movement since day of admission. Agreed to walking in hallway to help increase intestinal motility. Objective: General Observation: Oxygen supplementation via NC. IV thrugh R UE. Oxygen supp vis NC at 2L/min Mental Status: Oriented as to person, place, time, and purpose. Able to pay attention, focus, and respond appropriately. Pain: None reported Vital Signs: SaO2 90-95% throughout with O2 supp; HR 98-103 bpm throughout Bed Mobility/Transfers: Minimal cueing provided for use of B hands as needed for support, movement sequence, AD management, and posture to reduce fall risk and minimize pain report Supine to sit minimal assist with HOB at 30 degrees Sit to supine stand by assist while holding onto rail Sit to stand contact guard assist with FWW Stand to sit contact guard assist with FWW Gait: Steps asymmetric and hesitant. Step height and length decreased. Moderately short of breath by the time she sat onto toilet. Contact guard assist to walk about 15-20 small steps using her walker from egde of bed to toilet. Oxygen supplementation on. PT managing IV pole and ensuring wheelchair follow. THERA EX: Direct one-on-one supervision and training for correct execution of exercises to facilitate increased intestinal motility while increasing strength as follows: Bridging x 3, 2 sets [id number] x 5 LAQ while PT held onto thigh x 5 B knee slide outs x 5 Balance: Static Sitting: Fair Dynamic Sitting: Fair Static Standing: Fair Dynamic Standing: Fair ASSESSMENT: Much improved independence today compared to day of evaluation, only needing contact guard assist to walk from edge of bed to toilet. Was originally hoping that patient could walk farther in the hallway but urge to use the bathroom to move bowel came on suddenly so she was instead assisted to the toilet. Sitting on it for about 2 minutes or so, she expresses wanting to lie back down or she would pass out. Patient was encouraged to stay on longer for another minute or so and she was able to stay for about 3 minutes more. Still unable to defecate, she wanted to walk back to bed right away to rest. She agreed to doing bed level exercises instead of walking in the hallway. Patient remains unable to regain premorbid mobility level due to ongoing medical issues and will benefit from SNF placement for continued functional mobility progression and strengthening. DISCHARGE RECOMMENDATIONS: [] Home with no services [] [] Home with services [specify] [] Home with outpatient PT [] [X] SNF for continued rehabilitation. Patient will benefit from retirement facility placement for continued skilled physical therapy services in order to progress mobility level, strength, and balance in preparation for a safe discharge to home. [] Retirement Care [] [] SNF versus LTC based on ability to participate and progress [] TREATMENT CODE/TIME: 40409 x 20 minutes for 1 unit, 53805 x 13 (15:03-15:36).
--- NOTE | 2024-06-27 23:45 | RT.EKG_ITS ---
APPROVED REPORT Exam: Resting ECG Reason for Exam: nonsustained VT Patient Location: I HR:85 bpm ECG Measurements Heart Rate 85 AXIS IA 164 P 71 QRSd 106 QRS -42 QT 367 T -62 QTc 437 Conclusion Sinus rhythm...normal P axis, V-rate 60- 99 Inferior infarct, old...Q >35mS, II III aVF
[2024-06-28] VITALS (11 sets, daily range): BP systolic 148–168; BP diastolic 69–76; PULSE 91–106; RESP 2–32; TEMP 36.5–36.8; O2SAT 88–96
[2024-06-28 00:11] LABS: BE (Venous) 4 mmol/L (-2-3); HCO3 (Venous) 27 mmol/L (23-28); Lactate 1.3 mmol/L (<or=2.0); O2 Sat (Venous) 84 %; TCO2 (Venous) 26 mmol/L (24-29); pCO2 (Venous) 36 mmHg (41-51); pH (Venous) 7.49 (7.31-7.41); pO2 (Venous) 44 mmHg
[2024-06-28] MEDS: cefTRIAXone 1 GM/50 ML BAG IVPB (00:55)
[2024-06-28] MEDS: Levalbuterol 1.25 MG/3 ML UPD VIAL UPD ×3 (01:25→13:09)
[2024-06-28] MEDS: Ondansetron 4 MG/2 ML VIAL IVP (01:51)
[2024-06-28] MEDS: Acetaminophen 500 MG TAB 1000 MG PO ×2 (05:16→15:51)
[2024-06-28 07:08] LABS: HCT 26.5 % (36.0-46.0); HGB 8.8 g/dL (11.2-15.7); MCHC 33.2 % (32.0-36.0); MCV 99 fL (80-95); MPV 11.5 fL (8.0-11.0); Platelet Count 288 10^3/uL (130-400); RBC 2.67 10^6/uL (3.93-5.22); RDW 13.2 % (11.7-14.6); WBC 10.09 10^3/uL (4.4-10.8)
[2024-06-28 07:36] LABS: Anion Gap 9.8 mmol/L (3-11); BUN 45 mg/dL (7-18); CO2 28.2 mmol/L (21.0-32.0); CREATININE 1.8 mg/dL (0.55-1.02); Calcium 8.9 mg/dL (8.5-10.1); Chloride 103 mmol/L (98-107); Estimated GFR 27.78 (mL/min/1.73m2); Glucose 96 mg/dL (74-106); Magnesium 1.9 mg/dL (1.8-2.4); Potassium 3.8 mmol/L (3.5-5.1); Sodium 141 mmol/L (136-145)
[2024-06-28] MEDS: Azithromycin 250 MG TAB PO (08:47)
[2024-06-28] MEDS: guaiFENesin 200 MG/10 ML CUP PO ×2 (08:47→11:34)
[2024-06-28] MEDS: predniSONE 20 MG TAB 40 MG PO (08:47)
[2024-06-28] MEDS: Docusate Sodium 100 MG/10 ML CUP PO ×2 (08:47→15:51)
[2024-06-28] MEDS: Polyethylene Glycol 3350 17 GM PACKET PO ×2 (08:47→21:19)
[2024-06-28] MEDS: Cyanocobalamin 500 MCG TAB PO (08:47)
[2024-06-28] MEDS: Pantoprazole 40 MG TABCR PO (08:47)
[2024-06-28] MEDS: Protein Nutritional Supplement 16 GM 1 OUNCE PACKET PO ×2 (08:47→21:19)
[2024-06-28] MEDS: Multivitamin w/Minerals TAB 1 TAB PO (08:47)
[2024-06-28] MEDS: Sucralfate 1 GM TAB PO ×3 (08:48→17:19)
[2024-06-28] MEDS: Normal Saline Flush 10 ML SYR IVP ×2 (08:48→21:22)
[2024-06-28] MEDS: Aspirin 325 MG TAB PO (08:48)
--- NOTE | 2024-06-28 14:30 | PT.INTREAT ---
PT Notes Visit Reasons: Sepsis, Pneumonia, Influenza Physical Therapy Inpatient Teatment Note Date: 06/28/2024 Precautions: Fall. Droplet precautions for Influenza A in place. Activity as tolerated. Subjective: Family present at time of PT session. They report that Cinthya is very independent at baseline, typically walking down the road to her daughter's house daily without a device. She continues to feel short of breath and dizzy. Objective: General Observation: Oxygen supplementation via NC. IV thrugh R UE. Oxygen supp vis NC at 2L/min Mental Status: Oriented as to person, place, time, and purpose. Able to pay attention, focus, and respond appropriately. Pain: None reported Vital Signs: SaO2 88-95% throughout with O2 supp; HR 95-123 bpm throughout Bed Mobility/Transfers: Minimal cueing provided for use of B hands as needed for support, movement sequence, AD management, and posture to reduce fall risk and minimize pain report Supine to sit minimal assist with HOB at 30 degrees Sit to supine stand by assist while holding onto rail Sit to stand SBA with FWW Stand to sit SBA with FWW Gait: Unable to ambulate due to increasing SOB and dizziness. THERA EX: Direct one-on-one supervision and training for correct execution of exercises to facilitate increased intestinal motility while increasing strength as follows: Bridging x 2 Heel slides 5x each side sit-stand x 3; on second rep, has knee buckling and poorly controlled descent back to bed pursed lip breathing for recovery between reps of sit-stand monitored vitals throughout ASSESSMENT: Very weak with transfers, and limited tolerance to activity due to shortness of breath. Nursing aware. Agreeable to second attempt for PT later in the afternoon. DISCHARGE RECOMMENDATIONS: [] Home with no services [] [] Home with services [specify] [] Home with outpatient PT [] [X] SNF for continued rehabilitation. Patient will benefit from care home facility placement for continued skilled physical therapy services in order to progress mobility level, strength, and balance in preparation for a safe discharge to home. [] Group Home Care [] [] SNF versus LTC based on ability to participate and progress [] TREATMENT CODE/TIME: [id number] ([id number])
[2024-06-28] MEDS: Enoxaparin 30 MG/0.3 ML SYR SC (16:14)
--- NOTE | 2024-06-28 16:17 | PT.INNT ---
PT Notes Visit Reasons: Sepsis, Pneumonia, Influenza Attempted second PT session, although patient refuses due to continued dizziness. Will reattempt tomorrow.
--- NOTE | 2024-06-28 21:35 | PGE_ITS ---
Date of Service Date of service: 06/28/24 Time of Service: 18:00 Assessment and Plan Assessment and plan (1) Severe sepsis: Status: Resolved Assessment and plan: On admission now resolved and stable. (2) Acute hypoxic respiratory failure: Status: Acute Assessment and plan: Resolving acute on chronic- at baseline oxygen Multifactorial acute hypoxic respiratory failure: non-treated pneumonia and now influenza infection [place] [address] Continue O2 as tolerated to maintain sat 88-92% (3) Influenza A: Status: Inactive Assessment and plan: completed tamilfu regimen (4) CHF (congestive heart failure): Status: Chronic Assessment and plan: Euvolemic Echocardiagram conclusions: Moderate concentric left ventricular hypertrophy. Ejection fraction is 60 to 65%. There is hypokinesis of the inferobasal segment Normal right ventricular size and function Both atria are normal in size Aortic valve is sclerotic and trileaflet without stenosis. There is mild aortic regurgitation Mitral annular calcification. No significant mitral regurgitation Very small pericardial effusion without cardiac tamponade cardiology consult completed please read notes (5) Community acquired pneumonia: Status: Acute Assessment and plan: On ceftriaxone day 2/5 and azithromycin day 4/5 ?blood culture negative MRSA negative on 06/19/2024 on baseline O2 Continue guaifenesin twice daily, PRN nebs, vibrapep (6) Acute exacerbation of chronic obstructive pulmonary disease: Status: Acute Assessment and plan: Ongoing prednisone days 4/5 and antibiotics as above (7) Acute kidney injury superimposed on CKD: Status: Acute Assessment and plan: creatinine trending down s/p IV hydration Continue to avoid nephrotoxic drugs, renal dosing as needed. 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 Winston at [facility] [place] [place] vascular: no recommendation for intervention as previous imaging showed the same findings (10) Discharge planning issues: Status: Acute Assessment and plan: Referrals have been sent in bed acceptance pending for Sunday at [facility] and rehab pending insurance authorization discussed with DR Crooks Subjective Subjective Patient reports: no new complaints (remains fatigued), tolerating liquids well, tolerating a regular diet, voiding w/o difficulty, flatus, bowel movement and shortness of breath (transient episode); denies diarrhea, nausea, vomiting or fever Exam Narrative Exam Narrative: Still weak, frail elderly female patient appearing of stated age, alert and oriented x 3, no focal neuro deficits, S1-S2 regular, unlabored breathing, no cough no wheezing ,2l of O2- baseline at home ongoing , abdomen is nonacute, no CVA tenderness Objective Last Vital Signs Temp 36.8 C 06/28/24 19:07 Pulse 91 H 06/28/24 19:07 Resp 30 H 06/28/24 19:07 BP 148/69 H 06/28/24 19:07 Pulse Ox 96 06/28/24 20:15 Laboratory Results - last 24 hr 06/28/24 06/28/24 00:08 06:40 WBC 10.09 RBC 2.67 L Hgb 8.8 L Hct 26.5 L MCV 99 H MCH 33.0 MCHC 33.2 RDW 13.2 Plt Count 288 MPV 11.5 H VBG pH 7.49 H VBG pCO2 36 L VBG pO2 44 VBG HCO3 27 VBG Total CO2 26 VBG O2 Saturation 84 VBG Base Excess 4 H VBG Lactate 1.3 Sodium 141 Potassium 3.8 Chloride 103 Carbon Dioxide 28.2 Anion Gap 9.8 BUN 45 H Creatinine 1.8 H Est GFR (CKD-EPI 2020) 27.78 Glucose 96 Calcium 8.9 Magnesium 1.9 Time Spent with Patient Time Spent with Patient: 25-34 minutes Time was spent: preparing to see the patient(eg.review tests), obtaining and/or reviewing separately otained hiistory, ordering medications,tests, procedures, referring, communicating with other health inpatient care manager rn, indepentently interpreting results, counseling the patient, care coordination and other
[2024-06-29] VITALS (16 sets, daily range): BP systolic 114–173; BP diastolic 60–76; PULSE 64–115; RESP 5–35; TEMP 36.4–37; O2SAT 88–94
--- NOTE | 2024-06-29 | DI.RAD_ITS ---
Exam(s) XR ABDOMEN FLAT PLATE EXAM: XR ABDOMEN FLAT PLATE CLINICAL HISTORY: ? constipation, abd pain. TECHNIQUE: 2D digital imaging was performed. COMPARISON: No exams were available for comparison FINDINGS: AP supine view the abdomen-pelvis: Uppermost aspect reveal significant infiltrate in the left lower lobe and a small-moderate sized left pleural effusion, more so than previous. There is surgical clips in the right upper quadrant from probable prior cholecystectomy. Vascular ca lcification is noted in the abdominal aorta and iliac arteries within the pelvis as well as within th e bilateral from arteries. The bowel gas pattern is nonspecific in the supine position. There is no obvious bowel obstruction, realized limitations of a single supine view. Would require upright or decubitus views to exclude adenike wel obstruction and free air. Chronic degenerative disc space narrowing in the lower lumbar spine noted at L4-5 and L5-S1. IMPRESSION: Nonspecific bowel gas pattern in the supine position. Heavy vascular calcification in the abdominal aorta and aortoiliac segments noted. Significant infiltrate in the left lower lobe and small-moderate sized left pleural effusion DATA REPOSITORY: RADIATION DOSE DELIVERED:
--- NOTE | 2024-06-29 | DI.RAD_ITS ---
Exam(s) XR CHEST 2V PA LATERAL EXAM: XR CHEST 2V PA LATERAL CLINICAL HISTORY: shortness of breath, wheezing. TECHNIQUE: 2D digital imaging was performed. COMPARISON: CR XR PORTABLE CHEST AP from 06/23/2024 CR,XR XR ABDOMEN FLAT PLATE from 06/29/2024 FINDINGS: 2 views: Heart size is normal. The mediastinum is not widened. There is COPD findings. However, there has been significant increase in size and confluence of the i nfiltrate in the left lower lobe and there is a small-moderate sized left pleural effusion now eviden t. There is also blunting of the opposite-right costophrenic angle indicating small right pleural ef fusion. There may also be very mild infiltrate in the right lung base. IMPRESSION: Increasing left lower lobe infiltrate and left pleural effusion when compared to 06/23/2024. Report called by myself to hospitalist physician Sunday06/29/2024 at 3:40 p.m. DATA REPOSITORY: RADIATION DOSE DELIVERED:
[2024-06-29] MEDS: cefTRIAXone 1 GM/50 ML BAG IVPB (00:39)
[2024-06-29 06:57] LABS: HCT 24.9 % (36.0-46.0); HGB 8.2 g/dL (11.2-15.7); MCH 33.2 pg (27.0-33.0); MCHC 32.9 % (32.0-36.0); MCV 101 fL (80-95); MPV 11.3 fL (8.0-11.0); Platelet Count 267 10^3/uL (130-400); RBC 2.47 10^6/uL (3.93-5.22); RDW 13.2 % (11.7-14.6); RDW-SD 48.6 fL
[2024-06-29 07:29] LABS: Anion Gap 8.4 mmol/L (3-11); BUN 52 mg/dL (7-18); CO2 29.6 mmol/L (21.0-32.0); CREATININE 1.6 mg/dL (0.55-1.02); Calcium 9.1 mg/dL (8.5-10.1); Chloride 105 mmol/L (98-107); Glucose 88 mg/dL (74-106); Potassium 3.6 mmol/L (3.5-5.1); Sodium 143 mmol/L (136-145)
[2024-06-29] MEDS: Multivitamin w/Minerals TAB 1 TAB PO (08:12)
[2024-06-29] MEDS: Azithromycin 250 MG TAB PO (08:12)
[2024-06-29] MEDS: predniSONE 20 MG TAB 40 MG PO (08:12)
[2024-06-29] MEDS: Pantoprazole 40 MG TABCR PO (08:12)
[2024-06-29] MEDS: Aspirin 325 MG TAB PO (08:13)
[2024-06-29] MEDS: Sucralfate 1 GM TAB PO ×3 (08:13→17:40)
[2024-06-29] MEDS: Cyanocobalamin 500 MCG TAB PO (08:13)
[2024-06-29] MEDS: Acetaminophen 500 MG TAB 1000 MG PO (08:13)
[2024-06-29] MEDS: Normal Saline Flush 10 ML SYR IVP ×2 (08:14→20:09)
[2024-06-29] MEDS: Polyethylene Glycol 3350 17 GM PACKET PO ×2 (08:14→19:56)
[2024-06-29] MEDS: Docusate Sodium 100 MG/10 ML CUP PO (08:14)
[2024-06-29] MEDS: Protein Nutritional Supplement 16 GM 1 OUNCE PACKET PO ×3 (08:18→19:56)
[2024-06-29] MEDS: Levalbuterol 1.25 MG/3 ML UPD VIAL UPD ×2 (08:56→19:55)
--- NOTE | 2024-06-29 08:57 | PTTR_ITS ---
PT Notes Visit Reasons: Sepsis, Pneumonia, Influenza Physical Therapy Inpatient Teatment Note Date: 06/29/2024 Precautions: Fall. Droplet precautions for Influenza A in place. Activity as tolerated. Subjective: Cinthya states that she continues to feel dizzy and short of breath. She is adamant that she does not want to get up to the chair, stating it makes her too dizzy. She's agreeable to walking a few steps. Objective: General Observation: Oxygen supplementation via NC. IV thrugh R UE. Oxygen supp vis NC at 2L/min. nursing and RT present. Mental Status: Oriented as to person, place, time, and purpose. Able to pay attention, focus, and respond appropriately. Pain: None reported Vital Signs: SaO2 91% sitting EOB with O2 supp. Desats to 86% with short distance ambulation, with significant GAN. HR 95-124 bpm throughout Bed Mobility/Transfers: Minimal cueing provided for use of B hands as needed for support, movement sequence, AD management, and posture to reduce fall risk and minimize pain report Supine to sit minimal assist with HOB at 30 degrees Sit to supine stand by assist Sit to stand SBA with FWW Stand to sit SBA with FWW. Demonstrates poor safety awareness with transition stand-sit after ambulating; with cues, able to demonstrate significantly improved safety. Gait: Ambulates 5' with CGA x 2, FWW ADLs: Requires mod A for changing briefs, with assistance to pull brief over LEs. She's able to stand and pull briefs up with unilateral UE support to walker and CGA. ASSESSMENT: Markedly limited activity tolerance. Demonstrates diminished safety with transfers when fatigued. Requires continued PT intervention to maximize mobility. Refuses sitting to chair this morning, despite encouragement; will continue efforts to mobilize out of bed. DISCHARGE RECOMMENDATIONS: [] Home with no services [] [] Home with services [specify] [] Home with outpatient PT [] [X] SNF for continued rehabilitation. Patient will benefit from halfway facility placement for continued skilled physical therapy services in order to progress mobility level, strength, and balance in preparation for a safe discharge to home. [] [facility] [] [] SNF versus LTC based on ability to participate and progress [] TREATMENT CODE/TIME: [id number] ([id number]) Kaila Brantley, PT, DPT [facility]
--- NOTE | 2024-06-29 10:00 | W.PM.PROGNOT ---
Date of Service Date of service: 06/29/24 Time of Service: 10:00 Assessment and Plan Assessment and plan (1) Severe sepsis: Status: Resolved Assessment and plan: On admission now resolved and stable. (2) Acute hypoxic respiratory failure: Status: Acute Assessment and plan: Resolving acute on chronic- at baseline oxygen Multifactorial acute hypoxic respiratory failure: non-treated pneumonia and now influenza infection and possibility [place] [address] Continue O2 as tolerated to maintain sat 88-92% respiratory following (3) Influenza A: Status: Acute Assessment and plan: completed tamilfu regimen (4) Anemia: Status: Acute Assessment and plan: iron deficient and kidney disease iron supplementation (5) CHF (congestive heart failure): Status: Chronic Assessment and plan: given 40 mg IV lasix today for worsening resp status monitor I&O, daily weights follow fluid volume status closely Echocardiagram conclusions: Moderate concentric left ventricular hypertrophy. Ejection fraction is 60 to 65%. There is hypokinesis of the inferobasal segment Normal right ventricular size and function Both atria are normal in size Aortic valve is sclerotic and trileaflet without stenosis. There is mild aortic regurgitation Mitral annular calcification. No significant mitral regurgitation Very small pericardial effusion without cardiac tamponade cardiology consult completed please read notes (6) Community acquired pneumonia: Status: Acute Assessment and plan: ceftriaxone/azithromycin ?blood culture negative MRSA negative on 06/19/2024 on baseline O2 Continue guaifenesin twice daily, PRN nebs, vibrapep (7) Acute exacerbation of chronic obstructive pulmonary disease: Status: Acute Assessment and plan: taper steroids (8) Acute kidney injury superimposed on CKD: Status: Acute Assessment and plan: stable with creatinine trending down s/p IV hydration Continue to avoid nephrotoxic drugs, renal dosing as needed. 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 Winston at [facility] [place]: no recommendation for intervention as previous imaging showed the same findings (11) Discharge planning issues: Status: Acute Assessment and plan: Referrals have been sent in bed acceptance pending for Sunday at [facility] and rehab pending insurance authorization discussed with DR Crooks Subjective Subjective Patient reports: tolerating liquids well, no bowel movement, shortness of breath and afebrile Interval history since last seen: patient reports increased shortness of breath, no edema, no chest pain. reports feeling unwell. Exam Narrative Exam Narrative: Chronically ill-appearing female older than stated age head is atraumatic eyes nonicteric noninjected skin is pale warm dry well-perfused oral mucosas slightly dry neck is supple full range of motion cardiovascular regular rate and rhythm respirations even tachypneic, dim bases, scattered wheeze, benign extremities without edema moves all extremities neurologic awake alert psychiatric no behavioral disturbances appropriate mood and affect Objective Last Vital Signs Temp 36.7 C 06/29/24 07:41 Pulse 102 H 06/29/24 09:02 Resp 26 H 06/29/24 09:02 BP 156/67 H 06/29/24 07:41 Pulse Ox 88 L 06/29/24 08:56 Laboratory Results - last 24 hr 06/29/24 06:30 WBC 10.00 RBC 2.47 L Hgb 8.2 L Hct 24.9 L MCV 101 H MCH 33.2 H MCHC 32.9 RDW 13.2 Plt Count 267 MPV 11.3 H Sodium 143 Potassium 3.6 Chloride 105 Carbon Dioxide 29.6 Anion Gap 8.4 BUN 52 H Creatinine 1.6 H Est GFR (CKD-EPI 2020) 32.00 Glucose 88 Calcium 9.1 Magnesium 2.0 Time Spent with Patient Time Spent with Patient: >50 minutes Time was spent: preparing to see the patient(eg.review tests), obtaining and/or reviewing separately otained hiistory, ordering medications,tests, procedures, indepentently interpreting results and counseling the patient
--- NOTE | 2024-06-29 11:31 | NUR.NOTE ---
patient Axox4 this shift, reports pain/discomfort in abdomen and chest from shortness of breath. pt continues to be tachypneic and slightly tachycardic this shift. Exp wheezing noted biltaterally and throughout this AM pt reported active SOB at this time and had RR of 33. RT notified and asked to assess/do treatment. RR improved to 26 post treatment and pt reported improvement. Discussed in rounds this AM that this patient has consistently had RR in 30s each time this RN has cared for [place]. [place] [address] on admit and is listed as having new CHG (HFpEF) on problem list as evidenced by new echo completed this admission with poor LV function. Expressed to GISELA Price that this pt is not on any medications per national standards for CHF treatment and may be fluid overloaded despite no obvious signs of fluid volume excess interstitially. Patient does of note c/o abdominal pain upon palpation, given BM meds and PHARMACY STOCK CLERK notified of this. Pt did have CT abd showing fecal impaction last admit. Discussed my concern with GISELA Price and MD Crooks today in rounds that this pt seems to be struggling with a cardiorenal syndrome and her respiratory system does not seem to be improving throughout her inpatient stay, she has consistently always reported SOB and dyspnea along with exhibiting tachypnea throughout stay. Nursing Note:
[2024-06-29 12:26] LABS: Lab Add On Test DONE
--- NOTE | 2024-06-29 13:18 | DI.VRAD_ITS ---
PROCEDURE INFORMATION: Exam: XR Chest Exam date and time: 06/29/2024 1:02 PM Age: 83 years old Clinical indication: Other: SOB wheezing TECHNIQUE: Imaging protocol: Radiologic exam of the chest. Views: 2 views. COMPARISON: CR XR PORTABLE CHEST AP 06/23/2024 12:38 PM FINDINGS: Lungs: Hyperinflated lungs. Bilateral lower lobe atelectasis. Left lower lung consolidation. Pleural spaces: Bilateral pleural effusions. Heart/Mediastinum: Unremarkable. No cardiomegaly. Bones/joints: Multiple thoracic spine wedging. IMPRESSION: COPD with bilateral pleural effusions and probable left lower lobe pneumonia. Dictated and Authenticated by: Johnathon Yañez MD. Orderin Kevin Black MD
--- NOTE | 2024-06-29 13:18 | DI.VRAD_ITS ---
PROCEDURE INFORMATION: Exam: XR Abdomen Exam date and time: 06/29/2024 12:58 PM Age: 83 years old Clinical indication: Other: ? Constipation, abd pain TECHNIQUE: Imaging protocol: Radiologic exam of the abdomen. Views: Frontal supine view of the abdomen. 1 View. COMPARISON: CT CHEST/ABD/PEL W 06/19/2024 2:12 PM FINDINGS: Gastrointestinal tract: Normal. No bowel dilation. Organs: Cholecystectomy clips. Vasculature: Vascular calcifications. Bones/joints: Unremarkable. IMPRESSION: No evidence of bowel obstruction. No significant constipation pattern. Dictated and Authenticated by: Johnathon Yañez MD. Orderin Kevin Black MD
[2024-06-29 13:27] LABS: Procalcitonin 0.14 ng/mL
[2024-06-29] MEDS: Ferrous Sulfate 325 MG TAB PO (13:55)
[2024-06-29] MEDS: Furosemide 40 MG/4 ML VIAL IVP (13:55)
[2024-06-29] MEDS: Enoxaparin 30 MG/0.3 ML SYR SC (13:56)
[2024-06-29] MEDS: guaiFENesin 200 MG/10 ML CUP PO (13:56)
[2024-06-29] MEDS: IRON SUCROSE COMPLEX 300 MG in Normal Saline 250 ML 167 MG IVPB (14:16)
--- NOTE | 2024-06-29 14:43 | PTTR_ITS ---
PT Notes Visit Reasons: Sepsis, Pneumonia, Influenza Physical Therapy Inpatient Teatment Note Date: 06/29/2024 (pm session) Precautions: Fall. Droplet precautions for Influenza A in place. Activity as tolerated. Subjective: Cinthya initially declines therapy, later agrees as she needs to use the commode. Refuses further ambulation. Objective: General Observation: Oxygen supplementation via NC. IV thrugh R UE, receiving iron supplementation. Oxygen supp vis NC at 2L/min. nursing and RT present. Mental Status: Oriented as to person, place, time, and purpose. Able to pay attention, focus, and respond appropriately. Pain: None reported Bed Mobility/Transfers: Minimal cueing provided for use of B hands as needed for support, movement sequence, AD management, and posture to reduce fall risk and minimize pain report Supine to sit minimal assist with HOB at 30 degrees Sit to supine stand by assist Sit to stand min A with FWW Stand to sit SBA with FWW. Demonstrates poor safety awareness with transition stand-sit after ambulating. Cued for safety, with limited carryover. Gait: Ambulates 5' with CGA x 2, FWW ADLs: Requires mod A for changing briefs ASSESSMENT: Markedly limited activity tolerance. Demonstrates diminished safety with transfers when fatigued. Requires continued PT intervention to maximize mobility. Refuses sitting to chair this morning, despite encouragement; will continue efforts to mobilize out of bed. DISCHARGE RECOMMENDATIONS: [] Home with no services [] [] Home with services [specify] [] Home with outpatient PT [] [X] SNF for continued rehabilitation. Patient will benefit from [facility] facility [facility] for continued skilled physical therapy services in order to progress mobility level, strength, and balance in preparation for a safe discharge to home. [] [facility] [] [] SNF versus LTC based on ability to participate and progress [] TREATMENT CODE/TIME: [id number] ([id number]) Kaila Brantley, PT, DPT [facility]
[2024-06-29] MEDS: MORPHine 2 MG/ML SYR IVP ×2 (15:46→17:38)
--- NOTE | 2024-06-29 16:12 | NUR.NOTE ---
patient resting in bed, BP elevated in 170s, Sofia Brown PLANT WIRE CHIEF aware along with tachycardia 110s and RR 35. Morphine prn ordered to help with dyspnea. Patient given 40mg IV lasix this afternoon with 550cc output so far. Titrated down to 1L nc with sats stable in COPD range of 88-90%. Patient refused PT due to fatigue. CXR showing persistent LLL PNA and although abd xray read doesn't show constipation imaging looks to show stool burden. NOtified Sofia Brown PLANT WIRE CHIEF that [employer] reported black liquid BM this AM. Pt known to have fecal impaction last ED admission, concern for stool leakage around impaction. Sofia HIGGINS wants nursing to monitor at this time. Pt given IV iron and PO iron for low levels. Educated pt on IV morphine use for dpsynea. Pt agreeable to most care she states she just wants to breathe better again. Call hernandez in reach, bed alarm on, bed low/locked. Nursing Note:
[2024-06-29] MEDS: CEFEPIME 2 GM in Normal Saline 100 ML IVPB (17:38)
[2024-06-30] VITALS (17 sets, daily range): BP systolic 133–164; BP diastolic 63–83; PULSE 86–122; RESP 5–32; TEMP 36.1–36.6; O2SAT 88–100
--- NOTE | 2024-06-30 | DI.RAD_ITS ---
Exam(s) XR PORTABLE CHEST AP EXAM: XR PORTABLE CHEST AP CLINICAL HISTORY: respiratory distress TECHNIQUE: 2D digital imaging was performed of the chest. One image was obtained. An AP view was ob tained. COMPARISON: CR XR PORTABLE CHEST AP from 06/23/2024 CR,XR XR CHEST 2V PA LATERAL from 06/29/2024 FINDINGS: MEDIASTINUM: Normal. HEART: Normal. PULMONARY VASCULATURE: Normal. LUNGS: There is a persistent area of consolidation in the left lung base. There is also small infilt rate seen in the lateral aspect of the right lung base. The lungs are hyperinflated suggesting under lying COPD. PLEURAL SPACE: There is blunting of the costophrenic angle suggesting small pleural effusions which a ppears stable. No pneumothorax. BONE:Within normal limits for the patient's age. OTHER FINDINGS:Normal. IMPRESSION: Persistent bilateral basilar infiltrates and small bilateral pleural effusions.. DATA REPOSITORY: RADIATION DOSE DELIVERED:
[2024-06-30] MEDS: Levalbuterol 1.25 MG/3 ML UPD VIAL UPD ×4 (07:03→22:05)
[2024-06-30 07:14] LABS: Abs Immature Grans 0.11 10^3/uL (0.0-0.06); Absolute Basophil Count 0.01 10^3/uL (0.0-0.2); Absolute Eosinophil Count 0.01 10^3/uL (0.0-0.7); Absolute Monocyte Count 0.58 10^3/uL (0.1-0.8); Absolute Neutrophil Count 7.82 10^3/uL (1.2-6.7); Basophils % 0.1 %; Eosinophils % 0.1 %; HCT 23.5 % (36.0-46.0); HGB 7.8 g/dL (11.2-15.7); MCH 33.3 pg (27.0-33.0); MCHC 33.2 % (32.0-36.0); MCV 100 fL (80-95); MPV 11.2 fL (8.0-11.0); Monocytes % 5.5 %; Neutrophils % 74.3 %; Platelet Count 296 10^3/uL (130-400); RBC 2.34 10^6/uL (3.93-5.22); RDW 13.2 % (11.7-14.6); RDW-SD 48.5 fL; WBC 10.53 10^3/uL (4.4-10.8)
[2024-06-30 07:35] LABS: ALT 35 U/L (14-59); AST 32 U/L (15-37); Albumin 2.4 g/dL (3.4-5.0); Alkaline Phosphatase 74 U/L (46-116); Anion Gap 7.7 mmol/L (3-11); BUN 54 mg/dL (7-18); Bilirubin, Total 0.2 mg/dL (0.2-1.0); CO2 31.3 mmol/L (21.0-32.0); CREATININE 1.6 mg/dL (0.55-1.02); Calcium 9.1 mg/dL (8.5-10.1); Chloride 106 mmol/L (98-107); Glucose 90 mg/dL (74-106); Potassium 3.3 mmol/L (3.5-5.1); Sodium 145 mmol/L (136-145); Total Protein 6.1 g/dL (6.4-8.2)
[2024-06-30 08:22] LABS: Diff Comment RBC Morph Reviewed; Stomatocytes 2+
[2024-06-30] MEDS: Aspirin 325 MG TAB PO (08:24)
[2024-06-30] MEDS: Azithromycin 250 MG TAB PO (08:25)
[2024-06-30] MEDS: Acetaminophen 500 MG TAB 1000 MG PO ×2 (08:25→15:12)
[2024-06-30] MEDS: Multivitamin w/Minerals TAB 1 TAB PO (08:25)
[2024-06-30] MEDS: MORPHine 2 MG/ML SYR IVP ×4 (08:32→22:05)
[2024-06-30] MEDS: Normal Saline Flush 10 ML SYR IVP ×4 (08:35→22:05)
--- NOTE | 2024-06-30 08:52 | PTTR_ITS ---
PT Notes Visit Reasons: Sepsis, Pneumonia, Influenza Physical Therapy Inpatient Teatment Note Date: 06/30/2024 Precautions: Fall. Droplet precautions for Influenza A. Activity as tolerated. Subjective: Very anxious about getting out of bed. Very fatigued and dizzy. Only agreeable to doing bed level exercises in the morning. Refused twice in [facility] afternoon but requested son's help in the afternoon about trying to get out of bed to move even for a little bit. Objective: General Observation: Oxygen supplementation via NC on 4l/min. IV through B UEs. Mental Status: Oriented as to person, place, time, and purpose. Able to pay attention, focus, and respond appropriately. Pain: None reported Vital Signs: SaO2 tanked down to 84% with attempt at standing up in the afternoon even with with O2 supp; Needed to increase oxygen levle to 5 L at end of short attempt at standing up from edge of bed Bed Mobility/Transfers: Minimal cueing provided for use of B hands as needed for support, movement sequence, AD management, and posture to reduce fall risk and minimize pain report Supine to sit moderate assist with HOB at 30 degrees Sit to supine moderate assist while holding onto rail Sit to stand minimal assist with FWW Stand to sit minimal assist with FWW Gait: In the morning, was very adamant about not moving out of bed. In gage afternoon, was very anxious about falling, with dizziness getting worse and with worsening fatigue even with the smallest of activity. Steps small, asymmetric, and very hesitant. Step height and length decreased. Severely short of breath by the time she sat back down after taking just 2-3 small steps. Oxygen supplementation on. Son Jamaal present and profvided stand by assist. Despite extensive encouragement to keep on trying as she only took 3 steps, patient anted o go back to bed right away. THERA EX: Direct one-on-one supervision and training for correct execution of exercises to facilitate increased intestinal motility while increasing strength as follows: Bridging x 3, 2 sets Aups-dz-goata x 5 LAQ while PT held onto thigh x 5 B knee slide outs x 5 B rail pulls x 5 for 2 sets with HOB at 45 degrees to work on UE strength and core strength Balance: Static Sitting: Fair Dynamic Sitting: Fair Static Standing: Fair Dynamic Standing: Fair ASSESSMENT: Significant functional decline since day 2 of PT evaluation. Now more short of breath even with very little effort. Rapid response was called earlier due to very low saturation levels. BP in the 160s systolically this morning. Anxiety way worse. Reached out to KAL Cota about palliative care consult to review goals of care and revisit patient's priority in terms of strengthening, mobility, and balance. Patient's overall oral intake has also diminished and has further limited potential for attaining goals. DISCHARGE RECOMMENDATIONS: [] Home with no services [] [] Home with services [specify] [] Home with outpatient PT [] [X] SNF for continued rehabilitation. Patient will benefit from [facility] facility placement for continued skilled physical therapy services in order to progress mobility level, strength, and balance in preparation for a safe discharge to home. [] [facility] [] [] SNF versus LTC based on ability to participate and progress [] TREATMENT CODE/TIME: Session 1--[id number] x 21 minutes for 1 unit (08:53-09:24). Session 2-- [id number] x 32 minutes for 2 units (15:09-15:28 and 15:37-15:50).
[2024-06-30] MEDS: Polyethylene Glycol 3350 17 GM PACKET PO ×2 (10:25→21:45)
--- NOTE | 2024-06-30 11:28 | NUR.NOTE ---
pt helped to toilet and when returning to bed c/o SOB and dizziness, O2 found at 84% on 3L NC, no improvement with increase to 6L, switched to nonrebreather with sats slowly climbing back up to 91%. Rapid response called due to new O2 demand and RR at 38. Pt in active distress attempting to be in tripod position but then returning back to sitting due to dizziness. RT at bedside and applying neb treatment once sats stable. Considering possible aspiration PNA. UC ARCHITECT Anna at bedside and ordering CXR repeat. Patient continues to feel SOB, RR down to 32, given IV morphine for dyspnea. BP stable and HR regular in 90s. Afebrile at this time. Pt receiving neb with RT at the moment. Pending CXR. Nursing Note:
[2024-06-30] MEDS: Ipratropium 0.5 MG/2.5 ML UPD VIAL UPD ×2 (11:32→16:03)
--- NOTE | 2024-06-30 13:39 | NUR.NOTE ---
pt has been sleeping comfortably since IV morphine given, RR btwn 20-22, no evidence of pain or distress, O2 sats at 88% on 4L nc due to mouth breathing while sleeping. Bed low/locked, call hernandez in reach, bed alarm on.Nursing Note:
[2024-06-30] MEDS: Enoxaparin 30 MG/0.3 ML SYR SC (15:11)
[2024-06-30] MEDS: Sucralfate 1 GM TAB PO (15:12)
[2024-06-30] MEDS: predniSONE 20 MG TAB 40 MG PO (15:13)
[2024-06-30] MEDS: Ferrous Sulfate 325 MG TAB PO (15:13)
--- NOTE | 2024-06-30 16:13 | NUR.NOTE ---
patient required 4L O2 to maintain at 88% and then again an increase to 5L nc after getting OOB with PT. Lung sounds noted to have exp wheezing, RT paged and was told to give nebulizer tx at this time. Pt receiving neb. Relayed increased O2 demand as well as only 200cc urine output to Anna Sawyer WRONG ADDRESS CLERK. Nursing Note:
--- NOTE | 2024-06-30 17:13 | CMPROGNOTE_ITS ---
Date of service: 06/30/24 Time of Service: 17:13 Care Management Progress Note Progress Note Text Progress Note Text: Bita had a rapid response this morning when she got out of bed, became dizzy and hypoxic. She has been sleeping each time that CM has tried to meet with her today, and noted that she did not eat lunch. Physical therapy is worried about her weakened condition. She does have a bed offer at [facility], but she is not medically stable for discharge. Cardiology is scheduled to meet with Bita tomorrow. CM reached out to Jamaal today. He was aware of the rapid response from this morning. He is worried about his mom's lack of strength and ambition. Discharge Potential Discharge Needs: Consult Consult Services Needed: Cardiology and Palliative (goals of care) Anticipated Barriers to Discharge: Medical Status Patient/Family Education Needs: Review discharge instructions, discuss [facility] Me [employer] Transportation: RCT RCT Transportation: Wheel chair van Plan: Anticipate that Bita will transfer to [facility] once medically stable. She will f/u with the facility provider and continue per her plan of care. CM will continue to follow and to update the family. Social Determinants of Health Screening Will the Patient Participate in the Screening?: Declined to provide
[2024-06-30] MEDS: CEFEPIME 2 GM in Normal Saline 100 ML IVPB (17:45)
--- NOTE | 2024-06-30 17:52 | W.PM.PROGNOT ---
Date of Service Date of service: 06/30/24 Time of Service: 11:30 Assessment and Plan Assessment and plan (1) Severe sepsis: Status: Resolved Assessment and plan: On admission now resolved and stable. (2) Acute hypoxic respiratory failure: Status: Acute Assessment and plan: Resolving acute on chronic- at baseline oxygen Multifactorial acute hypoxic respiratory failure: non-treated pneumonia and now influenza infection [place] [address] Continue O2 as tolerated to maintain sat 88-92% respiratory following (3) Influenza A: Status: Resolved Assessment and plan: completed tamilfu regimen (4) Anemia: Status: Acute Assessment and plan: iron deficient and kidney disease iron supplementation (5) CHF (congestive heart failure): Status: Chronic Assessment and plan: monitor I&O, daily weights follow fluid volume status closely Echocardiagram conclusions: Moderate concentric left ventricular hypertrophy. Ejection fraction is 60 to 65%. There is hypokinesis of the inferobasal segment Normal right ventricular size and function Both atria are normal in size Aortic valve is sclerotic and trileaflet without stenosis. There is mild aortic regurgitation Mitral annular calcification. No significant mitral regurgitation Very small pericardial effusion without cardiac tamponade (6) Community acquired pneumonia: Status: Acute Assessment and plan: ceftriaxone/azithromycin ?blood culture negative MRSA negative on 06/19/2024 on baseline O2 Continue guaifenesin twice daily, PRN nebs, vibrapep (7) Acute exacerbation of chronic obstructive pulmonary disease: Status: Acute Assessment and plan: taper steroids (8) Acute kidney injury superimposed on CKD: Status: Acute Assessment and plan: stable with creatinine trending down s/p IV hydration Continue to avoid nephrotoxic drugs, renal dosing as needed. 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 Winston at [facility]: no recommendation for intervention as previous imaging showed the same findings (11) Discharge planning issues: Status: Acute Assessment and plan: Referrals have been sent in bed acceptance pending for Sunday at [facility] and rehab pending insurance authorization discussed with Subjective Subjective Patient reports: tolerating liquids well, tolerating a regular diet, voiding w/o difficulty, bowel movement, shortness of breath and afebrile; denies no flatus, flatus, diarrhea or vomiting Interval history since last seen: Earlier this morning had acute on chronic resp failure with increased oxygen requirement - improved after respiratory intervention - son in to visit. Exam Const General: cooperative and frail appearing Nutritional Appearance: average body habitus Orientation: alert and oriented x3 HENMT Head: normal to inspection Resp Effort & Inspection: cough and tachypneic Auscultation: rhonchi and wheezes Cardio Rhythm: regular rhythm GI Inspection: normal to inspection Palpation: soft, not firm and no guarding Objective Last Vital Signs Temp 36.6 C 06/30/24 15:23 Pulse 97 H 06/30/24 16:33 Resp 22 06/30/24 17:49 BP 164/63 H 06/30/24 15:23 Pulse Ox 91 L 06/30/24 16:33 Laboratory Results - last 24 hr 06/30/24 06:40 WBC 10.53 RBC 2.34 L Hgb 7.8 L Hct 23.5 L MCV 100 H MCH 33.3 H MCHC 33.2 RDW 13.2 Plt Count 296 MPV 11.2 H Immature Gran % 1.0 Neutrophils % 74.3 Lymphocytes % 19.0 Monocytes % 5.5 Eosinophils % 0.1 Basophils % 0.1 Nucleated RBC % 0.0 Absolute Neutrophils 7.82 H Absolute Lymphocytes 2.00 Absolute Monocytes 0.58 Absolute Eosinophils 0.01 Absolute Basophils 0.01 RBC Morphology See Below Stomatocytes 2+ Sodium 145 Potassium 3.3 L Chloride 106 Carbon Dioxide 31.3 Anion Gap 7.7 BUN 54 H Creatinine 1.6 H Est GFR (CKD-EPI 2020) 32.00 Glucose 90 Calcium 9.1 Total Bilirubin 0.2 AST 32 ALT 35 Alkaline Phosphatase 74 Total Protein 6.1 L Albumin 2.4 L Time Spent with Patient Time Spent with Patient: 25-34 minutes Time was spent: preparing to see the patient(eg.review tests), ordering medications,tests, procedures, referring, communicating with other health senior care provider, indepentently interpreting results, counseling the patient and care coordination
[2024-06-30] MEDS: guaiFENesin 200 MG/10 ML CUP PO (21:45)
[2024-06-30] MEDS: Docusate Sodium 100 MG/10 ML CUP PO (21:45)
[2024-06-30] MEDS: Protein Nutritional Supplement 16 GM 1 OUNCE PACKET PO (21:45)
[2024-07-01] VITALS (12 sets, daily range): BP systolic 146–193; BP diastolic 66–87; PULSE 94–112; RESP 5–31; TEMP 36.4–37.1; O2SAT 87–98
[2024-07-01] MEDS: guaiFENesin 200 MG/10 ML CUP PO (03:02)
[2024-07-01] MEDS: Levalbuterol 1.25 MG/3 ML UPD VIAL UPD ×3 (05:22→19:50)
[2024-07-01] MEDS: MORPHine 2 MG/ML SYR IVP ×5 (05:22→19:47)
[2024-07-01 06:55] LABS: Absolute Basophil Count 0.02 10^3/uL (0.0-0.2); Absolute Monocyte Count 0.65 10^3/uL (0.1-0.8); Absolute Neutrophil Count 8.78 10^3/uL (1.2-6.7); Basophils % 0.2 %; HGB 7.6 g/dL (11.2-15.7); Immature Grans % 1.8 %; Lymphocytes % 11.5 %; MCH 32.9 pg (27.0-33.0); MCV 100 fL (80-95); MPV 11.4 fL (8.0-11.0); Neutrophils % 80.5 %; Platelet Count 310 10^3/uL (130-400); RBC 2.31 10^6/uL (3.93-5.22); RDW 13.2 % (11.7-14.6); RDW-SD 48.3 fL; WBC 10.91 10^3/uL (4.4-10.8)
[2024-07-01 07:02] LABS: Absolute Lymphocyte Count 1.25 10^3/uL (1.2-3.4)
[2024-07-01 07:20] LABS: Anion Gap 8.9 mmol/L (3-11); BUN 52 mg/dL (7-18); CO2 28.1 mmol/L (21.0-32.0); CREATININE 1.6 mg/dL (0.55-1.02); Calcium 9.2 mg/dL (8.5-10.1); Chloride 106 mmol/L (98-107); Glucose 125 mg/dL (74-106); Magnesium 2.2 mg/dL (1.8-2.4); Potassium 3.8 mmol/L (3.5-5.1); Sodium 143 mmol/L (136-145)
--- NOTE | 2024-07-01 08:50 | CCONE_ITS ---
Date of service: 07/01/24 Time of Service: 08:50 Assessment and Plan Assessment and plan (1) CHF (congestive heart failure): Status: Chronic Assessment and plan: Patient has acute on chronic heart failure. She does not have left ventricular dysfunction. Her anemia may be contributory. I would recommend that she have additional furosemide, probably intravenous followed by oral for maintenance (2) ASCVD (arteriosclerotic cardiovascular disease): Status: Acute Assessment and plan: No recent findings or symptoms concerning for myocardial ischemia (3) COPD (chronic obstructive pulmonary disease): Status: Chronic Assessment and plan: Patient has acute on chronic respiratory insufficiency. Overall this is multifactorial and exacerbated by volume overload and anemia (4) Macrocytic anemia: Status: Acute Assessment and plan: Consider transfusion. I would recommend reducing her aspirin to 81 mg daily History of Present Illness Narrative: This is an unfortunate 83-year-old woman who has been admitted to the hospital several times with multiple problems. They include chronic lung disease with acute on chronic respiratory failure, recent pneumonia, influenza, diastolic heart failure, anemia, abdominal pain and malnutrition. She additionally has a history of a remote coronary intervention. She presented with sepsis but that has improved. She has ongoing respiratory insufficiency. There are concerns for heart failure but this has not been definitively addressed. She has been given sporadic doses of Lasix, reportedly with improvement. Most recent testing includes a chest x-ray which shows persistent consolidation of the left base, changes consistent with chronic lung disease (hyperinflation) and small bilateral pleural effusions. Her echocardiogram showed preserved left ventricular systolic function. EF was 60 to 65%. There was mild aortic regurgitation Hemoglobin is 7.6. This is a bit lower than her average which usually runs between 8 and 9 She is complaining of abdominal discomfort. Her epigastric area is tender to palpation. She has known esophageal strictures (schatzki ring and pyloric stenosis). Review of Systems ENT Ears, Nose, Mouth, and Throat: Reports dysphagia Cardiovascular Cardiovascular: Reports as per HPI, Denies chest pain, Denies radiating jaw, neck or arm pain, Denies palpitations and Reports dyspnea Respiratory Respiratory: Reports pain on inspiration and Reports dyspnea Gastrointestinal Gastrointestinal: Reports as per HPI, Reports constipation and Reports dysphagia Endocrine Endocrine: Denies palpitations PFSH All Active Problems (Updated 07/01/24 @ 09:01 by Erin Da Silva MD) Discharge planning issues (Acute) Acute kidney injury superimposed on CKD (Acute) Iliac artery occlusion, right (Acute) CHF (congestive heart failure) (Chronic) Elevated brain natriuretic peptide (BNP) level (Acute) Acute hypoxic respiratory failure (Acute) Femoral artery occlusion (Acute) Sepsis (Acute) Constipation (Acute) Community acquired pneumonia (Acute) Acute exacerbation of chronic obstructive pulmonary disease (Acute) Bronchitis (Acute) Pyloric stenosis (Acute ~02/2024) Sees [facility] Esophageal stricture (Acute) EGD 01/2024,dilation of stricture, cont. PPI, Pyloric stenosis in adult (Acute) EGD 01/2024 Congestion of upper airway (Acute) Hx laparoscopic cholecystectomy (Acute) Done 01/09/2024 at [facility] [place] Pain in thoracic spine (Acute) Epigastric pain (Acute) COVID-19 (Acute) COVID-19 (Acute) COVID (Acute) Abnormal lung sounds (Acute) SOB (shortness of breath) (Acute) Dizziness (Acute) Tobacco abuse (Acute) Depressive disorder (Chronic 02/21/98) GERD (gastroesophageal reflux disease) (Chronic) F/u with [facility] Macrocytic anemia (Acute) MCV 99-199; ?chronic EtOH Constipation (Acute) ASCVD (arteriosclerotic cardiovascular disease) (Acute 04/14/02) 04/14/02 stent X2; ETT 1999 non-diagnostic, hypertensive; TIA 2005 Abnormal liver function (Acute) abnl GGT, Alk Phos, Albumin 12/25/23 [facility] GI visit Alcohol use disorder (Acute 02/21/98) h/o binge drinking 1997, 2002; chronic anemia, abnl LFT; three drinks/d Centrilobular emphysema (Acute) FEV1 1.57 (63% FVC, 70% pred, 2002) smoker 1/2 PPD; bronchiecasis, mucous pllugging on CT 10/2015 Chronic kidney disease (Acute 11/12/17) Disorder of vitamin B12 (Acute) Gait disorder, B12 level low Esophagitis (Acute 03/18/13) EGD and dilatation Jing [facility] [place]; esophagitis, path few eos; REC PPI H/O ischemic vertebrobasilar artery cerebellar stroke (Acute 11/21/05) 11/2005 cerebellar TIA: dizzy, balance, R weakness; Dr Pimentel History of ASCVD (Acute 04/14/02) RCA tight 04/14/02 stent X2; ETT 1999 non-diagnostic, hypertensive; MPI 11/2003 nl perfusion; TIA 2005 Hyperlipidemia (Acute 03/23/02) Pulmonary emphysema (Acute 10/26/15) Tobacco dependence syndrome (Acute 12/11/11) 1/2 PPD, H/O DECR TO 0-3/D FOR 3MOS TIL RESTARTED 08/2011, stopped 10/2015; current 3/wk COPD (chronic obstructive pulmonary disease) (Chronic) Anemia (Acute) Lung nodules (Chronic) HTN (hypertension) (Chronic) Medical History (Updated 07/01/24 @ 09:01 by Erin Da Silva MD) Hiatal hernia (~02/2024) 03/17/24 found on EGD, [facility], hernia 2cm Abnormal peak total bilirubin level (08/21/16) 129 first elevation 07/2016; with other LFT's normal Diarrhea (10/26/15) CVA (cerebral vascular accident) 2008? HTN (hypertension) Tobacco use disorder HLD (hyperlipidemia) ASCVD (arteriosclerotic cardiovascular disease) Hypokalemia Weight loss 12/25/23 [facility] Gastroenteritis Surgical History (Updated 06/21/24 @ 00:01 by NICOLETTE HUDSON) History of esophagogastroduodenoscopy (EGD) (02/21/24) Dr Rushing w/biopsy and dilation 03/17/[address] Rushing, [facility], dilation done,benign pyloric stenosis that was biopsied showed mild reactive changes. History of coronary artery stent placement 2 stents - ? 2008 Endoscopy (03/18/13) Dr Ch-[facility] [place] EGD & dilatation: esophagitis, ?eosinophilic Family History Mother , CVA at age 76. Stroke Father , stomach CA at age 69. Stomach cancer Brother No problems noted. Other Diabetes Heavy alcohol use Social History Smoking/Tobacco Use Status: Current every day Tobacco Type: cigarettes Years smoked: 76 Quit status: considering quitting Smoking risk assessment performed?: Yes Alcohol Intake: former Drug use: Never Substance use type: does not use Household members: none Housing: house Number of Children: 2 number of grandchildren: 4 Communication Needs: Corrective Lenses Do you need help understanding health information?: Rarely current occupation: retired from [employer] Pets and animals: Yes How often do you talk on the phone with friends or family?: three or more times per week Panel score (0-1 are the most socially isolated patients): 1 What type of physical activity do you participate in: walking Frequency: daily Seatbelt use: always Helmet use: No Drive intox or ride w/intox medical driver: No Working smoke detector in home: Yes Carbon monox detector in home: Yes Do you feel safe at home: Yes Do you feel safe in your relationship?: Yes Exam Const Other: Very frail elderly woman Neck Other: Mild neck vein distention with superimposed V waves. Carotid pulsations are grossly normal Resp Other: Decreased breath sounds at the bases, scattered rhonchi, poor air movement left base Cardio Other: Heart is regular. There is a systolic ejection quality murmur Skin Other: Pale Extrem Other: No peripheral edema bradycardia he normal Results Last Vital Signs Temp 37.1 C 07/01/24 08:24 Pulse 95 H 07/01/24 08:24 Resp 20 07/01/24 08:24 BP 170/67 H 07/01/24 08:24 Pulse Ox 98 07/01/24 08:24 Labs 07/01/24 06:30 07/01/24 06:30 Labs: Laboratory Results - last 24 hr 07/01/24 06:30 WBC 10.91 H RBC 2.31 L Hgb 7.6 L Hct 23.0 L MCV 100 H MCH 32.9 MCHC 33.0 RDW 13.2 Plt Count 310 MPV 11.4 H Immature Gran % 1.8 Neutrophils % 80.5 Lymphocytes % 11.5 Monocytes % 6.0 Eosinophils % 0.0 Basophils % 0.2 Nucleated RBC % 0.0 Absolute Neutrophils 8.78 H Absolute Lymphocytes 1.25 Absolute Monocytes 0.65 Absolute Eosinophils 0.00 Absolute Basophils 0.02 Sodium 143 Potassium 3.8 Chloride 106 Carbon Dioxide 28.1 Anion Gap 8.9 BUN 52 H Creatinine 1.6 H Est GFR (CKD-EPI 2020) 32.00 Glucose 125 H Calcium 9.2 Magnesium 2.2
[2024-07-01] MEDS: Pantoprazole 40 MG TABCR PO (08:54)
[2024-07-01] MEDS: Polyethylene Glycol 3350 17 GM PACKET PO (08:54)
[2024-07-01] MEDS: Multivitamin w/Minerals TAB 1 TAB PO (08:55)
[2024-07-01] MEDS: Sucralfate 1 GM TAB PO ×2 (08:55→22:05)
[2024-07-01] MEDS: Acetaminophen 500 MG TAB 1000 MG PO (08:55)
[2024-07-01] MEDS: Cyanocobalamin 500 MCG TAB PO (08:55)
[2024-07-01] MEDS: predniSONE 20 MG TAB 40 MG PO (08:55)
[2024-07-01] MEDS: Azithromycin 250 MG TAB PO (08:56)
[2024-07-01] MEDS: Ferrous Sulfate 325 MG TAB PO (08:56)
[2024-07-01] MEDS: Albuterol 2.5 MG/3 ML INH SOLN VIAL IH (09:09)
--- NOTE | 2024-07-01 09:11 | NUR.NOTE ---
Spoke with Gabriel RN in outpatient cardiology on the phone who reports Dr. Da Silva did initial read on echo back on 06/24 but there wasn't any informatrion on what the consult was for. Spoke with her about my concerns with the patient in regards to her new CHF and lack of IV diuresis daily despite JVD, anorexia, cachectic presentation. Pt consistently SOB and tachypneic each time she is under my care and this RN feels as though there has been no progress made on her recovery. This RN feels that at this point we need to ensure cardiology has no recommendations for treating the CHF more appropriately to help her respiratory system before we can understand if patient is at new baseline. Dr. Mcknight met with pt and son Jamaal with this RN at bedside. She agrees with IV lasix daily and also said she will speak to the team about treating her anemia with a transfusion for O2 carrying capacity. This RN discussed with Jamaal that at this point it is important we all understand as a team where the prognosis is at so we can move forward with goals of care whether they be improving her cardiorenal syndrome and respiratory disease process or simply comfort/palliative goals. Nursing Note:
[2024-07-01] MEDS: Docusate Sodium 100 MG/10 ML CUP PO (12:21)
[2024-07-01] MEDS: Normal Saline Flush 10 ML SYR IVP ×3 (12:28→19:47)
--- NOTE | 2024-07-01 13:00 | PT.INNT ---
PT Notes Visit Reasons: Sepsis, Pneumonia, Influenza In light of significant functional decline and repeated refusals to participate in mobilization OOB due to continued fatigue and worsening dizziness, patient visit was withheld for today until definitive goals are made during a scheduled palliative care meeting. Patient refused physical therapy services in the morning and CM was consulted regarding the appropriateness of a palliative care consult.
--- NOTE | 2024-07-01 13:39 | W.PALLCONSUL ---
Date of service: 07/01/24 Time of Service: 14:33 History of Present Illness Narrative: Cinthya Emanuel is an 83 yo woman from [place] admitted a week ago for [id number] respiratory and heart failure due to both CAP and influenza with COPD. EF 60-65%. 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 She was just started On Home oxygen 6 weeks ago (@)3 l. Smoking 1/2 PPD until this admission. WHen I aske dif she was going to stop permanently, no answer. She has had several [facility] admissions and ED visits in the past month: 06/23/2024 (this adm) 06/19/2024: Multifocal Community acquired pneumonia with sepsis. Left after 24 hours AMA 06/09/2024: ED visit for acute exacerbation COPD History from chart and son Jamaal: Was quite sick when she was admitted a week ago, but then seemed better and now seems worse. SHe is still SOB and very weak. APpetite has not returned. She had issues with esophageal stricture October/November 2023. [facility] unable to dilate sufficiently Sent to [facility] [place] to see if they could dilate stricture. However, [facility] [place] found that she needed to have gall bladder out. GB was removed and dysphagia and anorexia seemed to resolve without further EGD/Esoph dilation. SHe did much better up until around Xmas 9about 3 months ago) when anorexia and dysphagia worsened again. Depression/ Grief: Son Jamaal describes that she was always a homebody, denies agorophobia. But did give up driving about 2 years ago because I didn't want to leave my home anymore). Jamaal thinks she has been a little depressed on and off, but definitley worse since son a year ago. Jamaal says PCP reccomended trial of antidepressant, but she declined. Falls: none recently Weight: -Weight this adm approx 39 kg -weight 4-5 mos ago 40 kg -weight 1 year ago 45 kg -Weight range last 10 years: 39-54 kg Care Team: Primary Care physician: Yolanda Thomas NP ([facility]) Social HX: Marital Status: Lives alone in house adjacent to house where granddaughter and greatgrandson lives. SOn lives about 2 miles away. Many other famly and freind love locally. Occupation: Children: Son Jamaal lives nearby. 2nd child:Mike last year (car stuck in snow back outside of house and he on CO poisoning. Cinthya was the one who found him in the car ). . Granddaughter helps with chores Hobbies: Additional Services: Family support Goals: A good day: Home with her dog. Visiting her granddaughter next door. Watch TV, Cooks for her dog. Talks on phone and in person with family. Impression of currents health status: My health is not very goo. Son: I'm confused, no one is telling us and they keep changing their mind. What bothers you the most: SOB, not being able to go home. What worries you the most: Worries about her dog. Son: That her breathing is not better Coping mechanisms:Her dog, not praying, being with great grand son (has 6 greatgrandchildren, but most live far away). Current information preferences: Function: Ambulation:No aids, was ambulating independently. SOn reports can no stand and walk three steps with assistance. ADLs: Reportedly independent prior to adm. iADLs: Cooks for dogs and cats, but eats cereal on her own, Lisa did her shopping, vacuuming, laundry. Hearing:Reduced hearing, no hearing aids Vision: +glasses Cognition: As per Jamaal: 90% fine up until a week ago and then confused on and off here. Falls: None recently Driving: Gave up 2 years ago. Palliative Performance Scale % Ambulation Activity and Evidence of Disease Self Care Intake Level of Consciousness 100 Full Normal activity, no evidence of disease Full Normal Full 90 Full Normal activity, some evidence of disease Full Normal Full 80 Full Normal activity with effort, some evidence of disease Full Normal or reduced Full 70 Reduced Unable to do normal work, some evidence of disease Full Normal or reduced Full 60 Reduced Unable to do hobby or some housework, significant disease Occasional assist necessary Normal or reduced Full or confusion 50 Mainly sit/lie Unable to do any work, extensive disease Considerable assistance required Normal or reduced Full or confusion 40 Mainly in bed Unable to do any work, extensive disease Mainly assistance Normal or reduced Full, drowsy, or confusion 30 Totally bed bound Unable to do any work, extensive disease Total care Reduced Full, drowsy, or confusion 20 Totally bed bound Unable to do any work, extensive disease Total care Minimal sips Full, drowsy, or confusion 10 Totally bed bound Unable to do any work, extensive disease Total care Mouth care only Drowsy or coma 0 - - - - Patient Score: 60 Spiritual history: Not mosque, lopez melquiades praval Palliative review of systems: See above Pain: Dyspnea: GI symptoms: Appetite: Depression: Anxiety: None Emotional Distress: Spiritual/Existential Distress: Labs: Cr: 1.6 (baseline over last year 1.4-1.5, range 1.4-1.9) Liver panel: NL Albumin: 2.4 CBC: hgb 7.8 (11.8 06/19/24), chronic macrocytosis Advanced Care Planning: Advanced Directive: NO AD on File Health Care Agent: COLST: NO COLST on file: Documented in Hospitalist not that patient DOES want CPR but does NOT want intubation. Limitations: NA; Not applicable NQ: Not Queried Assessment and Plan Assessment and plan (1) Acute exacerbation of chronic obstructive pulmonary disease: Status: Acute Assessment and plan: Cinthya Emanuel is an 83 yo woman with COPD (oxygen supplementation started 6 weeks ago, continues to smoke), PVD (known peripheral artery occlusion), diastolic heart failure/ASCVD, history of depression, cerebellar stroke 2005, chronic anemia, CKD 3B who is admitted a week ago for acute on chronic respiratory failure and acute diastolic heart failure due to both community-acquired pneumonia and influenza. She was initially admitted and signed out AMA after 24 hours and then had to come back 24 hours later. Initially seemed to do well on antibiotics and increased oxygen and steroids. However and seem to plateau or even get a bit worse. Some staff described that she even appears to have lost the will to live. Difficult to interview patient today. She is oriented to month and year, but yet hesitates to answer questions or is occasionally tangential. Son is helpful with additional history. #Goals of care: Patient's primary goal is that she be able to return home and care for her dog. She agrees that she is too weak to go home at this time. But she definitely does not want to go to SNF. Son explains that it is not possible for family to set up 24/7 care when she first goes home. As far as coping skills, she identifies being with her family, especially her great grandson and her dog, as being the most helpful thing she can do for herself. She is unable to identify other things that make a good day will help her cope. Based on what I learned about Cinthya today, I suggested that the best way forward for her would be to agree to subacute rehab stay when she was ready for discharge, hopefully looking at just 1 to 2 weeks of strengthening, until she was strong enough to return to home with family helping her in the morning and again in the evening. Pt seemed unhappy with this, but did not outright refuse. I also suggested very strongly that she consider stopping smoking. Chronic conservation coordinator at PCP office to f/u and refer to outpt support services. When she is feeling better, she can further investigate her anorexia with her PCP as an outpatient. Healthcare agent: Patient and son agree that she does not have any advanced directive or healthcare agent forms. Patient was very clear that she would want her son Jamaal to be her primary healthcare agent. She did identify alternates. Forms were completed and signed. Original given to son to bring home. Life-sustaining treatment: Chart record that patient wanted to be a no intubation but did want to have CPR. We discussed the procedure of CPaR, actual mechanical process, rate of success in restoring heartbeat, short and long-term side effects in survivors (including likely decreased physical and cognitive functioning). My recommendation to patient was that based on the fact that she never wanted to live in a SNF, I recommended that she request no CPR and no intubation status, while continuing to request to be transferred to the hospital and treated with IV fluids and IV antibiotic should she become acutely ill. At this point patient disengaged from conversation. Initially she became tangential changing the subject. And then she drifted off to sleep. Son shared that she is never really discussed this with them. He is not sure what she would want. Palliative care team will follow up with patient and son to further explore goals of care as well as life-sustaining treatment. This will be in 1 to 2 days if she remains in the hospital and either at SNF or via home visit once she is discharged. admitted a week ago for [id number] respiratory and diastolic heart failure due to both CAP and influenza with COPD. EF 60-65%. (2) Dependence on continuous supplemental oxygen: Status: Acute (3) CHF (congestive heart failure): Status: Chronic (4) Abnormal weight loss: Status: Acute (5) Smoker: Status: Acute (6) Palliative care patient: Status: Acute (7) Advanced care planning/counseling discussion: Status: Acute [facility] All Active Problems (Updated 07/01/24 @ 15:33 by Mady Bowling MD) Advanced care planning/counseling discussion (Acute) Palliative care patient (Acute) Smoker (Acute) Abnormal weight loss (Acute) Dependence on continuous supplemental oxygen (Acute) Discharge planning issues (Acute) Acute kidney injury superimposed on CKD (Acute) Iliac artery occlusion, right (Acute) CHF (congestive heart failure) (Chronic) Elevated brain natriuretic peptide (BNP) level (Acute) Acute hypoxic respiratory failure (Acute) Femoral artery occlusion (Acute) Sepsis (Acute) Constipation (Acute) Community acquired pneumonia (Acute) Acute exacerbation of chronic obstructive pulmonary disease (Acute) Bronchitis (Acute) Pyloric stenosis (Acute ~02/2024) Sees [facility] Esophageal stricture (Acute) EGD 01/2024,dilation of stricture, cont. PPI, Pyloric stenosis in adult (Acute) EGD 01/2024 Congestion of upper airway (Acute) Hx laparoscopic cholecystectomy (Acute) Done 01/09/2024 at [facility] [place] Pain in thoracic spine (Acute) Epigastric pain (Acute) COVID-19 (Acute) COVID-19 (Acute) COVID (Acute) Abnormal lung sounds (Acute) SOB (shortness of breath) (Acute) Dizziness (Acute) Tobacco abuse (Acute) Depressive disorder (Chronic 02/21/98) GERD (gastroesophageal reflux disease) (Chronic) F/u with [facility] Macrocytic anemia (Acute) MCV 99-199; ?chronic EtOH Constipation (Acute) ASCVD (arteriosclerotic cardiovascular disease) (Acute 04/14/02) 04/14/02 stent X2; ETT 1999 non-diagnostic, hypertensive; TIA 2005 Abnormal liver function (Acute) abnl GGT, Alk Phos, Albumin 12/25/23 [facility] visit Alcohol use disorder (Acute 02/21/98) h/o binge drinking 1997, 2002; chronic anemia, abnl LFT; three drinks/d Centrilobular emphysema (Acute) FEV1 1.57 (63% FVC, 70% pred, 2002) smoker 1/2 PPD; bronchiecasis, mucous pllugging on CT 10/2015 Chronic kidney disease (Acute 11/12/17) Disorder of vitamin B12 (Acute) Gait disorder, B12 level low Esophagitis (Acute 03/18/13) EGD and dilatation [facility] [place] [facility]; esophagitis, path few eos; REC PPI H/O ischemic vertebrobasilar artery cerebellar stroke (Acute 11/21/05) 11/2005 cerebellar TIA: dizzy, balance, R weakness; Dr Pimentel History of ASCVD (Acute 04/14/02) RCA tight 04/14/02 stent X2; ETT 1999 non-diagnostic, hypertensive; MPI 11/2003 nl perfusion; TIA 2005 Hyperlipidemia (Acute 03/23/02) Pulmonary emphysema (Acute 10/26/15) Tobacco dependence syndrome (Acute 12/11/11) 1/2 PPD, H/O DECR TO 0-3/D FOR 3MOS TIL RESTARTED 08/2011, stopped 10/2015; current 3/wk COPD (chronic obstructive pulmonary disease) (Chronic) Anemia (Acute) Lung nodules (Chronic) HTN (hypertension) (Chronic) Medical History (Updated 07/01/24 @ 15:33 by Mady Bowling MD) Hiatal hernia (~02/2024) 03/17/24 found on EGD, [facility], hernia 2cm Abnormal peak total bilirubin level (08/21/16) 129 first elevation 07/2016; with other LFT's normal Diarrhea (10/26/15) CVA (cerebral vascular accident) 2008? HTN (hypertension) Tobacco use disorder HLD (hyperlipidemia) ASCVD (arteriosclerotic cardiovascular disease) Hypokalemia Weight loss 12/25/23 [facility] Gastroenteritis Surgical History (Updated 06/21/24 @ 00:01 by NICOLETTE HUDSON) History of esophagogastroduodenoscopy (EGD) (02/21/24) Dr Rushing w/biopsy and dilation 03/17/[address] Rushing, [facility], dilation done,benign pyloric stenosis that was biopsied showed mild reactive changes. History of coronary artery stent placement 2 stents - ? 2008 Endoscopy (03/18/13) Dr Ch-[facility] [place] EGD & dilatation: esophagitis, ?eosinophilic Family History Mother , CVA at age 76. Stroke Father , stomach CA at age 69. Stomach cancer Brother No problems noted. Other Diabetes Heavy alcohol use Social History Smoking/Tobacco Use Status: Current every day Tobacco Type: cigarettes Years smoked: 76 Quit status: considering quitting Smoking risk assessment performed?: Yes Alcohol Intake: former Drug use: Never Substance use type: does not use Household members: none Housing: house Number of Children: 2 number of grandchildren: 4 Communication Needs: Corrective Lenses Do you need help understanding health information?: Rarely current occupation: retired from [employer] Pets and animals: Yes How often do you talk on the phone with friends or family?: three or more times per week Panel score (0-1 are the most socially isolated patients): 1 What type of physical activity do you participate in: walking Frequency: daily Seatbelt use: always Helmet use: No Drive intox or ride w/intox bottom hoop driver: No Working smoke detector in home: Yes Carbon monox detector in home: Yes Do you feel safe at home: Yes Do you feel safe in your relationship?: Yes Results Last Vital Signs Temp 36.9 C 07/01/24 11:38 Pulse 100 H 07/01/24 12:35 Resp 26 H 07/01/24 12:35 BP 152/66 H 07/01/24 11:38 Pulse Ox 92 07/01/24 12:35 Labs 07/01/24 06:30 07/01/24 06:30 Labs: Laboratory Results - last 24 hr 07/01/24 06:30 WBC 10.91 H RBC 2.31 L Hgb 7.6 L Hct 23.0 L MCV 100 H MCH 32.9 MCHC 33.0 RDW 13.2 Plt Count 310 MPV 11.4 H Immature Gran % 1.8 Neutrophils % 80.5 Lymphocytes % 11.5 Monocytes % 6.0 Eosinophils % 0.0 Basophils % 0.2 Nucleated RBC % 0.0 Absolute Neutrophils 8.78 H Absolute Lymphocytes 1.25 Absolute Monocytes 0.65 Absolute Eosinophils 0.00 Absolute Basophils 0.02 Sodium 143 Potassium 3.8 Chloride 106 Carbon Dioxide 28.1 Anion Gap 8.9 BUN 52 H Creatinine 1.6 H Est GFR (CKD-EPI 2020) 32.00 Glucose 125 H Calcium 9.2 Magnesium 2.2 Time Spent Time Spent with Patient Time Spent(min): 90
--- NOTE | 2024-07-01 14:45 | W.PM.PROGNOT ---
Date of Service Date of service: 07/01/24 Time of Service: 14:45 Assessment and Plan Assessment and plan (1) Comfort measures only status: Status: Acute Assessment and plan: Acute hypoxic hypercarbic respiratory failure Not improving despite 10 days of IV abx, in fact worsening Discussion with patient and family - home hospice consult done - Patient is FLIGHT ATTENDANT/INFLIGHT SUPERVISOR now and we will evaluate futility of home hospice in the am 07/03/24 FLIGHT ATTENDANT/INFLIGHT SUPERVISOR orders (2) Severe sepsis: Status: Resolved Assessment and plan: On admission now resolved and stable. (3) Acute hypoxic respiratory failure: Status: Acute Assessment and plan: Acute on chronic- at baseline oxygen Multifactorial acute hypoxic respiratory failure: n Patient now on comfort measures Continue O2 as tolerated to maintain sat 88-92% (4) Anemia: Status: Acute Assessment and plan: iron deficient and kidney disease Hgb 7.6 one unit of blood ordered to assist with oxygen carrying capacity prior to pt requesting senior analyst programmer (5) CHF (congestive heart failure): Status: Chronic Assessment and plan: FLIGHT ATTENDANT/INFLIGHT SUPERVISOR (6) Community acquired pneumonia: Status: Acute Assessment and plan: FLIGHT ATTENDANT/INFLIGHT SUPERVISOR (7) Acute exacerbation of chronic obstructive pulmonary disease: Status: Acute Assessment and plan: FLIGHT ATTENDANT/INFLIGHT SUPERVISOR (8) Acute kidney injury superimposed on CKD: Status: Acute Assessment and plan: FLIGHT ATTENDANT/INFLIGHT SUPERVISOR (9) Constipation: Status: Acute Assessment and plan: FLIGHT ATTENDANT/INFLIGHT SUPERVISOR (10) Iliac artery occlusion, right: Status: Chronic Assessment and plan: FLIGHT ATTENDANT/INFLIGHT SUPERVISOR (11) Discharge planning issues: Status: Acute Assessment and plan: FLIGHT ATTENDANT/INFLIGHT SUPERVISOR discussed with Dr. Russell Subjective Subjective Patient reports: no new complaints, feels better, tolerating liquids well, tolerating a regular diet, voiding w/o difficulty, bowel movement and afebrile; denies diarrhea, nausea or vomiting Interval history since last seen: Patient had increased difficulty breathing and difficulty speaking. She voiced wanting her code status to be DNR DNI with her son in the room as a witness. (Code status changed on chart to DNR DNI) Discussed with patient her desires, she wants to go home on hospice. A hospice consult was ordered. By the end of the day her breathing was worse, she was put on high flow. After failing high flow decision by patient and son for FLIGHT ATTENDANT/INFLIGHT SUPERVISOR - orders were completed and she is now FLIGHT ATTENDANT/INFLIGHT SUPERVISOR status. She looks comfortable at the time of this writing and has the usual medications ordered to keep her comfortable. Exam Const General: cooperative and frail appearing Nutritional Appearance: average body habitus Orientation: alert and oriented x3 HENMT Head: normal to inspection Resp Effort & Inspection: cough, tachypneic, no tracheal deviation, uses accessory muscles and prolonged expiratory phase Auscultation: rhonchi and wheezes Cardio Rate: tachycardic Rhythm: regular rhythm GI Inspection: normal to inspection Palpation: soft, not firm and no guarding Objective Last Vital Signs Temp 36.9 C 07/01/24 11:38 Pulse 100 H 07/01/24 12:35 Resp 26 H 07/01/24 12:35 BP 152/66 H 07/01/24 11:38 Pulse Ox 92 07/01/24 12:35 Laboratory Results - last 24 hr 07/01/24 06:30 WBC 10.91 H RBC 2.31 L Hgb 7.6 L Hct 23.0 L MCV 100 H MCH 32.9 MCHC 33.0 RDW 13.2 Plt Count 310 MPV 11.4 H Immature Gran % 1.8 Neutrophils % 80.5 Lymphocytes % 11.5 Monocytes % 6.0 Eosinophils % 0.0 Basophils % 0.2 Nucleated RBC % 0.0 Absolute Neutrophils 8.78 H Absolute Lymphocytes 1.25 Absolute Monocytes 0.65 Absolute Eosinophils 0.00 Absolute Basophils 0.02 Sodium 143 Potassium 3.8 Chloride 106 Carbon Dioxide 28.1 Anion Gap 8.9 BUN 52 H Creatinine 1.6 H Est GFR (CKD-EPI 2020) 32.00 Glucose 125 H Calcium 9.2 Magnesium 2.2 Time Spent with Patient Time Spent with Patient: >50 minutes Time was spent: preparing to see the patient(eg.review tests), ordering medications,tests, procedures, referring, communicating with other health personal care worker, indepentently interpreting results, counseling the patient and care coordination
[2024-07-01] MEDS: Enoxaparin 30 MG/0.3 ML SYR SC (16:18)
--- NOTE | 2024-07-01 17:32 | PDOC.CMPRO ---
Date of service: 07/01/24 Time of Service: 08:18 Care Management Progress Note Progress Note Text Progress Note Text: Bita was sitting up in the bed, and her son,Jamaal, was visiting, when CM met with them this morning. Bita is not participating much in the conversations around her care. She stated to CM that she can't understand why she can't breathe. Both cardiology and palliative consults were completed today. CM was notified that [facility] is unable to accept Bita to their facility. Jamaal and his mom were notified of this. Bita did reply that she does not want rehab, and she wants to stay here at the hospital. CM tried to explain that she no longer needs the hospital, but rehab care would be beneficial. Per Jamaal's request, referrals were sent to [facility], [facility] [place] [facility]. Jamaal and his family all work, and are all living pay check to pay check, and he does not believe that anyone can take the time off to care for Bita. Discharge Potential Discharge Needs: Other (SNF for STR) Anticipated Barriers to Discharge: Bed availability Patient/Family Education Needs: Review discharge instructions, discuss Ask Me Three Transportation: RCT RCT Transportation: Wheel chair van (vs EMS) Plan: Anticipate that Bita will transfer to SNF once medically stable, and bed is secured. She will f/u with the facility provider and continue per her plan of care. CM will continue to follow and to update the family. Social Determinants of Health Screening Will the Patient Participate in the Screening?: Declined to provide
[2024-07-01] MEDS: Furosemide 40 MG/4 ML VIAL IVP (18:19)
[2024-07-01] MEDS: CEFEPIME 2 GM in Normal Saline 100 ML IVPB (18:20)
--- NOTE | 2024-07-01 18:49 | NUR.NOTE ---
patient had meeting with palliative MD today with son Jamaal in room. Post discussion pt and son were confused about what the meeting was about and what the plan is. There continues to be little discussion with family and patient about prognosis of her chornic diseases and likelihood of improvement which is making it difficult for patient and son to discuss next steps due to the fact that they are unaware of where in the disease process she is and what interventions can still be accomplished. Patient seen by MD Da Silva this AM who suggested IV blood transfusion for low O2 carrying capacity but hospitalist MD Russell unwilling to transfuse at her current Hgb level (7.8). MD Da Silva also suggested 81mg ASA instead of 325mg and IV lasix today with PO maintanence dose of lasix despite Creatinine levels (which she emphasizes may improve with fluid offloading). Patient finally given IV lasix 40mg this evening, discussed with CARDIOVASCULAR SURGEON Anna Sawyer that pt only had 200ml output of urine this shift and would benefit from an IV dose, in addition to it being MD Da Silva's recommendation. Patient has also been c/o abdominal pain of unknown cause. Given colace/miralax today, last BM 06/29, she did have fecal impaction noted on CT abd on 06/19 and stool burden noted on recent abd xray. Patient continues to c/o not being able to breathe. This RN has been supporting her with prn nebs, positional changes to open up lungs, mucinex and titration of O2 when needed. Occassional morphine IV given for dyspnea. Patient and son are needing guidance on next steps of care and goals. Patient has not had any direction or interaction with staff that has provided with her an indication for what she can expect at this point in regards to her chronic processes (COPD, cardiorenal syndrome/CHF). This RN has voiced concern for lack of cohesive care between care members and consistent respiratory distress/tachypnea over the past week of hospital stay with charge nurses, providers during rounds and nursing home physician Brodie Shelton. Cardiology consult was completed today after 7 days of consult being placed due to poor communication on the needs for consult. MD Da Silva (per [facility] cardiology outpatient RN) voiced that she initially thought consult was placed for echo and once echo was done she no longer was needed. Consult reasoning was not made clear. This RN feels like there has been a significant delay in care to get this patient on medication she needs (i.e. daily lasix with diastolic heart failure) and discuss next steps of care. Discussed with Bleach Machine Operator Anna this afternoon that patient and family need to understand where her prognosis is at so she can make decisions to protect her quality of life. Son Jamaal has verbalized feeling very frustrated with lack of discussion with providers and lack of contact with providers over the last week of her stay. Nursing Note:
[2024-07-01] MEDS: Protein Nutritional Supplement 16 GM 1 OUNCE PACKET PO (19:48)
[2024-07-01] MEDS: Melatonin 3 MG TAB PO (19:48)
[2024-07-02] VITALS (16 sets, daily range): BP systolic 106–150; BP diastolic 58–72; PULSE 94–112; RESP 5–40; TEMP 31–36.9; O2SAT 85–93
[2024-07-02] MEDS: Levalbuterol 1.25 MG/3 ML UPD VIAL UPD ×2 (04:22→08:53)
[2024-07-02] MEDS: MORPHine 2 MG/ML SYR IVP ×8 (04:23→22:37)
[2024-07-02 06:39] LABS: Abs Immature Grans 0.23 10^3/uL (0.0-0.06); Absolute Eosinophil Count 0.01 10^3/uL (0.0-0.7); Basophils % 0.1 %; Eosinophils % 0.1 %; HGB 7.8 g/dL (11.2-15.7); Immature Grans % 1.6 %; MCH 32.8 pg (27.0-33.0); MCHC 32.5 % (32.0-36.0); MCV 101 fL (80-95); MPV 11.3 fL (8.0-11.0); Monocytes % 6.4 %; Neutrophils % 79.8 %; Platelet Count 379 10^3/uL (130-400); RBC 2.38 10^6/uL (3.93-5.22); RDW 13.2 % (11.7-14.6); RDW-SD 48.8 fL; WBC 14.47 10^3/uL (4.4-10.8)
[2024-07-02 06:40] LABS: Absolute Basophil Count 0.01 10^3/uL (0.0-0.2); Absolute Lymphocyte Count 1.74 10^3/uL (1.2-3.4); Absolute Monocyte Count 0.93 10^3/uL (0.1-0.8); Absolute Neutrophil Count 11.55 10^3/uL (1.2-6.7)
[2024-07-02 06:50] LABS: BUN 58 mg/dL (7-18); Calcium 9.8 mg/dL (8.5-10.1); Chloride 104 mmol/L (98-107); Glucose 111 mg/dL (74-106); Magnesium 2.2 mg/dL (1.8-2.4); Potassium 3.1 mmol/L (3.5-5.1); Sodium 144 mmol/L (136-145)
[2024-07-02 07:06] LABS: CREATININE 1.8 mg/dL (0.55-1.02)
[2024-07-02 07:09] LABS: Estimated GFR 27.78 (mL/min/1.73m2)
[2024-07-02] MEDS: Sucralfate 1 GM TAB PO ×2 (08:18→11:53)
[2024-07-02] MEDS: Pantoprazole 40 MG TABCR PO (08:18)
[2024-07-02] MEDS: Cyanocobalamin 500 MCG TAB PO (08:20)
[2024-07-02] MEDS: Acetaminophen 500 MG TAB 1000 MG PO (08:21)
[2024-07-02] MEDS: Multivitamin w/Minerals TAB 1 TAB PO (08:23)
[2024-07-02] MEDS: Aspirin 81 MG CHEW PO (08:23)
[2024-07-02] MEDS: Ferrous Sulfate 325 MG TAB PO (08:23)
[2024-07-02] MEDS: predniSONE 20 MG TAB 40 MG PO (08:24)
[2024-07-02] MEDS: Furosemide 40 MG TAB 20 MG PO (08:25)
[2024-07-02] MEDS: Normal Saline Flush 10 ML SYR IVP ×4 (08:33→22:37)
[2024-07-02] MEDS: Protein Nutritional Supplement 16 GM 1 OUNCE PACKET PO ×2 (08:47→13:46)
[2024-07-02] MEDS: Ipratropium 0.5 MG/2.5 ML UPD VIAL UPD (08:53)
[2024-07-02] MEDS: Potassium Chloride 20 MEQ TABCR 40 MEQ PO (09:46)
--- NOTE | 2024-07-02 09:56 | NS.NUTBLAN_ITS ---
Date of service: 07/02/24 Time of Service: 10:00 Nutritional Consult ASSESSMENT: Received request for nutrition consult regarding patient's poor po intake/declining nutritional status. Pt's appetite/intake has further declined. Continued weight loss trend with ~5kg lost since the beginning of the month. Nursing and kitchen staff confirming low intake - not eating much but ice cream and will take a sip or two for CIB frappes that she had been taking better earlier in the month. Oral nutrition supplements are not taken at this time. Noted that patient plan is to d/c to hospice at home. comfort measures only status noted and diet order removed. Nursing will continue to offer ice cream and such items and will call if needing anything from the kitchen for pleasure foods. 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
--- NOTE | 2024-07-02 10:16 | NUR.NOTE ---
Nursing Note: Pt refused to get out of bed, cough and deep breath, however patient stated she did not want to go to a rehab facility and that she wanted to stay here or go home.
--- NOTE | 2024-07-02 10:48 | PTTR_ITS ---
PT Notes Visit Reasons: Sepsis, Pneumonia, Influenza Physical Therapy Inpatient Teatment Note Date: 07/02/2024 Precautions: Fall. Droplet precautions for Influenza A. Activity as tolerated. Subjective: Remains very anxious about getting out of bed. Very fatigued and dizzy. Only agreeable to doing bed level exercises. Becomes very short of breath with little movements. Objective: General Observation: Oxygen supplementation via NC on 4 L/min. IV through B UEs. Mental Status: Oriented as to person, place, time, and purpose. Able to pay attention, focus, and respond appropriately. Pain: None reported Vital Signs: SaO2 tanked down to 88% with attempt at bed level exercises even with with O2 supp Bed Mobility/Transfers: Minimal cueing provided for use of B hands as needed for support, movement sequence, AD management, and posture to reduce fall risk and minimize pain report Supine to sit with HOB elevated to 45 degrees moderate assist of PT Sit to stand refused x 3 Stand to sit refused x 3 Gait: Refused to get OOB x 3. Son Jamaal in room during patient's refusal and increa sed anxiety with movement. THERA EX: Direct one-on-one supervision and training for correct execution of exercises to facilitate increased intestinal motility while increasing strength as follows: [id number] x 5 B rail pulls x 5 for 2 sets with HOB at 45 degrees to work on UE strength and core strength, very fatigued after activity Anle DF/PF Balance: Static Sitting: Unable to test Dynamic Sitting: Unable to test Static Standing: Unable to test Dynamic Standing: Unable to test ASSESSMENT: Continues to demonstrate significant functional decline since day 2 of PT evaluation. Now more short of breath even with very little effort. Anxiety way worse with offer to get out of bed. Hospitalist and CM agreeable to PT discontinuation of services. DISCHARGE RECOMMENDATIONS: [] Home with no services [] [] Home with services [specify] [] Home with outpatient PT [] [] SNF for continued rehabilitation [] Nursing Home Care [] [] SNF versus LTC based on ability to participate and progress [] [X] Patient transitioning to hospice in a day or so. No skilled services needed as of today. CM and hospitalist agreeable to PT D/C. TREATMENT CODE/TIME: 93079 x 14 minutes for 1 unit, 71014 x 30 minutes for 2 units(08:53-09:24).
--- NOTE | 2024-07-02 12:24 | W.SPSTE ---
Date of service: 07/02/24 Time of Service: 12:24 Subjective Clinical (Bedside) Swallow Evaluation - Inpatient Speech Language Pathology Referred by: Anna Sawyer Start time: 12:00 End time: 12:20 Total patient contact: 20 min Referral Type: Routine Swallow Consult Precautions: Droplet, Fall, DNI Reason for Referral/HPI: Patient is an 83 y/o F admitted for [id number] respiratory and heart failure, CAP, influenze, and COPD. Ejection fracture was 60-65%. She is on home oxygen at baseline (3L). Add'l history includes remote cerebellar CVA 2005, diastolic heart failure, depression, anemia, nicotimne dependence. She has had several recent [facility] admissions for COPD exacerbation and, more recently, septic pneumonia. She left after 24 hrs in the hospital, AMA. She initially showed some improvement on returning home but now is more sick. Presented to the ED with shortness of breath and weakness. She also has a history of esophageal stricture in 2023, which GI at [facility] was not able to adequately treat. She was [place] [facility] but they prioritized taking out her gall bladder. After this, her symptoms improved temporarily and she did not seek further dilation when the time came. Now in recent months her esophageal dysphagia has worsened again and, according to her family, she has largely been surviving on liquid nutrition. COMPUTER SYSTEMS SUPPORT SPECIALIST IMPRESSIONS & RECOMMENDATIONS: Patient presents with a global oral-motor weakness which mirrors her overall deconditioning, weakness, and poor medical/respiratory status at this time, It is likely/possible there is a new oral-pharyngeal dysphagia superimposed at this time, but primary barrier to PO intake appears to be esophageal in nature given patient complaint of food sticking in her chest, unable to take more than a few sips before refusing further trials, and given documented history of esophageal stricture that is under-treated. For trials observed this date, there were no s/sx aspiration, no wet voice, throat clearing. Swallow initiation was relatively timely and audible. She may benefit from MBSS or Barium esophagram to rule out aspiration as contributing to respiratory profile, but she is not able to tolerate upright position long enough to complete the exam. From discussion with hospitalist this date, patient is likely to transition to hospice in the coming days given her overall clinical picture. Despite medical treatment, she has shown functional decline with physical therapy as well. Recommend to modify diet to liquified solids with reflux precautions and esophageal strategies as below in order to maximize PO intake if patient is willing/interested. FURTHER INPATIENT COMPUTER SYSTEMS SUPPORT SPECIALIST SERVICES: No further inpt COMPUTER SYSTEMS SUPPORT SPECIALIST services needed. If patient's clinical picture improves/changes significantly it would be appropriate for COMPUTER SYSTEMS SUPPORT SPECIALIST to re-evaluate patient at that time. DISCHARGE RECOMMENDATIONS: No further COMPUTER SYSTEMS SUPPORT SPECIALIST services indicated/Please re-refer as needed Diet modification is indicated as follows for the purpose of reduced esophageal stasis, energy conservation, reduced work of breathing due to pulmonary status, patient preferences/to increase nutritional intake Diet Recommendations: ? SOLIDS: 3-Liquidised Solids LIQUIDS: 0-Thin Liquids MEDICATIONS: Crushed as able Liquid formulations when able With 3-Moderately Thick Liquids With 4-Purees Alter medications only as advised by MD or Pharmacist RISK MANAGEMENT: Level of Assistance/Supervision: Provide set-up assist with initial verbal reminders for aspiration precautions as below Positioning and environment: PO intake only when awake/alert? Reduce auditory and/or visual distractions when eating As upright as tolerated, use HOB controls/bed tilt to achieve upright positioning Oral hygiene BID/2x per day Using friction with toothbrush on all oral structures as tolerated Strategies/Adaptations/Assistive Equipment: Small sips Slow rate of intake Reflux Precautions: Small+frequent meals throughout day Maintain upright position at least 30 minutes after meals Sleep with head of bed elevated to reduce likelihood of nocturnal reflux Education Provided to: Nursing Patient Family Physician Topics Addressed: anatomy/physiology of swallowing mechanism definition and impacts of aspiration impact of current diagnoses on swallow function role of COMPUTER SYSTEMS SUPPORT SPECIALIST in management of swallow disorders overt s/sx to monitor for re: potential aspiration of food / liquids relationship between reflux, GERD and swallow fxn relationship between respiratory function and deglutition rationale and instruction for additional risk management strategies as below SUBJECTIVE: Patient received: alert/awake, lethargic. Reluctant but ultimately agreeable to evaluation. Pain Reported I can't breathe Baseline Swallow Function: Patient reports baseline difficulty getting foods into her stomach because of esophageal history. She and her son deny any consistent s/sx aspiration, throat clearing, regurgitation, coughing, etc. She states eating is very uncomfortable. OBJECTIVE Patient positioning: As upright as possible using HOB/bed tilt controls. about 75 degrees upright. Oral care: Reported recently completed Respiratory status: Low flow nasal cannula, appears dyspneic Orientation/Mental status: Oriented to self, Not oriented to date, Appears with insight into deficits but is a non-specific windows system admin. Speech: Low intensity and short breath groups in context of SOB/dyspnea Oral Mechanism Examination: Oral mucosa: Dry ? Cranial Nerve Assessment: GLOBALLY WEAK PO Intake: Trials Assessed: IDDSI 0 Thin Liquids IDDSI 2 Mildly Thick Liquid IDDSI 4 Puree Solid containing crushed Medications administered by RN x 2 bites Oral Phase Findings: Residue - mild lingual. Otherwise WFL for textures trialed. Able to achieve good suction using straw for consecutive sips, but these caused increased SOB due to swallow apnea. Pharyngeal Phase Findings: Reduced hyolaryngeal elevation/excursion Esophageal Phase Findings: ? Patient reports esophageal stasis ? Belching observed ? Alma Swallow Protocol Results: FAIL ? Unable to complete without stopping/starting PLAN: No further COMPUTER SYSTEMS SUPPORT SPECIALIST services indicated at this time. Please re-refer as needed. COMPUTER SYSTEMS SUPPORT SPECIALIST CPT Code: 15929 Clinical Swallowing Evaluation
[2024-07-02] MEDS: levoFLOXacin 750 MG/150 ML BAG 100 MG IVPB (12:42)
[2024-07-02] MEDS: Furosemide 100 MG/10 ML VIAL 60 MG IVP (13:03)
--- NOTE | 2024-07-02 13:33 | CMPROGNOTE_ITS ---
Date of service: 07/02/24 Time of Service: 13:33 Care Management Progress Note Progress Note Text Progress Note Text: CM met with Bita and her son, Jamaal this morning. Jamaal had many questions regarding the plan going forward. Jamaal met with the hospitalist later in the day. Plan was made to have a hospice consult and for Bita to go home on hospice. Jamaal will take FMLA and be her primary animal care giver. Jamaal likes this plan, but is noticeably feeling sad over the imminent loss of his mom. Discharge Potential Discharge Needs: Consult (hospice consult this afternoon) Anticipated Barriers to Discharge: None Identified Patient/Family Education Needs: Review discharge instructions, discuss Ask Me Three Transportation: EMS Plan: Bita and Jamaal will meet with hospice today and anticipate that Bita will go home on hospice in the next couple of days. She will be followed by the Hospice team and continue per her plan of care. CM will continue to follow and help coordinate this discharge. Social Determinants of Health Screening Will the Patient Participate in the Screening?: Declined to provide
[2024-07-02] MEDS: LORazepam 2 MG/ML VIAL 0.5 MG IVP ×3 (14:51→21:35)
--- NOTE | 2024-07-02 16:10 | CHAPLAIN ---
Bita was resting in bed with a bi-Pap on when I visited this afternoon. She said that she is having trouble breathing. Her nurse came in to give her some meds and Bita seemed to relax after that, and she fell asleep. Her son Jamaal arrived. He'd been here earlier in the day as well. Jamaal said they will likely take Bita home on hospice on Sunday. He, his , his sister and niece will help care for Bita. Jamaal said he father in law a year a half ago (and was in the same room the Bita is in now) and his brother unexpectedly about a year ago. That was particularly difficult, and traumatic for Bita, and her health declined from there, Jamaal said. I will continue to visit.
--- NOTE | 2024-07-02 16:53 | NUR.NOTE ---
Nursing Note:RN Notified SALVAGER that patient had a decrease in breathing and respiratory pattern. RN stated 226: R Adelfo: breathing is very irregular... Her VS are stable, she is still tachycardia, but i dont think shes going to make it home on hospice..., SALVAGER went to bed side to assess patient, Son notified regarding change in patient status. SALVAGER stated to stop the blood transfusion, give dose of morphine, D/C tele, and will place new orders. EMMY CARBALLO
--- NOTE | 2024-07-02 17:25 | NUR.NOTE ---
Nursing Note: Family at bedside, comfort cart provided.
[2024-07-02] MEDS: Scopolamine 1 MG/3 DAYS PATCH TD (18:35)
[2024-07-03] MEDS: Normal Saline Flush 10 ML SYR IVP ×10 (00:38→19:26)
[2024-07-03] MEDS: LORazepam 2 MG/ML VIAL 0.5 MG IVP (00:38)
[2024-07-03] MEDS: MORPHine 2 MG/ML SYR IVP (00:38)
--- NOTE | 2024-07-03 01:30 | NUR.NOTE ---
Nursing Note: Pt's family called staff in due to new onset shaking. Upon visualizing, pt unable to respond to stimuli but shaking significantly. Rhythmic movement to bilateral lower extremities and head, appearing almost tonic/clonic in nature. RR 18, HR 68, pulse weaker but easily found. Pt recieved a warm blanket. Family informed that Pt does not have any prn meds currently available, but CNL is currently paging the hospitalist.
[2024-07-03] MEDS: LORazepam 2 MG/ML VIAL 1 MG IVP ×4 (02:01→07:46)
[2024-07-03] MEDS: MORPHine 2 MG/ML SYR 4 MG IVP ×4 (02:35→08:49)
--- NOTE | 2024-07-03 09:54 | W.PM.PROGNOT ---
Date of Service Date of service: 07/03/24 Time of Service: 09:54 Assessment and Plan Assessment and plan (1) Comfort measures only status: Status: Acute Assessment and plan: Acute hypoxic hypercarbic respiratory failure Completed antibx and tamiflu therapy as per guidance w/o improvement O2 went to basline need then increased As per reported discussion with patient and family - 07/03 discussion with family re: actively dying patient w/o ability to provide a specific time or date home hospice consult done initially but the patient is actively dying and will be d/c Continue LAMINATOR PRINTED CIRCUIT BOARDS orders -IVP morphine stopped and now on hydromorphone CADD (2) Severe sepsis: Status: Resolved Assessment and plan: Resolved and as above (3) Acute hypoxic respiratory failure: Status: Acute Assessment and plan: As above (4) CHF (congestive heart failure): Status: Chronic Assessment and plan: As above (5) Anemia: Status: Acute Assessment and plan: On LAMINATOR PRINTED CIRCUIT BOARDS (6) Community acquired pneumonia: Status: Acute Assessment and plan: as above (7) Acute exacerbation of chronic obstructive pulmonary disease: Status: Acute Assessment and plan: as above (8) Acute kidney injury superimposed on CKD: Status: Acute Assessment and plan: as above (9) Constipation: Status: Acute Assessment and plan: as above (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 Russell Subjective Subjective Interval history since last seen: Appears comfortable, no reported distress, vomiting Exam Narrative Exam Narrative: Patient in bed without acute distress, no tachypnea,S1 S2 regular, skin is pink and warm Objective Last Vital Signs Temp 36.6 C 07/02/24 16:44 Pulse 98 H 07/02/24 16:44 Resp 12 07/02/24 16:44 BP 127/72 07/02/24 16:44 Pulse Ox 93 07/02/24 16:44 Laboratory Results - last 24 hr 07/02/24 07/02/24 06:05 13:28 ABO/Rh O Positive Blood Type Recheck O Positive Antibody Screen NEGATIVE Crossmatch See Detail Time Spent with Patient Time Spent with Patient: >50 minutes Time was spent: preparing to see the patient(eg.review tests), obtaining and/or reviewing separately otained hiistory, ordering medications,tests, procedures, referring, communicating with other health student career development specialist, indepentently interpreting results, counseling the patient and care coordination
[2024-07-03] MEDS: HYDROmorphone 50 MG in Normal Saline 245 ML IV_INF (12:15)
--- NOTE | 2024-07-03 13:56 | CMPROGNOTE_ITS ---
Date of service: 07/03/24 Time of Service: 13:56 Care Management Progress Note Progress Note Text Progress Note Text: Cinthya was resting comfortably when CM met with her; her son, Jamaal and other family members were in the room. Jamaal stated that has been by her side all night, and he feels that she is comfortable. There was a comfort cart in the room, which the family appreciates. Palliative care met with the family today, and discussed Cinthya going home on hospice vs remaining at [facility] for end of life care. Per report, Cinthya has been unresponsive throughout the day. It was decided that she will remain at [facility] for end of life care, as per report, it ap pears that she is actively dying. CM will continue to follow and support discharge planning considerations. Discharge Plan: Cinthya has been transitioned to comfort measures, and will remain at [facility] for end of life care. Her family has been by her side continuously. Palliative care is following. CM will continue to follow and support Cinthya and her family during this difficult time. Social Determinants of Health Screening Will the Patient Participate in the Screening?: Declined to provide
--- NOTE | 2024-07-03 14:01 | PCPN_ITS ---
Date of service: 07/03/24 Time of Service: 14:01 Assessment and Plan Assessment and plan (1) Comfort measures only status: Status: Acute Assessment and plan: Acute hypoxic hypercarbic respiratory failure. She is on hydromorphone pump at 0.2 mg/hr. Titrate as needed. She appears to be resting comfortably with family at bedside. Her family feels she is comfortable. There was consideration for discharge home on hospice but she appears to be actively dying so she will remain here for EOL care. (2) Severe sepsis: Status: Resolved Assessment and plan: Resolved (3) Acute hypoxic respiratory failure: Status: Acute (4) CHF (congestive heart failure): Status: Chronic (5) Anemia: Status: Acute Assessment and plan: On QUALIFICATION ENGINEER (6) Community acquired pneumonia: Status: Acute (7) Acute exacerbation of chronic obstructive pulmonary disease: Status: Acute (8) Acute kidney injury superimposed on CKD: Status: Acute (9) Constipation: Status: Acute Assessment and plan: Had BM today. 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 She appears to be actively dying. Her life expectancy is measured in hours to days. Palliative will continue to follow. Subjective Subjective Interval history since last seen: Cinthya was seen in her hospital room with her granddaughter and 2 other visitors present. She has a hydromorphone pump running at 0.2 mg/hr at present and she appears to be resting comfortably in bed. Staff to titrate as needed. She is unresponsive. Her family feels she is comfortable at this time. Staff report that they are able to reposition her and provide care and she appears to be comfortable through this. Staff report that several family members have been with her, including overnight. Exam Narrative Exam Narrative: General: elderly female, laying in bed, she is unresponsive. She does not appear to be in distress, no furrowed brows or grimacing. HEENT: normocephalic, atraumatic, eyes closed, mmm Cardiovascular: tachycardic. Respiratory: respirations appear even and unlabored at rest. GI: +BS, soft, flat. Ext: no edema, all 4 extremities are warm to touch. Scattered areas of ecchymosis noted on BUEs. Objective Last Vital Signs Temp 36.6 C 07/02/24 16:44 Pulse 98 H 07/02/24 16:44 Resp 12 07/02/24 16:44 BP 127/72 07/02/24 16:44 Pulse Ox 93 07/02/24 16:44 Laboratory Results - last 24 hr 07/02/24 07/02/24 06:05 13:28 ABO/Rh O Positive Blood Type Recheck O Positive Antibody Screen NEGATIVE Crossmatch See Detail
--- NOTE | 2024-07-03 15:02 | CHAPLAIN ---
Bita remains unresponsive. Her family believes she is comfortable. There are several family members in the room with her. Yesterday the plans was for her to go home tomorrow on Hospice. After she became unresponsive yesterday the planned changed so that she will remain here for end of life care. I will continue to check in on the family and Bita.
--- NOTE | 2024-07-04 07:21 | EXPE_ITS ---
Date of service: 07/04/24 Time of Service: 07:21 Discharge Plan Disposition Patient Disposition: Discharge Details Reason For Visit: Sepsis, Pneumonia, Influenza Admit Date/Time: 06/23/24 13:11 Admit Provider: Edis Purvis Attending Provider: Edis Purvis Primary Care Provider: Yolanda Thomas Hospital Course Hospital Course: Patient was initially admitted to the hospital with multifocal pneumonia, sepsis, and hypoxic respiratory failure, influenza A, new onset CHF and COPD exacerbation. During her hospital course she was treated with maximal medical therapy. However, after about 10 days of maximal medical therapy with steroids, inhalers, Tamiflu, IV antibiotics, patient's condition not only failed to improve but slowly worsened. After prolonged discussion with patient and family, decision was made for pending patient to transition to comfort measures only. Ultimately, patient passed on the morning of 07/04/2024 at 7:06 AM. Discharge Data Cause of : Respiratory failure Discharge Sum: Prov Provider Consults: 06/24/24 09:10 Cardiology Consult [CONS] Routine Consultation Status:: Follow-up needed Clarification:: Manage/follow per spec. Reason for consult:: ? new onset CHF - echo ordered- in with severe sepsis pneumonia, influenza A 06/24/24 19:56 Physical Therapy Consult [CONS] Routine Consulting Provider: Rell Mahan,InPatient Priority: Urgent Reason for Urgent Priority: Eval for Assistive Device Safety Consult for D/C 07/01/24 08:29 Palliative Care Consult [CONS] Routine Consultation Status:: Follow-up needed Clarification:: Manage/follow per spec. Reason for consult:: establish goals of care 07/02/24 09:36 Speech Therapy Consult [CONS] Routine Consulting Provider: [facility] Speech Langauge Pathology Type of Consult: Swallow Check all that apply: High Risk choke/asp/PNA 07/02/24 09:38 Nutrition Consult [CONS] Routine Consulting Provider: [facility] Nutrition Consultation Status:: Follow-up needed Clarification:: Manage/follow per spec. Reason for consult:: Weak, not eating much, speech will see hard to swallow 07/02/24 12:43 Hospice Consult [CONS] Routine Consultation Status:: Follow-up needed Clarification:: Manage/follow per spec. Reason for consult:: End stage lung disease would like to go home on hospice 07/03/24 09:59 [place] Consult [CONS] Routine Consultation Status:: Follow-up needed Clarification:: Manage/follow per spec. 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
--- NOTE | 2024-07-04 07:22 | NUR.NOTE ---
Nursing Note: Son at bedside notified RN that patient was no longer breathing. RN assessed patient with Gina CARBALLO, Patient apnic, no breath sounds, no heart sounds ascultated for one full minute. Patient pronounced at 0706. Provider notified.
--- NOTE | 2024-07-04 16:53 | PDOC.CMPRO ---
Date of service: 07/04/24 Time of Service: 08:20 Care Management Progress Note Progress Note Text Progress Note Text: Bita passed peacefully this morning at 0706, surrounded by family. CM payed her condolences. Social Determinants of Health Screening Will the Patient Participate in the Screening?: Declined to provide
--- NOTE | 2024-07-11 10:08 | PGE_ITS ---
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 (5) CHF (congestive heart failure): Status: Chronic Assessment and plan: RESTORATIVE CARE TECHNICIAN (6) Community acquired pneumonia: Status: Acute Assessment and plan: RESTORATIVE CARE TECHNICIAN (7) Acute exacerbation of chronic obstructive pulmonary disease: Status: Acute Assessment and plan: RESTORATIVE CARE TECHNICIAN (8) Acute kidney injury superimposed on CKD: Status: Acute Assessment and plan: RESTORATIVE CARE TECHNICIAN (9) Constipation: Status: Acute Assessment and plan: RESTORATIVE CARE TECHNICIAN (10) Iliac artery occlusion, right: Status: Chronic Assessment and plan: RESTORATIVE CARE TECHNICIAN (11) Discharge planning issues: Status: Acute Assessment and plan: RESTORATIVE CARE TECHNICIAN discussed with Dr. Russell Subjective Subjective Patient reports: no new complaints Exam Const General: cooperative and frail appearing Nutritional Appearance: average body habitus Orientation: alert and oriented x3 HENMT Head: normal to inspection Resp Effort & Inspection: cough, tachypneic, no tracheal deviation, uses accessory muscles and prolonged expiratory phase Auscultation: rhonchi and wheezes Cardio Rate: tachycardic Rhythm: regular rhythm GI Inspection: normal to inspection Palpation: soft, not firm and no guarding Objective Last Vital Signs Temp 36.6 C 07/02/24 16:44 Pulse 98 H 07/02/24 16:44 Resp 12 07/02/24 16:44 BP 127/72 07/02/24 16:44 Pulse Ox 93 07/02/24 16:44 Time Spent with Patient Time Spent with Patient: 25-34 minutes Time was spent: preparing to see the patient(eg.review tests), ordering medications,tests, procedures, referring, communicating with other health nursing care partner, indepentently interpreting results, counseling the patient and care coordination
== END 2024-07-04 07:06 | disposition expired | DRG 871 ==
LOC: ER 13:26 → MS 14:02
PROVIDERS: Family Medicine; Nurse Practitioner Acute Care; Nurse Practitioner Family; Admitting Provider Family Medicine; Emergency Provider Emergency Medicine; PCP Nurse Practitioner; Responsible Provider Nurse Practitioner Acute Care; Visit Provider Family Medicine
DX: A41.9 Sepsis, unspecified organism (principal); I50.33 Acute on chronic diastolic (congestive) heart failure; J10.00 Influenza due to other identified influenza virus with unspecified type of pneumonia; J18.9 Pneumonia, unspecified organism; J96.21 Acute and chronic respiratory failure with hypoxia; J44.1 Chronic obstructive pulmonary disease with (acute) exacerbation; I13.0 Hypertensive heart and chronic kidney disease with heart failure and stage 1 through stage 4 chronic kidney disease, or unspecified chronic kidney disease; J21.9 Acute bronchiolitis, unspecified; J44.0 Chronic obstructive pulmonary disease with (acute) lower respiratory infection; I74.5 Embolism and thrombosis of iliac artery; N17.9 Acute kidney failure, unspecified; K31.1 Adult hypertrophic pyloric stenosis; R65.20 Severe sepsis without septic shock; I25.10 Atherosclerotic heart disease of native coronary artery without angina pectoris; Z86.73 Personal history of transient ischemic attack (TIA), and cerebral infarction without residual deficits; Z79.899 Other long term (current) drug therapy; Z99.81 Dependence on supplemental oxygen; Z66 Do not resuscitate; K59.00 Constipation, unspecified; K22.2 Esophageal obstruction; M54.6 Pain in thoracic spine; F17.210 Nicotine dependence, cigarettes, uncomplicated; K21.9 Gastro-esophageal reflux disease without esophagitis; E53.8 Deficiency of other specified B group vitamins; E78.5 Hyperlipidemia, unspecified; R91.8 Other nonspecific abnormal finding of lung field; Z95.5 Presence of coronary angioplasty implant and graft; I35.1 Nonrheumatic aortic (valve) insufficiency; D63.1 Anemia in chronic kidney disease; F32.A Depression, unspecified; N18.32 Chronic kidney disease, stage 3b; Z51.5 Encounter for palliative care
CPT/HCPCS: 00123; 36415; 36430; 80048; 80053; 82805; 84145; 85027; 86850; 86900; 86901; 86920; 87040; 87637; 92610; 93005; 93306; 94761; 96365; 96368; 97110; 97162; 97530; 99222; 99291; 71045; 71046; 74018; 82607; 82746; 83540; 83550; 83605; 83735; 83880; 84466; 84484; 85025; 93010; 94640; 94667; 94668; 94760; 99223; 99232; 99233; J0456; J0692; J0696; J1171; J1650; J1756; J1940; J1941; J1956; J2060; J2270; J2405; J3490; J7512; J7613; J7614; J7620; J7644; P9016; P9047

== ENCOUNTER → 2024-06-24 09:27 | Outpatient (BNVA) | payer MEDICARE, SELFPAY | PROVIDERS: PCP Nurse Practitioner; Referring Provider Nurse Practitioner; Visit Provider Internal Medicine Cardiovascular Disease ==